=== PATIENT | male | born 1955 | race Caucasian/White ===

== ENCOUNTER 2018-04-12 10:03 | Inpatient (IN) | payer OTHER, SELFPAY ==
[2018-04-12] VITALS (12 sets, daily range): BP systolic 137–210; BP diastolic 76–90; PULSE 78–97; RESP 15–26; TEMP 36.1–36.8; O2SAT 96–99; BMI 24.4; BMI 24.9
--- NOTE | 2018-04-12 10:15 | EKG12_ITS ---
Test Reason : ABN LABS Blood Pressure : / mmHG Vent. Rate : 081 BPM Atrial Rate : 081 BPM P-R Int : 220 ms QRS Dur : 090 ms QT Int : 384 ms P-R-T Axes : 046 025 074 degrees QTc Int : 446 ms Sinus rhythm with 1st degree A-V block Otherwise normal ECG Confirmed by VAL MACIAS, YOLANDA ([id number]), development editor STEPHANIE CERRATO ([id number]) on 04/15/2018 1:57:29 PM Referred By: CIERRA Confirmed By:YOLANDA NEAL MD
--- NOTE | 2018-04-12 10:18 | ED.DCSUM_ITS ---
- ER Visit Summary Date of Service: 04/12/18 Chief Complaint: Abnormal labs History of Present Illness: The patient is a 62 M who had routine labs drawn last week for doctor's appointment. He was seen by the doctor at the [place] yesterday. His renal function had worsened and his potassium was slightly elevated. Labs were reportedly repeated after yesterday's visit and were further elevated. He had a phone call that he is to come in due to the worsening renal function and elevated potassium. Patient has no complaints at this time. Past history is significant for chronic renal failure, reflux disease, diabetes , hypertension, high cholesterol, coronary artery disease. He has had bypass surgery. Physical Examination: Vital signs are unremarkable. Patient is in no acute distress and is nontoxic appearing. Head and neck examination is normal. Heart is regular rate and rhythm. Palpable pulses are noted throughout. Lungs are clear with good air movement throughout. Abdomen is soft and nontender. Bowel sounds are noted. Extremity examination is unremarkable with full range of motion. Neurologic examination reveals no focal deficits. Test Results: CBC was normal white count with hemoglobin 10.7. Chemistry studies were potassium of 6.3, BUN of 80, creatinine of 5.47. Prior lab values here appear to show a baseline creatinine in the mid 2 range. EKG is sinus at 81 with a first-degree AV block. Peaked T waves are noted. Emergency Department Course and Treatment: Patient was given calcium, albuterol , Kayexalate, insulin, and glucose. We contacted the [place] [facility] but they state they have no monitored beds. Patient can be admitted here to this hospital. Hospitalist is on page at this time. Treatment Plan: [] Disposition: Admit Impression: 1. Acute on chronic renal failure 2. Hyperkalemia This note was generated with [employer] dictation software. It may contain incorrect words, spelling, and punctuation that were not noted in review of the chart prior to signing ED Disposition - Plan for ED Patient: Chief Complaint: Abn Labs Referrals: [facility] [Primary Care Provider] -
[2018-04-12 10:28] LABS: Absolute Lymphocyte Count 1.17 X10^3/ul (0.83-4.51); Absolute Neutrophil Count 5.3 X10^3/uL (2.0-7.7); Basophil# 0.07 X10^3/uL; Basophil% 0.9 % (0-1); Eosinophil# 0.21 X10^3/uL; Eosinophils% 2.8 % (0-5); Hematocrit 32.9 % (40-54); Hemoglobin 10.7 g/dl (13.0-16.5); Lymphocyte # 1.17 X10^3/ul (4.0); Lymphocyte % 15.5 % (19-41); Mean Corp Hgb Conc 32.5 g/gl (32-36); Mean Corpuscular Hgb 30.7 pg (27.0-32.0); Mean Corpuscular Volume 94.5 fL (80-94); Monocyte# 0.69 X10^3/uL; Monocyte% 9.1 % (0-10); Neutrophil # 5.34 X10^3/uL (2.7-7.7); Neutrophil % 70.8 % (47-70); POSITIVE COUNT NO; POSITIVE DIFFERENTIAL NO; POSITIVE MORPHOLOGY NO; Platelet Count 234 K/mm3 (150-450); RBC Distribution Width SD 46.1 fl (35.1-43.9); Red Blood Count 3.48 M/mm3 (4.6-6.2); White Blood Count 7.6 K/mm3 (4.4-11.0)
[2018-04-12] MEDS: 0.9% Normal Saline 1,000 ML 150 ML IV ×3 (10:30→23:22)
[2018-04-12 10:46] LABS: Anion Gap 9 (5-15); BUN 80 mg/dL (7-18); BUN/Creat Ratio 14.6 RATIO (10-20); Calcium,Total 8.8 mg/dL (8.5-10.1); Chloride 112 mmol/L (98-107); Creatinine, Serum 5.47 mg/dL (0.70-1.30); EST Glomerular Filtration Rate 11 mL/min (>60); Est Glom Filt Rate - Afr Amer 14 mL/min (>60); Estimated Creatinine Clearance 15.76 ml/min; Glucose 123 mg/dL (74-106); Potassium 6.3 mmol/L (3.5-5.1); Sodium Level 142 mmol/L (136-145)
--- NOTE | 2018-04-12 10:48 | ED.RN ---
lab called k 6.3. dr arteaga
[2018-04-12] MEDS: Albuterol 2.5 MG/3 ML VIAL.NEB. INHALATION (10:52)
--- NOTE | 2018-04-12 11:13 | NURSING ---
CALLED [facility] , LEFT MESSAGE ABOUT ADMISSION. DX RENAL FAILURE AND HYPERKALEMIA
[2018-04-12 11:15] LABS: Bedside Glucose 112 mg/dL (70-110)
[2018-04-12] MEDS: Sodium Polystyrene Sulfonate 15 GM/60 ML UDC 45 GM PO (11:31)
--- NOTE | 2018-04-12 11:43 | NURSING ---
CALLED [facility], LEFT ANOTHER MESSAGE WITH THE INFO THEY REQUEST.
--- NOTE | 2018-04-12 12:25 | NURSING ---
CALLED [facility] TRANSFER LINE, TALKED TO PANCHO. SHE WILL SEND INFO TO [facility]
--- NOTE | 2018-04-12 12:30 | NURSING ---
PER [facility], NO BEDS THERE. CAN BE ADMITTED HERE AND THEY WILL FOLLOW HIM
[2018-04-12] MEDS: Dextrose 50%-Water 25 GM/50 ML DISP.SYRIN IV (12:42)
--- NOTE | 2018-04-12 13:23 | US_ITS ---
STUDY: RENAL ULTRASOUND - COMPLETE REASON FOR EXAM: Male, 62 years old. Kidney failure. Patient on dialysis for 2 years. Abnormal labs. TECHNIQUE: Ultrasound evaluation of the kidneys was performed with real-time and static hensley-scale imaging. COMPARISON: None. FINDINGS: RIGHT KIDNEY: Normal location of the right kidney, which is normal in size. The right kidney measures 12.8 cm. There is mildly increased renal cortical echogenicity. The renal cortex measures 1.2 cm. There is a 3.7 x 3.6 x 2.9 cm simple cyst in the lower pole central sinus fat. There are no right renal calculi. There is no right hydronephrosis. DISTAL RIGHT URETER: There is non-visualization of the distal right ureter. There is no demonstrated right ureterovesical junction calculus. There is a visualized right ureteral jet. LEFT KIDNEY: Normal location of the left kidney, which is normal in size. The left kidney measures 11.2 cm. There is a normal cortex of the left kidney. The renal cortex measures 1.1 cm. There is no left renal mass or cyst. There are no left renal calculi. There is a 1.6 x 1.4 x 1.4 cm lower pole cyst. DISTAL LEFT URETER: There is non-visualization of the distal left ureter. There is no demonstrated left ureterovesical junction calculus. There is a visualized left ureteral jet. BLADDER: The incompletely distended urinary bladder has a volume of 66 ml. There is a normal wall thickness of the distended urinary bladder. There is no demonstrated mass within the urinary bladder. There are no demonstrated bladder calculi. US/Kidney and Bladder IMPRESSION: 1. Mildly increased renal cortical echogenicity of the right kidney. Question medical renal disease. 2. Bilateral renal cysts. 3. Incompletely distended but otherwise normal urinary bladder. Electronically Signed: Shaun Kitchen DO at 15:32 EDT Tel [phone], Service support ,
--- NOTE | 2018-04-12 13:52 | CM.ED ---
Attempted to perform initial case management assessment. Patient unavailable at time. Will return as available.
--- NOTE | 2018-04-12 14:06 | CM.ED ---
CM INITIAL ASSESSMENT: Patient is in ED at time of assessment, with at bedside. Home: Patient states he lives in a split level home with 7 steps and 4 steps. He states he has a stair lift. HHS/Aides: Patient does not currently have home health, but had [facility] within the past two years for knee rehab. DME: Patient states he has a walker, but does not use it regularly. Home Oxygen: Denies. Pharmacy: [facility] in [place]. Advance Directives: Denies and declines assistance at this time. PCP: [place] [facility]: [facility] Plan: Patient states he plans to return home upon discharge. Discussed, with patient and spouse, that Case Management team will provide [facility] the [facility] and that no beds are available at this time. Patient states understanding. CM will continue to follow for safe and effective discharge planning.
[2018-04-12 14:12] LABS: Anion Gap 9 (5-15); BUN 77 mg/dL (7-18); BUN/Creat Ratio 14.8 RATIO (10-20); Calcium,Total 8.4 mg/dL (8.5-10.1); Chloride 115 mmol/L (98-107); Creatinine, Serum 5.21 mg/dL (0.70-1.30); EST Glomerular Filtration Rate 12 mL/min (>60); Est Glom Filt Rate - Afr Amer 15 mL/min (>60); Estimated Creatinine Clearance 16.55 ml/min; Glucose 170 mg/dL (74-106); Potassium 6.1 mmol/L (3.5-5.1); Sodium Level 142 mmol/L (136-145)
--- NOTE | 2018-04-12 14:51 | NURSING ---
[facility]
--- NOTE | 2018-04-12 15:02 | PCM.HP.STD ---
Problem List (1) Abnormal outpatient creatinine Status: Acute History of Present Illness Date of Admission: 04/12/18 Chief Complaint: Normal outpatient creatinine The patient is a 62 year old M seen in the emergency room at [facility] after being instructed to go to the ER by his [place] crime investigator special agent due to abnormal labs showing an increase in his creatinine. Patient states his creatinine was 5, he states that his creatinine usually runs in the 2.6 range but he cannot tell this examiner what his creatinine was last week when it was checked at the [place]. Patient has no complaints of any shortness of breath, tremors, nausea, or vomiting. Lab was performed in the emergency room, it was remarkable for a potassium of 6.3, BUN of 80, creatinine of 5.47, and the patient's hemoglobin was 10.7. Patient's bicarb was normal. On examination, patient's lungs were clear, he was alert and appropriate and did not appear to be in any distress. I requested that the emergency room physician order an ultrasound of the kidneys to rule out any postobstructive kidney problem, patient will be admitted to PCU for acute renal failure, I will give him IV fluids, he was given a dose of Kayexalate in the emergency room, labs will be monitored, and he will be seen by nephrology-Dr. Mesa-who was notified by phone. Past Medical History Past Medical History (Chronic Problems): Chronic Problems Hyperlipidemia (Chronic) Type 2 diabetes mellitus (Chronic) Status post coronary artery bypass graft (Chronic) Coronary artery disease (Chronic) Hypertension (Chronic) Allergies No Known Allergies Allergy (Verified 04/12/18 10:05) Home Medications: Ambulatory Orders Medication Instructions Recorded Aspirin [Aspirin, Baby] 81 mg PO DAILY 06/07/16 Cholecalciferol (Vitamin D3) 5,000 unit PO DAILY 06/07/16 [Vitamin D3] Fludrocortisone Acetate [Florinef] 0.05 mg PO QHS 06/07/16 Fludrocortisone Acetate [Florinef] 0.1 mg PO DAILY@0800 06/07/16 Insulin Lispro [Humalog] 8 unit SQ TIDCM 06/07/16 Docusate Calcium [Stool Softener] 720 mg PO DAILY 09/01/16 Insulin Glargine,Hum.rec.anlog 14 unit SC QHS 05/31/17 [Lantus] Atorvastatin Calcium [Lipitor] 40 mg PO QHS 08/19/17 Lisinopril [Zestril] 10 mg PO DINNER 08/19/17 Metoprolol Succinate [Toprol Xl] 25 mg PO DAILY 08/19/17 Furosemide [Lasix] 40 mg PO DAILY PRN PRN 04/12/18 Midodrine HCl [Proamatine] 2.5 mg PO BID PRN PRN 04/12/18 Multivit-Min/Iron/Folic Acid/K 1 each PO DAILY 04/12/18 [Adults Multivitamin Caplet] Pantoprazole Sodium [Protonix] 40 mg PO DAILY 04/12/18 Surgical History: cholecystectomy, coronary bypass surgery - op, - - Pericardiac window, L inguinal hernia repair. Lumbar spinal surgery Psychiatric History: No pertinent psych hx Lives: Spouse/ Significant Other Smoking Status: Never smoker Tobacco Use: Non-smoker Alcohol: None Drugs: None - *Family History Maternal History Items: Diabetes, Heart Disease Paternal History Items: Diabetes, Heart Disease Review of Systems Constitutional: Denies: Anorexia, Chills, Fever, Night Sweats, Malaise, Weakness, Weight Change, Fatigue Eyes: Denies: Blurred vision, Cataracts, Conjunctivae Inflammation, Double vision, Drainage HEENT: Denies: Difficulty Swallowing, Dysphasia, Ear Pain, Eye Pain, Hard of Hearing, Head Aches, Hearing Changes, Nasal bleeding, Nasal Congestion, Post Nasal Drip Cardiovascular: Denies: Chest Pain, Claudication, Chest Pressure, Chest Tightness, Edema, Heaviness, Palpitations, Paroxysmal Noc. Dyspnea, Syncope Respiratory: Denies: Cough, Hemoptysis, Pleuritic Pain, Shortness of Breath, Shortness of breath at rest, Shortness of breath upon exertion, Sputum production, Wheezing Gastrointestinal: Denies: Abdominal Pain, Constipation, Diarrhea, Hematemesis, Hematochezia, Nausea, Melena, Vomiting Genitourinary: Denies: Dysuria, Frequency, Hematuria, Hesitancy, Nocturia, Retention, Urgency Musculoskeletal: Denies: Foot Pain, Hand Pain, Joint Pain, Joint stiffness, Joint swelling Skin: Denies: Dryness, Pruritis, Rash Neurological: Denies: Balance problems, Blurred vision, Double vision, Change in Speech, Slurred speech, Difficulty swallowing, Focal weakness, Headaches, Incoordination, Numbness, Tingling Psychiatric: Denies: Anxiety, Depression, Homicidal Ideations, Suicidal Ideations Endocrine: Denies: Change in Body Habitus, Heat/ Cold Intolerance, Polydipsia, Polyuria Hematologic/ Lymphatic: Denies: Adenopathy, Anemia, Easy Bruising, Easy Bleeding, Petechiae, Purpura VTE Information - Inpt Only VTE Present on Admission: No VTE Mechan Device Prophylaxis: None VTE Pharm Prophylaxis ordered?: Yes Patient Problems: Active and Suspected Problems Abnormal outpatient creatinine (Acute) - Physical Exam General: Alert, Oriented x3, Cooperative, No apparent distress, Well developed, Well nourished HEENT: Atraumatic, PERRLA, EOMI, Normocephalic Oral: Moist Mucosa Neck: Supple, No JVD, Negative Carotid Bruits, No Nuchal Rigidity, Trachea Midline, Thyroid Normal Size and Texture Lungs: Clear to auscultation, Normal air movement, No rhonchi, No wheeze, No rales Cardiovascular: Regular rate, Regular Rhythm, Normal S1, Normal S2, No murmurs, No Ectopic Activity, PMI Normal, No rub noted, No Gallop Abdomen: Bowel Sounds Present, Soft, Non Tender, Non-Distended, No hernias noted Extremities: No clubbing, No cyanosis, No edema, Capillary Refill Less than 3 Seconds Skin: No rashes, No breakdown Musculoskeletal: No Tenderness to Palpation of Joints or Extremities Neurological: Cranial nerves II-XII grossly intact, Neuro grossly intact, Sensory exam intact to light touch and pain, Coordination normal Psych/Mental Status: Normal Affect, Appropriate, Alert and oriented to time, place, person, mood and affect Vital Signs Temp Pulse Resp BP Pulse Ox 97 F L 89 18 198/90 H 97 04/12/18 12:49 04/12/18 12:49 04/12/18 12:49 04/12/18 12:49 04/12/18 12:48 Assessment/Plan Active and Suspected Problems Abnormal outpatient creatinine (Acute) #1 acute on chronic renal failure-suspect this may be secondary to dehydration, patient will be admitted to PCU, monitored on telemetry, even IV fluids, seen in consultation by nephrology, and labs will be monitored. #2 hypokalemia-patient's lisinopril will be stopped, he was given a dose of Kayexalate by the emergency room physician, labs will be rechecked #3 coronary artery disease-stable #4 hypertension-patient is taking midodrine due to a history of low blood pressure, I will stop the patient's midodrine and observe his blood pressure #5 type 2 diabetes-blood sugars will be monitored #6 hyperlipidemia Code Visit Inpatient E&M: 57411 Init Hosp L3
--- NOTE | 2018-04-12 15:11 | HP.PCM_ITS ---
Problem List (1) Abnormal outpatient creatinine Status: Acute History of Present Illness Date of Admission: 04/12/18 Chief Complaint: Normal outpatient creatinine The patient is a 62 year old M seen in the emergency room at [facility] after being instructed to go to the ER by his [place] director e learning due to abnormal labs showing an increase in his creatinine. Patient states his creatinine was 5, he states that his creatinine usually runs in the 2.6 range but he cannot tell this examiner what his creatinine was last week when it was checked at the [place]. Patient has no complaints of any shortness of breath, tremors, nausea, or vomiting. Lab was performed in the emergency room, it was remarkable for a potassium of 6.3, BUN of 80, creatinine of 5.47, and the patient's hemoglobin was 10.7. Patient's bicarb was normal. On examination, patient's lungs were clear, he was alert and appropriate and did not appear to be in any distress. I requested that the emergency room physician order an ultrasound of the kidneys to rule out any postobstructive kidney problem, patient will be admitted to PCU for acute renal failure, I will give him IV fluids, he was given a dose of Kayexalate in the emergency room, labs will be monitored, and he will be seen by nephrology-Dr. Mesa-who was notified by phone. Past Medical History Past Medical History (Chronic Problems): Chronic Problems Hyperlipidemia (Chronic) Type 2 diabetes mellitus (Chronic) Status post coronary artery bypass graft (Chronic) Coronary artery disease (Chronic) Hypertension (Chronic) Allergies No Known Allergies Allergy (Verified 04/12/18 10:05) Home Medications: Ambulatory Orders Medication Instructions Recorded Aspirin [Aspirin, Baby] 81 mg PO DAILY 06/07/16 Cholecalciferol (Vitamin D3) 5,000 unit PO DAILY 06/07/16 [Vitamin D3] Fludrocortisone Acetate [Florinef] 0.05 mg PO QHS 06/07/16 Fludrocortisone Acetate [Florinef] 0.1 mg PO DAILY@0800 06/07/16 Insulin Lispro [Humalog] 8 unit SQ TIDCM 06/07/16 Docusate Calcium [Stool Softener] 720 mg PO DAILY 09/01/16 Insulin Glargine,Hum.rec.anlog 14 unit SC QHS 05/31/17 [Lantus] Atorvastatin Calcium [Lipitor] 40 mg PO QHS 08/19/17 Lisinopril [Zestril] 10 mg PO DINNER 08/19/17 Metoprolol Succinate [Toprol Xl] 25 mg PO DAILY 08/19/17 Furosemide [Lasix] 40 mg PO DAILY PRN PRN 04/12/18 Midodrine HCl [Proamatine] 2.5 mg PO BID PRN PRN 04/12/18 Multivit-Min/Iron/Folic Acid/K 1 each PO DAILY 04/12/18 [Adults Multivitamin Caplet] Pantoprazole Sodium [Protonix] 40 mg PO DAILY 04/12/18 Surgical History: cholecystectomy, coronary bypass surgery - op, - - Pericardiac window, L inguinal hernia repair. Lumbar spinal surgery Psychiatric History: No pertinent psych hx Lives: Spouse/ Significant Other Smoking Status: Never smoker Tobacco Use: Non-smoker Alcohol: None Drugs: None - *Family History Maternal History Items: Diabetes, Heart Disease Paternal History Items: Diabetes, Heart Disease Review of Systems Constitutional: Denies: Anorexia, Chills, Fever, Night Sweats, Malaise, Weakness , Weight Change, Fatigue Eyes: Denies: Blurred vision, Cataracts, Conjunctivae Inflammation, Double vision, Drainage HEENT: Denies: Difficulty Swallowing, Dysphasia, Ear Pain, Eye Pain, Hard of Hearing, Head Aches, Hearing Changes, Nasal bleeding, Nasal Congestion, Post Nasal Drip Cardiovascular: Denies: Chest Pain, Claudication, Chest Pressure, Chest Tightness, Edema, Heaviness, Palpitations, Paroxysmal Noc. Dyspnea, Syncope Respiratory: Denies: Cough, Hemoptysis, Pleuritic Pain, Shortness of Breath, Shortness of breath at rest, Shortness of breath upon exertion, Sputum production, Wheezing Gastrointestinal: Denies: Abdominal Pain, Constipation, Diarrhea, Hematemesis, Hematochezia, Nausea, Melena, Vomiting Genitourinary: Denies: Dysuria, Frequency, Hematuria, Hesitancy, Nocturia, Retention, Urgency Musculoskeletal: Denies: Foot Pain, Hand Pain, Joint Pain, Joint stiffness, Joint swelling Skin: Denies: Dryness, Pruritis, Rash Neurological: Denies: Balance problems, Blurred vision, Double vision, Change in Speech, Slurred speech, Difficulty swallowing, Focal weakness, Headaches, Incoordination, Numbness, Tingling Psychiatric: Denies: Anxiety, Depression, Homicidal Ideations, Suicidal Ideations Endocrine: Denies: Change in Body Habitus, Heat/ Cold Intolerance, Polydipsia, Polyuria Hematologic/ Lymphatic: Denies: Adenopathy, Anemia, Easy Bruising, Easy Bleeding , Petechiae, Purpura VTE Information - Inpt Only VTE Present on Admission: No VTE Mechan Device Prophylaxis: None VTE Pharm Prophylaxis ordered?: Yes Patient Problems: Active and Suspected Problems Abnormal outpatient creatinine (Acute) - Physical Exam General: Alert, Oriented x3, Cooperative, No apparent distress, Well developed, Well nourished HEENT: Atraumatic, PERRLA, EOMI, Normocephalic Oral: Moist Mucosa Neck: Supple, No JVD, Negative Carotid Bruits, No Nuchal Rigidity, Trachea Midline, Thyroid Normal Size and Texture Lungs: Clear to auscultation, Normal air movement, No rhonchi, No wheeze, No rales Cardiovascular: Regular rate, Regular Rhythm, Normal S1, Normal S2, No murmurs, No Ectopic Activity, PMI Normal, No rub noted, No Gallop Abdomen: Bowel Sounds Present, Soft, Non Tender, Non-Distended, No hernias noted Extremities: No clubbing, No cyanosis, No edema, Capillary Refill Less than 3 Seconds Skin: No rashes, No breakdown Musculoskeletal: No Tenderness to Palpation of Joints or Extremities Neurological: Cranial nerves II-XII grossly intact, Neuro grossly intact, Sensory exam intact to light touch and pain, Coordination normal Psych/Mental Status: Normal Affect, Appropriate, Alert and oriented to time, place, person, mood and affect Vital Signs Temp Pulse Resp BP Pulse Ox 97 F L 89 18 198/90 H 97 04/12/18 12:49 04/12/18 12:49 04/12/18 12:49 04/12/18 12:49 04/12/18 12:48 Assessment/Plan Active and Suspected Problems Abnormal outpatient creatinine (Acute) #1 acute on chronic renal failure-suspect this may be secondary to dehydration, patient will be admitted to PCU, monitored on telemetry, even IV fluids, seen in consultation by nephrology, and labs will be monitored. #2 hypokalemia-patient's lisinopril will be stopped, he was given a dose of Kayexalate by the emergency room physician, labs will be rechecked #3 coronary artery disease-stable #4 hypertension-patient is taking midodrine due to a history of low blood pressure, I will stop the patient's midodrine and observe his blood pressure #5 type 2 diabetes-blood sugars will be monitored #6 hyperlipidemia Code Visit Inpatient E&M: 46630 Init Hosp L3
--- NOTE | 2018-04-12 15:20 | PCM.CONS.R ---
Consultation - Renal 04/12/18 PCP/ Referring MD: Requesting physician: [] Primary care physician: [facility] Reason for Consultation:: ROBINSON on CKD stage 3, hyperkalemia - History of Present Illness History of Present Illness: The patient is a 62 year old M known to me with CKD stage 3 with diabetic nephropathy, hx ATN following CABG requiring temporary hemodialysis last dialysis on 06/29/16 admitted via ER for ROBINSON, hyperkalemia found on routine blood work drawn last week for f/u appt with [facility]. He was seen by [facility] doctor in [place] yesterday and was told to go to ER for no improvement in labs from yesterday. Creatinine was elevated at 5.47 from baseline 2.6 in Jul 2017. Potassium elevated at 6.3 with metabolic acidosis. He received dose of kayexalate in ER. He did not have a BM yet. BP was elevated in the ER at 210/88 on midodrine and florinef at home. He has a history of orthostatic hypotension, near syncope started on midodrine by [facility] roving technician back in September 2017. BP at home have been at 150 systolic. No labs were done between July 2017 and this month. He has been followed by [place] carving machine operator annually with last appt in September 2017. He was last seen by me in the office on 10/27/16. He denied nausea, vomiting, diarrhea. Appetite good. No change in urine output. Denied CP, SOB, edema. No fever, chills, no recent flu. Denied NSAID use or recent iv contrast studies. Complained of fatigue for several months. Denied tremors. He has been disabled for two years, unemployed and is eligible for Medicare Oct 29, 2018. He would like to return to his independent physicians after he is on medicare. - Allergies Allergies: Allergies No Known Allergies Allergy (Verified 04/12/18 10:05) - Current Medications Current Medications: Current Medications Sodium Chloride () 1,000 mls @ 150 mls/hr IV .Q6H40M [facility] Last Admin: 04/12/18 10:30 Dose: 150 mls/hr - Past Medical History Past Medical History (Chronic Problems): Chronic Problems Hyperlipidemia (Chronic) Type 2 diabetes mellitus (Chronic) Status post coronary artery bypass graft (Chronic) Coronary artery disease (Chronic) Hypertension (Chronic) - Past Surgical History Surgical History: cholecystectomy, coronary bypass surgery - op, - - Pericardial window, L inguinal hernia repair. Lumbar spinal surgery - Social History Marital Status: Smoking Status: Never smoker Alcohol: None Drugs: None - Family History Maternal History Items: Diabetes, Heart Disease Paternal History Items: Diabetes, Heart Disease Review of Systems Constitutional: Reports: Fatigue. Denies: Anorexia, Chills, Fever, Malaise, Weakness Eyes: Denies: Blurred vision HEENT: Denies: Head Aches Cardiovascular: Denies: Chest Pain, Edema, Syncope Respiratory: Denies: Cough, Shortness of Breath Gastrointestinal: Denies: Abdominal Pain, Diarrhea, Hematemesis, Nausea, Vomiting Genitourinary: Reports: Frequency. Denies: Dysuria, Retention Skin: Denies: Pruritis, Rash Neurological: Denies: Balance problems Psychiatric: Denies: Anxiety, Depression Hematologic/ Lymphatic: Reports: Anemia. Denies: Hx of blood clot Patient Problems: Active and Suspected Problems Hyperkalemia (Acute) Abnormal outpatient creatinine (Acute) - Physical Exam General: Alert, Oriented x3, Cooperative, No apparent distress HEENT: PERRLA, EOMI Oral: Dry Mucosa Neck: Supple Lungs: Clear to auscultation Cardiovascular: Regular rate Abdomen: Bowel Sounds Present, Soft, Non Tender, Non-Distended Extremities: No edema Skin: No rashes Musculoskeletal: No Muscle Wasting Neurological: Cranial nerves II-XII grossly intact, Muscle tone normal, - - no tremor Psych/Mental Status: Normal Affect, Appropriate, Alert and oriented to time, place, person, mood and affect Vital Signs Temp Pulse Resp BP Pulse Ox 98.1 F 85 22 H 184/88 H 98 04/12/18 15:19 04/12/18 15:19 04/12/18 15:19 04/12/18 15:19 04/12/18 15:19 Oxygen Delivery Method Room Air Weight: 81.1 kg Body Mass Index (BMI) 24.9 Clinical Impression(s) from Imaging Studies Renal Ultrasound 04/12/18 13:23 IMPRESSION: 1. Mildly increased renal cortical echogenicity of the right kidney. Question medical renal disease. 2. Bilateral renal cysts. 3. Incompletely distended but otherwise normal urinary bladder. Electronically Signed: Shaun Kitchen DO at 15:32 EDT Tel [phone], Service support , Assessment/Plan Active and Suspected Problems Hyperkalemia (Acute) Abnormal outpatient creatinine (Acute) 1. ROBINSON on CKD Stage 3. Baseline creatinine 2.6 in Jul 2017 now at 5.47 to 5.2. Currently without uremic symptoms other than weakness. Initiate iv fluids. Discussed dialysis if renal fxn does not improve with iv fluids. Renal US reviewed with radiology. Bilateral renal cysts without hydronephrosis. Check FeNa, phos, PTH, vit D. 2. Hyperkalemia agree with discontinuation of lisinopril. Follow low K diet. 3. Uncontrolled hypertension. Hold midodrine and florinef. 4. DM2 check UPCR 5. Anemia check iron studies 6. CAD s/p CABG in 2016 requiring temp hemodialysis for ATN. Last dialysis 8.2015.
--- NOTE | 2018-04-12 15:24 | CON.PCM_ITS ---
Consultation - Renal 04/12/18 PCP/ Referring MD: Requesting physician: [] Primary care physician: [facility] Reason for Consultation:: ROBINSON on CKD stage 3, hyperkalemia - History of Present Illness History of Present Illness: The patient is a 62 year old M known to me with CKD stage 3 with diabetic nephropathy, hx ATN following CABG requiring temporary hemodialysis last dialysis on 06/29/16 admitted via ER for ROBINSON, hyperkalemia found on routine blood work drawn last week for f/u appt with [facility]. He was seen by [facility] doctor in [place] yesterday and was told to go to ER for no improvement in labs from yesterday. Creatinine was elevated at 5.47 from baseline 2.6 in Jul 2017. Potassium elevated at 6.3 with metabolic acidosis. He received dose of kayexalate in ER. He did not have a BM yet. BP was elevated in the ER at 210/88 on midodrine and florinef at home. He has a history of orthostatic hypotension, near syncope started on midodrine by [facility] black ash worker back in September 2017. BP at home have been at 150 systolic. No labs were done between July 2017 and this month. He has been followed by [facility] relay telegrapher annually with last appt in September 2017. He was last seen by me in the office on 10/27/16. He denied nausea, vomiting, diarrhea. Appetite good. No change in urine output. Denied CP, SOB, edema. No fever, chills, no recent flu. Denied NSAID use or recent iv contrast studies. Complained of fatigue for several months. Denied tremors. He has been disabled for two years, unemployed and is eligible for Medicare Oct 29, 2018. He would like to return to his independent physicians after he is on medicare. - Allergies Allergies: Allergies No Known Allergies Allergy (Verified 04/12/18 10:05) - Current Medications Current Medications: Current Medications Sodium Chloride () 1,000 mls @ 150 mls/hr IV .Q6H40M [facility] Last Admin: 04/12/18 10:30 Dose: 150 mls/hr - Past Medical History Past Medical History (Chronic Problems): Chronic Problems Hyperlipidemia (Chronic) Type 2 diabetes mellitus (Chronic) Status post coronary artery bypass graft (Chronic) Coronary artery disease (Chronic) Hypertension (Chronic) - Past Surgical History Surgical History: cholecystectomy, coronary bypass surgery - op, - - Pericardial window, L inguinal hernia repair. Lumbar spinal surgery - Social History Marital Status: Smoking Status: Never smoker Alcohol: None Drugs: None - Family History Maternal History Items: Diabetes, Heart Disease Paternal History Items: Diabetes, Heart Disease Review of Systems Constitutional: Reports: Fatigue. Denies: Anorexia, Chills, Fever, Malaise, Weakness Eyes: Denies: Blurred vision HEENT: Denies: Head Aches Cardiovascular: Denies: Chest Pain, Edema, Syncope Respiratory: Denies: Cough, Shortness of Breath Gastrointestinal: Denies: Abdominal Pain, Diarrhea, Hematemesis, Nausea, Vomiting Genitourinary: Reports: Frequency. Denies: Dysuria, Retention Skin: Denies: Pruritis, Rash Neurological: Denies: Balance problems Psychiatric: Denies: Anxiety, Depression Hematologic/ Lymphatic: Reports: Anemia. Denies: Hx of blood clot Patient Problems: Active and Suspected Problems Hyperkalemia (Acute) Abnormal outpatient creatinine (Acute) - Physical Exam General: Alert, Oriented x3, Cooperative, No apparent distress HEENT: PERRLA, EOMI Oral: Dry Mucosa Neck: Supple Lungs: Clear to auscultation Cardiovascular: Regular rate Abdomen: Bowel Sounds Present, Soft, Non Tender, Non-Distended Extremities: No edema Skin: No rashes Musculoskeletal: No Muscle Wasting Neurological: Cranial nerves II-XII grossly intact, Muscle tone normal, - - no tremor Psych/Mental Status: Normal Affect, Appropriate, Alert and oriented to time, place, person, mood and affect Vital Signs Temp Pulse Resp BP Pulse Ox 98.1 F 85 22 H 184/88 H 98 04/12/18 15:19 04/12/18 15:19 04/12/18 15:19 04/12/18 15:19 04/12/18 15:19 Oxygen Delivery Method Room Air Weight: 81.1 kg Body Mass Index (BMI) 24.9 Clinical Impression(s) from Imaging Studies Renal Ultrasound 04/12/18 13:23 IMPRESSION: 1. Mildly increased renal cortical echogenicity of the right kidney. Question medical renal disease. 2. Bilateral renal cysts. 3. Incompletely distended but otherwise normal urinary bladder. Electronically Signed: Shaun Kitchen DO at 15:32 EDT Tel [phone], Service support , Assessment/Plan Active and Suspected Problems Hyperkalemia (Acute) Abnormal outpatient creatinine (Acute) 1. ROBINSON on CKD Stage 3. Baseline creatinine 2.6 in Jul 2017 now at 5.47 to 5.2. Currently without uremic symptoms other than weakness. Initiate iv fluids. Discussed dialysis if renal fxn does not improve with iv fluids. Renal US reviewed with radiology. Bilateral renal cysts without hydronephrosis. Check FeNa, phos, PTH, vit D. 2. Hyperkalemia agree with discontinuation of lisinopril. Follow low K diet. 3. Uncontrolled hypertension. Hold midodrine and florinef. 4. DM2 check UPCR 5. Anemia check iron studies 6. CAD s/p CABG in 2016 requiring temp hemodialysis for ATN. Last dialysis 8.2015.
[2018-04-12 16:55] LABS: Bedside Glucose 108 mg/dL (70-110)
[2018-04-12 21:32] LABS: Anion Gap 9 (5-15); BUN 77 mg/dL (7-18); BUN/Creat Ratio 14.8 RATIO (10-20); Calcium,Total 8.2 mg/dL (8.5-10.1); Chloride 114 mmol/L (98-107); Creatinine, Serum 5.19 mg/dL (0.70-1.30); EST Glomerular Filtration Rate 12 mL/min (>60); Est Glom Filt Rate - Afr Amer 15 mL/min (>60); Estimated Creatinine Clearance 16.12 ml/min; Glucose 123 mg/dL (74-106); Potassium 5.7 mmol/L (3.5-5.1); Sodium Level 142 mmol/L (136-145)
[2018-04-12] MEDS: Heparin Injection (Vial) 5,000 UNIT/ML VIAL 5000 UNIT SC (21:39)
[2018-04-12] MEDS: Atorvastatin Calcium 40 MG Tablet PO (21:40)
[2018-04-12 21:45] LABS: Bedside Glucose 94 mg/dL (70-110)
[2018-04-12 22:28] LABS: Bacteria 0 SEEN /hpf (None Seen); Mucous, Urine 0 SEEN /hpf (<or=2+); White Blood Cells 0 SEEN /hpf (0-5)
[2018-04-12 22:32] LABS: Color, Urine Yellow (Yellow); Glucose, Dipstick 100 mg/dl (Normal); Ketone-Dipstick Negative (Negative); Leukocyte Esterase-Dipstick Negative /ul (Negative); Nitrite-Dipstick Negative (Negative); Occult Blood-Urine 25 /ul (Negative); Protein-Dipstick 500 mg/dl (Negative); Specific Gravity, Urine 1.015 (1.002-1.030); Urine Bilirubin Dipstick Negative (Negative); Urine Clarity Sl. Cloudy (Clear); Urine Urobilinogen Normal (Normal)
[2018-04-12 22:33] LABS: Urine Sodium 64 mmol/L (Not Establ.)
[2018-04-12 22:47] LABS: Hyaline Cast 0-5 SEEN /lpf (0-5); Red Blood Cells-Urine 0-5 SEEN /hpf (0-5); Squamous Epithelial Cells - UA 0-5 SEEN /hpf (0-5)
[2018-04-12 22:48] LABS: Amorphous Sediment 1+ URATE
[2018-04-12 22:49] LABS: Protein, Urine (Random) 632.1 mg/dL (<11.9)
[2018-04-13] VITALS (11 sets, daily range): BP systolic 146–170; BP diastolic 65–98; PULSE 75–92; RESP 14–16; TEMP 36.4–36.8; O2SAT 98–99
[2018-04-13] MEDS: 0.9% Normal Saline 1,000 ML 150 ML IV (05:32)
[2018-04-13 05:42] LABS: Hemoglobin 9.5 g/dl (13.0-16.5); Mean Corp Hgb Conc 31.7 g/gl (32-36); Mean Corpuscular Hgb 30.1 pg (27.0-32.0); Mean Corpuscular Volume 94.9 fL (80-94); Mean Platelet Vol. 11.2 fl (6.2-12.0); Platelet Count 220 K/mm3 (150-450); RBC Distribution Width CV 14.1 % (11.6-14.6); RBC Distribution Width SD 46.6 fl (35.1-43.9); Red Blood Count 3.16 M/mm3 (4.6-6.2); White Blood Count 6.8 K/mm3 (4.4-11.0)
[2018-04-13 06:05] LABS: Albumin, Serum 2.5 g/dL (3.2-5.0); BUN 69 mg/dL (7-18); BUN/Creat Ratio 14.4 RATIO (10-20); Calcium,Total 8.3 mg/dL (8.5-10.1); Chloride 116 mmol/L (98-107); EST Glomerular Filtration Rate 13 mL/min (>60); Est Glom Filt Rate - Afr Amer 16 mL/min (>60); Estimated Creatinine Clearance 17.43 ml/min; Ferritin 176 ng/mL (26-388); Glucose 79 mg/dL (74-106); Iron 63 ug/dL (65-175); Phosphorus 5.7 mg/dL (2.5-4.9); Potassium 5.6 mmol/L (3.5-5.1); Sodium Level 144 mmol/L (136-145)
[2018-04-13 06:18] LABS: Scan Indicated on CBC? Y/N NO
[2018-04-13 06:50] LABS: Bedside Glucose 91 mg/dL (70-110)
[2018-04-13] MEDS: Aspirin 81 MG TAB.CHEW PO (07:53)
--- NOTE | 2018-04-13 08:59 | PCM.PN.REN ---
Patient Problems: Active and Suspected Problems Hyperkalemia (Acute) Abnormal outpatient creatinine (Acute) Subjective: Denies any nausea vomiting or shortness of breath. Denies chest pain or edema. Creatinine and potassium slightly improved. - Physical Exam General: Alert, Oriented x3, Cooperative Oral: Dry Mucosa Lungs: Clear to auscultation Cardiovascular: Regular rate, Murmur Abdomen: Bowel Sounds Present, Soft, Non Tender, Non-Distended Extremities: No edema Musculoskeletal: No Muscle Wasting Neurological: Cranial nerves II-XII grossly intact, - - No tremor Psych/Mental Status: Normal Affect, Appropriate, Alert and oriented to time, place, person, mood and affect Vital Signs Temp Pulse Resp BP Pulse Ox 97.6 F L 92 16 161/84 H 98 04/13/18 05:26 04/13/18 06:53 04/13/18 05:26 04/13/18 05:26 04/13/18 05:26 Oxygen Delivery Method Room Air Weight: 81.1 kg Body Mass Index (BMI) 24.9 Intake and Output for Last 24 Hours 04/11/18 04/12/18 04/13/18 23:59 23:59 23:59 Intake Total 1224 / 1224 916 / 916 Balance 1224 / 1224 916 / 916 Laboratory Tests Past 24 Hrs 04/12/18 04/12/18 04/12/18 19:12 19:12 19:12 WBC RBC Hgb Hct MCV MCH MCHC RDW RDW Differential Plt Count MPV Sodium Potassium Chloride Carbon Dioxide Anion Gap BUN Creatinine Estim Creat Clear Calc Est GFR (MDRD) Af Amer Est GFR (MDRD) Non-Af BUN/Creatinine Ratio Glucose Calcium Phosphorus Iron Ferritin Albumin Vitamin D 25-Hydroxy PTH Intact Urine Color Urine Clarity Urine pH Ur Specific [place] Urine Protein Urine Glucose (UA) Urine Ketones Urine Occult Blood Urine Nitrite Urine Bilirubin Urine Urobilinogen Ur Leukocyte Esterase Urine RBC Urine WBC Ur Squamous Epith Cells Amorphous Sediment Urine Bacteria Hyaline Casts Urine Mucus U Random Total Protein 632.1 H Ur Random Sodium 64 Urine Creatinine 71.00 04/12/18 04/12/18 04/13/18 19:12 20:47 05:10 WBC RBC Hgb Hct MCV MCH MCHC RDW RDW Differential Plt Count MPV Sodium 142 144 Potassium 5.7 H 5.6 H Chloride 114 H 116 H Carbon Dioxide 19.0 L 21.0 Anion Gap 9 BUN 77 H 69 H Creatinine 5.19 H 4.80 H Estim Creat Clear Calc 16.12 17.43 Est GFR (MDRD) Af Amer 15 L 16 L Est GFR (MDRD) Non-Af 12 L 13 L BUN/Creatinine Ratio 14.8 14.4 Glucose 123 H 79 Calcium 8.2 L 8.3 L Phosphorus 5.7 H Iron 63 L Ferritin 176 Albumin 2.5 L Vitamin D 25-Hydroxy PTH Intact Urine Color Yellow Urine Clarity Sl. Cloudy Urine pH 6.0 Ur Specific [place] 1.015 Urine Protein 500 H Urine Glucose (UA) 100 H Urine Ketones Negative Urine Occult Blood 25 H Urine Nitrite Negative Urine Bilirubin Negative Urine Urobilinogen Normal Ur Leukocyte Esterase Negative Urine RBC 0-5 SEEN Urine WBC 0 SEEN Ur Squamous Epith Cells 0-5 SEEN Amorphous Sediment 1+ URATE Urine Bacteria 0 SEEN Hyaline Casts 0-5 SEEN Urine Mucus 0 SEEN U Random Total Protein Ur Random Sodium Urine Creatinine 04/13/18 04/13/18 04/13/18 05:10 05:10 05:10 WBC 6.8 RBC 3.16 L Hgb 9.5 L Hct 30.0 L MCV 94.9 H MCH 30.1 MCHC 31.7 L RDW 14.1 RDW Differential 46.6 H Plt Count 220 MPV 11.2 Sodium Potassium Chloride Carbon Dioxide Anion Gap BUN Creatinine Estim Creat Clear Calc Est GFR (MDRD) Af Amer Est GFR (MDRD) Non-Af BUN/Creatinine Ratio Glucose Calcium Phosphorus Iron Ferritin Albumin Vitamin D 25-Hydroxy Pending PTH Intact Pending Urine Color Urine Clarity Urine pH Ur Specific [place] Urine Protein Urine Glucose (UA) Urine Ketones Urine Occult Blood Urine Nitrite Urine Bilirubin Urine Urobilinogen Ur Leukocyte Esterase Urine RBC Urine WBC Ur Squamous Epith Cells Amorphous Sediment Urine Bacteria Hyaline Casts Urine Mucus U Random Total Protein Ur Random Sodium Urine Creatinine POC Glucose 04/13/18 04/12/18 04/12/18 06:47 21:35 16:46 POC Glucose 91 94 108 Medical Necessity - Tobacco Use Smoking Status: Never smoker Tobacco Use: Non-smoker Assessment/Plan Active and Suspected Problems Hyperkalemia (Acute) Abnormal outpatient creatinine (Acute) 1. ROBINSON on CKD Stage 3. Baseline creatinine 2.6 in Jul 2017 5.47 to 5.2 yesterday now at 4.8 nonoliguric. Currently without uremic symptoms other than weakness. Decrease iv fluids. Check FeNa, phos, PTH, vit D. 2. Hyperkalemia agree with discontinuation of lisinopril. Follow low K diet. 3. Uncontrolled hypertension. Hold midodrine and florinef. 4. DM2 check UPCR 5. Anemia check iron studies 6. CAD s/p CABG in 2016 requiring temp hemodialysis for ATN. Last dialysis 8.
[2018-04-13 09:22] LABS: PTHIN 276.4 pg/mL (18.4-80.1)
[2018-04-13 09:49] LABS: Vitamin D,25 Hydroxy 28.4 ng/mL (29.95-100.01)
[2018-04-13] MEDS: 0.9% Normal Saline 1,000 ML 75 ML IV ×2 (10:08→15:43)
[2018-04-13] MEDS: Pantoprazole Sodium 40 MG Tablet PO (10:09)
[2018-04-13] MEDS: Metoprolol(XL)Succ 25 MG Tablet PO (10:09)
[2018-04-13 11:20] LABS: Bedside Glucose 141 mg/dL (70-110)
--- NOTE | 2018-04-13 11:37 | CASEMGMT ---
Updated clinicals faxed to [facility] at this time. Maryuri CHARLES CM
[2018-04-13 17:00] LABS: Bedside Glucose 133 mg/dL (70-110)
--- NOTE | 2018-04-13 17:08 | PCM.PROGNOTE ---
Patient Problems: Active and Suspected Problems Hyperkalemia (Acute) Abnormal outpatient creatinine (Acute) Subjective: Patient was seen and examined today, he is continuing to produce urine, creatinine and BUN are improved. I talked briefly with nephrology about his medical care. - Physical Exam General: Alert, Oriented x3, Cooperative, No apparent distress, Well developed, Well nourished HEENT: Atraumatic, PERRLA, EOMI, Normocephalic Oral: Moist Mucosa Neck: Supple, No JVD, Negative Carotid Bruits, No Nuchal Rigidity, Trachea Midline, Thyroid Normal Size and Texture Lungs: Clear to auscultation, Normal air movement, No rhonchi, No wheeze, No rales Cardiovascular: Regular rate, Regular Rhythm, Normal S1, Normal S2, No murmurs, No Ectopic Activity, PMI Normal, No rub noted, No Gallop Abdomen: Bowel Sounds Present, Soft, Non Tender, Non-Distended, No hernias noted Extremities: No clubbing, No cyanosis, No edema, Capillary Refill Less than 3 Seconds Skin: No rashes, No breakdown Musculoskeletal: No Tenderness to Palpation of Joints or Extremities Neurological: Cranial nerves II-XII grossly intact, Neuro grossly intact, Muscle tone normal, Sensory exam intact to light touch and pain, Coordination normal Psych/Mental Status: Normal Affect, Appropriate, Alert and oriented to time, place, person, mood and affect Vital Signs Temp Pulse Resp BP Pulse Ox 98 F 76 16 148/71 H 99 04/13/18 16:05 04/13/18 16:05 04/13/18 16:05 04/13/18 16:05 04/13/18 16:05 Oxygen Delivery Method Room Air Weight: 81.1 kg Body Mass Index (BMI) 24.9 Intake and Output for Last 24 Hours 04/11/18 04/12/18 04/13/18 23:59 23:59 23:59 Intake Total 1224 / 1224 1886 Balance 1224 / 1224 1886 Laboratory Tests Past 24 Hrs 04/12/18 04/12/18 04/12/18 19:12 19:12 19:12 WBC RBC Hgb Hct MCV MCH MCHC RDW RDW Differential Plt Count MPV Sodium Potassium Chloride Carbon Dioxide Anion Gap BUN Creatinine Estim Creat Clear Calc Est GFR (MDRD) Af Amer Est GFR (MDRD) Non-Af BUN/Creatinine Ratio Glucose Calcium Phosphorus Iron Ferritin Albumin Vitamin D 25-Hydroxy PTH Intact Urine Color Urine Clarity Urine pH Ur Specific [place] Urine Protein Urine Glucose (UA) Urine Ketones Urine Occult Blood Urine Nitrite Urine Bilirubin Urine Urobilinogen Ur Leukocyte Esterase Urine RBC Urine WBC Ur Squamous Epith Cells Amorphous Sediment Urine Bacteria Hyaline Casts Urine Mucus U Random Total Protein 632.1 H Ur Random Sodium 64 Urine Creatinine 71.00 04/12/18 04/12/18 04/13/18 19:12 20:47 05:10 WBC RBC Hgb Hct MCV MCH MCHC RDW RDW Differential Plt Count MPV Sodium 142 144 Potassium 5.7 H 5.6 H Chloride 114 H 116 H Carbon Dioxide 19.0 L 21.0 Anion Gap 9 BUN 77 H 69 H Creatinine 5.19 H 4.80 H Estim Creat Clear Calc 16.12 17.43 Est GFR (MDRD) Af Amer 15 L 16 L Est GFR (MDRD) Non-Af 12 L 13 L BUN/Creatinine Ratio 14.8 14.4 Glucose 123 H 79 Calcium 8.2 L 8.3 L Phosphorus 5.7 H Iron 63 L Ferritin 176 Albumin 2.5 L Vitamin D 25-Hydroxy PTH Intact Urine Color Yellow Urine Clarity Sl. Cloudy Urine pH 6.0 Ur Specific [place] 1.015 Urine Protein 500 H Urine Glucose (UA) 100 H Urine Ketones Negative Urine Occult Blood 25 H Urine Nitrite Negative Urine Bilirubin Negative Urine Urobilinogen Normal Ur Leukocyte Esterase Negative Urine RBC 0-5 SEEN Urine WBC 0 SEEN Ur Squamous Epith Cells 0-5 SEEN Amorphous Sediment 1+ URATE Urine Bacteria 0 SEEN Hyaline Casts 0-5 SEEN Urine Mucus 0 SEEN U Random Total Protein Ur Random Sodium Urine Creatinine 04/13/18 04/13/18 04/13/18 05:10 05:10 05:10 WBC 6.8 RBC 3.16 L Hgb 9.5 L Hct 30.0 L MCV 94.9 H MCH 30.1 MCHC 31.7 L RDW 14.1 RDW Differential 46.6 H Plt Count 220 MPV 11.2 Sodium Potassium Chloride Carbon Dioxide Anion Gap BUN Creatinine Estim Creat Clear Calc Est GFR (MDRD) Af Amer Est GFR (MDRD) Non-Af BUN/Creatinine Ratio Glucose Calcium Phosphorus Iron Ferritin Albumin Vitamin D 25-Hydroxy 28.4 L PTH Intact 276.4 H Urine Color Urine Clarity Urine pH Ur Specific [place] Urine Protein Urine Glucose (UA) Urine Ketones Urine Occult Blood Urine Nitrite Urine Bilirubin Urine Urobilinogen Ur Leukocyte Esterase Urine RBC Urine WBC Ur Squamous Epith Cells Amorphous Sediment Urine Bacteria Hyaline Casts Urine Mucus U Random Total Protein Ur Random Sodium Urine Creatinine POC Glucose 04/13/18 04/13/18 04/13/18 16:54 11:13 06:47 POC Glucose 133 H 141 H 91 04/12/18 21:35 POC Glucose 94 Medical Necessity - Tobacco Use Smoking Status: Never smoker Tobacco Use: Non-smoker Assessment/Plan Active and Suspected Problems Hyperkalemia (Acute) Abnormal outpatient creatinine (Acute) #1 acute on chronic renal failure-suspect this may be secondary to dehydration, nephrology is adjusting his fluid administration, labs will be rechecked #2 [id number] will be rechecked #3 coronary artery disease-stable #4 hypertension-patient's blood pressure is stable at this time #5 type 2 diabetes-blood sugars will be monitored #6 hyperlipidemia Code Visit Inpatient E&M: 55200 Subs Hosp L2
[2018-04-13] MEDS: Atorvastatin Calcium 40 MG Tablet PO (21:51)
[2018-04-13 23:50] LABS: Bedside Glucose 136 mg/dL (70-110)
[2018-04-14 03:01] VITALS: BP 160/89; PULSE 82; RESP 14; TEMP 36.6; O2SAT 96
[2018-04-14 03:05] VITALS: PULSE 85
[2018-04-14] MEDS: 0.9% Normal Saline 1,000 ML 75 ML IV (03:07)
[2018-04-14 06:33] LABS: Hematocrit 26.9 % (40-54); Hemoglobin 8.7 g/dl (13.0-16.5); Mean Corp Hgb Conc 32.3 g/gl (32-36); Mean Corpuscular Volume 92.8 fL (80-94); Mean Platelet Vol. 10.9 fl (6.2-12.0); Platelet Count 196 K/mm3 (150-450); RBC Distribution Width CV 14.2 % (11.6-14.6); RBC Distribution Width SD 48.4 fl (35.1-43.9); White Blood Count 6.3 K/mm3 (4.4-11.0)
[2018-04-14 06:38] LABS: Scan Indicated on CBC? Y/N NO
[2018-04-14 06:40] LABS: Albumin, Serum 2.2 g/dL (3.2-5.0); BUN 63 mg/dL (7-18); BUN/Creat Ratio 14.6 RATIO (10-20); Chloride 117 mmol/L (98-107); Creatinine, Serum 4.32 mg/dL (0.70-1.30); EST Glomerular Filtration Rate 15 mL/min (>60); Est Glom Filt Rate - Afr Amer 18 mL/min (>60); Estimated Creatinine Clearance 19.37 ml/min; Glucose 80 mg/dL (74-106); Phosphorus 5.4 mg/dL (2.5-4.9); Potassium 5.4 mmol/L (3.5-5.1); Sodium Level 144 mmol/L (136-145)
[2018-04-14 06:54] VITALS: PULSE 84
[2018-04-14 06:55] LABS: Bedside Glucose 74 mg/dL (70-110)
[2018-04-14] MEDS: Aspirin 81 MG TAB.CHEW PO (07:43)
--- NOTE | 2018-04-14 07:48 | PCM.DC ---
- Discharge Diagnoses Current Active Problems: Current Active and Chronic Problems Hyperkalemia (Acute) Abnormal outpatient creatinine (Acute) You will use the following diet at home:: Calorie/Carbohydrate Controlled (specify 1200, 1400, etc) - 1800 dustin Your food should be the consistency of: Mechanical soft (ground) Your liquids should be the consistency of: Regular/Thin Discharge Activity: Return to Normal Activity Weight Bearing Status: Full weight bearing Allergies/Adverse Reactions: Allergies No Known Allergies Allergy (Verified 04/12/18 10:05) Medications to take at Discharge Aspirin [Aspirin, Baby] 81 mg PO DAILY 06/07/16 Cholecalciferol (Vitamin D3) [Vitamin D3] 5,000 unit PO DAILY 06/07/16 Insulin Lispro [Humalog] 8 - 10 unit SQ TIDCM 06/07/16 Docusate Calcium [Stool Softener] 720 mg PO DAILY PRN PRN 09/01/16 Insulin Glargine,Hum.rec.anlog [Lantus] 10 unit SC QHS 05/31/17 Atorvastatin Calcium [Lipitor] 40 mg PO QHS 08/19/17 Metoprolol Succinate [Toprol Xl] 25 mg PO DAILY 08/19/17 Multivit-Min/Iron/Folic Acid/K [Adults Multivitamin Caplet] 1 each PO DAILY 04/12/18 Pantoprazole Sodium [Protonix] 40 mg PO DAILY 04/12/18 Primary Care Physician: [facility] [Primary Care Provider] - Please follow up with your Primary Care Physician in: within one week
[2018-04-14] MEDS: Sodium Polystyrene Sulfonate 15 GM/60 ML UDC 30 GM PO (08:07)
--- NOTE | 2018-04-14 08:47 | PN.RENAL_ITS ---
Patient Problems: Active and Suspected Problems Hyperkalemia (Acute) Abnormal outpatient creatinine (Acute) Subjective: no complaints of nausea, vomiting, shortness of breath. [facility] since renal fxn not back to baseline. - Physical Exam General: Alert, Oriented x3, Cooperative, No apparent distress Lungs: Clear to auscultation Cardiovascular: Regular rate Abdomen: Bowel Sounds Present, Soft, Non Tender, Non-Distended Extremities: No edema Neurological: Cranial nerves II-XII grossly intact Psych/Mental Status: Normal Affect, Alert and oriented to time, place, person, mood and affect Vital Signs Temp Pulse Resp BP Pulse Ox 98 F 84 14 160/89 H 96 04/14/18 03:01 04/14/18 06:54 04/14/18 03:01 04/14/18 03:01 04/14/18 03:01 Oxygen Delivery Method Room Air Weight: 81.1 kg Body Mass Index (BMI) 24.9 Intake and Output for Last 24 Hours 04/12/18 04/13/18 04/14/18 23:59 23:59 23:59 Intake Total 1224 / 1224 3639 / 3639 662 / 662 Balance 1224 / 1224 3639 / 3639 662 / 662 Laboratory Tests Past 24 Hrs 04/13/18 04/13/18 04/14/18 05:10 05:10 05:40 WBC RBC Hgb Hct MCV MCH MCHC RDW RDW Differential Plt Count MPV Sodium 144 Potassium 5.4 H Chloride 117 H Carbon Dioxide 20.0 L BUN 63 H Creatinine 4.32 H Estim Creat Clear Calc 19.37 Est GFR (MDRD) Af Amer 18 L Est GFR (MDRD) Non-Af 15 L BUN/Creatinine Ratio 14.6 Glucose 80 Calcium 8.0 L Phosphorus 5.4 H Albumin 2.2 L Vitamin D 25-Hydroxy 28.4 L PTH Intact 276.4 H 04/14/18 05:40 WBC 6.3 RBC 2.90 L Hgb 8.7 L Hct 26.9 L MCV 92.8 MCH 30.0 MCHC 32.3 RDW 14.2 RDW Differential 48.4 H Plt Count 196 MPV 10.9 Sodium Potassium Chloride Carbon Dioxide BUN Creatinine Estim Creat Clear Calc Est GFR (MDRD) Af Amer Est GFR (MDRD) Non-Af BUN/Creatinine Ratio Glucose Calcium Phosphorus Albumin Vitamin D 25-Hydroxy PTH Intact POC Glucose 04/14/18 04/13/18 04/13/18 06:49 21:43 16:54 POC Glucose 74 136 H 133 H 04/13/18 11:13 POC Glucose 141 H Medical Necessity - Tobacco Use Smoking Status: Never smoker Tobacco Use: Non-smoker Assessment/Plan Active and Suspected Problems Hyperkalemia (Acute) Abnormal outpatient creatinine (Acute) 1. ROBINSON on CKD Stage 3. Baseline creatinine 2.6 in Jul 2017 now at 4.32 nonoliguric. Currently without uremic symptoms other than weakness. Will need f/ u labs and appt with [place] nephrology next week. 2. Hyperkalemia continue to hold lisinopril on discharge. 3. Uncontrolled hypertension. Hold midodrine and florinef. Hx of orthostasis. Check BP as outpt and determine if needs antihypertensives started 4. DM2 with proteinuria. Lisinopril on hold due to hyperkalemia. 5. Anemia recommend oral iron daily 6. CAD s/p CABG in 2016 requiring temp hemodialysis for ATN. Last dialysis 8.2015. 7. Secondary hyperparathyroidism start calcitriol
[2018-04-14 08:50] VITALS: BP 155/69; PULSE 81; RESP 16; TEMP 36.7; O2SAT 100
[2018-04-14 09:03] VITALS: BP 155/69; PULSE 81
[2018-04-14] MEDS: Metoprolol(XL)Succ 25 MG Tablet PO (09:03)
[2018-04-14] MEDS: Pantoprazole Sodium 40 MG Tablet PO (09:03)
[2018-04-14] MEDS: Calcitriol 0.25 MCG Capsule PO (10:37)
--- NOTE | 2018-04-14 14:20 | CASEMGMT ---
[place] [facility] [place] [facility] updated that pt discharged 04/14/18, voices understanding. Maryuri CHARLES CM
--- NOTE | 2018-04-14 17:12 | PCM.DC.SUM ---
Discharge Date and Diagnosis - Problem List Patient Problems: Active and Suspected Problems Hyperkalemia (Acute) Date of Admission: 04/12/18 Date of Discharge: 04/14/18 - Primary Discharge Diagnosis Active and Suspected Problems #1 acute kidney injury on chronic kidney disease stage III #2 hyperkalemia #3 hypertension #4 type 2 diabetes #5 iron deficiency anemia #6 coronary artery disease #7 hyperlipidemia - Secondary Discharge Diagnosis Chronic Problems Hyperlipidemia (Chronic) Type 2 diabetes mellitus (Chronic) Status post coronary artery bypass graft (Chronic) Coronary artery disease (Chronic) Hypertension (Chronic) Hospital Course and Treatment Operations: None Procedures: None Summary of Care Provided: The patient is a 62 year old M seen in the emergency room at [facility] after being sent there for evaluation after abnormal labs were obtained as an outpatient. Patient has a history of chronic kidney disease and is being seen by the [facility] who did labs last week and then repeated the labs the day before he was seen in the emergency room, due to the change in the labs from last week, he was instructed to go to the emergency room for evaluation. Patient was told his creatinine was 5 as an outpatient-he states his normal creatinine usually is around 2.6. Lab was obtained in the emergency room it showed the patient's creatinine to be 5.47, BUN was 80, potassium was 6.3. CBC was remarkable for hemoglobin of 10.7. Patient had an ultrasound of the kidneys performed which showed mildly increased renal cortical echogenicity of the right kidney, bilateral renal cysts, and no sign of hydronephrosis. Patient was admitted to PCU, given IV fluids, his blood pressure was elevated and his Midodrine was held. Patient's Lasix was also held, he was seen in consultation by nephrology and his labs were monitored. Patient's creatinine improved over his hospitalization, patient remained anemic and iron studies showed that he had iron deficiency anemia. On 04/14/18, patient was seen and examined felt to be in stable condition for discharge home. Discharge Activity: Return to Normal Activity Weight Bearing Status: Full weight bearing Home Medications: Medications to take at Discharge Aspirin [Aspirin, Baby] 81 mg PO DAILY 06/07/16 Cholecalciferol (Vitamin D3) [Vitamin D3] 5,000 unit PO DAILY 06/07/16 Insulin Lispro [Humalog] 8 - 10 unit SQ TIDCM 06/07/16 Docusate Calcium [Stool Softener] 720 mg PO DAILY PRN PRN 09/01/16 Insulin Glargine,Hum.rec.anlog [Lantus] 10 unit SC QHS 05/31/17 Atorvastatin Calcium [Lipitor] 40 mg PO QHS 08/19/17 Metoprolol Succinate [Toprol Xl] 25 mg PO DAILY 08/19/17 Multivit-Min/Iron/Folic Acid/K [Adults Multivitamin Caplet] 1 each PO DAILY 04/12/18 Pantoprazole Sodium [Protonix] 40 mg PO DAILY 04/12/18 Primary Care Physician: [facility],[place] [Primary Care Provider] - Please follow up with your Primary Care Physician in: within one week Please Follow Up With: Cesar GARSIA When: 1 week (soonest available) Disposition: Home Minutes spent on discharge:: 31 Patient Condition:: Stable Medical Necessity - Tobacco Use Smoking Status: Never smoker Tobacco Use: Non-smoker Meaningful Use Info Meaningful Use Diagnoses (Choose all that apply): None applicable Code Visit Inpatient E&M: 99524 Disch Hosp
--- NOTE | 2018-04-14 17:19 | DS.PCM_ITS ---
Discharge Date and Diagnosis - Problem List Patient Problems: Active and Suspected Problems Hyperkalemia (Acute) Date of Admission: 04/12/18 Date of Discharge: 04/14/18 - Primary Discharge Diagnosis Active and Suspected Problems #1 acute kidney injury on chronic kidney disease stage III #2 hyperkalemia #3 hypertension #4 type 2 diabetes #5 iron deficiency anemia #6 coronary artery disease #7 hyperlipidemia - Secondary Discharge Diagnosis Chronic Problems Hyperlipidemia (Chronic) Type 2 diabetes mellitus (Chronic) Status post coronary artery bypass graft (Chronic) Coronary artery disease (Chronic) Hypertension (Chronic) Hospital Course and Treatment Operations: None Procedures: None Summary of Care Provided: The patient is a 62 year old M seen in the emergency room at [facility] after being sent there for evaluation after abnormal labs were obtained as an outpatient. Patient has a history of chronic kidney disease and is being seen by the [facility] who did labs last week and then repeated the labs the day before he was seen in the emergency room, due to the change in the labs from last week, he was instructed to go to the emergency room for evaluation. Patient was told his creatinine was 5 as an outpatient-he states his normal creatinine usually is around 2.6. Lab was obtained in the emergency room it showed the patient's creatinine to be 5.47, BUN was 80, potassium was 6.3. CBC was remarkable for hemoglobin of 10.7. Patient had an ultrasound of the kidneys performed which showed mildly increased renal cortical echogenicity of the right kidney, bilateral renal cysts, and no sign of hydronephrosis. Patient was admitted to PCU, given IV fluids, his blood pressure was elevated and his Midodrine was held. Patient's Lasix was also held, he was seen in consultation by nephrology and his labs were monitored. Patient's creatinine improved over his hospitalization, patient remained anemic and iron studies showed that he had iron deficiency anemia. On 04/14/18, patient was seen and examined felt to be in stable condition for discharge home. Discharge Activity: Return to Normal Activity Weight Bearing Status: Full weight bearing Home Medications: Medications to take at Discharge Aspirin [Aspirin, Baby] 81 mg PO DAILY 06/07/16 Cholecalciferol (Vitamin D3) [Vitamin D3] 5,000 unit PO DAILY 06/07/16 Insulin Lispro [Humalog] 8 - 10 unit SQ TIDCM 06/07/16 Docusate Calcium [Stool Softener] 720 mg PO DAILY PRN PRN 09/01/16 Insulin Glargine,Hum.rec.anlog [Lantus] 10 unit SC QHS 05/31/17 Atorvastatin Calcium [Lipitor] 40 mg PO QHS 08/19/17 Metoprolol Succinate [Toprol Xl] 25 mg PO DAILY 08/19/17 Multivit-Min/Iron/Folic Acid/K [Adults Multivitamin Caplet] 1 each PO DAILY Pantoprazole Sodium [Protonix] 40 mg PO DAILY 04/12/18 Primary Care Physician: [facility],[place] [Primary Care Provider] - Please follow up with your Primary Care Physician in: within one week Please Follow Up With: Cesar GARSIA When: 1 week (soonest available) Disposition: Home Minutes spent on discharge:: 31 Patient Condition:: Stable Medical Necessity - Tobacco Use Smoking Status: Never smoker Tobacco Use: Non-smoker Meaningful Use Info Meaningful Use Diagnoses (Choose all that apply): None applicable Code Visit Inpatient E&M: 42819 Disch Hosp
--- NOTE | 2018-04-15 15:25 | CASEMGMT ---
RN CM DC F/U Phone Call. Intro role of CM. Pt feeling better, no questions re: prescriptions, f/u appointments. States care was very good, no suggestions for improvement. Poornima STINSONN RN ACM
== END 2018-04-14 10:48 | disposition home or self-care (01) | DRG 684 ==
LOC: ED 10:42 → PCU 14:53
PROVIDERS: Internal Medicine Nephrology; Admitting Provider Internal Medicine; Emergency Provider Emergency Medicine; Visit Provider Internal Medicine
DX: N17.9 Acute kidney failure, unspecified (principal); I12.9 Hypertensive chronic kidney disease with stage 1 through stage 4 chronic kidney disease, or unspecified chronic kidney disease; E11.22 Type 2 diabetes mellitus with diabetic chronic kidney disease; N18.3 Chronic kidney disease, stage 3 (moderate); E87.5 Hyperkalemia; E86.0 Dehydration; I25.10 Atherosclerotic heart disease of native coronary artery without angina pectoris; Z95.1 Presence of aortocoronary bypass graft; K21.9 Gastro-esophageal reflux disease without esophagitis; E78.5 Hyperlipidemia, unspecified; Z79.82 Long term (current) use of aspirin; Z79.4 Long term (current) use of insulin; Z79.899 Other long term (current) drug therapy; N25.81 Secondary hyperparathyroidism of renal origin; D50.9 Iron deficiency anemia, unspecified
CPT/HCPCS: 36415; 76770; 80048; 80069; 81001; 82306; 82570; 82728; 82962; 83540; 83970; 84156; 84300; 85025; 85027; 93005; 94640; 99283; J7030; A4216; J0610

== ENCOUNTER 2018-05-15 13:45 | Inpatient (IN) | payer OTHER, SELFPAY ==
[2018-05-15] VITALS (11 sets, daily range): BP systolic 117–168; BP diastolic 62–71; PULSE 70–85; RESP 16–19; TEMP 36.3–36.8; O2SAT 95–99; BMI 24.8; BMI 24.9; BMI 25.0
--- NOTE | 2018-05-15 14:14 | RAD_ITS ---
STUDY: X-RAY CHEST REASON FOR EXAM: Male, 62 years old. Shortness of breath TECHNIQUE: Frontal view of the chest COMPARISON: 08/19/2017 FINDINGS: There is a left-sided central catheter with its tip in the superior vena cava. The lungs are clear. There are no pleural effusions. There is no pneumothorax. The heart is mildly enlarged, but stable in size. The patient is status post sternotomy. RAD/Chest 1 View (Portable) IMPRESSION: No acute thoracic pathology. Electronically Signed: Ben Love, at 15:06 EDT Tel , Service support ,
--- NOTE | 2018-05-15 14:14 | EKG12_ITS ---
Test Reason : SOB Blood Pressure : / mmHG Vent. Rate : 070 BPM Atrial Rate : 070 BPM P-R Int : 200 ms QRS Dur : 100 ms QT Int : 462 ms P-R-T Axes : 043 018 075 degrees QTc Int : 498 ms Normal sinus rhythm Normal ECG Confirmed by YOLANDA NEAL MD ([id number]), production editor STEPHANIE CERRATO ([id number]) on 05/18/2018 3:48:52 PM Referred By: YISEL Confirmed By:YOLANDA NEAL MD
[2018-05-15] MEDS: Ipratropium/Albuterol Sulfate 3 ML AMPUL.NEB INHALATION (14:36)
[2018-05-15] MEDS: Albuterol 2.5 MG/3 ML VIAL.NEB. INHALATION ×3 (14:36→15:15)
[2018-05-15 14:47] LABS: Absolute Lymphocyte Count 1.13 X10^3/ul (0.83-4.51); Absolute Neutrophil Count 2.9 X10^3/uL (2.0-7.7); Basophil# 0.03 X10^3/uL; Basophil% 0.6 % (0-1); Eosinophil# 0.27 X10^3/uL; Eosinophils% 5.4 % (0-5); Hematocrit 24.7 % (40-54); Hemoglobin 8.3 g/dl (13.0-16.5); Lymphocyte # 1.13 X10^3/ul (4.0); Lymphocyte % 22.5 % (19-41); Mean Corp Hgb Conc 33.6 g/gl (32-36); Mean Corpuscular Volume 92.2 fL (80-94); Mean Platelet Vol. 10.6 fl (6.2-12.0); Monocyte# 0.71 X10^3/uL; Monocyte% 14.1 % (0-10); Neutrophil # 2.86 X10^3/uL (2.7-7.7); Neutrophil % 56.8 % (47-70); Platelet Count 163 K/mm3 (150-450); Red Blood Count 2.68 M/mm3 (4.6-6.2)
[2018-05-15] MEDS: Acetaminophen 500 MG Tablet 1000 MG PO (14:47)
[2018-05-15 14:48] LABS: POSITIVE COUNT NO; POSITIVE DIFFERENTIAL NO; POSITIVE MORPHOLOGY NO
[2018-05-15 14:52] LABS: Bacteria 0 SEEN /hpf (None Seen); Mucous, Urine 0 SEEN /hpf (<or=2+); Red Blood Cells-Urine 0 SEEN /hpf (0-5); Squamous Epithelial Cells - UA 0 SEEN /hpf (0-5); White Blood Cells 0 SEEN /hpf (0-5)
--- NOTE | 2018-05-15 14:53 | ED.VISSUMM ---
- ER Visit Summary Date of Service: 05/15/18 Chief Complaint: Shortness of breath History of Present Illness: The patient is a 62 M presenting with shortness of breath and fatigue times 4 days. He also complains of midsternal chest pain. He has had temperatures up to 101 at home. He has had a productive cough. He had dialysis on Wednesday and completed the course of dialysis. He recently started dialysis 2 weeks ago. He is not a smoker. No other complaints. Physical Examination: Vitals are stable. Patient is afebrile. Alert no acute distress. HEENT exam is unremarkable. Neck is supple. Lungs are wheezing bilaterally. Heart is regular rate and rhythm. Abdomen is soft nontender nondistended. Extremities are unremarkable. Skin is warm and dry. No focal neurologic deficit. Remainder of exam is unremarkable. Emergency Department Course and Treatment: EKG normal sinus rhythm rate of 70. He was given aspirin, albuterol, Atrovent. CBC shows a hemoglobin of 8.3. Chemistries show potassium 3.4, glucose 240, BUN 58, creatinine 4.94. Urinalysis positive for glucose. Troponin is indeterminate 0.049. Chest x-ray shows no acute process. Lungs have improvement after aerosols. Will discuss with the hospitalist for observation. Disposition: Observation Impression: Chest pain, indeterminate troponin This note was generated with yep[employer] dictation software. It may contain incorrect words, spelling, and punctuation that were not noted in review of the chart prior to signing ED Disposition - Plan for ED Patient: Chief Complaint: Shortness of Breath Referrals: [facility],[place] [Primary Care Provider] -
[2018-05-15 14:55] LABS: Color, Urine Yellow (Yellow); Glucose, Dipstick 1000 mg/dl (Normal); Ketone-Dipstick Negative (Negative); Leukocyte Esterase-Dipstick Negative /ul (Negative); Nitrite-Dipstick Negative (Negative); Occult Blood-Urine 10 /ul (Negative); Protein-Dipstick 500 mg/dl (Negative); Urine Bilirubin Dipstick Negative (Negative); Urine Clarity Clear (Clear); Urine Urobilinogen Normal (Normal)
--- NOTE | 2018-05-15 14:56 | ED.DCSUM_ITS ---
- ER Visit Summary Date of Service: 05/15/18 Chief Complaint: Shortness of breath History of Present Illness: The patient is a 62 M presenting with shortness of breath and fatigue times 4 days. He also complains of midsternal chest pain. He has had temperatures up to 101 at home. He has had a productive cough. He had dialysis on Wednesday and completed the course of dialysis. He recently started dialysis 2 weeks ago. He is not a smoker. No other complaints. Physical Examination: Vitals are stable. Patient is afebrile. Alert no acute distress. HEENT exam is unremarkable. Neck is supple. Lungs are wheezing bilaterally. Heart is regular rate and rhythm. Abdomen is soft nontender nondistended. Extremities are unremarkable. Skin is warm and dry. No focal neurologic deficit. Remainder of exam is unremarkable. Emergency Department Course and Treatment: EKG normal sinus rhythm rate of 70. He was given aspirin, albuterol, Atrovent. CBC shows a hemoglobin of 8.3. Chemistries show potassium 3.4, glucose 240, BUN 58, creatinine 4.94. Urinalysis positive for glucose. Troponin is indeterminate 0.049. Chest x-ray shows no acute process. Lungs have improvement after aerosols. Will discuss with the hospitalist for observation. Disposition: Observation Impression: Chest pain, indeterminate troponin This note was generated with Angella Joy dictation software. It may contain incorrect words, spelling, and punctuation that were not noted in review of the chart prior to signing ED Disposition - Plan for ED Patient: Chief Complaint: Shortness of Breath Referrals: [facility],[place] [Primary Care Provider] -
[2018-05-15 15:05] LABS: Anion Gap 11 (5-15); BUN 58 mg/dL (7-18); BUN/Creat Ratio 11.7 RATIO (10-20); Calcium,Total 7.7 mg/dL (8.5-10.1); Chloride 99 mmol/L (98-107); Creatinine, Serum 4.94 mg/dL (0.70-1.30); EST Glomerular Filtration Rate 13 mL/min (>60); Est Glom Filt Rate - Afr Amer 16 mL/min (>60); Estimated Creatinine Clearance 16.94 ml/min; Glucose 240 mg/dL (74-106); Potassium 3.4 mmol/L (3.5-5.1); Sodium Level 136 mmol/L (136-145)
[2018-05-15] MEDS: Aspirin 325 MG Tablet PO (16:02)
--- NOTE | 2018-05-15 16:03 | ECHOD_ITS ---
Reason For Study: DYSPNEA Procedure This was a 2D Doppler, Color Flow transthoracic echocardiogram. Exam performed portable in patient room. Left Ventricle Normal LV size. The estimated ejection fraction is 53 %. Stage 1 diastolic dysfunction. No regional wall motion abnormalities noted. Right Ventricle Normal RV size. Normal systolic function. Atria The left atrium is mildly enlarged. Normal right atrium. Mitral Valve Mild diffuse mitral valve thickening. Trivial eccentric mitral valve insufficiency. Tricuspid Valve Normal tricuspid valve. Unable to estimate RV systolic pressure due to inadequate jet, pulmonary artery pressure probably normal. Aortic Valve Trisinus/trileaflet aortic valve. Mild focal aortic valve calcification. Pulmonic Valve Normal pulmonic valve. Great Vessels Normal aortic root. The pulmonary artery is normal size. Normal inferior vena cava. Pericardium/Pleural No pericardial effusion. MMode/2D Measurements & Calculations LVIDd: 5.3 cm IVSd: 0.96 cm Ao root diam: 3.3 cm LVIDs: 3.7 cm LVPWd: 1.1 cm RVDd: 3.2 cm FS: 29.9 % LAV(MOD-bp): 73.1 ml LA A4 area: 22.6 cm2 RA A4 area: 19.2 cm2 LAV(MOD-bp) Indexed: 36.3 ml/m2 LAV(MOD-sp2): 72.3 ml LAV(MOD-sp4): 63.4 ml Doppler Measurements & Calculations MV E max yoel: 91.4 cm/sec Ao V2 max: 189.6 cm/sec LV V1 max: 152.0 cm/sec MV A max yoel: 107.6 cm/sec Ao max P.4 mmHg LV V1 max P.2 mmHg MV E/A: 0.85 Interpretation Summary Normal LV size. The estimated ejection fraction is 53 %. Stage 1 diastolic dysfunction. Trivial eccentric mitral valve insufficiency. Compared to prior study, there is no significant change. Ordering Physician: Oscar Valero Referring Physician: Nikki Ma MD Performed By: Michaelle Knapp, PASCALE, RVT
--- NOTE | 2018-05-15 16:59 | EKG12_ITS ---
Test Reason : CP ADMISSION Blood Pressure : / mmHG Vent. Rate : 085 BPM Atrial Rate : 085 BPM P-R Int : 186 ms QRS Dur : 094 ms QT Int : 476 ms P-R-T Axes : 059 029 090 degrees QTc Int : 566 ms Normal sinus rhythm with sinus arrhythmia Left ventricular hypertrophy with repolarization abnormality Prolonged QT Abnormal ECG Confirmed by VAL MACIAS, YOLANDA ([id number]), photography editor STEPHANIE CERRATO ([id number]) on 05/19/2018 10:18:42 AM Referred By: AMY Confirmed By:YOLANDA NEAL MD
[2018-05-15 17:55] LABS: Bedside Glucose 191 mg/dL (70-110)
--- NOTE | 2018-05-15 18:18 | PCM.HP.STD ---
Problem List (1) Hyperlipidemia Status: Chronic (2) Type 2 diabetes mellitus Status: Chronic (3) Acute on chronic renal failure Status: Chronic Comment: Requiring hemodialysis. (4) Pleural effusion, left Status: Chronic (5) Status post coronary artery bypass graft Status: Chronic (6) Coronary artery disease Status: Chronic (7) Hypertension Status: Chronic History of Present Illness Date of Admission: 05/15/18 Chief Complaint: Shortness of breath This is a 62 M past medical history of end-stage renal disease who started hemodialysis 2 weeks ago, he presented to the ED today with sternal chest pain, shortness of breath and fatigue . He also reported fever of 101 Fahrenheit but no fever was recorded since coming to the emergency room. His chest x-ray does not show pneumonia but he has significant wheezing bilaterally. Was given bronchodilator therapy in the emergency room and his breathing did improve. He denied any chest pain at the time of my evaluation. [facility] and was negative and he does not want to undergo any further stress testing. Past Medical History Past Medical History (Chronic Problems): Chronic Problems Hyperlipidemia (Chronic) Type 2 diabetes mellitus (Chronic) Acute on chronic renal failure (Chronic) Requiring hemodialysis. Pleural effusion, left (Chronic) Status post coronary artery bypass graft (Chronic) Coronary artery disease (Chronic) Hypertension (Chronic) Allergies No Known Allergies Allergy (Verified 05/15/18 13:48) Home Medications: Ambulatory Orders Medication Instructions Recorded Aspirin [Aspirin, Baby] 81 mg PO DAILY 06/07/16 Cholecalciferol (Vitamin D3) 5,000 unit PO DAILY 06/07/16 [Vitamin D3] Insulin Lispro [Humalog] 8 - 10 unit SQ TIDCM 06/07/16 Docusate Calcium [Stool Softener] 720 mg PO DAILY PRN PRN 09/01/16 Multivit-Min/Iron/Folic Acid/K 1 each PO DAILY 04/12/18 [Adults Multivitamin Caplet] Pantoprazole Sodium [Protonix] 40 mg PO DAILY 04/12/18 B Complex W-C No.20/Folic Acid 1 mg PO TID 05/15/18 [Nephrocaps Softgel] Fludrocortisone Acetate [Florinef] 0.1 mg PO DAILY@0800 PRN 05/15/18 Midodrine HCl [Proamatine] 2.5 mg PO DAILY PRN 05/15/18 Simvastatin 40 mg PO QHS 05/15/18 Albuterol Aerosols [Ventolin 2.5 mg INHALATION Q6H PRN PRN #28 05/17/18 Aerosols] vial.neb. Cholecalciferol (VIT D3) [Vitamin 5,000 unit PO DAILY tab 05/17/18 D3] Doxycycline 100 mg PO BID #5 cap 05/17/18 Insulin Glargine [Lantus SoloStar 14 units SC QHS pen 05/17/18 Pen] Ipratropium/Albuterol Sulfate 3 ml INHALATION Q4HWA.RT #42 05/17/18 [Duoneb] ampul.neb Nebulizer [Lc Star] 1 ea MC UD #1 ea 05/17/18 Prednisone 40 mg PO DAILY #8 tab 05/17/18 Surgical History: cholecystectomy, coronary bypass surgery - op, - - Pericardial window, L inguinal hernia repair. Lumbar spinal surgery Smoking Status: Never smoker - *Family History Maternal History Items: Diabetes, Heart Disease Paternal History Items: Diabetes, Heart Disease Review of Systems Comment: All Systems were reviewed with pertinent positives mentioned in the HPI above. VTE Information - Inpt Only VTE Present on Admission: No VTE Mechan Device Prophylaxis: SCD's VTE Pharm Prophylaxis ordered?: No - Physical Exam Vital Signs Temp Pulse Resp BP Pulse Ox 97.6 F L 81 18 168/70 H 95 05/15/18 16:52 05/15/18 17:14 05/15/18 16:52 05/15/18 16:52 05/15/18 17:00 Oxygen Delivery Method Room Air Weight: 81.5 kg Body Mass Index (BMI) 25.0 Laboratory Tests Past 24 Hrs 05/15/18 17:10 Troponin I 0.046 H POC Glucose 05/15/18 17:48 POC Glucose 191 H Assessment/Plan All Active Problems Hyperkalemia (Acute) Abnormal outpatient creatinine (Acute) 1. Acute bronchitis; we will place him on bronchodilator therapy IV steroids and p.o. doxycycline. 2. Atypical chest pain; and is chronically mildly elevated due to his chronic kidney disease. He reports having had a stress test about 6 months ago and does not want to undergo any stress test at this time, due to associated dyspnea I will obtain an echocardiogram to evaluate his LV function and go from there. 3. End stage renal disease on hemodialysis Dr. Mesa will be consulted for inpatient dialysis. 4. DVT ppx with SC Heparin
[2018-05-15] MEDS: Atorvastatin Calcium 20 MG Tablet PO (22:50)
[2018-05-15] MEDS: Doxycycline 100 MG CAPSULE PO (22:50)
[2018-05-15 23:01] LABS: Bedside Glucose 223 mg/dL (70-110)
[2018-05-16] VITALS (15 sets, daily range): BP systolic 131–184; BP diastolic 62–91; PULSE 80–98; RESP 14–20; TEMP 36.7–36.8; O2SAT 93–97
[2018-05-16 05:38] LABS: Hematocrit 23.7 % (40-54); Hemoglobin 7.8 g/dl (13.0-16.5); Mean Corp Hgb Conc 32.9 g/gl (32-36); Mean Corpuscular Hgb 30.7 pg (27.0-32.0); Mean Corpuscular Volume 93.3 fL (80-94); Mean Platelet Vol. 10.9 fl (6.2-12.0); Platelet Count 155 K/mm3 (150-450); RBC Distribution Width CV 12.3 % (11.6-14.6); RBC Distribution Width SD 40.4 fl (35.1-43.9); Red Blood Count 2.54 M/mm3 (4.6-6.2)
[2018-05-16 05:50] LABS: Anion Gap 11 (5-15); BUN 60 mg/dL (7-18); BUN/Creat Ratio 12.1 RATIO (10-20); Calcium,Total 7.7 mg/dL (8.5-10.1); Chloride 100 mmol/L (98-107); Creatinine, Serum 4.96 mg/dL (0.70-1.30); EST Glomerular Filtration Rate 13 mL/min (>60); Est Glom Filt Rate - Afr Amer 15 mL/min (>60); Estimated Creatinine Clearance 16.87 ml/min; Glucose 194 mg/dL (74-106); Potassium 3.6 mmol/L (3.5-5.1); Sodium Level 139 mmol/L (136-145)
[2018-05-16] MEDS: Folic Acid/Vitamin B Comp W-C 1 Capsule 1 CAP PO ×3 (06:13→23:37)
[2018-05-16 06:25] LABS: Scan Indicated on CBC? Y/N NO
[2018-05-16 06:56] LABS: Bedside Glucose 163 mg/dL (70-110)
[2018-05-16] MEDS: Insulin Lispro 100 UNIT/ML INSULN.PEN 10 UNIT SC ×3 (08:02→18:15)
[2018-05-16] MEDS: Aspirin 81 MG TAB.CHEW PO (10:05)
[2018-05-16] MEDS: Multivitamins,Therapeutic Tablet 1 TABLET PO (10:05)
[2018-05-16] MEDS: predniSONE 20 MG Tablet 40 MG PO (10:05)
[2018-05-16] MEDS: Doxycycline 100 MG CAPSULE PO ×2 (10:06→23:23)
[2018-05-16] MEDS: Pantoprazole Sodium 40 MG Tablet PO (10:06)
--- NOTE | 2018-05-16 11:33 | PCM.CONS.R ---
Consultation - Renal 05/16/18 PCP/ Referring MD: Requesting physician: Primary care physician: [facility] Reason for Consultation:: ESRD HD MWF, renal mgmt - History of Present Illness History of Present Illness: This is a 62 year old M well known to me with end-stage renal disease due to diabetes started at the [facility] about 2 weeks ago with a tunneled dialysis catheter, subsequently transferred to [facility] dialysis center in [place] last week, history of ATN requiring temporary hemodialysis several years ago following his open heart surgery. His last dialysis was Wednesday at outpatient clinic. He presented to the ED on 05/15 with sternal chest pain, shortness of breath and fatigue. He also reported fever of 101 Fahrenheit, chills, nausea with anorexia. His chest x-ray does not show pneumonia but he has significant wheezing bilaterally. He admits to productive cough with green colored phlegm. Breathing improved with bronchodilator therapy and antibiotics. He denied any chest pain at the time of my evaluation. He had positive troponin levels. Cardiology consulted. He was scheduled for vein mapping later this week with follow-up appointment with Dr. Gan for access placement. - Allergies Allergies: Allergies No Known Allergies Allergy (Verified 05/15/18 13:48) - Current Medications Current Medications: Current Medications Albuterol Sulfate (Ventolin Aerosols) 2.5 mg INHALATION Q2H PRN PRN PRN Reason: dyspnea, wheezing Albuterol/Ipratropium (Duoneb) 3 ml INHALATION Q4HWA.RT [facility] Aspirin (Aspirin, Baby) 81 mg PO DAILY@0800 [facility] Last Admin: 05/16/18 10:05 Dose: 81 mg Atorvastatin Calcium (Lipitor) 20 mg PO QHS [facility] Last Admin: 05/15/18 22:50 Dose: 20 mg Cholecalciferol (Vitamin D) 5,000 unit PO DAILY [facility] Last Admin: 05/16/18 10:06 Dose: 5,000 unit Doxycycline Monohydrate (Doxycycline) 100 mg PO BID [facility] Last Admin: 05/16/18 10:06 Dose: 100 mg Fludrocortisone Acetate (Florinef) 0.1 mg PO DAILY@0800 PRN PRN Reason: BLOOD PRESSURE DROPS Guaifenesin (Mucinex) 1,200 mg PO BID [facility] Heparin Sodium (Porcine) (Heparin Na) 5,000 unit SC Q12 [facility] Last Admin: 05/16/18 10:16 Dose: Not Given Insulin Glargine (Lantus (Bkc)) 12 units SC QHS [facility] Last Admin: 05/15/18 22:52 Dose: 10 units Insulin Human Lispro (Humalog Kwikpen (Bkc)) 10 unit SC TIDCM [facility] Last Admin: 05/16/18 08:02 Dose: 10 u Insulin Human Lispro (Humalog Kwikpen (Bkc)) 0 unit SC ACHS [facility] PRN Reason: Protocol Magnesium Hydroxide (Milk Of Magnesia) 30 ml PO DAILY PRN PRN PRN Reason: Constipation Methylprednisolone (Solu-Medrol) 40 mg IV Q8 [facility] Midodrine (Proamatine) 2.5 mg PO DAILY PRN PRN PRN Reason: BLOOD PRESSURE DROPS Multivit/Ca Carb/B Cmplx/FA/Prenat (Nephrocaps, Renaphro) 1 capsule PO TID [facility] Last Admin: 05/16/18 06:13 Dose: 1 capsule Multivitamins (Multivitamin) 1 tablet PO DAILYCM [facility] Last Admin: 05/16/18 10:05 Dose: 1 tablet Pantoprazole Sodium (Protonix) 40 mg PO DAILY [facility] Last Admin: 05/16/18 10:06 Dose: 40 mg - Past Medical History Past Medical History (Chronic Problems): Chronic Problems Hyperlipidemia (Chronic) Type 2 diabetes mellitus (Chronic) Acute on chronic renal failure (Chronic) Requiring hemodialysis. Pleural effusion, left (Chronic) Status post coronary artery bypass graft (Chronic) Coronary artery disease (Chronic) Hypertension (Chronic) - Past Surgical History Surgical History: cholecystectomy, coronary bypass surgery - op, - - Pericardial window, L inguinal hernia repair. Lumbar spinal surgery - Social History Marital Status: Smoking Status: Never smoker - Family History Maternal History Items: Diabetes, Heart Disease Paternal History Items: Diabetes, Heart Disease Review of Systems Constitutional: Reports: Anorexia, Chills, Fever, Malaise, Weakness, Fatigue HEENT: Denies: Head Aches Cardiovascular: Denies: Chest Pain, Edema, Syncope Respiratory: Reports: Cough, Shortness of breath at rest, Shortness of breath upon exertion, Sputum production - Greenish sputum. Denies: Hemoptysis Gastrointestinal: Reports: Nausea. Denies: Abdominal Pain, Constipation, Diarrhea, Vomiting Genitourinary: Denies: Dysuria Skin: Denies: Rash Neurological: Reports: - - Generalized weakness. Denies: Balance problems Psychiatric: Denies: Anxiety, Depression Hematologic/ Lymphatic: Reports: Anemia - Physical Exam General: Alert, Oriented x3 Oral: Moist Mucosa Neck: Supple Lungs: Rhonchi, Short of Breath, Wheezes Cardiovascular: Regular rate Abdomen: Bowel Sounds Present, Soft, Non Tender, Non-Distended Extremities: No edema Skin: No rashes Musculoskeletal: No Muscle Wasting Lymphatic: No Cervical, Supraclavicular, or Inguinal Adenopathy Neurological: Cranial nerves II-XII grossly intact Psych/Mental Status: Normal Affect, Appropriate, Alert and oriented to time, place, person, mood and affect Vital Signs Temp Pulse Resp BP Pulse Ox 98.1 F 91 14 143/62 H 96 05/16/18 10:02 05/16/18 11:02 05/16/18 10:02 05/16/18 10:02 05/16/18 10:02 Oxygen Delivery Method Room Air Weight: 81.5 kg Body Mass Index (BMI) 25.0 Intake and Output for Last 24 Hours 05/14/18 05/15/18 05/16/18 23:59 23:59 23:59 Intake Total 462 / 462 Balance 462 / 462 Laboratory Tests Past 24 Hrs 05/15/18 05/15/18 05/16/18 17:10 21:00 05:20 WBC 6.0 RBC 2.54 L Hgb 7.8 L Hct 23.7 L MCV 93.3 MCH 30.7 MCHC 32.9 RDW 12.3 RDW Differential 40.4 Plt Count 155 MPV 10.9 Sodium Potassium Chloride Carbon Dioxide Anion Gap BUN Creatinine Estim Creat Clear Calc Est GFR (MDRD) Af Amer Est GFR (MDRD) Non-Af BUN/Creatinine Ratio Glucose Calcium Magnesium Troponin I 0.046 H 0.055 H 05/16/18 05/16/18 05:20 05:20 WBC RBC Hgb Hct MCV MCH MCHC RDW RDW Differential Plt Count MPV Sodium 139 Potassium 3.6 Chloride 100 Carbon Dioxide 28.0 Anion Gap 11 BUN 60 H Creatinine 4.96 H Estim Creat Clear Calc 16.87 Est GFR (MDRD) Af Amer 15 L Est GFR (MDRD) Non-Af 13 L BUN/Creatinine Ratio 12.1 Glucose 194 H Calcium 7.7 L Magnesium Pending Troponin I POC Glucose 05/16/18 05/15/18 05/15/18 06:53 22:46 17:48 POC Glucose 163 H 223 H 191 H Clinical Impression(s) from Imaging Studies Chest X-Ray 05/15/18 14:14 IMPRESSION: No acute thoracic pathology. Electronically Signed: Ben Love, at 15:06 EDT Tel , Service support , Assessment/Plan All Active Problems Hyperkalemia (Acute) Abnormal outpatient creatinine (Acute) 1. ESRD due to diabetes, history of ATN requiring temporary hemodialysis following his CABG several years ago. New to dialysis started at [facility] then transferred to [facility] dialysis unit in [place]. Last dialysis Wednesday outpatient clinic. Will arrange dialysis today, follow chronic orders. Patient had vein mapping ordered for later this week. Will schedule while in hospital. He has an appointment with Dr. Gan for AV fistula placement. Currently dialyzed with a left IJ tunnel catheter. 2. Anemia of chronic disease. Continue IVAN therapy. Blood transfusion as needed 3. Pneumonia with productive sputum, generalized malaise, anorexia. Symptoms improved some with the antibiotic therapy. 4. Mildly elevated troponin levels with a history of CAD status post CABG. Cardiology consulted. 5. Hypertension with stable blood pressure 6. Diabetes mellitus type II primary care management 7. Protein/calorie malnutrition. continue protein supplement Addendum: seen on dialysis at 3:15pm. Proceeding w/o incident. Increase epo and add iv iron load.
--- NOTE | 2018-05-16 11:39 | CON.PCM_ITS ---
Consultation - Renal 05/16/18 PCP/ Referring MD: Requesting physician: Primary care physician: [facility] Reason for Consultation:: ESRD HD MWF, renal mgmt - History of Present Illness History of Present Illness: This is a 62 year old M well known to me with end-stage renal disease due to diabetes started at the [facility] about 2 weeks ago with a tunneled dialysis catheter, subsequently transferred to [facility] dialysis center in [place] last week, history of ATN requiring temporary hemodialysis several years ago following his open heart surgery. His last dialysis was Wednesday at outpatient clinic. He presented to the ED on 05/15 with sternal chest pain, shortness of breath and fatigue. He also reported fever of 101 Fahrenheit, chills, nausea with anorexia. His chest x-ray does not show pneumonia but he has significant wheezing bilaterally. He admits to productive cough with green colored phlegm. Breathing improved with bronchodilator therapy and antibiotics. He denied any chest pain at the time of my evaluation. He had positive troponin levels. Cardiology consulted. He was scheduled for vein mapping later this week with follow-up appointment with Dr. Gan for access placement. - Allergies Allergies: Allergies No Known Allergies Allergy (Verified 05/15/18 13:48) - Current Medications Current Medications: Current Medications Albuterol Sulfate (Ventolin Aerosols) 2.5 mg INHALATION Q2H PRN PRN PRN Reason: dyspnea, wheezing Albuterol/Ipratropium (Duoneb) 3 ml INHALATION Q4HWA.RT [facility] Aspirin (Aspirin, Baby) 81 mg PO DAILY@0800 [facility] Last Admin: 05/16/18 10:05 Dose: 81 mg Atorvastatin Calcium (Lipitor) 20 mg PO QHS [facility] Last Admin: 05/15/18 22:50 Dose: 20 mg Cholecalciferol (Vitamin D) 5,000 unit PO DAILY [facility] Last Admin: 05/16/18 10:06 Dose: 5,000 unit Doxycycline Monohydrate (Doxycycline) 100 mg PO BID [facility] Last Admin: 05/16/18 10:06 Dose: 100 mg Fludrocortisone Acetate (Florinef) 0.1 mg PO DAILY@0800 PRN PRN Reason: BLOOD PRESSURE DROPS Guaifenesin (Mucinex) 1,200 mg PO BID [facility] Heparin Sodium (Porcine) (Heparin Na) 5,000 unit SC Q12 [facility] Last Admin: 05/16/18 10:16 Dose: Not Given Insulin Glargine (Lantus (Bkc)) 12 units SC QHS [facility] Last Admin: 05/15/18 22:52 Dose: 10 units Insulin Human Lispro (Humalog Kwikpen (Bkc)) 10 unit SC TIDCM [facility] Last Admin: 05/16/18 08:02 Dose: 10 u Insulin Human Lispro (Humalog Kwikpen (Bkc)) 0 unit SC ACHS [facility] PRN Reason: Protocol Magnesium Hydroxide (Milk Of Magnesia) 30 ml PO DAILY PRN PRN PRN Reason: Constipation Methylprednisolone (Solu-Medrol) 40 mg IV Q8 [facility] Midodrine (Proamatine) 2.5 mg PO DAILY PRN PRN PRN Reason: BLOOD PRESSURE DROPS Multivit/Ca Carb/B Cmplx/FA/Prenat (Nephrocaps, Renaphro) 1 capsule PO TID [facility] Last Admin: 05/16/18 06:13 Dose: 1 capsule Multivitamins (Multivitamin) 1 tablet PO DAILYCM [facility] Last Admin: 05/16/18 10:05 Dose: 1 tablet Pantoprazole Sodium (Protonix) 40 mg PO DAILY [facility] Last Admin: 05/16/18 10:06 Dose: 40 mg - Past Medical History Past Medical History (Chronic Problems): Chronic Problems Hyperlipidemia (Chronic) Type 2 diabetes mellitus (Chronic) Acute on chronic renal failure (Chronic) Requiring hemodialysis. Pleural effusion, left (Chronic) Status post coronary artery bypass graft (Chronic) Coronary artery disease (Chronic) Hypertension (Chronic) - Past Surgical History Surgical History: cholecystectomy, coronary bypass surgery - op, - - Pericardial window, L inguinal hernia repair. Lumbar spinal surgery - Social History Marital Status: Smoking Status: Never smoker - Family History Maternal History Items: Diabetes, Heart Disease Paternal History Items: Diabetes, Heart Disease Review of Systems Constitutional: Reports: Anorexia, Chills, Fever, Malaise, Weakness, Fatigue HEENT: Denies: Head Aches Cardiovascular: Denies: Chest Pain, Edema, Syncope Respiratory: Reports: Cough, Shortness of breath at rest, Shortness of breath upon exertion, Sputum production - Greenish sputum. Denies: Hemoptysis Gastrointestinal: Reports: Nausea. Denies: Abdominal Pain, Constipation, Diarrhea, Vomiting Genitourinary: Denies: Dysuria Skin: Denies: Rash Neurological: Reports: - - Generalized weakness. Denies: Balance problems Psychiatric: Denies: Anxiety, Depression Hematologic/ Lymphatic: Reports: Anemia - Physical Exam General: Alert, Oriented x3 Oral: Moist Mucosa Neck: Supple Lungs: Rhonchi, Short of Breath, Wheezes Cardiovascular: Regular rate Abdomen: Bowel Sounds Present, Soft, Non Tender, Non-Distended Extremities: No edema Skin: No rashes Musculoskeletal: No Muscle Wasting Lymphatic: No Cervical, Supraclavicular, or Inguinal Adenopathy Neurological: Cranial nerves II-XII grossly intact Psych/Mental Status: Normal Affect, Appropriate, Alert and oriented to time, place, person, mood and affect Vital Signs Temp Pulse Resp BP Pulse Ox 98.1 F 91 14 143/62 H 96 05/16/18 10:02 05/16/18 11:02 05/16/18 10:02 05/16/18 10:02 05/16/18 10:02 Oxygen Delivery Method Room Air Weight: 81.5 kg Body Mass Index (BMI) 25.0 Intake and Output for Last 24 Hours 05/14/18 05/15/18 05/16/18 23:59 23:59 23:59 Intake Total 462 / 462 Balance 462 / 462 Laboratory Tests Past 24 Hrs 05/15/18 05/15/18 05/16/18 17:10 21:00 05:20 WBC 6.0 RBC 2.54 L Hgb 7.8 L Hct 23.7 L MCV 93.3 MCH 30.7 MCHC 32.9 RDW 12.3 RDW Differential 40.4 Plt Count 155 MPV 10.9 Sodium Potassium Chloride Carbon Dioxide Anion Gap BUN Creatinine Estim Creat Clear Calc Est GFR (MDRD) Af Amer Est GFR (MDRD) Non-Af BUN/Creatinine Ratio Glucose Calcium Magnesium Troponin I 0.046 H 0.055 H 05/16/18 05/16/18 05:20 05:20 WBC RBC Hgb Hct MCV MCH MCHC RDW RDW Differential Plt Count MPV Sodium 139 Potassium 3.6 Chloride 100 Carbon Dioxide 28.0 Anion Gap 11 BUN 60 H Creatinine 4.96 H Estim Creat Clear Calc 16.87 Est GFR (MDRD) Af Amer 15 L Est GFR (MDRD) Non-Af 13 L BUN/Creatinine Ratio 12.1 Glucose 194 H Calcium 7.7 L Magnesium Pending Troponin I POC Glucose 05/16/18 05/15/18 05/15/18 06:53 22:46 17:48 POC Glucose 163 H 223 H 191 H Clinical Impression(s) from Imaging Studies Chest X-Ray 05/15/18 14:14 IMPRESSION: No acute thoracic pathology. Electronically Signed: Ben Love, at 15:06 EDT Tel , Service support , Assessment/Plan All Active Problems Hyperkalemia (Acute) Abnormal outpatient creatinine (Acute) 1. ESRD due to diabetes, history of ATN requiring temporary hemodialysis following his CABG several years ago. New to dialysis started at [facility] then transferred to [facility] dialysis unit in [place]. Last dialysis Wednesday outpatient clinic. Will arrange dialysis today, follow chronic orders. Patient had vein mapping ordered for later this week. Will schedule while in hospital. He has an appointment with Dr. Gan for AV fistula placement. Currently dialyzed with a left IJ tunnel catheter. 2. Anemia of chronic disease. Continue IVAN therapy. Blood transfusion as needed 3. Pneumonia with productive sputum, generalized malaise, anorexia. Symptoms improved some with the antibiotic therapy. 4. Mildly elevated troponin levels with a history of CAD status post CABG. Cardiology consulted. 5. Hypertension with stable blood pressure 6. Diabetes mellitus type II primary care management 7. Protein/calorie malnutrition. continue protein supplement Addendum: seen on dialysis at 3:15pm. Proceeding w/o incident. Increase epo and add iv iron load.
[2018-05-16 11:41] LABS: Bedside Glucose 159 mg/dL (70-110)
[2018-05-16 11:42] LABS: Magnesium 1.8 mg/dL (1.6-2.6)
--- NOTE | 2018-05-16 11:44 | VDUE_ITS ---
Reason For Study: AV fistula placement Right Arm Left Arm Right cephalic vein is compressible. Left cephalic vein is compressible. Right Cephalic Vein at the shoulder Left Cephalic Vein at the shoulder measures .423 x .428 cm. measures .352 x .365 cm. Right Cephalic Vein mid bicep measures .264 Left Cephalic Vein at mid bicep x .259 cm. measures .286 x .266 cm. Right Cephalic Vein above antecub Left Cephalic Vein above antecub measures .199 x .214 cm. measures .319 x .312 cm. Right Cephalic Vein below antecub Left Cephalic Vein below antecub measures .453 x .488 cm. measures .359 x .359 cm. Right Cephalic Vein in the forearm Left Cephalic Vein in the forearm measures .124 x .139 cm. measures .246 x .285 cm. Right Cephalic Vein at the wrist Left Cephalic Vein at the wrist measures .124 x .144 cm. measures .280 x .305 cm. Right basilic vein is compressible. Left basilic vein is compressible. Right Basilic Vein at the origin Basilic vein at origin measures .412 x .428 measures .434 x .474 cm. cm. Right Basilic Vein above antecub Basilic vein above antecub measures .432 measures .337 x .370 cm. x .412 cm. Right Basilic Vein below antecub Basilic vein below antecub measures .120 measures .295 x .329 cm. x .127 cm. Right Basilic Vein in the forearm Basilic vein in the forearm measures .126 measures .248 x .306 cm. x .133 cm. Right Basilic Vein at the wrist measures .295 Basilic vein at the wrist measures .113 x .307 cm. x .107 cm. Brachial artery 122 cm/s. Brachial artery 126 cm/s. Brachial artery .438 c .488 cm Brachial artery .478 c .459 cm Radial artery 126 cm/s Radial artery 138 cm/s Radial artery .204 x .214 cm Radial artery .266 x .247 cm. Branch of the Basilic V below the elbow is dilated and noncompressible. Prelim to the pt's RN. < Interpretation Summary Patent and compressible bilateral cephalic and basilic veins with dimensions as noted. Non-compressible right basilic vein branch distal to the olecrenon consistent with limited superficial thrombophlebitis at this site but not affecting the basilic vein itself. Adequate bilateral brachial and radial artery diameters and flow. Ordering Physician: Oumou Mesa Performed By: Elliott Ye RVT ??? Reason For Study: AV fistula placement < Interpretation Summary Patent and compressible bilateral cephalic and basilic veins with dimensions as noted. Non-compressible right basilic vein branch distal to the olecrenon consistent with limited superficial thrombophlebitis at this site but not affecting the basilic vein itself. Adequate bilateral brachial and radial artery diameters and flow. Ordering Physician: Oumou Mesa Performed By: Elliott Ye RVT
--- NOTE | 2018-05-16 12:45 | CASEMGMT ---
Addendum entered by Kalyani Rios 05/16/18 15:06: Also, per Anna, pt is not service connected. Maryuri CHARLES CM Original Note: Addendum entered by Kalyani Rios 05/16/18 14:51: This RN CM received call from Anna Putnam at [facility] and she states that pt has been approved for the vein mapping to be done here at [facility] as well as to see Dr. Mesa for nephrology and [facility] for future outpt dialysis treatments. Pt updated on all at this time and voices understanding. Pt/ also updated on Anna as contact at [facility] and provided with extension for future reference. Maryuri CHARLES CM Original Note: Addendum entered by Kalyani Rios 05/16/18 13:01: This RN CM received a call back from Siri at [facility] and she states that the pt's case was given to someone else. Message left for Anna Putnam at ext [phone] at this time to call this RN CM back regarding pt. Maryuri RN KURTIS Original Note: This RN CM to room to speak with pt regarding [facility] as insurance and possible transfer. Pt states that he is willing to be transferred if a bed is available and pt states that he does only have [facility] coverage at this time but will be eligible for MCR in October of this year. Clinicals faxed to [facility] transfer center and message left with [facility] transfer center in regards to pt admission. Pt states was admitted at the [facility] 2 weeks ago for a week. Pt states is scheduled to have fistulogram with Dr. Mesa on but is unsure if this will be covered by [facility]. This RN CM to investigate further with the [facility]. Per pt's , they were dealing with Siri MOON at the [facility] in regards to this during pt's admission. Message left with Siri at this time. Maryuri CHARLES CM
[2018-05-16] MEDS: guaiFENesin 1,200 MG Tablet 1200 MG PO ×2 (12:54→23:23)
--- NOTE | 2018-05-16 13:03 | CON.PCM_ITS ---
Reason for Consult Date of Consultation: 05/16/18 Reason for Consultation: Cardiac evaluation. History of Present Illness: The patient is a 62 year old M who presented to the emergency room with fever weakness and was admitted to the hospital and cardiac enzymes obtained. He has a complicated medical history dating back to the summer 2015 when he had presented with chest discomfort and dizziness and had undergone stress testing and echocardiographic evaluation which demonstrated evidence of anterolateral ischemia. He underwent a cardiac catheterization at that time which demonstrated severe triple-vessel disease. He was also noted to have significant renal dysfunction with his creatinine rising to 9.5 he underwent a 7 vessel coronary artery bypass surgery with a left internal mammary artery sequence the first diagonal and left anterior descending artery, saphenous vein graft to the ramus intermedius, saphenous vein graft to the first and second obtuse marginal branches, and a saphenous vein graft to third obtuse marginal branch sequenced to the posterior descending artery. He had to be treated with an intra-aortic balloon pump and eventually needed to be on dialysis. I saw him in June 2016 and since then has not had any further cardiac evaluation. He denies any chest pain per se though he says that he has had a cough as well as twinges. He has had no persistent chest discomfort though. Cardiac enzymes were obtained which were noted to be abnormal and we were called to further evaluate him. [] Past Medical History Allergies/Adverse Reactions: Allergies No Known Allergies Allergy (Verified 05/15/18 13:48) Home Medications: Ambulatory Orders Medication Instructions Recorded Aspirin [Aspirin, Baby] 81 mg PO DAILY 06/07/16 Cholecalciferol (Vitamin D3) 5,000 unit PO DAILY 06/07/16 [Vitamin D3] Insulin Lispro [Humalog] 8 - 10 unit SQ TIDCM 06/07/16 Docusate Calcium [Stool Softener] 720 mg PO DAILY PRN PRN 09/01/16 Insulin Glargine,Hum.rec.anlog 8 - 10 unit SC QHS 05/31/17 [Lantus] Multivit-Min/Iron/Folic Acid/K 1 each PO DAILY 04/12/18 [Adults Multivitamin Caplet] Pantoprazole Sodium [Protonix] 40 mg PO DAILY 04/12/18 B Complex W-C No.20/Folic Acid 1 mg PO TID 05/15/18 [Nephrocaps Softgel] Fludrocortisone Acetate [Florinef] 0.1 mg PO DAILY@0800 PRN 05/15/18 Midodrine HCl [Proamatine] 2.5 mg PO DAILY PRN 05/15/18 Simvastatin 40 mg PO QHS 05/15/18 Past Medical History (Chronic Problems): Chronic Problems Hyperlipidemia (Chronic) Type 2 diabetes mellitus (Chronic) Acute on chronic renal failure (Chronic) Requiring hemodialysis. Pleural effusion, left (Chronic) Status post coronary artery bypass graft (Chronic) Coronary artery disease (Chronic) Hypertension (Chronic) Surgical History: cholecystectomy, coronary bypass surgery - op, - - Pericardial window, L inguinal hernia repair. Lumbar spinal surgery - *Family History Maternal History Items: Diabetes, Heart Disease Paternal History Items: Diabetes, Heart Disease Smoking Status: Never smoker Alcohol: None Drugs: None Review of Systems - Review of Systems General: Reports: Fever, Fatigue, Malaise. Denies: Night Sweats Cardiovascular: Denies: Chest Discomfort, Shortness of Breath, Orthopnea, PND, Peripheral Edema, Palpitations, Lightheadedness, Dizziness, Near Syncope, Syncope Respiratory: Reports: Cough, Shortness of Breath. Denies: Sputum Production, Hemoptysis Gastrointestinal: Denies: Hematemesis, Hematochezia, Melena Genitourinary: Denies: Dysuria, Hematuria Skin: Denies: Rash Subjectve: Middle aged man in no distress Objective: Vital Signs Temp Pulse Resp BP Pulse Ox 98.1 F 91 14 143/62 H 96 05/16/18 10:02 05/16/18 11:02 05/16/18 10:02 05/16/18 10:02 05/16/18 10:02 Oxygen Delivery Method Room Air Weight: 179 lb 10.828 oz Body Mass Index (BMI) 25.0 Intake and Output for Last 24 Hours 05/14/18 05/15/18 05/16/18 23:59 23:59 23:59 Intake Total 942 / 942 Balance 942 / 942 General: Awake, Alert, Oriented x 3 HEENT: PERRL, EOMI, Sclera Non Icteric Neck: Supple, Good ROM, No Lymph Node Enlargement Lungs: Rhonchi, Inspiratory Wheezes - Maikel Cardiovascular: Regular Rhythm, Normal S1, Normal S2, No Murmurs, No Rubs, No Gallops Vascular: No Carotid Bruits, Normal Femoral Pulses, Normal Radial Pulses, Normal Dorsalis Pedal Pulse, Normal Posterior Tibial Pulses Abdomen: Bowel Sounds Present, Soft, Non Tender, No HSM, No Organomegaly Extremities: No Cyanosis, No Clubbing, No edema Neurological: No Focal Motor or Sensory Deficit 05/15/18 17:10: Troponin I 0.046 H 05/15/18 21:00: Troponin I 0.055 H 05/16/18 05:20: WBC 6.0, RBC 2.54 L, Hgb 7.8 L, Hct 23.7 L, MCV 93.3, MCH 30.7, MCHC 32.9, RDW 12.3, RDW Differential 40.4, Plt Count 155, MPV 10.9 05/16/18 05:20: Sodium 139, Potassium 3.6, Chloride 100, Carbon Dioxide 28.0, Anion Gap 11, BUN 60 H, Creatinine 4.96 H, Est GFR (MDRD) Af Amer 15 L, Est GFR (MDRD) Non-Af 13 L, BUN/Creatinine Ratio 12.1, Glucose 194 H, Calcium 7.7 L 05/16/18 05:20: Magnesium 1.8 Rhythm: EKG: Sinus rhythm with left ventricular hypertrophy and nonspecific ST changes. ECHO: Stress Test: Cardiac Cath: PCI: CT Surgery: Holter monitor: EPS: PPM: CXR: Chest CT Scan: Assessment/Plan 1. Abnormal cardiac enzymes. Patient has a history of abnormal cardiac enzymes which does not follow a rise and fall pattern suggestive of acute myocardial ischemia. He has severe triple- vessel disease for which is undergone coronary artery bypass surgery. He also has a history of renal dysfunction and left ventricular systolic dysfunction. At this time it appears that his cardiac enzyme patent follows more of a demand ischemia with myocardial necrosis. My recommendation at this time will be for us to continue to follow him and optimize his medical therapy. I would recommend that he continue back on statins and low-dose beta-viktor if it can be tolerated. I would not recommend at this time patient undergoing any invasive therapy or any further stress testing. 2. Left ventricular systolic dysfunction. Patient would undergo evaluation with an echocardiogram to assess his left ventricular function and then this would help us optimize his medical therapy. He has not been able to tolerate beta-blockers or CHADWICK inhibitors in the past due to hypotension. We will see how we can slowly reintroduce the above at a very low dose. Thank you for allowing me to participate in the care of your patient. Please don't hesitate to call if any issues arise
[2018-05-16] MEDS: Ipratropium/Albuterol Sulfate 3 ML AMPUL.NEB INHALATION ×2 (14:04→19:15)
--- NOTE | 2018-05-16 14:31 | PCM.PN.HOSP ---
Subjective: Patient with no acute events overnight per self and per nursing report. He does feel improved since initial presentation but still having ongoing coarse breath sounds and occasional wheezing. Nephrology evaluation today with planned HD. Discussed current evaluation with mildly elevated enzymes with CAD history, previously normal and patient amenable to cardiology evaluation w/ recommendation for medical management, defer any stress testing as likely demand ischemia. Patient denies fevers, chills, nausea, emesis, abdominal pain, recurrent chest pain or worsened dyspnea. Objective: Physical Examination: General: awake, alert, oriented x 3 and cooperative, seated upright in bed in no apparent distress, preparations for HD to start. Skin: normal color, turgor, no icterus, cyanosis. HEENT: AT/NC, EOMI, PERRLA, mildly dry MM. Lungs: Diminished BS BL bases, diffusely coarse, rhonchorous, expiratory wheezing noted. Heart: Regular rate and rhythm; no gallop, rub audible. Abdomen: soft, NTTP, ND, normal BS, no HSM. Extremities: no cyanosis, clubbing, or edema. Neurological: patient awake, alert, oriented x 3; cognitive function intact; pupils equally reactive to light and accomodation; cranial nerves II-XII grossly normal, moving all 4 extremities, no focal deficits, strength moderately globally decreased secondary to acute presentation. Psychiatric: affect appears normal, no acute evidence of depressive or anxiety feelings. Vitals/I&O's: Vital Signs Temp Pulse Resp BP Pulse Ox 98.1 F 91 14 143/62 H 96 05/16/18 10:02 05/16/18 11:02 05/16/18 10:02 05/16/18 10:02 05/16/18 10:02 Oxygen Delivery Method Room Air Weight: 179 lb 10.828 oz Body Mass Index (BMI) 25.0 Intake and Output for Last 24 Hours 05/14/18 05/15/18 05/16/18 23:59 23:59 23:59 Intake Total 942 / 942 Balance 942 / 942 Laboratory Results 05/15/18 17:10: Troponin I 0.046 H 05/15/18 17:48: POC Glucose 191 H 05/15/18 21:00: Troponin I 0.055 H 05/15/18 22:46: POC Glucose 223 H 05/16/18 05:20: WBC 6.0, RBC 2.54 L, Hgb 7.8 L, Hct 23.7 L, MCV 93.3, MCH 30.7, MCHC 32.9, RDW 12.3, RDW Differential 40.4, Plt Count 155, MPV 10.9 05/16/18 05:20: Sodium 139, Potassium 3.6, Chloride 100, Carbon Dioxide 28.0, Anion Gap 11, BUN 60 H, Creatinine 4.96 H, Estim Creat Clear Calc 16.87, Est GFR (MDRD) Af Amer 15 L, Est GFR (MDRD) Non-Af 13 L, BUN/Creatinine Ratio 12.1, Glucose 194 H, Calcium 7.7 L 05/16/18 05:20: Magnesium 1.8 05/16/18 06:53: POC Glucose 163 H 05/16/18 11:30: POC Glucose 159 H Current Medications Albuterol Sulfate (Ventolin Aerosols) 2.5 mg INHALATION Q2H PRN PRN PRN Reason: dyspnea, wheezing Albuterol/Ipratropium (Duoneb) 3 ml INHALATION Q4HWA.RT [facility] Last Admin: 05/16/18 14:04 Dose: 3 ml Aspirin (Aspirin, Baby) 81 mg PO DAILY@0800 [facility] Last Admin: 05/16/18 10:05 Dose: 81 mg Atorvastatin Calcium (Lipitor) 20 mg PO QHS [facility] Last Admin: 05/15/18 22:50 Dose: 20 mg Cholecalciferol (Vitamin D) 5,000 unit PO DAILY [facility] Last Admin: 05/16/18 10:06 Dose: 5,000 unit Doxycycline Monohydrate (Doxycycline) 100 mg PO BID [facility] Last Admin: 05/16/18 10:06 Dose: 100 mg Fludrocortisone Acetate (Florinef) 0.1 mg PO DAILY@0800 PRN PRN Reason: BLOOD PRESSURE DROPS Guaifenesin (Mucinex) 1,200 mg PO BID [facility] Last Admin: 05/16/18 12:54 Dose: 1,200 mg Heparin Sodium (Porcine) (Heparin Na) 5,000 unit SC Q12 [facility] Last Admin: 05/16/18 10:16 Dose: Not Given Insulin Glargine (Lantus (Bkc)) 12 units SC QHS [facility] Last Admin: 05/15/18 22:52 Dose: 10 units Insulin Human Lispro (Humalog Kwikpen (Bkc)) 10 unit SC TIDCM [facility] Last Admin: 05/16/18 11:36 Dose: 10 u Insulin Human Lispro (Humalog Kwikpen (Bkc)) 0 unit SC ACHS [facility] PRN Reason: Protocol Magnesium Hydroxide (Milk Of Magnesia) 30 ml PO DAILY PRN PRN PRN Reason: Constipation Methylprednisolone (Solu-Medrol) 40 mg IV Q8 [facility] Last Admin: 05/16/18 13:00 Dose: 40 mg Midodrine (Proamatine) 2.5 mg PO DAILY PRN PRN PRN Reason: BLOOD PRESSURE DROPS Multivit/Ca Carb/B Cmplx/FA/Prenat (Nephrocaps, Renaphro) 1 capsule PO TID [facility] Last Admin: 05/16/18 13:00 Dose: 1 capsule Multivitamins (Multivitamin) 1 tablet PO DAILYCM [facility] Last Admin: 05/16/18 10:05 Dose: 1 tablet Pantoprazole Sodium (Protonix) 40 mg PO DAILY [facility] Last Admin: 05/16/18 10:06 Dose: 40 mg Medical Necessity - Tobacco Use Smoking Status: Never smoker Assessment/Plan All Active Problems Hyperkalemia (Acute) Abnormal outpatient creatinine (Acute) The patient is a 62 y/o M w/ PMHx: ESRD on HD w/ chest access in place, pending HD access, Diabetes mellitus type II, HTN, HLD, CAD s/p CABG who presents to the [facility] ED on 05/15/18 w/ dyspnea, wheezing, productive cough in addition to fever w/ concurrent substernal chest pain. (1) Dyspnea, Wheezing, Fever secondary to Acute Bronchitis: CXR in the ED w/ no acute findings, CBC w/ no WBC elevation or shift. Admitted to PCU, maintain on oxygen with wean as tolerated to room air, continue ATC duonebs, PRN albuterol, initiate IV solumedrol with possible prednisone transition tomorrow, maintained on doxycycline with BSA transition if recurrent fevers or respiratory decline, HOB, IS parameters w/ pending sputum cultures and urine antigens (still makes urine), respiratory viral panel. (2) Chest Pain w/ Elevated Cardiac Enzymes: Likely more secondary to pleuritic discomfort and muscle strain with #1 however does have coronary disease history and ED admission troponin 0 0.049 with trend--> 0.046--> 0.055, EKG in ED with no acute evidence of ischemia, CXR w/ no acute findings despite acute presentation #1. Will maintain on place on a monitored bed, enzymes as noted, repeat EKG in AM, ECHO pending. Cardiology consulted, given recent negative cardiac stress testing within the last 6 months and current pattern likely more demand ischemia less recommendation for optimization of medical therapy with continuation of aspirin, statin, beta-viktor if able although given history of inability to tolerate in the past secondary to hypotension and deferral of any invasive therapy or stress testing especially given #1. ASA, NG, morphine. (3) LV Systolic Dysfunction: Noted history of LV systolic dysfunction with pending echocardiogram with history in the past of inability to tolerate beta blockers or CHADWICK inhibitor secondary to hypotension. (4) Hypokalemia: Admission K 3.4, repeat 3.6, HD patient, continue to trend. (5) Diabetes mellitus type II: Hold oral home regimen, continue home insulin regimen, ADA diet, accu checks w/ ISS. (6) ESRD on HD: Dr. Mesa consulted, continue home MWF HD regimen. (7) Hypertension: Patient with LV systolic dysfunction with poor tolerance of beta-viktor or CHADWICK inhibitor especially given concurrent renal disease with notable hypotension following initiation, continued on midodrine. PRN hydralazine. May consider additional low dose BB per Cardiology recommendation. (8) Hyperlipidemia: Continue home statin regimen. (9) GERD: PPI. (10) DVT Prophylaxis: SCDs, heparin. Code Visit Inpatient E&M: 82160 [facility] Hosp L3
--- NOTE | 2018-05-16 14:45 | CASEMGMT ---
Face to Face with patient for initial transition planning/care coordination assessment. RN KURTIS introduced self and role at [facility], pt voices understanding and consents to assessment at this time. Pt is sitting up in bed in no distress at this time. Pt is A/Ox4 at this time and answers all questions appropriately at this time. Care providers, pharmacy, and demographics verified. See attached link. Pt voices no further concerns/needs at this time. Advised pt to ask for CM if any further questions/concerns/needs arise, voices understanding. CM to follow for any further discharge planning/needs. PLAN: [place] [facility]
--- NOTE | 2018-05-16 15:07 | PN_ITS ---
Subjective: Patient with no acute events overnight per self and per nursing report. He does feel improved since initial presentation but still having ongoing coarse breath sounds and occasional wheezing. Nephrology evaluation today with planned HD. Discussed current evaluation with mildly elevated enzymes with CAD history, previously normal and patient amenable to cardiology evaluation w/ recommendation for medical management, defer any stress testing as likely demand ischemia. Patient denies fevers, chills, nausea, emesis, abdominal pain , recurrent chest pain or worsened dyspnea. Objective: Physical Examination: General: awake, alert, oriented x 3 and cooperative, seated upright in bed in no apparent distress, preparations for HD to start. Skin: normal color, turgor, no icterus, cyanosis. HEENT: AT/NC, EOMI, PERRLA, mildly dry MM. Lungs: Diminished BS BL bases, diffusely coarse, rhonchorous, expiratory wheezing noted. Heart: Regular rate and rhythm; no gallop, rub audible. Abdomen: soft, NTTP, ND, normal BS, no HSM. Extremities: no cyanosis, clubbing, or edema. Neurological: patient awake, alert, oriented x 3; cognitive function intact; pupils equally reactive to light and accomodation; cranial nerves II-XII grossly normal, moving all 4 extremities, no focal deficits, strength moderately globally decreased secondary to acute presentation. Psychiatric: affect appears normal, no acute evidence of depressive or anxiety feelings. Vitals/I&O's: Vital Signs Temp Pulse Resp BP Pulse Ox 98.1 F 91 14 143/62 H 96 05/16/18 10:02 05/16/18 11:02 05/16/18 10:02 05/16/18 10:02 05/16/18 10:02 Oxygen Delivery Method Room Air Weight: 179 lb 10.828 oz Body Mass Index (BMI) 25.0 Intake and Output for Last 24 Hours 05/14/18 05/15/18 05/16/18 23:59 23:59 23:59 Intake Total 942 / 942 Balance 942 / 942 Laboratory Results 05/15/18 17:10: Troponin I 0.046 H 05/15/18 17:48: POC Glucose 191 H 05/15/18 21:00: Troponin I 0.055 H 05/15/18 22:46: POC Glucose 223 H 05/16/18 05:20: WBC 6.0, RBC 2.54 L, Hgb 7.8 L, Hct 23.7 L, MCV 93.3, MCH 30.7, MCHC 32.9, RDW 12.3, RDW Differential 40.4, Plt Count 155, MPV 10.9 05/16/18 05:20: Sodium 139, Potassium 3.6, Chloride 100, Carbon Dioxide 28.0, Anion Gap 11, BUN 60 H, Creatinine 4.96 H, Estim Creat Clear Calc 16.87, Est GFR (MDRD) Af Amer 15 L, Est GFR (MDRD) Non-Af 13 L, BUN/Creatinine Ratio 12.1, Glucose 194 H, Calcium 7.7 L 05/16/18 05:20: Magnesium 1.8 05/16/18 06:53: POC Glucose 163 H 05/16/18 11:30: POC Glucose 159 H Current Medications Albuterol Sulfate (Ventolin Aerosols) 2.5 mg INHALATION Q2H PRN PRN PRN Reason: dyspnea, wheezing Albuterol/Ipratropium (Duoneb) 3 ml INHALATION Q4HWA.RT [facility] Last Admin: 05/16/18 14:04 Dose: 3 ml Aspirin (Aspirin, Baby) 81 mg PO DAILY@0800 [facility] Last Admin: 05/16/18 10:05 Dose: 81 mg Atorvastatin Calcium (Lipitor) 20 mg PO QHS [facility] Last Admin: 05/15/18 22:50 Dose: 20 mg Cholecalciferol (Vitamin D) 5,000 unit PO DAILY [facility] Last Admin: 05/16/18 10:06 Dose: 5,000 unit Doxycycline Monohydrate (Doxycycline) 100 mg PO BID [facility] Last Admin: 05/16/18 10:06 Dose: 100 mg Fludrocortisone Acetate (Florinef) 0.1 mg PO DAILY@0800 PRN PRN Reason: BLOOD PRESSURE DROPS Guaifenesin (Mucinex) 1,200 mg PO BID [facility] Last Admin: 05/16/18 12:54 Dose: 1,200 mg Heparin Sodium (Porcine) (Heparin Na) 5,000 unit SC Q12 [facility] Last Admin: 05/16/18 10:16 Dose: Not Given Insulin Glargine (Lantus (Bkc)) 12 units SC QHS [facility] Last Admin: 05/15/18 22:52 Dose: 10 units Insulin Human Lispro (Humalog Kwikpen (Bkc)) 10 unit SC TIDCM [facility] Last Admin: 05/16/18 11:36 Dose: 10 u Insulin Human Lispro (Humalog Kwikpen (Bkc)) 0 unit SC ACHS [facility] PRN Reason: Protocol Magnesium Hydroxide (Milk Of Magnesia) 30 ml PO DAILY PRN PRN PRN Reason: Constipation Methylprednisolone (Solu-Medrol) 40 mg IV Q8 [facility] Last Admin: 05/16/18 13:00 Dose: 40 mg Midodrine (Proamatine) 2.5 mg PO DAILY PRN PRN PRN Reason: BLOOD PRESSURE DROPS Multivit/Ca Carb/B Cmplx/FA/Prenat (Nephrocaps, Renaphro) 1 capsule PO TID [facility] Last Admin: 05/16/18 13:00 Dose: 1 capsule Multivitamins (Multivitamin) 1 tablet PO DAILYCM [facility] Last Admin: 05/16/18 10:05 Dose: 1 tablet Pantoprazole Sodium (Protonix) 40 mg PO DAILY [facility] Last Admin: 05/16/18 10:06 Dose: 40 mg Medical Necessity - Tobacco Use Smoking Status: Never smoker Assessment/Plan All Active Problems Hyperkalemia (Acute) Abnormal outpatient creatinine (Acute) The patient is a 62 y/o M w/ PMHx: ESRD on HD w/ chest access in place, pending HD access, Diabetes mellitus type II, HTN, HLD, CAD s/p CABG who presents to the [facility] ED on 05/15/18 w/ dyspnea, wheezing, productive cough in addition to fever w/ concurrent substernal chest pain. (1) Dyspnea, Wheezing, Fever secondary to Acute Bronchitis: CXR in the ED w/ no acute findings, CBC w/ no WBC elevation or shift. Admitted to PCU, maintain on oxygen with wean as tolerated to room air, continue ATC duonebs, PRN albuterol, initiate IV solumedrol with possible prednisone transition tomorrow, maintained on doxycycline with BSA transition if recurrent fevers or respiratory decline, HOB, IS parameters w/ pending sputum cultures and urine antigens (still makes urine), respiratory viral panel. (2) Chest Pain w/ Elevated Cardiac Enzymes: Likely more secondary to pleuritic discomfort and muscle strain with #1 however does have coronary disease history and ED admission troponin 0 0.049 with trend--> 0.046--> 0.055, EKG in ED with no acute evidence of ischemia, CXR w/ no acute findings despite acute presentation #1. Will maintain on place on a monitored bed, enzymes as noted, repeat EKG in AM, ECHO pending. Cardiology consulted, given recent negative cardiac stress testing within the last 6 months and current pattern likely more demand ischemia less recommendation for optimization of medical therapy with continuation of aspirin, statin, beta-viktor if able although given history of inability to tolerate in the past secondary to hypotension and deferral of any invasive therapy or stress testing especially given #1. ASA, NG, morphine. (3) LV Systolic Dysfunction: Noted history of LV systolic dysfunction with pending echocardiogram with history in the past of inability to tolerate beta blockers or CHADWICK inhibitor secondary to hypotension. (4) Hypokalemia: Admission K 3.4, repeat 3.6, HD patient, continue to trend. (5) Diabetes mellitus type II: Hold oral home regimen, continue home insulin regimen, ADA diet, accu checks w/ ISS. (6) ESRD on HD: Dr. Mesa consulted, continue home MWF HD regimen. (7) Hypertension: Patient with LV systolic dysfunction with poor tolerance of beta-viktor or CHADWICK inhibitor especially given concurrent renal disease with notable hypotension following initiation, continued on midodrine. PRN hydralazine. May consider additional low dose BB per Cardiology recommendation. (8) Hyperlipidemia: Continue home statin regimen. (9) GERD: PPI. (10) DVT Prophylaxis: SCDs, heparin. Code Visit Inpatient E&M: 15540 [facility] Hosp L3
[2018-05-16 17:25] LABS: Bedside Glucose 227 mg/dL (70-110)
[2018-05-16] MEDS: Heparin 10,000 UNITS/10 ML Vial 1000 UNITS IV (18:10)
[2018-05-16] MEDS: Insulin Lispro 100 UNIT/ML INSULN.PEN SC ×2 (18:16→23:30)
--- NOTE | 2018-05-16 18:22 | DIALYSIS ---
Hemodialysis x 3.5 hours with 3K bath; Tolerated well. Removed = -2500; LIJ CVC capped & locked with heparin per lumen fill volume. Report given.
[2018-05-16] MEDS: Atorvastatin Calcium 20 MG Tablet PO (23:23)
[2018-05-16 23:40] LABS: Bedside Glucose 428 mg/dL (70-110)
[2018-05-17] VITALS (9 sets, daily range): BP systolic 128–160; BP diastolic 68–72; PULSE 78–104; RESP 17–20; TEMP 36.5–36.6; O2SAT 93–96
--- NOTE | 2018-05-17 03:49 | NURSING ---
Pts primary rn aware of resp panel results being positive for human metapneumovirus at this time.
[2018-05-17] MEDS: Folic Acid/Vitamin B Comp W-C 1 Capsule 1 CAP PO ×2 (05:41→11:50)
--- NOTE | 2018-05-17 05:55 | EKG12_ITS ---
Test Reason : AM Blood Pressure : / mmHG Vent. Rate : 087 BPM Atrial Rate : 087 BPM P-R Int : 220 ms QRS Dur : 108 ms QT Int : 424 ms P-R-T Axes : 057 022 088 degrees QTc Int : 510 ms Sinus rhythm with 1st degree A-V block Voltage criteria for left ventricular hypertrophy Prolonged QT Abnormal ECG When compared with ECG of 15-MAY-2018 17:08, MANUAL COMPARISON REQUIRED, DATA IS UNCONFIRMED Confirmed by VAL MACIAS, YOLANDA ([id number]), newspaper editor managing STEPHANIE CERRATO ([id number]) on 05/19/2018 10:14:09 AM Referred By: ROSANA Confirmed By:YOLANDA NEAL MD
[2018-05-17 06:47] LABS: Absolute Lymphocyte Count 0.56 X10^3/ul (0.83-4.51); Absolute Neutrophil Count 10.7 X10^3/uL (2.0-7.7); Basophil# 0.02 X10^3/uL; Basophil% 0.2 % (0-1); Eosinophil# 0.01 X10^3/uL; Eosinophils% 0.1 % (0-5); Hematocrit 28.4 % (40-54); Hemoglobin 9.4 g/dl (13.0-16.5); Lymphocyte # 0.56 X10^3/ul (4.0); Lymphocyte % 4.7 % (19-41); Mean Corp Hgb Conc 33.1 g/gl (32-36); Mean Corpuscular Hgb 30.3 pg (27.0-32.0); Mean Corpuscular Volume 91.6 fL (80-94); Mean Platelet Vol. 11.5 fl (6.2-12.0); Monocyte# 0.44 X10^3/uL; Monocyte% 3.7 % (0-10); Neutrophil # 10.69 X10^3/uL (2.7-7.7); Neutrophil % 89.6 % (47-70); POSITIVE DIFFERENTIAL YES; Platelet Count 211 K/mm3 (150-450); RBC Distribution Width CV 12.3 % (11.6-14.6); RBC Distribution Width SD 39.7 fl (35.1-43.9); White Blood Count 11.9 K/mm3 (4.4-11.0)
[2018-05-17 06:48] LABS: BUN 46 mg/dL (7-18); Creatinine, Serum 4.16 mg/dL (0.70-1.30); Differential Indicated SCAN CRITERIA MET; Glucose 373 mg/dL (74-106); POSITIVE COUNT NO; POSITIVE MORPHOLOGY NO
[2018-05-17 06:49] LABS: Anion Gap 13 (5-15); BUN/Creat Ratio 11.1 RATIO (10-20); Calcium,Total 8.7 mg/dL (8.5-10.1); Chloride 94 mmol/L (98-107); EST Glomerular Filtration Rate 16 mL/min (>60); Est Glom Filt Rate - Afr Amer 19 mL/min (>60); Estimated Creatinine Clearance 20.11 ml/min; Potassium 4.2 mmol/L (3.5-5.1); Sodium Level 132 mmol/L (136-145)
[2018-05-17] MEDS: Ipratropium/Albuterol Sulfate 3 ML AMPUL.NEB INHALATION ×2 (07:08→11:00)
[2018-05-17 07:16] LABS: Bedside Glucose 389 mg/dL (70-110)
--- NOTE | 2018-05-17 07:37 | PCM.PN.CARD ---
Subjectve: Patient seen and evaluated. Appears to be doing better. Denies any cardiac or chest pain. Objective: Vital Signs Temp Pulse Resp BP Pulse Ox 97.7 F L 78 20 H 128/68 H 94 05/17/18 05:30 05/17/18 07:04 05/17/18 05:30 05/17/18 05:30 05/17/18 05:30 Oxygen Delivery Method Room Air Weight: 179 lb 10.828 oz Body Mass Index (BMI) 25.0 Intake and Output for Last 24 Hours 05/15/18 05/16/18 05/17/18 23:59 23:59 23:59 Intake Total 1612 / 1612 100 / 100 Output Total 7700 / 7700 Balance -6088 / -6088 100 / 100 General: Awake, Alert, Oriented x 3 HEENT: PERRL, EOMI, Sclera Non Icteric Neck: Supple, Good ROM, No Lymph Node Enlargement Lungs: Clear to auscultation Cardiovascular: Regular Rhythm, Normal S1, Normal S2, No Murmurs, No Rubs, No Gallops Vascular: No Carotid Bruits, Normal Femoral Pulses, Normal Radial Pulses, Normal Dorsalis Pedal Pulse, Normal Posterior Tibial Pulses Abdomen: Bowel Sounds Present, Soft, Non Tender, No HSM, No Organomegaly Extremities: No Cyanosis, No Clubbing, No edema Neurological: No Focal Motor or Sensory Deficit 05/16/18 05:20: Magnesium 1.8 05/17/18 06:05: WBC 11.9 H, RBC 3.10 L, Hgb 9.4 L, Hct 28.4 L, MCV 91.6, MCH 30.3, MCHC 33.1, RDW 12.3, RDW Differential 39.7, Plt Count 211, MPV 11.5, Immature Gran % (Auto) 1.700 H, Neut % (Auto) 89.6 H, Lymph % (Auto) 4.7 L, [place] % (Auto) 3.7, Eos % (Auto) 0.1, Baso % (Auto) 0.2, Absolute Neuts (auto) 10.7 H, Total Counted Not Reportable 05/17/18 06:05: Sodium 132 L, Potassium 4.2, Chloride 94 L, Carbon Dioxide 25.0, Anion Gap 13, BUN 46 H, Creatinine 4.16 H, Est GFR (MDRD) Af Amer 19 L, Est GFR (MDRD) Non-Af 16 L, BUN/Creatinine Ratio 11.1, Glucose 373 H, Calcium 8.7 Rhythm: EKG: ECHO: Stress Test: Cardiac Cath: PCI: CT Surgery: Holter monitor: EPS: PPM: CXR: Chest CT Scan: Medical Necessity - Tobacco Use Smoking Status: Never smoker Assessment/Plan 1. Abnormal cardiac enzymes. Patient has a history of abnormal cardiac enzymes which does not follow a rise and fall pattern suggestive of acute myocardial ischemia. He has severe triple-vessel disease for which is undergone coronary artery bypass surgery. He also has a history of renal dysfunction and left ventricular systolic dysfunction. At this time it appears that his cardiac enzyme patent follows more of a demand ischemia with myocardial necrosis. My recommendation at this time will be for us to continue to follow him and optimize his medical therapy. I would recommend that he continue back on statins and low-dose beta-viktor if it can be tolerated. I would not recommend at this time patient undergoing any invasive therapy or any further stress testing. 2. Left ventricular systolic dysfunction. Patient would undergo evaluation with an echocardiogram to assess his left ventricular function and then this would help us optimize his medical therapy. He has not been able to tolerate beta-blockers or CHADWICK inhibitors in the past due to hypotension. We will see how we can slowly reintroduce the above at a very low dose. His echocardiogram unfortunately could not be done yesterday due to scheduling issues hopefully to be done later today and further recommendations made. Thank you for allowing me to participate in the care of your patient. Please don't hesitate to call if any issues arise
[2018-05-17] MEDS: Insulin Lispro 100 UNIT/ML INSULN.PEN SC ×2 (07:47→11:49)
[2018-05-17] MEDS: Insulin Lispro 100 UNIT/ML INSULN.PEN 10 UNIT SC (07:48)
[2018-05-17] MEDS: Multivitamins,Therapeutic Tablet 1 TABLET PO (07:48)
[2018-05-17] MEDS: Doxycycline 100 MG CAPSULE PO (07:52)
[2018-05-17] MEDS: Aspirin 81 MG TAB.CHEW PO (07:52)
[2018-05-17] MEDS: guaiFENesin 1,200 MG Tablet 1200 MG PO (07:53)
[2018-05-17] MEDS: Pantoprazole Sodium 40 MG Tablet PO (07:53)
--- NOTE | 2018-05-17 09:39 | PN.RENAL_ITS ---
Subjective: Complains of fatigue, weakness. Continues to wheeze with productive cough. Breathing is a little better today. - Physical Exam General: Alert, Oriented x3, Cooperative, - - Generalized weakness Lungs: Short of Breath, Wheezes, - - Cough Cardiovascular: Regular rate Abdomen: Bowel Sounds Present, Soft, Non Tender, Non-Distended Extremities: No edema Musculoskeletal: No Muscle Wasting Neurological: Cranial nerves II-XII grossly intact, - - Generalized weakness Psych/Mental Status: Normal Affect, Appropriate, Alert and oriented to time, place, person, mood and affect Vital Signs Temp Pulse Resp BP Pulse Ox 97.7 F L 89 20 H 128/68 H 94 05/17/18 05:30 05/17/18 07:25 05/17/18 07:25 05/17/18 05:30 05/17/18 08:25 Oxygen Delivery Method Room Air Weight: 81.5 kg Body Mass Index (BMI) 25.0 Intake and Output for Last 24 Hours 05/15/18 05/16/18 05/17/18 23:59 23:59 23:59 Intake Total 1612 / 1612 100 / 100 Output Total 7700 / 7700 Balance -6088 / -6088 100 / 100 Microbiology Past 72 Hours 05/16/18 13:54 Respiratory Panel (PCR) - Final Mucosa - Nose Human [place] 05/16/18 14:30 Legionella Antigen - Final Urine, Clean Catch 05/16/18 14:30 Streptococcus pneumoniae Antigen (M - Final Urine, Clean Catch Laboratory Tests Past 24 Hrs 05/16/18 05/17/18 05/17/18 05:20 06:05 06:05 WBC 11.9 H RBC 3.10 L Hgb 9.4 L Hct 28.4 L MCV 91.6 MCH 30.3 MCHC 33.1 RDW 12.3 RDW Differential 39.7 Plt Count 211 MPV 11.5 Immature Gran % (Auto) 1.700 H Neut % (Auto) 89.6 H Lymph % (Auto) 4.7 L [place] % (Auto) 3.7 Eos % (Auto) 0.1 Baso % (Auto) 0.2 Absolute Neuts (auto) 10.7 H Absolute Lymphs (auto) 0.56 L Total Counted Not Reportable Sodium 132 L Potassium 4.2 Chloride 94 L Carbon Dioxide 25.0 Anion Gap 13 BUN 46 H Creatinine 4.16 H Estim Creat Clear Calc 20.11 Est GFR (MDRD) Af Amer 19 L Est GFR (MDRD) Non-Af 16 L BUN/Creatinine Ratio 11.1 Glucose 373 H Calcium 8.7 Magnesium 1.8 POC Glucose 05/17/18 05/16/18 05/16/18 07:09 23:27 17:12 POC Glucose 389 H 428 H 227 H 05/16/18 11:30 POC Glucose 159 H Medical Necessity - Tobacco Use Smoking Status: Never smoker Assessment/Plan All Active Problems Hyperkalemia (Acute) Abnormal outpatient creatinine (Acute) 1. ESRD dialysis next on Wednesday. He has an appointment with Dr. Gan for AV fistula placement. Vein mapping done. 2. Anemia of chronic disease. Increased IVAN therapy. Add iron load with dialysis blood transfusion as needed 3. Selene pneumonia with productive sputum, generalized malaise, anorexia. Symptoms improved some with antibiotics, steroid therapy. 4. Mildly elevated troponin levels with a history of CAD status post CABG. Cardiology consulted. 5. Orthostatic hypotension with stable blood pressure on midodrine and Florinef 6. Diabetes mellitus type II primary care management 7. Protein/calorie malnutrition. continue protein supplement
[2018-05-17 11:11] LABS: Bedside Glucose 435 mg/dL (70-110)
--- NOTE | 2018-05-17 11:45 | PCM.DC ---
You will use the following diet at home:: Renal (restricted protein/sodium) Your food should be the consistency of: Regular Your liquids should be the consistency of: Regular/Thin Discharge Activity: Return to Normal Activity Allergies/Adverse Reactions: Allergies No Known Allergies Allergy (Verified 05/15/18 13:48) Medications to take at Discharge Aspirin [Aspirin, Baby] 81 mg PO DAILY 06/07/16 Cholecalciferol (Vitamin D3) [Vitamin D3] 5,000 unit PO DAILY 06/07/16 Insulin Lispro [Humalog] 8 - 10 unit SQ TIDCM 06/07/16 Docusate Calcium [Stool Softener] 720 mg PO DAILY PRN PRN 09/01/16 Multivit-Min/Iron/Folic Acid/K [Adults Multivitamin Caplet] 1 each PO DAILY 04/12/18 Pantoprazole Sodium [Protonix] 40 mg PO DAILY 04/12/18 B Complex W-C No.20/Folic Acid [Nephrocaps Softgel] 1 mg PO TID 05/15/18 Fludrocortisone Acetate [Florinef] 0.1 mg PO DAILY@0800 PRN 05/15/18 Midodrine HCl [Proamatine] 2.5 mg PO DAILY PRN 05/15/18 Simvastatin 40 mg PO QHS 05/15/18 Albuterol Aerosols [Ventolin Aerosols] 2.5 mg INHALATION Q6H PRN PRN #28 vial.neb. 05/17/18 Cholecalciferol (VIT D3) [Vitamin D3] 5,000 unit PO DAILY tablet 05/17/18 Doxycycline 100 mg PO BID #5 cap 05/17/18 Insulin Glargine [Lantus SoloStar Pen] 14 units SC QHS pen 05/17/18 Ipratropium/Albuterol Sulfate [Duoneb] 3 ml INHALATION Q4HWA.RT #42 ampul.neb 05/17/18 Nebulizer [Lc Star] 1 ea MC UD #1 ea 05/17/18 Prednisone 40 mg PO DAILY #8 tab 05/17/18 The following prescriptions were given: Albuterol Aerosols [Ventolin Aerosols] 2.5 mg INHALATION Q6H PRN PRN #28 vial.neb. PRN Reason: dyspnea, wheezing Doxycycline 100 mg PO BID #5 cap Ipratropium/Albuterol Sulfate [Duoneb] 3 ml INHALATION Q4HWA.RT #42 ampul.neb Nebulizer [Lc Star] 1 ea UD #1 ea Prednisone 40 mg PO DAILY #8 tab [facility] [[facility]] - Please follow up with your Primary Care Physician in: 1-2 weeks Please Follow Up With: Oumou Mesa DO When: As directed, resume dialysis Proposed Discharge Date: 05/17/18
[2018-05-17] MEDS: Insulin Lispro 100 UNIT/ML INSULN.PEN 12 UNIT SC (11:49)
[2018-05-17] MEDS: predniSONE 20 MG Tablet 40 MG PO (11:49)
--- NOTE | 2018-05-17 12:09 | CASEMGMT ---
Addendum entered by Kalyani Rios 05/17/18 14:26: Call to [facility] to check on connell for pt to buy a nebulizer and per Radha, a brand new nebulizer would be $100 with supplies and a re-conditioned one would be $50 with supplies. ARACELI HULL has still not received a call back from KURTIS Abreu at the [facility]. Pt updated at this time, voices understanding. Maryuri CHARLES CM Original Note: Addendum entered by Kalyani Rios 05/17/18 12:58: This ARACELI HULL left a message with humaira Abreu's case maker at the [facility], in regards to nebulizer at this time. Maryuri CHARLES CM Original Note: Per Dr. Fam, pt needs to be sent home with nebulizer. Call to Anna Putnam at [facility] and she states she will call this ARACELI HULL back with who would be able to set up at the [facility]. Maryuri CHARLES CM
--- NOTE | 2018-05-17 13:25 | CASEMGMT ---
SW completed health care power of trade mark attorney and health care living will with patient and his . Copies made, one was placed in chart and additional copies given to patient. Maria Eugenia GRAVES MSW
--- NOTE | 2018-05-17 14:30 | CASEMGMT ---
Per Marla CHARLES, pt would like to be discharged at this time. Pt states he will borrow mother in law's nebulizer or go buy one at [facility]. Pt discharged at this time. Maryuri CHARLES CM
--- NOTE | 2018-05-17 14:52 | CASEMGMT ---
This ARACELI HULL received call back from Lois at the [facility] and she states that nebulizer script has to go through [facility] clinic and gives this RN KURTIS the number for [place] pt's PACT team pharmacy customer care specialist. [facility] [phone] ext. [phone]. Message left at this time with description and contact info. Maryuri CHARLES CM
--- NOTE | 2018-05-17 15:11 | PCM.DC.SUM ---
Discharge Date and Diagnosis Date of Admission: 05/15/18 Date of Discharge: 05/17/18 - Primary Discharge Diagnosis Acute bronchitis 2/2 human metapneumovirus Hypokalemia resolved Abnormal cardiac enzymes, LV systolic dysfunction ESRD DMt2 HLD HTN GERD - Secondary Discharge Diagnosis Chronic Problems Hyperlipidemia (Chronic) Type 2 diabetes mellitus (Chronic) Acute on chronic renal failure (Chronic) Requiring hemodialysis. Pleural effusion, left (Chronic) Status post coronary artery bypass graft (Chronic) Coronary artery disease (Chronic) Hypertension (Chronic) Hospital Course and Treatment Imaging Results: Echo: Interpretation Summary Normal LV size. The estimated ejection fraction is 53 %. Stage 1 diastolic dysfunction. Trivial eccentric mitral valve insufficiency. Compared to prior study, there is no significant change. CXR: RAD/Chest 1 View (Portable) IMPRESSION: No acute thoracic pathology. Consults: Deangelo - Cardiology Operations: None Procedures: 2-D Echocardiogram Summary of Care Provided: Physical exam on day of discharge: General: Resting comfortably NAD Psych: A/Ox3 normal affect HEENT: [place] AT NC Neck: Supple NT CV: RRR no m/t/r/g/h Resp: rhonchi BL Abd: [id number] Soft NT no guarding or rigidity Ext: DP2+= no edema Skin: W/D normal turgor Lymph/Heme: No active bleeding or adenopathy Neuro: CN2-12 intact Hospital Course: The patient is a 62 year old M with a hx of htn, dmt2, ESRD, CAD prior cabg, hld who presented to the ER with increased SOB, and cough, and fever at home. He was admitted for acute bronchitis and given doxycycline, bronchodilators and started on steroids. Dr. Mesa was consulted for i/p dialysis. He was found to have abnormal (indeterminate) cardiac enzymes and cardiology was consulted. They noted that he this was likely not due to a cardiac event and likely demand ischemia and recommended medical optimization at this time. He had a recent normal stress test within the last 6 months. No BB or CHADWICK/Arb was started as he had been intolerant with hypotension in the past. He was treated for bronchitis as above. Respiratory panel was positive for human metapneumovirus. He improved gradually and did not require O2 at rest of with exertion. He was discharged home in stable condition to complete a total of 5 days of doxy, 5 days of prednisone, and was written for a nebulizer with duonebs and albuterol. Please follow up with dialysis and your [facility]. This patient was seen by Tay Rees PA-C under the supervision of Doctor Sarwat. [] Discharge Diet: Low fat/ Low Cholesterol, 1800 Calorie Control Diet, 2000 mg Sodium Diet, Renal Diet Discharge Activity: Return to Normal Activity Home Medications: Medications to take at Discharge Aspirin [Aspirin, Baby] 81 mg PO DAILY 06/07/16 Cholecalciferol (Vitamin D3) [Vitamin D3] 5,000 unit PO DAILY 06/07/16 Insulin Lispro [Humalog] 8 - 10 unit SQ TIDCM 06/07/16 Docusate Calcium [Stool Softener] 720 mg PO DAILY PRN PRN 09/01/16 Multivit-Min/Iron/Folic Acid/K [Adults Multivitamin Caplet] 1 each PO DAILY 04/12/18 Pantoprazole Sodium [Protonix] 40 mg PO DAILY 04/12/18 B Complex W-C No.20/Folic Acid [Nephrocaps Softgel] 1 mg PO TID 05/15/18 Fludrocortisone Acetate [Florinef] 0.1 mg PO DAILY@0800 PRN 05/15/18 Midodrine HCl [Proamatine] 2.5 mg PO DAILY PRN 05/15/18 Simvastatin 40 mg PO QHS 05/15/18 Albuterol Aerosols [Ventolin Aerosols] 2.5 mg INHALATION Q6H PRN PRN #28 vial.neb. 05/17/18 Cholecalciferol (VIT D3) [Vitamin D3] 5,000 unit PO DAILY tablet 05/17/18 Doxycycline 100 mg PO BID #5 cap 05/17/18 Insulin Glargine [Lantus SoloStar Pen] 14 units SC QHS pen 05/17/18 Ipratropium/Albuterol Sulfate [Duoneb] 3 ml INHALATION Q4HWA.RT #42 ampul.neb 05/17/18 Nebulizer [Lc Star] 1 ea MC UD #1 ea 05/17/18 Prednisone 40 mg PO DAILY #8 tab 05/17/18 Following Prescrptions Were Given to Patient: Albuterol Aerosols [Ventolin Aerosols] 2.5 mg INHALATION Q6H PRN PRN #28 vial.neb. PRN Reason: dyspnea, wheezing Doxycycline 100 mg PO BID #5 cap Ipratropium/Albuterol Sulfate [Duoneb] 3 ml INHALATION Q4HWA.RT #42 ampul.neb Nebulizer [Lc Star] 1 ea MC UD #1 ea Prednisone 40 mg PO DAILY #8 tab [facility] Care Physician: [facility] [Primary Care Provider] - Please follow up with your Primary Care Physician in: 1-2 weeks Please Follow Up With: Oumou Mesa DO When: As directed, resume dialysis Disposition: Home Minutes spent on discharge:: 40 Patient Condition:: Stable Medical Necessity - Tobacco Use Smoking Status: Never smoker Meaningful Use Info Meaningful Use Diagnoses (Choose all that apply): None applicable
--- NOTE | 2018-05-20 15:23 | CASEMGMT ---
ARACELI HULL Discharge F/U phone call LACE: 11 STRATA: 3 Discharge date: 05/17/18 Call date: 05/20/18 Duration: 3 minutes Admission dx: Chest pain, SOB Pt states has been 'doing good' since discharge. Pt states questions regarding discharge medications or instructions at this time. Pt states did obtain a nebulizer from his [id number] and has been using as directed. Pt states no suggestions for [facility] at this time. Pt states no further questions/concerns/needs at this time. [place] ARACELI HULL
== END 2018-05-17 14:22 | disposition home or self-care (01) | DRG 202 ==
LOC: ED 14:38 → PCU 05-16 06:29
PROVIDERS: Admitting Provider Internal Medicine; Emergency Provider Emergency Medicine; Visit Provider Family Medicine
DX: J20.8 Acute bronchitis due to other specified organisms (principal); N18.6 End stage renal disease; I12.0 Hypertensive chronic kidney disease with stage 5 chronic kidney disease or end stage renal disease; I24.8 Other forms of acute ischemic heart disease; E46 Unspecified protein-calorie malnutrition; E87.6 Hypokalemia; B97.81 Human metapneumovirus as the cause of diseases classified elsewhere; Z79.4 Long term (current) use of insulin; E11.22 Type 2 diabetes mellitus with diabetic chronic kidney disease; E78.5 Hyperlipidemia, unspecified; Z95.1 Presence of aortocoronary bypass graft; Z99.2 Dependence on renal dialysis; I25.10 Atherosclerotic heart disease of native coronary artery without angina pectoris; K21.9 Gastro-esophageal reflux disease without esophagitis; B96.89 Other specified bacterial agents as the cause of diseases classified elsewhere; I51.9 Heart disease, unspecified; Z68.25 Body mass index [BMI] 25.0-25.9, adult
CPT/HCPCS: 36415; 71045; 80048; 81001; 82962; 83735; 84484; 85025; 85027; 87070; 87205; 87449; 87633; 90937; 93005; 93306; 93970; 94640; 97802; 99282; J0885; J1756; J7030; A4216; G0257

== ENCOUNTER → 2018-06-06 08:00 | Outpatient (CLI) | payer OTHER, SELFPAY ==
--- NOTE | 2018-06-06 | LES_PTH ---
PATIENT: MICHAEL RAMIREZ LOC: [facility] U#:[id number] AGE/SX: 70/M ROOM: RE06/06/[address]: Dr. Darek Gan MD : [id number] BED: DIS: SPEC #: [id number] RECD: 06/06/18 14:42 STATUS: NED IVETT #: [id number] DERRICK: 06/06/18 00:[address]: Darek Gan DEPT: SURGICAL PATHOLOGY RECD BY: Scout Bai ENTERED: 06/06/18 14:42 SP TYPE: Lesion OTHR DR: [facility] Tissues: Temporal region Procedures: Surgery Specimen Level IV HEADER OPERATION: 3 mm punch biopsy right druze PRE-OP DIAGNOSIS: Uncertain neoplasm right druze TISSUE SUBMITTED: Right druze tissue MICROSCOPIC DIAGNOSIS Right druze tissue, 3 mm punch biopsy: Basal cell carcinoma with focal ulceration and associated inflammation. NATE:sarkis 06/07/18 COMMENT Case has been reviewed in consultation with Dr. Ortiz who concurs with the above diagnosis. IDC:AM MICROSCOPIC DESCRIPTION Slides are reviewed. GROSS DESCRIPTION Received in fixative is one container labeled with the patient's name and designated right druze. The specimen consists of a piece of zavaleta-pink skin measuring 0.5 x 0.2 x 0.1 cm. The specimen is friable. A few hairs are also noted. The entire specimen is submitted in one cassette. / SJ:rg 06/06/18 TC:0 CPT: [id number]
== END ==
PROVIDERS: Visit Provider Surgery
DX: D48.5 Neoplasm of uncertain behavior of skin (principal)
CPT/HCPCS: 88305

== ENCOUNTER → 2018-06-27 14:58 | Outpatient (CLI) | payer OTHER, SELFPAY ==
--- NOTE | 2018-06-27 15:01 | VDUE_ITS ---
Reason For Study: dialysis malfunction Right Proximal Left Proximal Right jugular vein is spontaneous, widely Left jugular vein is spontaneous, widely patent, phasic, with no intraluminal patent, phasic, with no intraluminal echogenicity noted. echogenicity noted. Right subclavian vein is spontaneous, widely Left subclavian vein is spontaneous, widely patent, phasic, with no intraluminal patent, phasic, with no intraluminal echogenicity noted. echogenicity noted. Interpretation Summary Bilateral jugular and subclavian veins appear patent and compressible. Left internal jugular catheter noted with likely low insertion. This would correlate with unremarkable CXR Ordering Physician: Darek Gan Performed By: Elliott Ye RVT ???
--- NOTE | 2018-06-27 15:35 | RAD_ITS ---
STUDY: X-RAY CHEST REASON FOR EXAM: Male, 62 years old. Dialysis catheter TECHNIQUE: Frontal and lateral views of the chest COMPARISON: 05/15/2018 FINDINGS: There is a dual-lumen catheter with its tip in the superior vena cava. The lungs are clear. There are no pleural effusions. There is no pneumothorax. The heart is normal in size. The patient is status post sternotomy. The visualized osseous structures are within normal limits. RAD/Chest PA and Lateral IMPRESSION: Satisfactory position of the dual lumen catheter. No pneumothorax. Clear lungs. Electronically Signed: Ben Love, at 16:01 EDT Tel , Service support ,
== END ==
LOC: CVS 15:00
PROVIDERS: Visit Provider Surgery
DX: T82.510A Breakdown (mechanical) of surgically created arteriovenous fistula, initial encounter (principal); T82.9XXA Unspecified complication of cardiac and vascular prosthetic device, implant and graft, initial encounter; N18.5 Chronic kidney disease, stage 5
CPT/HCPCS: 71046; 93970

== ENCOUNTER 2018-06-28 08:36 | Day surgery (SDC) | payer OTHER, SELFPAY ==
[2018-06-28] VITALS (7 sets, daily range): BP systolic 146–161; BP diastolic 66–86; PULSE 38–78; RESP 16–20; TEMP 36.1–37.1; O2SAT 92–96; BMI 26.5
[2018-06-28 09:45] LABS: Bedside Glucose 139 mg/dL (70-110)
[2018-06-28] MEDS: Bupivacaine Mpf 0.5% 30 ML VIAL (10:40)
[2018-06-28] MEDS: Cefazolin 2 GM in 0.9% Normal Saline 100 ML IV (11:02)
--- NOTE | 2018-06-28 11:07 | PCM.DC.GS ---
Discharge Diet: Renal Diet Discharge Activity: Return to Normal Activity, May Not Shower Lifting Restrictions: 10 pounds Additional Dressing/Incision Instructions:: Catheter dressing changes will be performed at the dialysis center. Please keep the sites clean and dry. Additional Instructions: You may utilize acetaminophen or Tylenol as needed for discomfort. Allergies/Adverse Reactions: Allergies No Known Allergies Allergy (Verified 06/28/18 09:04) Medications to take at Discharge Aspirin [Aspirin, Baby] 81 mg PO DAILY 06/07/16 Cholecalciferol (Vitamin D3) [Vitamin D3] 5,000 unit PO DAILY 06/07/16 Insulin Lispro [Humalog] 8 - 10 unit SQ TIDCM 06/07/16 Docusate Calcium [Stool Softener] 720 mg PO DAILY PRN PRN 09/01/16 Multivit-Min/Iron/Folic Acid/K [Adults Multivitamin Caplet] 1 ea PO DAILY 04/12/18 Pantoprazole Sodium [Protonix] 40 mg PO DAILY 04/12/18 B Complex W-C No.20/Folic Acid [Nephrocaps Softgel] 1 mg PO TID 05/15/18 Fludrocortisone Acetate [Florinef] 0.1 mg PO DAILY@0800 PRN 05/15/18 Midodrine HCl [Proamatine] 2.5 mg PO DAILY PRN 05/15/18 Simvastatin 40 mg PO QHS 05/15/18 Ipratropium/Albuterol Sulfate [Duoneb] 3 ml INHALATION Q4HWA.RT #42 ampul.neb 05/17/18 Nebulizer [Lc Star] 1 ea UD #1 ea 05/17/18 metoprolol tartrate 25 mg tablet 25 mg PO QDAY tab 06/06/18 sevelamer HCl 800 mg tablet 800 mg PO QPC 06/06/18 torsemide 20 mg tablet 20 mg PO BID tab 06/06/18 Insulin Glargine [Lantus SoloStar Pen] 8 - 10 units SC QHS 06/28/18 Primary Care Physician: [facility] [Primary Care Provider] - Test Results: Test results from this visit will be discussed in further detail at your follow-up appointment, if applicable. Please Follow Up With: Darek Gan MD - [phone] When: Surgical follow-up will be scheduled after your fistula creation
--- NOTE | 2018-06-28 12:02 | RAD_ITS ---
STUDY: X-RAY CHEST REASON FOR EXAM: Male, 62 years old. Port placement. TECHNIQUE: Single AP portable view of the chest. COMPARISON: Comparison is made with prior study dated June 27, 2018. FINDINGS: A right-sided double-lumen catheter has been placed with the tip in the proximal portion of the superior vena cava. The left-sided double-lumen catheter has been removed. EKG liquids are seen. Stable elevation of the right hemidiaphragm. Minimal right basilar atelectasis. There is no demonstrated pleural abnormality. Sternal cerclage wires and vascular clips are present from a prior sternotomy and coronary artery bypass graft procedure (CABG). Cardiomegaly. Normal mediastinum and umm. Normal visualized pulmonary arteries. Normal visualized aortic arch and descending thoracic aorta. There are diffuse degenerative changes of the visualized thoracic spine. Normal visualized ribs, clavicles, and shoulders. There is no demonstrated abnormality of the visualized soft tissue structures of the upper abdomen. RAD/Chest 1 View (Portable) IMPRESSION: A right-sided double catheter as been placed with the tip in the proximal superior vena cava. Elevation of the right hemidiaphragm with mild right basilar atelectasis. Electronically Signed: Remy Thompson MD at 12:53 EDT Tel [phone], Service support ,
--- NOTE | 2018-06-28 12:02 | PCM.OPRPT ---
Problem List (1) Problem with dialysis access Status: Acute Qualifiers: Encounter type: initial encounter Qualified Code(s): T82.898A - Other specified complication of vascular prosthetic devices, implants and grafts, initial encounter Report of Operation Date of Procedure: 06/28/18 Pre-Operative Diagnosis: Malfunctioning tunneled left internal jugular double-lumen dialysis catheter Post-Operative Diagnosis: Same Surgery/Procedure Performed:: 19 cm pre-curved palindrome right internal jugular dialysis catheter placement. Removal left internal jugular tunneled dialysis catheter Description of Surgical Findings:: Timeout informed consent was obtained. 62-year-old gent was taken the operating room. He underwent monitored anesthesia care. Ancef 2 g given intravenous preoperatively. Bilateral neck bilateral chest were sterilely prepped and draped starting on the right. Then ultrasound was used to identify the right internal jugular vein. It appeared that there was a very prominent valve which possibly could have been the site of obstruction that the previous interventional radiologist had incurred. Under ultrasound guidance 1% lidocaine mixed 50-50 with 0.5% Marcaine was instilled into the right neck. Micropuncture needle inserted micropuncture wire inserted he did take me 3 different tries to get a micropuncture wire to go past the valve. I then however was able to advance the sheath used fluoroscopy demonstrated the sheath was in good position there was good venous return. I placed 035 J-wire. Local was instilled upon the right chest wall. A 19 cm pre-curved palindrome catheter was tunneled from the chest to the neck site. Over the J-wire serial dilatation was performed. Then the sheath dilator was inserted. The wire and dilator were removed. The catheter was advanced through the sheath. The sheath was subsequently removed the catheter was nicely positioned. Fluoroscopy demonstrated a very nice curvilinear flow to the catheter in good position with the tip close to the SVC atrial junction. There was very good venous return. The catheters were flushed with saline and then 2 cc per channel of heparinized saline. The catheter was secured skin with interrupted 3-0 nylon. The neck site was closed with interrupted 5-0 Vicryl subdermal stitch. Telfa and OpSite dressing applied to that site. A silver impregnated dressing was placed at the catheter exit site. Subsequently now 1% lidocaine mixed 50-50 with 0.5% Marcaine was used as local anesthetic on the left chest in order to create a counterincision over the cuff. A transverse incision was created. Blunt dissection was used to release the cuff. Continuous pressure was held on the right IJ site as the catheter was completely removed. The catheter was released from the skin by releasing the previous nylon sutures. The counterincision was closed with interrupted 5-0 Vicryl subdermal stitches. Steri-Strips and gauze pressure dressing applied. Total amount of local anesthetic used was 18 cc. He tolerated the procedure well there were no specimens no drains blood loss was minimal. He was taken to the recovery room in satisfactory condition. Stat portable chest x-ray is pending. Darek Gan M.D., F.A.C.S. Palindrome catheter chronic dual-lumen 14.5 Hebrew 4.8 mm channel. 19 cm length with 1.6 mm lumens. Reference number [id number] and lot #[id number] Type of Anesthesia:: Local MAC Anesthesiologist: Brock Sagastume
--- NOTE | 2018-06-28 12:06 | OP.PCM_ITS ---
Problem List (1) Problem with dialysis access Status: Acute Qualifiers: Encounter type: initial encounter Qualified Code(s): T82.898A - Other specified complication of vascular prosthetic devices, implants and grafts, initial encounter Report of Operation Date of Procedure: 06/28/18 Pre-Operative Diagnosis: Malfunctioning tunneled left internal jugular double- lumen dialysis catheter Post-Operative Diagnosis: Same Surgery/Procedure Performed:: 19 cm pre-curved palindrome right internal jugular dialysis catheter placement. Removal left internal jugular tunneled dialysis catheter Description of Surgical Findings:: Timeout informed consent was obtained. 62-year-old gent was taken the operating room. He underwent monitored anesthesia care. Ancef 2 g given intravenous preoperatively. Bilateral neck bilateral chest were sterilely prepped and draped starting on the right. Then ultrasound was used to identify the right internal jugular vein. It appeared that there was a very prominent valve which possibly could have been the site of obstruction that the previous interventional radiologist had incurred. Under ultrasound guidance 1% lidocaine mixed 50-50 with 0.5% Marcaine was instilled into the right neck. Micropuncture needle inserted micropuncture wire inserted he did take me 3 different tries to get a micropuncture wire to go past the valve. I then however was able to advance the sheath used fluoroscopy demonstrated the sheath was in good position there was good venous return. I placed 035 J-wire. Local was instilled upon the right chest wall. A 19 cm pre-curved palindrome catheter was tunneled from the chest to the neck site. Over the J-wire serial dilatation was performed. Then the sheath dilator was inserted. The wire and dilator were removed. The catheter was advanced through the sheath. The sheath was subsequently removed the catheter was nicely positioned. Fluoroscopy demonstrated a very nice curvilinear flow to the catheter in good position with the tip close to the SVC atrial junction. There was very good venous return. The catheters were flushed with saline and then 2 cc per channel of heparinized saline. The catheter was secured skin with interrupted 3 -0 nylon. The neck site was closed with interrupted 5-0 Vicryl subdermal stitch. Telfa and OpSite dressing applied to that site. A silver impregnated dressing was placed at the catheter exit site. Subsequently now 1% lidocaine mixed 50-50 with 0.5% Marcaine was used as local anesthetic on the left chest in order to create a counterincision over the cuff. A transverse incision was created. Blunt dissection was used to release the cuff. Continuous pressure was held on the right IJ site as the catheter was completely removed. The catheter was released from the skin by releasing the previous nylon sutures. The counterincision was closed with interrupted 5-0 Vicryl subdermal stitches. Steri-Strips and gauze pressure dressing applied. Total amount of local anesthetic used was 18 cc. He tolerated the procedure well there were no specimens no drains blood loss was minimal. He was taken to the recovery room in satisfactory condition. Stat portable chest x-ray is pending. Darek Gan M.D., F.A.C.S. Palindrome catheter chronic dual-lumen 14.5 Burmese 4.8 mm channel. 19 cm length with 1.6 mm lumens. Reference number [id number] and lot #[id number] Type of Anesthesia:: Local MAC Anesthesiologist: Brock Sagastume
== END 2018-06-28 13:51 | disposition home or self-care (01) ==
LOC: SDC 08:37 → AC 08:39
PROVIDERS: Visit Provider Surgery
PROC: (CPT 36815; principal; 2018-06-28 10:45)
DX: T82.898A Other specified complication of vascular prosthetic devices, implants and grafts, initial encounter (principal); N18.5 Chronic kidney disease, stage 5; I95.9 Hypotension, unspecified; E78.5 Hyperlipidemia, unspecified; E87.5 Hyperkalemia; E11.9 Type 2 diabetes mellitus without complications; I25.10 Atherosclerotic heart disease of native coronary artery without angina pectoris; I25.2 Old myocardial infarction; Z95.1 Presence of aortocoronary bypass graft; Z99.2 Dependence on renal dialysis; Z79.52 Long term (current) use of systemic steroids; Z79.82 Long term (current) use of aspirin; Z79.4 Long term (current) use of insulin; Z79.899 Other long term (current) drug therapy; Z87.19 Personal history of other diseases of the digestive system; Z85.828 Personal history of other malignant neoplasm of skin
CPT/HCPCS: 01844; 36815; 71045; 76000; 82962; J7040; C1750

== ENCOUNTER 2018-07-01 05:47 | Day surgery (SDC) | payer OTHER, SELFPAY ==
--- NOTE | 2018-06-24 12:27 | EKG12_ITS ---
Test Reason : PRE-OP Blood Pressure : / mmHG Vent. Rate : 087 BPM Atrial Rate : 087 BPM P-R Int : 000 ms QRS Dur : 098 ms QT Int : 420 ms P-R-T Axes : 000 021 098 degrees QTc Int : 505 ms Sinus rhythm with occasional PSVCs Voltage criteria for left ventricular hypertrophy Cannot rule out Inferior infarct , age undetermined Prolonged QT Abnormal ECG Confirmed by AMENA MACIAS, LIAN ([id number]), magazine editor STEPHANIE CERRATO ([id number]) on 06/28/2018 2:57:43 PM Referred By: Darek Gan Confirmed By:LIAN BECKWITH MD
[2018-06-24 14:53] LABS: Hematocrit 36.8 % (40-54); Hemoglobin 11.7 g/dl (13.0-16.5); Mean Corp Hgb Conc 31.8 g/gl (32-36); Mean Corpuscular Hgb 31.7 pg (27.0-32.0); Mean Corpuscular Volume 99.7 fL (80-94); Mean Platelet Vol. 11.9 fl (6.2-12.0); Platelet Count 301 K/mm3 (150-450); RBC Distribution Width CV 15.3 % (11.6-14.6); RBC Distribution Width SD 53.7 fl (35.1-43.9); Red Blood Count 3.69 M/mm3 (4.6-6.2); White Blood Count 6.8 K/mm3 (4.4-11.0)
[2018-06-24 14:57] LABS: Scan Indicated on CBC? Y/N NO
[2018-06-24 16:48] LABS: Anion Gap 7 (5-15); BUN 31 mg/dL (7-18); BUN/Creat Ratio 8.3 RATIO (10-20); Calcium,Total 8.7 mg/dL (8.5-10.1); Chloride 101 mmol/L (98-107); Creatinine, Serum 3.74 mg/dL (0.70-1.30); Glucose 278 mg/dL (74-106); Potassium 3.8 mmol/L (3.5-5.1); Sodium Level 138 mmol/L (136-145)
[2018-07-01] VITALS (8 sets, daily range): BP systolic 121–153; BP diastolic 62–66; PULSE 55–74; RESP 16–20; TEMP 36.1–36.5; O2SAT 92–100; BMI 26.0
[2018-07-01 06:50] LABS: Bedside Glucose 121 mg/dL (70-110)
--- NOTE | 2018-07-01 07:55 | PCM.DC.FIST ---
Discharge Diet: Renal Diet Discharge Activity: May Not Drive - for 2-3 days or while taking narcotic pain medications., May Shower, May Take a Tub Bath - in 5 days. Lifting Restrictions: 5 pounds Keep extremity elevated above heart level: - - Keep arm elevated above the heart level for 3 days. Additional Activity Instructions:: Exercise hand vigorously with a stress ball. Call your doctor if your incision/area has: Continuous Slow Oozing, Sudden Increased Bleeding - apply pressure and call your doctor., Increased Pain/ Swelling, Increased Redness, Foul Smelling Discharge Call your doctor if you observe: Fever of 101 or Higher Suture Line Care: Avoid Pulling/Pushing, Avoid Pinching/Bending Cleanse incision/area with: Keep Dressing Clean & Dry Additional Dressing/Incision Instructions:: Change or remove dressing in one day. May protect with a gauze bandaid. Allergies/Adverse Reactions: Allergies No Known Allergies Allergy (Verified 06/28/18 09:04) Medications to take at Discharge Aspirin [Aspirin, Baby] 81 mg PO DAILY 06/07/16 Cholecalciferol (Vitamin D3) [Vitamin D3] 5,000 unit PO DAILY 06/07/16 Insulin Lispro [Humalog] 8 - 10 unit SQ TIDCM 06/07/16 Docusate Calcium [Stool Softener] 720 mg PO DAILY PRN PRN 09/01/16 Multivit-Min/Iron/Folic Acid/K [Adults Multivitamin Caplet] 1 ea PO DAILY 04/12/18 Pantoprazole Sodium [Protonix] 40 mg PO DAILY 04/12/18 B Complex W-C No.20/Folic Acid [Nephrocaps Softgel] 1 mg PO TID 05/15/18 Fludrocortisone Acetate [Florinef] 0.1 mg PO DAILY@0800 PRN 05/15/18 Midodrine HCl [Proamatine] 2.5 mg PO DAILY PRN 05/15/18 Simvastatin 40 mg PO QHS 05/15/18 Ipratropium/Albuterol Sulfate [Duoneb] 3 ml INHALATION Q4HWA.RT #42 ampul.neb 05/17/18 Nebulizer [Lc Star] 1 ea UD #1 ea 05/17/18 metoprolol tartrate 25 mg tablet 25 mg PO QDAY tab 06/06/18 sevelamer HCl 800 mg tablet 800 mg PO QPC 06/06/18 torsemide 20 mg tablet 20 mg PO BID tab 06/06/18 Insulin Glargine [Lantus SoloStar Pen] 8 - 10 units SC QHS 06/28/18 Primary Care Physician: [facility] [Primary Care Provider] - Test Results: Test results from this visit will be discussed in further detail at your follow-up appointment, if applicable. Please Follow Up With: Darek Gan MD - [phone] When: Call to make an appointment for suture removal and follow up in 1 week.
[2018-07-01] MEDS: Cefazolin 2 GM in 0.9% Normal Saline 100 ML IV (07:59)
--- NOTE | 2018-07-01 08:00 | LES_PTH ---
PATIENT: MICHAEL RAMIREZ [place]: [facility] [place][id number] AGE/SX: 62/M ROOM: RE07/01/[address]: Dr. Darek Gan MD : [id number] BED: DIS: 07/01/2018 SPEC #: [id number] RECD: 07/01/18 12:47 STATUS: NED IVETT #: [id number] DERRICK: 07/01/18 08:[address]: Darek Gan DEPT: SURGICAL PATHOLOGY RECD BY: Delbert Mary ENTERED: 07/01/18 13:04 SP TYPE: Lesion OTHR DR: [facility] Tissues: Temporal region Procedures: Surgery Specimen Level IV HEADER OPERATION: Arteriovenous fistula, creation, radial to cephalic, forearm PRE-OP DIAGNOSIS: Chronic renal failure stage 5 TISSUE SUBMITTED: Basal cell carcinoma, right cheondoism MICROSCOPIC DIAGNOSIS Skin lesion of right cheondoism, excision: Basal cell carcinoma, superficial, nodular and ulcerated. Solar elastosis. AM:sarkis 07/04/18 COMMENT The lesion is completely excised in the planes examined. Case has been reviewed in consultation with Dr. Munoz who concurs with the above diagnosis. IDC:NATE MICROSCOPIC DESCRIPTION Slides are reviewed. GROSS DESCRIPTION Received in fixative is one container labeled with the patient's name and designated basal cell carcinoma right cheondoism. The specimen consists of a zavaleta-white skin ellipse measuring 2.5 x 1.1 cm and up to 0.4 cm in thickness. A focal ulcerated lesion is noted on the surface measuring 0.5 cm in greatest dimension. The specimen is inked, serially sectioned and submitted entirely in two cassettes as follows: 1 ? tips, 2 ? rest of the specimen. / NATE:sarkis 07/01/18 TC:0 CPT: 60088
[2018-07-01] MEDS: Bupivacaine 0.25% 30 ML Vial (08:16)
[2018-07-01] MEDS: Heparin Injection (Vial) 5,000 UNIT/ML VIAL 5000 UNIT (09:25)
--- NOTE | 2018-07-01 09:47 | PCM.OPRPT ---
Problem List (1) Skin lesion of face Status: Acute (2) Chronic renal failure, stage 5 Status: Acute Report of Operation Date of Procedure: 07/01/18 Pre-Operative Diagnosis: Basal cell carcinoma right mu-ism. Stage V renal failure Post-Operative Diagnosis: Same Surgery/Procedure Performed:: Left forearm radiocephalic arteriovenous fistula creation. Vertical elliptical excision right mu-ism skin cancer Description of Surgical Findings:: Timeout and informed consent was obtained. The patient was taken the operating room. His left extremity sterilely prepped and draped. I had already marked the course of the cephalic vein. 1% lidocaine mixed 50-50 with 0.5% Marcaine was used as local anesthetic. Total of 16 cc was used for both procedures. Local was instilled in the left forearm at the radial wrist. A slightly oblique transverse incision was created. Sharp and blunt dissection was performed at the cephalic vein was dissected free. Side branches secured with hemoclips. The radial artery was identified circumferential control was obtained. The patient received 5000 units of heparin. The vein was ligated distally with a Hemoclip. He was transected and spatulated length. Peripheral vascular clamps are placed on the left radial artery and 11 blade was used to make an arteriotomy which was extended with Torres scissors. A end-to-side anastomosis was created with a running 7-0 Prolene. There was good antegrade and retrograde flow. The scope there appear to be good pulsatile flow. There was a side branch about 6 cm more proximally on the wrist. Local was instilled incision was created in that side branch was secured with a Hemoclip. The wounds were closed with deep layer of interrupted 3-0 Vicryl and then running septic or 4-0 Monocryl. Steri-Strips Telfa and OpSite dressings applied. The patient received 20 mg of protamine IV. Attention was now drawn to the right mu-ism lesion. This was an 8 x 10 cm basal cell carcinoma based upon punch biopsy. It was prepped with Betadine. Local was instilled. A slightly oblique vertical elliptical excision measuring 3 cm in length by approximately 1.5 cm in width was performed. Hemostasis was then obtained with multiple interrupted 4-0 Monocryl sutures. The subdermal tissues approximated with 4-0 Monocryl. Skin inspection running simple mattress suture of 6-0 nylon. Telfa and OpSite dressings applied. The specimen was submitted in formalin. The patient has a good pulse thrill and bruit in the left forearm AV fistula. Hemostasis intact. Dressings in place. Specimens include just the right mu-ism skin cancer. Drains none. Blood loss 30 cc. He was taken to the recovery area in sagittal condition without apparent complication. Darek Gan M.D., F.A.C.S. Type of Anesthesia:: Local MAC Anesthesiologist: Femi Nesbitt
--- NOTE | 2018-07-01 09:52 | OP.PCM_ITS ---
Problem List (1) Skin lesion of face Status: Acute (2) Chronic renal failure, stage 5 Status: Acute Report of Operation Date of Procedure: 07/01/18 Pre-Operative Diagnosis: Basal cell carcinoma right protestant. Stage V renal failure Post-Operative Diagnosis: Same Surgery/Procedure Performed:: Left forearm radiocephalic arteriovenous fistula creation. Vertical elliptical excision right protestant skin cancer Description of Surgical Findings:: Timeout and informed consent was obtained. The patient was taken the operating room. His left extremity sterilely prepped and draped. I had already marked the course of the cephalic vein. 1% lidocaine mixed 50-50 with 0.5% Marcaine was used as local anesthetic. Total of 16 cc was used for both procedures. Local was instilled in the left forearm at the radial wrist. A slightly oblique transverse incision was created. Sharp and blunt dissection was performed at the cephalic vein was dissected free. Side branches secured with hemoclips. The radial artery was identified circumferential control was obtained. The patient received 5000 units of heparin. The vein was ligated distally with a Hemoclip. He was transected and spatulated length. Peripheral vascular clamps are placed on the left radial artery and 11 blade was used to make an arteriotomy which was extended with Torrse scissors. A end-to-side anastomosis was created with a running 7-0 Prolene. There was good antegrade and retrograde flow. The scope there appear to be good pulsatile flow. There was a side branch about 6 cm more proximally on the wrist. Local was instilled incision was created in that side branch was secured with a Hemoclip. The wounds were closed with deep layer of interrupted 3-0 Vicryl and then running septic or 4-0 Monocryl. Steri-Strips Telfa and OpSite dressings applied. The patient received 20 mg of protamine IV. Attention was now drawn to the right protestant lesion. This was an 8 x 10 cm basal cell carcinoma based upon punch biopsy. It was prepped with Betadine. Local was instilled. A slightly oblique vertical elliptical excision measuring 3 cm in length by approximately 1.5 cm in width was performed. Hemostasis was then obtained with multiple interrupted 4-0 Monocryl sutures. The subdermal tissues approximated with 4-0 Monocryl. Skin inspection running simple mattress suture of 6-0 nylon. Telfa and OpSite dressings applied. The specimen was submitted in formalin. The patient has a good pulse thrill and bruit in the left forearm AV fistula. Hemostasis intact. Dressings in place. Specimens include just the right protestant skin cancer. Drains none. Blood loss 30 cc. He was taken to the recovery area in sagittal condition without apparent complication. Darek Gan M.D., F.A.C.S. Type of Anesthesia:: Local MAC Anesthesiologist: Femi Nesbitt
[2018-07-01 15:54] LABS: EST Glomerular Filtration Rate 18 mL/min (>60); Est Glom Filt Rate - Afr Amer 21 mL/min (>60)
== END 2018-07-01 11:10 | disposition home or self-care (01) ==
LOC: SDC 05:47 → AC 05:47
PROVIDERS: Visit Provider Surgery
PROC: (CPT 11626; principal; 2018-07-01 07:45)
PROC: (CPT 11626; 2018-07-01 07:45)
DX: C44.319 Basal cell carcinoma of skin of other parts of face (principal); N18.5 Chronic kidney disease, stage 5; E11.9 Type 2 diabetes mellitus without complications; I95.9 Hypotension, unspecified; E87.5 Hyperkalemia; E78.5 Hyperlipidemia, unspecified; I25.10 Atherosclerotic heart disease of native coronary artery without angina pectoris; I25.2 Old myocardial infarction; K21.9 Gastro-esophageal reflux disease without esophagitis; Z99.2 Dependence on renal dialysis; Z79.4 Long term (current) use of insulin; Z79.82 Long term (current) use of aspirin; Z79.51 Long term (current) use of inhaled steroids; Z79.899 Other long term (current) drug therapy
CPT/HCPCS: 11626; 12032; 36820; 36415; 80048; 82962; 83036; 85027; 88305; 93005

== ENCOUNTER 2018-09-13 06:29 | Day surgery (SDC) | payer OTHER, SELFPAY ==
[2018-09-13 06:42] LABS: Hematocrit 32.8 % (40-54); Hemoglobin 10.7 g/dl (13.0-16.5); Mean Corp Hgb Conc 32.6 g/gl (32-36); Mean Corpuscular Hgb 30.1 pg (27.0-32.0); Mean Corpuscular Volume 92.1 fL (80-94); Mean Platelet Vol. 11.1 fl (6.2-12.0); Platelet Count 199 K/mm3 (150-450); RBC Distribution Width CV 15.6 % (11.6-14.6); Red Blood Count 3.56 M/mm3 (4.6-6.2); White Blood Count 6.1 K/mm3 (4.4-11.0)
[2018-09-13 06:48] LABS: Scan Indicated on CBC? Y/N NO
[2018-09-13 06:54] LABS: Anion Gap 8 (5-15); BUN 38 mg/dL (7-18); BUN/Creat Ratio 7.6 RATIO (10-20); Calcium,Total 8.9 mg/dL (8.5-10.1); Chloride 96 mmol/L (98-107); Creatinine, Serum 4.97 mg/dL (0.70-1.30); EST Glomerular Filtration Rate 13 mL/min (>60); Est Glom Filt Rate - Afr Amer 15 mL/min (>60); Glucose 164 mg/dL (74-106); Potassium 4.3 mmol/L (3.5-5.1); Sodium Level 137 mmol/L (136-145)
[2018-09-13 07:21] LABS: Bedside Glucose 164 mg/dL (70-110)
--- NOTE | 2018-09-13 09:16 | PCM.OPRPT ---
Problem List (1) Problem with dialysis access Status: Acute Qualifiers: Encounter type: subsequent encounter Qualified Code(s): T82.898D - Other specified complication of vascular prosthetic devices, implants and grafts, subsequent encounter Report of Operation Date of Procedure: 09/13/18 Pre-Operative Diagnosis: Diminished flow left forearm radial to cephalic arteriovenous hemodialysis fistula Post-Operative Diagnosis: Proximal fistula venous inflow stenosis. Mid forearm fistula stenosis. Subclavian vein outflow venous stenosis Surgery/Procedure Performed:: Left upper extremity fistulogram with anastomotic 6 x 2 conquest angioplasty and mid forearm fistula 7 x 6 drug-coated balloon angioplasty and central venous 10 x 4 [place] angioplasty Description of Surgical Findings:: .Informed consent was obtained. 63-year-old gent was taken to the special procedures lab. Was placed on the table. 50 mcg of fentanyl 1 mg of Versed were given as intravenous sedation. The left extremity was sterilely prepped and draped. Ultrasound was used to identify the cephalic vein closer to the antecubital space. 2% lidocaine was instilled under ultrasound guidance a micropuncture needle inserted micropuncture wire inserted 6 [place] data was inserted. Using an 0355 angled Glidewire and 4 [place] glide cath [place] was gained to the radial artery proximal to the arterial anastomosis. Using Isovue contrast official gram was obtained. This demonstrated 70% stenosis of the very proximal portion of the fistula adjacent to the anastomosis. This demonstrated 50% stenosis of the mid forearm fistula. There was significant venous collateralization. There was good basilic vein outflow with very poor upper arm cephalic vein outflow. There is 70% stenosis of the subclavian vein. Patient received 6000 units of heparin. I placed a glide cath and then placed an 035 Magic wire. Placed a 6 x 2 conquest balloon and perform balloon angioplasty the anastomosis and proximal portion of the fistula. I then utilized a Lutonix drug-coated balloon 7 x 60 mm balloon in the midportion of the fistula. I then placed a secondary sheath this time antegrade with flow also under ultrasound guidance with a micropuncture needle wire and 6 [place] short sheath dilator technique. Using an angled Glidewire I got past the subclavian stenosis and I initially placed the 7 x 60 mm lutonix balloon the right already used. Imaging however failed to demonstrate resolution so then placed a 10 x 40 mm [place] balloon. Subsequent angioplasty now demonstrated dramatic improvement. The fistula itself now has a strong pulse thrill and bruit Images demonstrate a left forearm radiocephalic arteriovenous fistula with proximal fistula stenosis mid forearm venous stenosis extensive forearm venous collateralization and left subclavian stenosis. Subsequent to the angioplasty there is resolution of the proximal venous stenosis there is resolution of the mid forearm venous stenosis the collateralized veins remain there is improvement but not complete resolution of the subclavian vein stenosis. Clinically however the fistula is markedly improved. It may be utilized for access. Darek Gan M.D., F.A.C.S. Type of Anesthesia:: IV Sedation, Local
--- NOTE | 2018-09-13 09:22 | OP.PCM_ITS ---
Problem List (1) Problem with dialysis access Status: Acute Qualifiers: Encounter type: subsequent encounter Qualified Code(s): T82.898D - Other specified complication of vascular prosthetic devices, implants and grafts, subsequent encounter Report of Operation Date of Procedure: 09/13/18 Pre-Operative Diagnosis: Diminished flow left forearm radial to cephalic arteriovenous hemodialysis fistula Post-Operative Diagnosis: Proximal fistula venous inflow stenosis. Mid forearm fistula stenosis. Subclavian vein outflow venous stenosis Surgery/Procedure Performed:: Left upper extremity fistulogram with anastomotic 6 x 2 conquest angioplasty and mid forearm fistula 7 x 6 drug-coated balloon angioplasty and central venous 10 x 4 [place] angioplasty Description of Surgical Findings:: .Informed consent was obtained. 63-year-old gent was taken to the special procedures lab. Was placed on the table. 50 mcg of fentanyl 1 mg of Versed were given as intravenous sedation. The left extremity was sterilely prepped and draped. Ultrasound was used to identify the cephalic vein closer to the antecubital space. 2% lidocaine was instilled under ultrasound guidance a micropuncture needle inserted micropuncture wire inserted 6 [place] data was inserted. Using an 0355 angled Glidewire and 4 [place] glide cath [place] was gained to the radial artery proximal to the arterial anastomosis. Using Isovue contrast official gram was obtained. This demonstrated 70% stenosis of the very proximal portion of the fistula adjacent to the anastomosis. This demonstrated 50% stenosis of the mid forearm fistula. There was significant venous collateralization. There was good basilic vein outflow with very poor upper arm cephalic vein outflow. There is 70% stenosis of the subclavian vein. Patient received 6000 units of heparin. I placed a glide cath and then placed an 035 Magic wire. Placed a 6 x 2 conquest balloon and perform balloon angioplasty the anastomosis and proximal portion of the fistula. I then utilized a Lutonix drug-coated balloon 7 x 60 mm balloon in the midportion of the fistula. I then placed a secondary sheath this time antegrade with flow also under ultrasound guidance with a micropuncture needle wire and 6 Moldovan short sheath dilator technique. Using an angled Glidewire I got past the subclavian stenosis and I initially placed the 7 x 60 mm lutonix balloon the right already used. Imaging however failed to demonstrate resolution so then placed a 10 x 40 mm [place] balloon. Subsequent angioplasty now demonstrated dramatic improvement. The fistula itself now has a strong pulse thrill and bruit Images demonstrate a left forearm radiocephalic arteriovenous fistula with proximal fistula stenosis mid forearm venous stenosis extensive forearm venous collateralization and left subclavian stenosis. Subsequent to the angioplasty there is resolution of the proximal venous stenosis there is resolution of the mid forearm venous stenosis the collateralized veins remain there is improvement but not complete resolution of the subclavian vein stenosis. Clinically however the fistula is markedly improved. It may be utilized for access. Darek Gan M.D., F.A.C.S. Type of Anesthesia:: IV Sedation, Local
== END 2018-09-13 10:20 | disposition home health service (06) ==
PROVIDERS: Referring Provider Surgery; Visit Provider Surgery
DX: T82.898A Other specified complication of vascular prosthetic devices, implants and grafts, initial encounter (principal); E11.22 Type 2 diabetes mellitus with diabetic chronic kidney disease; N18.5 Chronic kidney disease, stage 5; E78.5 Hyperlipidemia, unspecified; I25.10 Atherosclerotic heart disease of native coronary artery without angina pectoris; I25.2 Old myocardial infarction; Z99.2 Dependence on renal dialysis; Z79.4 Long term (current) use of insulin; Z79.82 Long term (current) use of aspirin; Z79.899 Other long term (current) drug therapy
CPT/HCPCS: 36415; 36902; 36907; 76937; 80048; 82962; 85027; 99152; 99153; Q9967; C1725; C1769

== ENCOUNTER 2019-01-17 07:08 | Day surgery (SDC) | payer OTHER, SELFPAY ==
[2019-01-10 13:10] VITALS: BMI 25.5
[2019-01-11 12:32] LABS: Hematocrit 38.7 % (40-54); Hemoglobin 12.1 g/dl (13.0-16.5); Mean Corp Hgb Conc 31.3 g/gl (32-36); Mean Corpuscular Hgb 30.8 pg (27.0-32.0); Mean Corpuscular Volume 98.5 fL (80-94); Mean Platelet Vol. 11.3 fl (6.2-12.0); Platelet Count 189 K/mm3 (150-450); RBC Distribution Width CV 15.5 % (11.6-14.6); RBC Distribution Width SD 54.1 fl (35.1-43.9); Red Blood Count 3.93 M/mm3 (4.6-6.2); Scan Indicated on CBC? Y/N NO; White Blood Count 5.2 K/mm3 (4.4-11.0)
[2019-01-11 13:13] LABS: Anion Gap 10 (5-15); BUN 19 mg/dL (7-18); Calcium,Total 8.6 mg/dL (8.5-10.1); Chloride 97 mmol/L (98-107); Creatinine, Serum 3.16 mg/dL (0.70-1.30); EST Glomerular Filtration Rate 21 mL/min (>60); Est Glom Filt Rate - Afr Amer 26 mL/min (>60); Glucose 203 mg/dL (74-106); Potassium 3.7 mmol/L (3.5-5.1); Sodium Level 140 mmol/L (136-145)
[2019-01-16 13:56] VITALS: BMI 25.5
--- NOTE | 2019-01-17 10:07 | PCM.OPRPT ---
Problem List (1) Problem with dialysis access Status: Acute Qualifiers: Encounter type: subsequent encounter Report of Operation Date of Procedure: 01/17/19 Pre-Operative Diagnosis: Flow problem with dialysis access left forearm radial to cephalic arteriovenous hemodialysis fistula Post-Operative Diagnosis: High-grade proximal fistula stenosis. Very high-grade proximal left subclavian stenosis/occlusion Surgery/Procedure Performed:: Left upper extremity fistulogram with 7 x 20 mm cutting balloon angioplasty Description of Surgical Findings:: Timeout and informed consent was obtained. 63-year-old gent was taken to the special procedures lab placed on the table. Throughout the procedure and aliquots he received a total of 50 mcg of fentanyl and 2 mg of Versed as intravenous sedation. The left upper extremity was sterilely prepped draped ultrasound was used to identify the cephalic vein in the proximal forearm. Under ultrasound guidance 2% lidocaine was instilled and a micropuncture needle inserted retrograde with flow. Micropuncture wire inserted and then a 6 [place] short sheath was inserted. Using an 035 angled Glidewire a 4 [place] glide cath was advanced into the radial artery proximal with anastomosis. Using Isovue contrast fistulogram was obtained demonstrating high-grade venous stenosis over the length of about 5 cm proximal portion of the fistula. I then advanced the 4 [place] glide cath. We up sheath to a 7 [place] sheath. I was placed able to place a 018 SV 5 wire. And then a 7 x 2 cutting balloon angioplasty of the anastomotic area and very proximal portion of the fistula was performed. Repetitive insufflations warmed until we were able to get to full insufflation at 10 milana for each location. The patient tolerated all of this amazingly well. Then the 4 [place] angled [place] cath was reinserted over the SV 5 wire. A final official gram was obtained of the forearm now demonstrating complete resolution of the area of proximal fistula stenosis with wide open flow. Through the 7 [place] sheath I completed the fistulogram of the upper arm and chest area. The sheath was removed and 2U sutures of 4-0 nylon was placed. There was a good pulse and thrill and bruit within the fistula at the completion. No apparent complication. He was taken to the recovery area in satisfactory condition. Blood loss was minimal. Imaging demonstrates a area over about 4-5 cm of high-grade venous stenosis in the very proximal portion of the fistula abutting the anastomosis. There is significant stealing collateralized flow in the mid left forearm with multiple side branches to in particular in the mid forearm. There is excellent left upper arm cephalic and basilic vein outflow. There appears to be complete occlusion of the very proximal left subclavian over a distance of 2 cm just at the junction of the internal jugular vein. There is extensive collateralized flow around the left shoulder area and this area of obstruction. I believe that I obtained excellent treatment of the inflow of the fistula I believe this was the limiting feature. The outflow at the subclavian seems to have collateralized well. This area was treated before with a [place] balloon. On today's occasion I do not believe that this would provide lasting benefit in a repeat attempt. In particular location of the stenosis I am not personally comfortable placing a stent at this time. The patient could require tertiary referral if that is required. I plan to assess how he progresses clinically with the treatment that is already been provided. Darek Gan M.D., F.A.C.S. Type of Anesthesia:: IV Sedation, Local
--- NOTE | 2019-01-17 10:13 | OP.PCM_ITS ---
Problem List (1) Problem with dialysis access Status: Acute Qualifiers: Encounter type: subsequent encounter Report of Operation Date of Procedure: 01/17/19 Pre-Operative Diagnosis: Flow problem with dialysis access left forearm radial to cephalic arteriovenous hemodialysis fistula Post-Operative Diagnosis: High-grade proximal fistula stenosis. Very high-grade proximal left subclavian stenosis/occlusion Surgery/Procedure Performed:: Left upper extremity fistulogram with 7 x 20 mm cutting balloon angioplasty Description of Surgical Findings:: Timeout and informed consent was obtained. 63-year-old gent was taken to the special procedures lab placed on the table. Throughout the procedure and aliquots he received a total of 50 mcg of fentanyl and 2 mg of Versed as intravenous sedation. The left upper extremity was sterilely prepped draped ultrasound was used to identify the cephalic vein in the proximal forearm. Under ultrasound guidance 2% lidocaine was instilled and a micropuncture needle inserted retrograde with flow. Micropuncture wire inserted and then a 6 [place] short sheath was inserted. Using an 035 angled Glidewire a 4 [place] glide cath was advanced into the radial artery proximal with anastomosis. Using Isovue contrast fistulogram was obtained demonstrating high-grade venous stenosis over the length of about 5 cm proximal portion of the fistula. I then advanced the 4 [place] glide cath. We up sheath to a 7 [place] sheath. I was placed able to place a 018 SV 5 wire. And then a 7 x 2 cutting balloon angioplasty of the an astomotic area and very proximal portion of the fistula was performed. Repetitive insufflations warmed until we were able to get to full insufflation at 10 milana for each location. The patient tolerated all of this amazingly well. Then the 4 [place] angled [place] cath was reinserted over the SV 5 wire. A final official gram was obtained of the forearm now demonstrating complete resolution of the area of proximal fistula stenosis with wide open flow. Through the 7 [place] sheath I completed the fistulogram of the upper arm and chest area. The sheath was removed and 2U sutures of 4-0 nylon was placed. There was a good pulse and thrill and bruit within the fistula at the completion. No apparent complication. He was taken to the recovery area in satisfactory condition. Blood loss was minimal. Imaging demonstrates a area over about 4-5 cm of high-grade venous stenosis in the very proximal portion of the fistula abutting the anastomosis. There is significant stealing collateralized flow in the mid left forearm with multiple side branches to in particular in the mid forearm. There is excellent left upper arm cephalic and basilic vein outflow. There appears to be complete occlusion of the very proximal left subclavian over a distance of 2 cm just at the junction of the internal jugular vein. There is extensive collateralized flow around the left shoulder area and this area of obstruction. I believe that I obtained excellent treatment of the inflow of the fistula I believe this was the limiting feature. The outflow at the subclavian seems to have collateralized well. This area was treated before with a [place] balloon. On today's occasion I do not believe that this would provide lasting benefit in a repeat attempt. In particular location of the stenosis I am not personally comfortable placing a stent at this time. The patient could require tertiary referral if that is required. I plan to assess how he progresses clinically with the treatment that is already been provided. Darek Gan M.D., F.A.C.S. Type of Anesthesia:: IV Sedation, Local
== END 2019-01-17 11:05 | disposition home or self-care (01) ==
LOC: CLSP 07:09
PROVIDERS: Referring Provider Surgery; Visit Provider Surgery
DX: T82.858A Stenosis of other vascular prosthetic devices, implants and grafts, initial encounter (principal); E11.22 Type 2 diabetes mellitus with diabetic chronic kidney disease; N18.5 Chronic kidney disease, stage 5; E78.5 Hyperlipidemia, unspecified; I25.10 Atherosclerotic heart disease of native coronary artery without angina pectoris; I25.2 Old myocardial infarction; I95.9 Hypotension, unspecified; Z99.2 Dependence on renal dialysis; Z79.4 Long term (current) use of insulin; Z79.82 Long term (current) use of aspirin; Z79.899 Other long term (current) drug therapy
CPT/HCPCS: 36415; 36902; 76937; 80048; 85027; 99152; 99153; C1725; Q9967; C1769; C1894

== ENCOUNTER 2020-08-14 08:52 | Emergency (ER) | payer OTHER, SELFPAY ==
[2019-01-16 13:56] VITALS: BMI 25.5
[2020-08-14 08:52] VITALS: BP 153/69; PULSE 66; RESP 22; TEMP 36.6; O2SAT 98; BMI 25.9
--- NOTE | 2020-08-14 09:02 | ED.VISSUMM ---
- ER Visit Summary Date of Service: 08/14/20 Chief Complaint: Transient hypotension at dialysis History of Present Illness: The patient is a 65 M 3 of end-stage renal disease and dialysis. Patient is dialyzed Wednesday. He started dialysis today around 645. He thinks that he did about an hour and a half run. He had hypotension and had to stop. He also has a history of diabetes, hypertension and prior coronary disease with prior bypass. He denies being recently ill. He denies any nausea, vomiting, diarrhea or melena. He denies any fever or chills. He denies any chest pain. States now he feels fine his blood pressure is back to his normal. Physical Examination: Older male no acute distress initial vital signs are stable afebrile. His current blood pressure is 153/69. Pulse ox 98% he is afebrile. He does not look septic or toxic. H EENT exam unremarkable. Moist his membranes. Neck nontender no JVD. No lymphadenopathy. Lungs clear to auscultation bilaterally. Heart regular rhythm rate about 65 no murmur. Chest wall nontender. Abdomen soft nontender. Patient is moving all 4 extremities. No motor deficits. Calves are nontender without edema. Neurologically is awake and alert. Test Results: White count of 5. Hemoglobin is 12 which is his baseline. Electrolytes unremarkable gap of 5. BUN of 39 creatinine 0.5 consistent with his end-stage renal disease. Repeat exam patient is doing well at 9:46 AM. sitting at bedside. He feels fine. His blood pressure currently is in the systolic range of 150/70. I spoke to his dialysis center. They spoke to his adult education instructor. He did take his blood pressure medication prior to dialysis. Recently they have not had a problem with his blood pressure. And said it was improving with IV fluids prior to him coming to the emergency department. The adult education instructor did not feel that he needed to complete his dialysis today and he will just do his normal treatment on Wednesday. So he will be discharged home. Emergency Department Course and Treatment: Dialysis patient had transient hypotension dialysis. Prior to going to dialysis he states he was feeling fine. I will obtain screening labs. On exam he has normal cardiac rhythm and on the monitor is a sinus rhythm in the 60s. Treatment Plan: Follow-up with his adult education instructor about his blood pressure medication and his next dialysis on Wednesday. Disposition: Discharge Impression: Transient hypotension resolved History of hypertension History of end-stage renal disease dialysis History of insulin-dependent diabetes History of CAD with prior bypass This note was generated with [employer] dictation software. It may contain incorrect words, spelling, and punctuation that were not noted in review of the chart prior to signing ED Disposition - Plan for ED Patient: [facility] [[facility] Provider] -
[2020-08-14 09:24] VITALS: BP 170/71; PULSE 65; RESP 18; O2SAT 99
[2020-08-14 09:30] LABS: Absolute Lymphocyte Count 0.82 X10^3/uL (0.83-4.51); Absolute Neutrophil Count 4.1 X10^3/uL (2.0-7.7); Basophil# 0.05 X10^3/uL; Basophil% 0.9 % (0-1); Eosinophil# 0.13 X10^3/uL; Eosinophils% 2.2 % (0-5); Hematocrit 37.5 % (40-54); Hemoglobin 12.1 g/dL (13.0-16.5); Lymphocyte # 0.82 X10^3/ul (4.0); Mean Corp Hgb Conc 32.3 g/dL (32-36); Mean Corpuscular Hgb 32.2 pg (27.0-32.0); Mean Corpuscular Volume 99.7 fL (80-94); Mean Platelet Vol. 11.2 fl (6.2-12.0); Monocyte% 11.9 % (0-10); NRBC Flagged by Analyzer 0 % (0-5); Neutrophil # 4.12 X10^3/uL (2.7-7.7); Neutrophil % 70.1 % (47-70); Platelet Count 173 K/mm3 (150-450); RBC Distribution Width CV 14.5 % (11.6-14.6); RBC Distribution Width SD 52.8 fl (35.1-43.9); Red Blood Count 3.76 M/mm3 (4.6-6.2); White Blood Count 5.9 K/mm3 (4.4-11.0)
[2020-08-14 09:40] LABS: Anion Gap 5 (5-15); BUN 39 mg/dL (7-18); Calcium,Total 9.2 mg/dL (8.5-10.1); Chloride 100 mmol/L (98-107); Creatinine, Serum 5.54 mg/dL (0.70-1.30); EST Glomerular Filtration Rate 11 mL/min (>60); Est Glom Filt Rate - Afr Amer 14 mL/min (>60); Estimated Creatinine Clearance 14.54 ml/min; Glucose 153 mg/dL (74-106); Potassium 4.3 mmol/L (3.5-5.1); Sodium Level 139 mmol/L (136-145)
--- NOTE | 2020-08-14 09:52 | DCINST.ED_ITS ---
ED Disposition - Plan for ED Patient: Disposition: Home or Assisted Living Instructions: ED Low Blood Pressure All Causes [facility]errals: [facility] [Primary Care Provider] - As Needed Additional Instructions: Follow-up with your letter of credit document examiner Dr. Oumou Mesa. You and her can discuss when she wants to take your blood pressure medication prior to your next dialysis.
[2020-08-14 10:19] VITALS: BP 166/65; PULSE 65; RESP 16; O2SAT 97
== END 2020-08-14 10:20 | disposition home or self-care (01) ==
PROVIDERS: Emergency Provider Emergency Medicine
DX: I95.9 Hypotension, unspecified (principal); I25.10 Atherosclerotic heart disease of native coronary artery without angina pectoris; I12.0 Hypertensive chronic kidney disease with stage 5 chronic kidney disease or end stage renal disease; E11.22 Type 2 diabetes mellitus with diabetic chronic kidney disease; N18.6 End stage renal disease; Z99.2 Dependence on renal dialysis; Z95.1 Presence of aortocoronary bypass graft; Z79.4 Long term (current) use of insulin; Z79.899 Other long term (current) drug therapy
CPT/HCPCS: 80048; 85025; 99285; A4216

== ENCOUNTER 2021-02-08 10:39 | Outpatient (RCR) | payer MEDICARE, SELFPAY ==
[2021-02-06] MEDS: COVID-19 VACC, MRNA(PFIZER)/PF 30 MCG/0.3 ML SYRINGE IM (10:02)
[2021-02-27] MEDS: COVID-19 VACC, MRNA(PFIZER)/PF 30 MCG/0.3 ML SYRINGE IM (09:25)
== END 2021-05-06 23:59 ==
LOC: IMMUN 10:39
PROVIDERS: Visit Provider Family Medicine
DX: Z23 Encounter for immunization (principal)
CPT/HCPCS: 0001A; 0002A; 91300

== ENCOUNTER 2021-04-22 13:22 | Emergency (ER) | payer OTHER, SELFPAY ==
[2021-04-22 13:23] VITALS: BP 123/84; PULSE 67; RESP 18; TEMP 36.9; O2SAT 98; BMI 24.7
--- NOTE | 2021-04-22 13:35 | EX.ED.DYSGE1 ---
HPI History of Present Illness Chief Complaint: Lower Extremity Injury Informant: patient and spouse/S.O. Onset/Context/Timing Onset: Days Context: Gradual Onset Current Severity: Mild Maximum Severity: Mild Narrative Narrative: Patient presents secondary to blisters on his great toes bilaterally. He states he first noted symptoms about a week ago. He has a blood blister just proximal to his right great toenail. He states he had a similar lesion on his left toe that popped open. He was unable to get in to see his chaser helper today and was sent to the urgent care. Urgent care said he needed to see podiatry or the emergency room. He denies pain. He denies fever. [facility] Medical History (Updated 04/22/21 @ 14:[address] Hamida Jacques MD) Acute on chronic renal failure Chronic renal failure, stage 5 Coronary artery disease Hyperkalemia Hyperlipidemia Hypotension Myocardial infarction Pleural effusion, left Skin lesion of face Type 2 diabetes mellitus Home Medications aspirin 81 mg PO DAILY 06/07/16 [History Last Taken 06/28/18] cholecalciferol (vitamin D3) 5,000 unit PO DAILY 06/07/16 [History Last Taken 01/17/19] insulin lispro 8 - 10 unit SQ TIDCM 06/07/16 [History Last Taken 01/17/19] docusate calcium 720 mg PO DAILY PRN PRN 09/01/16 [History Last Taken 05/15/18 08:00] mihcqjepvklz-uzc-kwlo-FA-vit K 1 ea PO DAILY 04/12/18 [History Last Taken 05/15/18 08:00] pantoprazole 40 mg PO DAILY 04/12/18 [History Last Taken 09/13/18] B complex with C 20-folic acid 1 mg PO TID 05/15/18 [History Last Taken 05/15/18 08:00] fludrocortisone 0.1 mg PO DAILY@0800 PRN 05/15/18 [History Last Taken 05/15/18 08:00] midodrine 2.5 mg PO DAILY PRN 05/15/18 [History Last Taken 05/15/18 08:00] simvastatin 40 mg PO QHS 05/15/18 [History Last Taken 05/14/18 22:00] ipratropium-albuterol 3 ml INHALATION Q4HWA.RT #42 ampul.neb 05/17/18 [Rx Last Taken Unknown] nebulizers #1 ea 05/17/18 [Rx Last Taken Unknown] metoprolol tartrate 25 mg tablet 25 mg PO QDAY tab 06/06/18 [History Last Taken 01/17/19] sevelamer HCl 800 mg tablet 800 mg PO QPC 06/06/18 [History Last Taken Unknown] torsemide 20 mg tablet 20 mg PO BID tab 06/06/18 [History Last Taken Unknown] insulin glargine 8 - 10 units SC QHS 06/28/18 [History Last Taken 06/27/18 4] cephalexin 500 mg PO Q12H 7 Days #14 cap 04/22/21 [Rx Last Taken Unknown] Allergy/AdvReac Type Severity Reaction Status Date / Time No Known Allergies Allergy Verified 04/22/21 13:24 Family History Father CAD (coronary artery disease) Hypertension Diabetes Mother Diabetes Surgical History S/P colonoscopy S/P dialysis catheter insertion S/P hernia repair S/P laparoscopic cholecystectomy Status post coronary artery bypass graft Social History Smoking Status: Never smoker ROS ROS ED Constitutional Constitutional ED: Denies chills or fever(s) Eyes Eyes: Denies change in vision ENT ENT ED: Denies sore throat Cardiovascular Cardiovascular: Denies chest pain Respiratory/Chest Respiratory/Chest: Denies cough or dyspnea Gastrointestinal Gastrointestinal: Denies abdominal pain, diarrhea, nausea or vomiting Genitourinary Genitourinary ED: Denies dysuria Musculoskeletal Musculoskeletal: Denies back pain Integumentary Reports rash and other Details: Blisters bilateral great toes Neurologic Neurologic: Denies headache(s) or weakness Psychiatric Psychiatric: Denies anxiety or depression Endocrine Endocrinology: Denies polydipsia or polyuria Allergic/Immunologic Allergic/Immunologic ED: Denies urticaria EXAM Physical Exam Const Vital Signs: 04/22/21 13:23 Temperature 98.4 F Temperature Source Temporal Pulse Rate 67 Respiratory Rate 18 Blood Pressure 123/84 H Blood Pressure Mean 97 Pulse Ox 98 Oxygen Delivery Method Room Air Positive well nourished and well developed General Appearance ED: well developed HEENT Reports normocephalic and head/scalp atraumatic Eyes PERRL and EOMs intact bilaterally Neck supple Chest Wall inspection of chest normal and palpation of chest normal Resp normal respiratory effort and clear to auscultation bilaterally Cardio regular rate and regular rhythm GI normal to inspection, nondistended, normoactive bowel sounds Palpation: soft Extremity Extremity Narrative: Fistula left upper extremity. Blood blister just proximal to the right great toenail. No surrounding erythema or sign of infection. Good cap refill distally. Recently drained blister just proximal to the left great toenail. No surrounding erythema or sign of infection. Good cap refill distally. Neuro oriented x3 Sensorium / Orientation: alert Motor Exam: strength 5/5 throughout Psych mental status grossly normal Skin no rashes or lesions noted MDM [facility] Lab Data Attestation: I reviewed the patient's lab results. Labs: Laboratory Results - last 24 hr 04/22/21 04/22/21 13:49 13:49 WBC 5.2 RBC 2.85 L Hgb 9.2 L Hct 29.1 L MCV 102.1 H MCH 32.3 H MCHC 31.6 L RDW Std Deviation 47.9 H RDW Coeff of [place] 12.8 Plt Count 209 MPV 11.5 Immature Gran % (Auto) 0.600 Neut % (Auto) 63.3 Lymph % (Auto) 17.1 L Bee % (Auto) 15.1 H Eos % (Auto) 2.5 Baso % (Auto) 1.4 H Absolute Neuts (auto) 3.3 Absolute Lymphs (auto) 0.88 Nucleated RBC % 0 ESR 17 Sodium 139 Potassium 4.8 Chloride 102 Carbon Dioxide 33.0 H Anion Gap 4 L BUN 47 H Creatinine 6.66 H Estim Creat Clear Calc 12.09 Est GFR (MDRD) Af Amer 11 L Est GFR (MDRD) Non-Af 9 L BUN/Creatinine Ratio 7.1 L Glucose 97 Calcium 9.2 C-React Prot Ext Range 3.26 H Radiography Diagnostic Testing: Radiology Impression Foot X-Ray 04/22/21 14:08 IMPRESSION: Degenerative changes. Electronically Signed: Remy Thompson MD at 14:40 EDT , Service support , Foot X-Ray 04/22/21 14:11 IMPRESSION: Degenerative changes. No acute fracture is seen. Electronically Signed: Remy Thompson MD at 14:39 EDT , Service support , Treatment and Re-Evaluation Comments:: Blood work is obtained and largely unremarkable. CRP is slightly elevated. Bilateral foot x-rays are obtained. Per my interpretation chronic changes with no acute bony erosion. Wound will be cleansed and dressed. He will be started on Keflex to prevent infection. At this time the wounds do not appear to be infected. He will be referred to local podiatry for follow-up as it is a 4 to 6-week wait to get into see his chaser helper. Discharge Plan Triage Chief Complaint: Lower Extremity Injury ED Provider: Hamida Jacques Dx/Rx/DC Orders Clinical Impression: Blisters of multiple sites Instructions: ED Blister (Adult) Prescriptions: New cephalexin 500 mg capsule 500 mg PO Q12H 7 Days Qty: 14 RF: 0 No Action sevelamer HCl 800 mg tablet 800 mg PO QPC RF: 0 metoprolol tartrate 25 mg tablet 25 mg PO QDAY RF: 0 torsemide 20 mg tablet 20 mg PO BID RF: 0 cholecalciferol (vitamin D3) 5,000 UNIT capsule 5,000 unit PO DAILY RF: 0 aspirin 81 MG tablet,chewable 81 mg PO DAILY RF: 0 insulin lispro 100 UNIT/ML solution 8 - 10 unit SQ TIDCM RF: 0 docusate calcium 240 MG capsule 720 mg PO DAILY PRN PRN (Reason: Constipation) RF: 0 pantoprazole 40 MG tablet 40 mg PO DAILY RF: 0 bvuxgqzdfzzd-pln-ewov-FA-vit K 1 EACH tablet 1 ea PO DAILY RF: 0 B complex with C 20-folic acid 1 MG capsule 1 mg PO TID RF: 0 midodrine 2.5 MG tablet 2.5 mg PO DAILY PRN (Reason: Blood Pressure Drops) RF: 0 fludrocortisone 0.1 MG tablet 0.1 mg PO DAILY@0800 PRN (Reason: Blood Pressure Drops) RF: 0 simvastatin 40 MG tablet 40 mg PO QHS RF: 0 ipratropium-albuterol 3 ML solution for nebulization 3 ml INHALATION Q4HWA.RT Qty: 42 RF: 0 (DME) nebulizers 1 EACH misc 1 ea MC UD Qty: 1 RF: 0 insulin glargine 100 UNITS/ML insulin pen 8 - 10 units SC QHS RF: 0 [facility] Referrals: Sabiha Carranza DPM [STAFF PHYSICIAN] - As soon as possible [facility] [Primary Care Provider] - Disposition Disposition: Home, self care
[2021-04-22 13:57] LABS: Absolute Lymphocyte Count 0.88 X10^3/uL (0.83-4.51); Absolute Neutrophil Count 3.3 X10^3/uL (2.0-7.7); Basophil# 0.07 X10^3/uL; Basophil% 1.4 % (0-1); Eosinophil# 0.13 X10^3/uL; Eosinophils% 2.5 % (0-5); Hematocrit 29.1 % (40-54); Hemoglobin 9.2 g/dL (13.0-16.5); Lymphocyte # 0.88 X10^3/ul (0.83-4.51); Lymphocyte % 17.1 % (19-41); Mean Corp Hgb Conc 31.6 g/dL (32-36); Mean Corpuscular Hgb 32.3 pg (27.0-32.0); Mean Corpuscular Volume 102.1 fL (80-94); Mean Platelet Vol. 11.5 fl (6.2-12.0); Monocyte# 0.78 X10^3/uL; Monocyte% 15.1 % (0-10); NRBC Flagged by Analyzer 0 % (0-5); Neutrophil # 3.26 X10^3/uL (2.7-7.7); Neutrophil % 63.3 % (47-70); Platelet Count 209 K/mm3 (150-450); RBC Distribution Width CV 12.8 % (11.6-14.6); RBC Distribution Width SD 47.9 fl (35.1-43.9); Red Blood Count 2.85 M/mm3 (4.6-6.2); White Blood Count 5.2 K/mm3 (4.4-11.0)
--- NOTE | 2021-04-22 14:08 | RAD_ITS ---
STUDY: X-RAY - LEFT FOOT CLINICAL: Male, 65 years old. INJURY TECHNIQUE: 3 view(s) of the foot. COMPARISON: None. FINDINGS: Calcaneal spurs. Normal visualized subtalar, talonavicular, calcaneocuboid, tarsal and tarsometatarsal articulations. Normal metatarsi. There is degenerative arthrosis of the metatarsophalangeal joint of the hallux . Normal tibial and fibular sesamoid bones. Normal interphalangeal joint of the great toe. Normal phalanges of the great toe. Normal second through fifth metatarsophalangeal joints. Normal interphalangeal joints and phalanges of the lesser toes. Vascular calcification. RAD/Foot min 3 Views IMPRESSION: Degenerative changes. Electronically Signed: Remy Thompson MD at 14:40 EDT , Service support ,
[2021-04-22 14:10] LABS: Anion Gap 4 (5-15); BUN 47 mg/dL (7-18); BUN/Creat Ratio 7.1 RATIO (10-20); CRP 3.26 mg/L (0.0-3.0); Calcium,Total 9.2 mg/dL (8.5-10.1); Chloride 102 mmol/L (98-107); Creatinine, Serum 6.66 mg/dL (0.70-1.30); EST Glomerular Filtration Rate 9 mL/min (>60); Erythrocyte Sedimentation Rate 17 mm/hr (0-20); Est Glom Filt Rate - Afr Amer 11 mL/min (>60); Estimated Creatinine Clearance 12.09 ml/min; Glucose 97 mg/dL (74-106); Potassium 4.8 mmol/L (3.5-5.1); Sodium Level 139 mmol/L (136-145)
--- NOTE | 2021-04-22 14:11 | RAD_ITS ---
STUDY: X-RAY - RIGHT FOOT CLINICAL: Male, 65 years old. Injury TECHNIQUE: 3 view(s) of the foot. COMPARISON: None. FINDINGS: Calcaneal spurs. Normal visualized subtalar, talonavicular, calcaneocuboid, tarsal and tarsometatarsal articulations. Normal metatarsi. There is degenerative arthrosis of the metatarsophalangeal joint of the hallux . Normal tibial and fibular sesamoid bones. Normal interphalangeal joint of the great toe. Normal phalanges of the great toe. Normal second through fifth metatarsophalangeal joints. Normal interphalangeal joints and phalanges of the lesser toes. Vascular calcification. RAD/Foot min 3 Views IMPRESSION: Degenerative changes. No acute fracture is seen. Electronically Signed: Remy Thompson MD at 14:39 EDT , Service support ,
[2021-04-22] MEDS: Cephalexin 250 MG Capsule 500 MG PO (14:53)
[2021-04-22 14:57] VITALS: PULSE 64; RESP 16; O2SAT 98
== END 2021-04-22 14:59 | disposition home or self-care (01) ==
PROVIDERS: Emergency Provider Emergency Medicine
DX: R23.8 Other skin changes (principal); E11.22 Type 2 diabetes mellitus with diabetic chronic kidney disease; N18.5 Chronic kidney disease, stage 5; E78.5 Hyperlipidemia, unspecified; I25.10 Atherosclerotic heart disease of native coronary artery without angina pectoris; Z79.4 Long term (current) use of insulin; Z79.899 Other long term (current) drug therapy
CPT/HCPCS: 73630; 80048; 85025; 85652; 86140; 99284; A4216

== ENCOUNTER 2021-05-20 09:57 | Emergency (ER) | payer OTHER, SELFPAY ==
[2021-05-20 09:58] VITALS: BP 163/72; PULSE 71; RESP 16; TEMP 36.7; O2SAT 99; BMI 24.8
--- NOTE | 2021-05-20 10:11 | CT_ITS ---
STUDY: CT ABDOMEN AND PELVIS WITHOUT CONTRAST REASON FOR EXAM: Male, 65 years old. Hematuria RADIATION DOSAGE (If Supplied By Facility): CTDIvol = ( 7.33 ) mGy, DLP = ( 397.18 ) mGycm TECHNIQUE: Transaxial images were obtained from the dome of the diaphragm to the symphysis pubis without oral contrast, and without intravenous contrast. Sagittal and coronal images were reconstructed. Individualized dose optimization techniques were used for this CT. COMPARISON: FINDINGS: The visualized lung bases are unremarkable. The visualized portions of the heart are within normal limits. Normal liver. The gallbladder is absent because of previous cholecystectomy. Normal spleen. Normal pancreas. Normal bilateral adrenal glands. Right kidney smaller than seen before but there is seen from there is evidence of 3 cm cyst below the renal pelvis on the right side that did not change significantly since the previous exam. The left kidney is smaller than before with evidence of hyperdense nodule in the lower pole (series CT#601 image 66/123), possibility of tumor can''t be ruled out. MRI with contrast is recommended particularly with the history of hematuria.. Normal visualized stomach. Normal small intestine. Normal colon. The appendix is visualized and appears normal. Normal abdominal aorta. Normal inferior vena cava. Normal retroperitoneum. The bladder is not distended no filling defect or stone.. Normal abdominal wall. There are degenerative disc disease at L3-4 with hypertrophic changes in the lumbar spine. Calcifications noted in the anterior spinal ligament in the lower dorsal spine. CT/Abdomen/Pelvis without Cont IMPRESSION: Evidence of hyperdense nodule inferior aspect of the left kidney needs further assessment by MRI with contrast Electronically Signed: Bartolome Rodriguez, at 12:10 EDT Tel , Service support ,
--- NOTE | 2021-05-20 10:12 | EX.ED.GUMALE ---
HPI History of Present Illness Chief Complaint: Complaint Informant: patient Pain Onset: Today Context: Sudden Onset Timing: Continuous Worsened by: Nothing Relieved by: Nothing Narrative Narrative: Patient presents with hematuria that began this morning. Patient states that he had red blood in his urine. Patient denies any dysuria. Patient denies any frequency. Patient does admit to some urgency when he urinated today. Patient is on dialysis and only urinates a couple times a day. Patient states nothing makes it worse and nothing makes it better. Patient denies any fevers or chills. Patient denies any back or flank pain. Patient denies any other symptoms. [facility] Medical History (Updated 05/20/21 @ 12:[address] Ramiro Lombardo, DO) Acute on chronic renal failure Chronic renal failure, stage 5 Coronary artery disease Hyperkalemia Hyperlipidemia Hypotension Myocardial infarction Pleural effusion, left Skin lesion of face Type 2 diabetes mellitus Home Medications aspirin 81 mg PO DAILY 06/07/16 [History Last Taken 06/28/18] docusate calcium 720 mg PO DAILY PRN PRN 09/01/16 [History Last Taken 05/15/18 08:00] B complex with C 20-folic acid 1 mg PO TID 05/15/18 [History Last Taken 05/15/18 08:00] ipratropium-albuterol 3 ml INHALATION Q4HWA.RT #42 ampul.neb 05/17/18 [Rx Last Taken Unknown] nebulizers #1 ea 05/17/18 [Rx Last Taken Unknown] sevelamer HCl 800 mg tablet 2,400 mg PO BREAKFAST 06/06/18 [History Last Taken Unknown] insulin glargine 8 - 10 units SC QHS 06/28/18 [History Last Taken 06/27/18 4] amlodipine 5 mg PO DAILY 05/20/21 [History Last Taken Unknown] atorvastatin 40 mg PO QHS 05/20/21 [History Last Taken Unknown] carvedilol [Coreg] 12.5 mg PO QHS 05/20/21 [History Last Taken Unknown] ergocalciferol (vitamin D2) 6,000 unit PO DAILY 05/20/21 [History Last Taken Unknown] insulin aspart U-100 [Novolog U-100 Insulin aspart] 8 - 10 unit SUBCUT TIDCM 05/20/21 [History Last Taken Unknown] losartan 100 mg PO DAILY 05/20/21 [History Last Taken Unknown] sevelamer HCl 1,600 mg PO BIDCM 05/20/21 [History Last Taken Unknown] Allergy/AdvReac Type Severity Reaction Status Date / Time No Known Allergies Allergy Verified 05/20/21 09:57 Family History Father CAD (coronary artery disease) Hypertension Diabetes Mother Diabetes Surgical History S/P colonoscopy S/P dialysis catheter insertion S/P hernia repair S/P laparoscopic cholecystectomy Status post coronary artery bypass graft Social History Smoking Status: Never smoker ROS ROS ED Constitutional Constitutional ED: Denies chills or fever(s) Eyes Eyes: Denies blurry vision or change in vision ENT ENT ED: Denies rhinorrhea or sore throat Cardiovascular Cardiovascular: Denies chest pain or palpitations Respiratory/Chest Respiratory/Chest: Denies cough or dyspnea Gastrointestinal Gastrointestinal: Denies nausea or vomiting Genitourinary Genitourinary ED: Reports hematuria; Denies dysuria Musculoskeletal Musculoskeletal: Reports neck pain; Denies back pain Integumentary Denies abscess or rash Neurologic Neurologic: Denies headache(s) or weakness Allergic/Immunologic Allergic/Immunologic ED: Denies mouth swelling or urticaria EXAM Physical Exam Const Vital Signs: 05/20/21 09:58 Temperature 98.0 F Temperature Source Temporal Pulse Rate 71 Respiratory Rate 16 Blood Pressure 163/72 H Blood Pressure Mean 102 Pulse Ox 99 Oxygen Delivery Method Room Air Positive well nourished and well developed General Appearance ED: well developed HEENT Reports moist mucous membranes Neck supple and no JVD Resp normal respiratory effort and clear to auscultation bilaterally Cardio regular rate, regular rhythm and no murmurs GI normal to inspection, nondistended, normoactive bowel sounds and non-tender Palpation: soft no CVA tenderness Extremity normal to inspection General Extremety ED: Negative for edema or tenderness General Extremity: Negative for edema Neuro oriented x3, CN's II-XII intact bilaterally and no sensory deficits noted Sensorium / Orientation: alert Motor Exam: strength 5/5 throughout Psych mental status grossly normal Skin no rashes or lesions noted MDM MDM MDM Narrative Medical decision making narrative: Urinalysis was obtained. There are greater than 100 red blood cells 0-[address] scan of the abdomen pelvis was obtained. There is a hyperdense nodule in the anterior aspect of the left kidney. Radiologist recommends further evaluation with MRI with contrast. This is unable to be performed today in the emergency department. Patient was advised of the findings. Patient was advised of the need for urgent follow-up. Patient will follow up with his primary care physician in 3 to 5 days at the [facility] in [place]. Patient understood and was agreeable with the plan. All questions were answered. Lab Data Attestation: I reviewed the patient's lab results. Labs: Laboratory Results - last 24 hr 05/20/21 11:11 Urine Color Red Urine Clarity Cloudy Urine pH 9.0 Ur Specific [place] 1.015 Urine Protein 100 H Urine Glucose (UA) 100 H Urine Ketones Negative Urine Occult Blood 250 H Urine Nitrite Negative Urine Bilirubin Negative Urine Urobilinogen Normal Ur Leukocyte Esterase 25 H Urine RBC > 100 SEEN Urine WBC 0-5 SEEN Ur Squamous Epith Cells 0-5 SEEN Urine Bacteria RARE Urine Mucus 0 SEEN Radiography Diagnostic Testing: Radiology Impression Abdomen/Pelvis CT 05/20/21 10:11 IMPRESSION: Evidence of hyperdense nodule inferior aspect of the left kidney needs further assessment by MRI with contrast Electronically Signed: Bartolome Rodriguez, at 12:10 EDT Tel , Service support , Discharge Plan Triage Chief Complaint: Complaint ED Provider: Ramiro Lombardo Dx/Rx/DC Orders Clinical Impression: Hematuria, Nodule of kidney Instructions: ED Hematuria Prescriptions: No Action sevelamer HCl 800 mg tablet 2,400 mg PO BREAKFAST RF: 0 aspirin 81 MG tablet,chewable 81 mg PO DAILY RF: 0 docusate calcium 240 MG capsule 720 mg PO DAILY PRN PRN (Reason: Constipation) RF: 0 B complex with C 20-folic acid 1 MG capsule 1 mg PO TID RF: 0 ipratropium-albuterol 3 ML solution for nebulization 3 ml INHALATION Q4HWA.RT Qty: 42 RF: 0 (DME) nebulizers 1 EACH misc 1 ea MC UD Qty: 1 RF: 0 insulin glargine 100 UNITS/ML insulin pen 8 - 10 units SC QHS RF: 0 atorvastatin 40 mg Tablet 40 mg PO QHS RF: 0 carvedilol [Coreg] 12.5 mg Tablet 12.5 mg PO QHS RF: 0 sevelamer HCl 800 mg Tablet 1,600 mg PO BIDCM RF: 0 amlodipine 5 mg Tablet 5 mg PO DAILY RF: 0 insulin aspart U-100 [Novolog U-100 Insulin aspart] 100 unit/mL Solution 8 - 10 unit SUBCUT TIDCM RF: 0 losartan 100 mg Tablet 100 mg PO DAILY RF: 0 ergocalciferol (vitamin D2) 1,000 unit Capsule 6,000 unit PO DAILY RF: 0 [facility] Provider: [facility] Referrals: Oumou Mesa DO [STAFF PHYSICIAN] - 3-5 Days [facility] [Primary Care Provider] - 3-5 Days (Will need follow-up MRI for further evaluation of left renal nodule) Disposition Disposition: Home, Self Care
[2021-05-20 11:20] LABS: Mucous, Urine 0 SEEN /hpf (<or=2+)
[2021-05-20 11:28] LABS: Color, Urine Red (Yellow); Glucose, Dipstick 100 mg/dl (Normal); Ketone-Dipstick Negative (Negative); Leukocyte Esterase-Dipstick 25 /ul (Negative); Nitrite-Dipstick Negative (Negative); Occult Blood-Urine 250 /ul (Negative); Protein-Dipstick 100 mg/dl (Negative); Specific Gravity, Urine 1.015 (1.002-1.030); Urine Bilirubin Dipstick Negative (Negative); Urine Clarity Cloudy (Clear); Urine Urobilinogen Normal (Normal)
[2021-05-20 11:33] LABS: Red Blood Cells-Urine > 100 SEEN /hpf (0-5)
[2021-05-20 11:34] LABS: Bacteria RARE /hpf (None Seen); Squamous Epithelial Cells - UA 0-5 SEEN /hpf (0-5); White Blood Cells 0-5 SEEN /hpf (0-5)
[2021-05-20 12:52] VITALS: PULSE 66; RESP 20; O2SAT 99
== END 2021-05-20 12:53 | disposition home or self-care (01) ==
PROVIDERS: Emergency Provider Emergency Medicine
DX: R31.9 Hematuria, unspecified (principal); I25.10 Atherosclerotic heart disease of native coronary artery without angina pectoris; E78.5 Hyperlipidemia, unspecified; E11.22 Type 2 diabetes mellitus with diabetic chronic kidney disease; N17.9 Acute kidney failure, unspecified; Z79.82 Long term (current) use of aspirin; Z79.4 Long term (current) use of insulin; Z79.899 Other long term (current) drug therapy; Z99.2 Dependence on renal dialysis
CPT/HCPCS: 74176; 81001; 99282

== ENCOUNTER 2021-07-13 16:24 | Observation (INO) | payer OTHER, SELFPAY ==
[2021-07-13] VITALS (8 sets, daily range): BP systolic 147–169; BP diastolic 67–75; PULSE 68–80; RESP 18–38; TEMP 36.6–37; O2SAT 88–97; BMI 25.0; BMI 24.3
--- NOTE | 2021-07-13 17:17 | EKG12_ITS ---
Test Reason : SOB Blood Pressure : / mmHG Vent. Rate : 082 BPM Atrial Rate : 082 BPM P-R Int : 246 ms QRS Dur : 096 ms QT Int : 406 ms P-R-T Axes : 067 036 117 degrees QTc Int : 474 ms Sinus rhythm with 1st degree A-V block Left ventricular hypertrophy with repolarization abnormality Abnormal ECG Confirmed by VAL MACIAS, YOLANDA ([id number]), editor newspaper SWETA RASMUSSEN ([id number]) on 07/15/2021 9:25:23 AM Referred By: JASSI Confirmed By:YOLANDA NEAL MD
--- NOTE | 2021-07-13 17:17 | RAD_ITS ---
STUDY: X-RAY CHEST REASON FOR EXAM: Male, 65 years old. dyspnea TECHNIQUE: Frontal portable view of the chest COMPARISON: 28 June 2018 FINDINGS: There are sternotomy is and coronary bypass. Inspiratory volumes are low. The heart is moderately enlarged. There is possibly mild pulmonary edema. There are ill-defined linear interstitial opacities in the right mid to lower lung zone, likely atelectasis. There is no pneumothorax or pleural effusions. Osseous structures are intact. RAD/Chest 1 View (Portable) IMPRESSION: 1. Atelectasis. 2. Moderate cardiomegaly and mild pulmonary edema. Electronically Signed: Syd Valenzuela MD at 18:44 EDT Tel , Service support ,
--- NOTE | 2021-07-13 17:18 | ED.VIS.DYS ---
HPI History of Present Illness Chief Complaint: Cough Informant: patient Narrative Narrative: 65-year-old male presents to the emergency room with a chief complaint of cough. He states this began on . He notes the cough is occasionally productive. He notes shortness of breath and rhinorrhea. He notes chills but no fevers. No diarrhea or headache. He did receive a influenza and Covid vaccination this year. He denies any known lung conditions. He notes he is a diabetic and is on dialysis following with Dr. Mesa. History of a pleural effusion on the left. He reports that he fell on Wednesday and needed help getting up. He feels generally weak. [facility] Medical History (Updated 07/13/21 @ 22:[address] Jaiden Castillo MD) Acute on chronic renal failure Chronic renal failure, stage 5 Coronary artery disease Hyperkalemia Hyperlipidemia Hypotension Myocardial infarction Pleural effusion, left Skin lesion of face Type 2 diabetes mellitus Home Medications aspirin 81 mg PO DAILY 06/07/16 [History Last Taken 06/28/18] B complex with C 20-folic acid 1 mg PO TID 05/15/18 [History Last Taken 05/15/18 08:00] ipratropium-albuterol 3 ml INHALATION Q4HWA.RT #42 ampul.neb 05/17/18 [Rx Last Taken Unknown] nebulizers #1 ea 05/17/18 [Rx Last Taken Unknown] sevelamer HCl 800 mg tablet 2,400 mg PO BREAKFAST 06/06/18 [History Last Taken Unknown] insulin glargine 8 - 10 units SC QHS 06/28/18 [History Last Taken 06/27/18 4] amlodipine 5 mg PO DAILY 05/20/21 [History Last Taken Unknown] atorvastatin 40 mg PO QHS 05/20/21 [History Last Taken Unknown] carvedilol [Coreg] 12.5 mg PO QHS 05/20/21 [History Last Taken Unknown] ergocalciferol (vitamin D2) 6,000 unit PO DAILY 05/20/21 [History Last Taken Unknown] insulin aspart U-100 [Novolog U-100 Insulin aspart] 8 - 10 unit SUBCUT TIDCM 05/20/21 [History Last Taken Unknown] losartan 100 mg PO DAILY 05/20/21 [History Last Taken Unknown] sevelamer HCl 1,600 mg PO BIDCM 05/20/21 [History Last Taken Unknown] docusate sodium 200 mg PO PRN 07/13/21 [History Last Taken Unknown] Allergy/AdvReac Type Severity Reaction Status Date / Time No Known Allergies Allergy Verified 07/13/21 16:25 Family History Father CAD (coronary artery disease) Hypertension Diabetes Mother Diabetes Surgical History S/P colonoscopy S/P dialysis catheter insertion S/P hernia repair S/P laparoscopic cholecystectomy Status post coronary artery bypass graft Social History Smoking Status: Never smoker substance use type: does not use ROS ROS ED ROS Narrative Generally weak Constitutional Constitutional ED: Reports chills; Denies weight loss Eyes Eyes: Denies change in vision or diplopia ENT ENT ED: Reports rhinorrhea; Denies ear pain or sore throat Cardiovascular Cardiovascular: Denies chest pain, orthopnea, palpitations or racing heartbeat Respiratory/Chest Respiratory/Chest: Reports cough, dyspnea, dyspnea on exertion and sputum; Denies orthopnea Gastrointestinal Gastrointestinal: Denies abdominal pain, diarrhea, nausea or vomiting Genitourinary Genitourinary ED: Denies dysuria, hematuria or urinary frequency Musculoskeletal Musculoskeletal: Denies arthralgias or myalgias Integumentary Denies abscess or rash Neurologic Neurologic: Denies headache(s) or weakness Psychiatric Psychiatric: Denies anxiety, depression, suicidal ideation or suicidal thoughts Endocrine Endocrinology: Denies polydipsia, polyphagia or polyuria Allergic/Immunologic Allergic/Immunologic ED: Denies mouth swelling, tongue swelling or urticaria EXAM Physical Exam Const Vital Signs: 07/13/21 16:25 07/13/21 18:00 07/13/21 20:26 Temperature 98.6 F Temperature Source Temporal Pulse Rate 70 80 Respiratory Rate 18 38 H Blood Pressure 147/67 H 169/69 H Blood Pressure Mean 93 102 Pulse Ox 97 95 88 Oxygen Delivery Method Room Air Room Air Room Air Oxygen Flow Rate (L/min) 07/13/21 20:38 Temperature Temperature Source Pulse Rate Respiratory Rate Blood Pressure Blood Pressure Mean Pulse Ox 96 Oxygen Delivery Method Nasal Cannula Oxygen Flow Rate (L/min) 2 Positive well nourished and well developed General Appearance ED: well developed HEENT Reports normocephalic, head/scalp atraumatic and moist mucous membranes HEENT Narrative: Turbinate edema clear rhinorrhea Eyes PERRL and EOMs intact bilaterally Neck no lymphadenopathy, supple and no JVD Resp normal respiratory effort and clear to auscultation bilaterally Cardio regular rate, regular rhythm and no murmurs GI normal to inspection, nondistended, normoactive bowel sounds and non-tender Palpation: soft Back/Spine no CVA tenderness and normal ROM Extremity normal to inspection General Extremety ED: Negative for edema General Extremity: Negative for edema Neuro oriented x3 and CN's II-XII intact bilaterally Sensorium / Orientation: alert Motor Exam: strength 5/5 throughout Psych mental status grossly normal Mood & Affect: Negative for depressed or tearful Skin no rashes or lesions noted Skin Narrative: Contusion left face Rashes: no rashes Trauma: Negative for abrasion or laceration MDM MDM MDM Narrative Medical decision making narrative: Interpretation of the chest x-ray is multiple areas of atelectatic changes. White count is 7.3. Creatinine 7.53. CO2 35. Troponin 28.7. Patient is taken down for CT of the chest without IV contrast this demonstrated multifocal areas of inflammation in the lungs. His rapid Covid and influenza are negative. I ordered the Covid PCR which was negative. One of his last admissions he tested positive for metapneumovirus.. Patient has had hypoxemia down to as low as 82% currently on 2 L satting 96%. plan will be admission into the hospital. Lab Data Labs: Laboratory Results - last 24 hr 07/13/21 07/13/21 07/13/21 17:45 17:48 17:48 WBC 7.3 RBC 3.27 L Hgb 10.3 L Hct 33.2 L MCV 101.5 H MCH 31.5 MCHC 31.0 L RDW Std Deviation 49.5 H RDW Coeff of [place] 13.3 Plt Count 225 MPV 11.5 Immature Gran % (Auto) 0.300 Neut % (Auto) 81.4 H Lymph % (Auto) 5.0 L Ida % (Auto) 9.4 Eos % (Auto) 3.2 Baso % (Auto) 0.7 Absolute Neuts (auto) 5.9 Absolute Lymphs (auto) 0.36 L Nucleated RBC % 0 Differential Comment SCANNED Sodium 138 Potassium 3.9 Chloride 98 Carbon Dioxide 35.0 H Anion Gap 5 BUN 45 H Creatinine 7.53 H* Estim Creat Clear Calc 10.69 Est GFR (MDRD) Af Amer 9 L Est GFR (MDRD) Non-Af 8 L BUN/Creatinine Ratio 6.0 L Glucose 187 H Calcium 9.0 Troponin I High Sens 28.7 COVID-19 (PER) Negative Radiography Diagnostic Testing: Radiology Impression Chest X-Ray 07/13/21 17:17 IMPRESSION: 1. Atelectasis. 2. Moderate cardiomegaly and mild pulmonary edema. Electronically Signed: Syd Valenzuela MD at 18:44 EDT Tel , Service support , Chest CT 07/13/21 18:48 IMPRESSION: 1. Probable multifocal pulmonary parenchymal inflammatory process along with more diffuse bronchitis. 2. Small left pleural effusion. 3. 8 mm nodule in the right apex, recommend follow-up in 6 months. Electronically Signed: Chele Do MD at 20:31 EDT , Service support , Discharge Plan Disposition Disposition: Acute Care Hospital [facility] Discharge Date/Time: 07/13/21 22:23
[2021-07-13 18:07] LABS: Absolute Lymphocyte Count 0.36 X10^3/uL (0.83-4.51); Absolute Neutrophil Count 5.9 X10^3/uL (2.0-7.7); Basophil# 0.05 X10^3/uL; Basophil% 0.7 % (0-1); Eosinophil# 0.23 X10^3/uL; Eosinophils% 3.2 % (0-5); Hematocrit 33.2 % (40-54); Hemoglobin 10.3 g/dL (13.0-16.5); Lymphocyte # 0.36 X10^3/ul (0.83-4.51); Mean Corpuscular Hgb 31.5 pg (27.0-32.0); Mean Corpuscular Volume 101.5 fL (80-94); Mean Platelet Vol. 11.5 fl (6.2-12.0); Monocyte# 0.68 X10^3/uL; Monocyte% 9.4 % (0-10); NRBC Flagged by Analyzer 0 % (0-5); Neutrophil # 5.92 X10^3/uL (2.7-7.7); Neutrophil % 81.4 % (47-70); POSITIVE DIFFERENTIAL YES; Platelet Count 225 K/mm3 (150-450); RBC Distribution Width CV 13.3 % (11.6-14.6); RBC Distribution Width SD 49.5 fl (35.1-43.9); Red Blood Count 3.27 M/mm3 (4.6-6.2); White Blood Count 7.3 K/mm3 (4.4-11.0)
[2021-07-13 18:23] LABS: Anion Gap 5 (5-15); BUN 45 mg/dL (7-18); Chloride 98 mmol/L (98-107); Creatinine, Serum 7.53 mg/dL (0.70-1.30); EST Glomerular Filtration Rate 8 mL/min (>60); Est Glom Filt Rate - Afr Amer 9 mL/min (>60); Estimated Creatinine Clearance 10.69 ml/min; Glucose 187 mg/dL (74-106); Potassium 3.9 mmol/L (3.5-5.1); Sodium Level 138 mmol/L (136-145); Troponin-I HS 28.7 pg/mL (3.0-78.5)
[2021-07-13 18:38] LABS: Differential Indicated SCAN CRITERIA MET
[2021-07-13 18:39] LABS: Differential Comment SCANNED
--- NOTE | 2021-07-13 18:48 | CT_ITS ---
EXAM: CT CHEST WITHOUT INTRAVENOUS CONTRAST CLINICAL INDICATION: abnormal chest xray TECHNIQUE: Helically acquired images were obtained of the chest without intravenous contrast. This CT exam was performed using one or more of the following dose reduction techniques: automated exposure control, adjustment of the mA and/or kV according to patient size, and/or use of iterative reconstruction technique. [facility] report generation technology utilized. COMPARISON: None. FINDINGS: LIMITATIONS: Limited views through the upper abdomen show no gross acute abnormality. LUNGS AND PLEURAL SPACES: Hyperexpansion of lungs. Abnormal nodular tree-in-bud appearance in the right upper lobe, right perihilar region, right lung base, lingula and left posterior lung base. Findings all suggest multifocal inflammatory process. Short interval follow-up suggested. 8 mm nodule in the right apex, axial image 44 and sagittal image 89 will also need follow-up. Diffuse thickening of bronchial cano consistent with bronchitis. Small left pleural effusion. No mass. No pneumothorax. HEART: Previous CABG. Heavily calcified coronary arteries. Heart size is normal. No pericardial effusion. MEDIASTINUM: Unremarkable. No mediastinal or hilar adenopathy. Esophagus is unremarkable. No hiatal hernia. THYROID: Unremarkable. No thyroid lesions. BONES/JOINTS: Degenerative changes throughout the spine. No suspicious lytic or blastic abnormality. VASCULATURE: Calcified plaque of the aorta without aneurysm. OTHER FINDINGS: CT/Chest without Contrast IMPRESSION: 1. Probable multifocal pulmonary parenchymal inflammatory process along with more diffuse bronchitis. 2. Small left pleural effusion. 3. 8 mm nodule in the right apex, recommend follow-up in 6 months. Electronically Signed: Chele Do MD at 20:31 EDT , Service support ,
[2021-07-13 21:51] LABS: Probe Check PASS; Specimen Processing Control PASS
[2021-07-13] MEDS: dexAMETHasone 4 MG Tablet 6 MG PO (22:01)
--- NOTE | 2021-07-13 22:28 | PCM.HP.STD ---
HPI - General General Date of Admission: 07/13/21 HPI Narrative MICHAEL RAMIREZ, is a 65 M with multiple comorbidities as listed below came to ER for shortness of breath, frequent cough with yellowish-greenish sputum and shortness of breath and mild wheezing for 5 days. Patient also complaining of left shoulder pain but no chest pain. Patient has URI symptoms of rhinorrhea, sinus congestion but no fever. He further said his tested positive for virus but not Covid. Earlier patient had vaccine for COVID-19 and influenza. In ED, patient is afebrile, not tachycardic or tachypneic but pulse ox 82% on room air. Rapid Covid antigen and PCR negative. Chest CT was done which shows probable multifocal parenchymal inflammatory process along with more diffuse bronchitis. Small left pleural effusion. Empirically patient received dexamethasone 6 mg prior to the result of PCR. [facility] Medical History (Updated 07/13/21 @ 22:[address] Jaiden Castillo MD) Acute on chronic renal failure Chronic renal failure, stage 5 Coronary artery disease Hyperkalemia Hyperlipidemia Hypotension Myocardial infarction Pleural effusion, left Skin lesion of face Type 2 diabetes mellitus Home Medications aspirin 81 mg PO DAILY 06/07/16 [History Last Taken 06/28/18] B complex with C 20-folic acid 1 mg PO TID 05/15/18 [History Last Taken 05/15/18 08:00] ipratropium-albuterol 3 ml INHALATION Q4HWA.RT #42 ampul.neb 05/17/18 [Rx Last Taken Unknown] nebulizers #1 ea 05/17/18 [Rx Last Taken Unknown] sevelamer HCl 800 mg tablet 2,400 mg PO BREAKFAST 06/06/18 [History Last Taken Unknown] insulin glargine 8 - 10 units SC QHS 06/28/18 [History Last Taken 06/27/18 4] amlodipine 5 mg PO DAILY 05/20/21 [History Last Taken Unknown] atorvastatin 40 mg PO QHS 05/20/21 [History Last Taken Unknown] carvedilol [Coreg] 12.5 mg PO QHS 05/20/21 [History Last Taken Unknown] ergocalciferol (vitamin D2) 6,000 unit PO DAILY 05/20/21 [History Last Taken Unknown] insulin aspart U-100 [Novolog U-100 Insulin aspart] 8 - 10 unit SUBCUT TIDCM 05/20/21 [History Last Taken Unknown] losartan 100 mg PO DAILY 05/20/21 [History Last Taken Unknown] sevelamer HCl 1,600 mg PO BIDCM 05/20/21 [History Last Taken Unknown] docusate sodium 200 mg PO PRN 07/13/21 [History Last Taken Unknown] Allergy/AdvReac Type Severity Reaction Status Date / Time No Known Allergies Allergy Verified 07/13/21 16:25 Family History Father CAD (coronary artery disease) Hypertension Diabetes Mother Diabetes Surgical History S/P colonoscopy S/P dialysis catheter insertion S/P hernia repair S/P laparoscopic cholecystectomy Status post coronary artery bypass graft Social History Smoking Status: Never smoker substance use type: does not use ROS ROS Narrative Constitutional: Reports fatigue and weakness HEENT: Reports systems reviewed and no addt'l complaints, except as documented Respiratory/Chest: As mentioned in HPI. Mild hypoxia, cough and shortness of breath. Gastrointestinal: Denies coffee ground emesis, hematemesis or vomiting Genitourinary: On hemodialysis. Left arm AV fistula Musculoskeletal: Denies new joint pain and limited range of motion Neurologic: Denies seizure-like activity skin: No ulcer. No rash Endocrinology: Reports systems reviewed and no addt'l complaints, except as documented Hematologic/Lymphatic: Reports systems reviewed and no addt'l complaints, except as documented Rest 12 ROS are negative except as mentioned in HPI Vital Signs Vital Signs Vital Signs: 07/13/21 16:25 07/13/21 18:00 07/13/21 20:26 Temperature 98.6 F Temperature Source Temporal Pulse Rate 70 80 Respiratory Rate 18 38 H Blood Pressure 147/67 H 169/69 H Blood Pressure Mean 93 102 Pulse Ox 97 95 88 Oxygen Delivery Method Room Air Room Air Room Air Oxygen Flow Rate (L/min) 07/13/21 20:38 07/13/21 22:03 Temperature 97.8 F Temperature Source Temporal Pulse Rate 68 Respiratory Rate 20 H Blood Pressure 148/74 H Blood Pressure Mean 98 Pulse Ox 96 96 Oxygen Delivery Method Nasal Cannula Nasal Cannula Oxygen Flow Rate (L/min) 2 2 Weight Weight: 174 lb 13.225 oz Body Mass Index (BMI) 24.3 Physical Exam Narrative General: Alert, Oriented x3, Cooperative HEENT: Atraumatic, PERRLA, EOMI, Normocephalic Oral: No Gingival or Mucosal Lesions/ Ulcerations Neck: Supple, No JVD, Negative Carotid Bruits Lungs: Air entry diminished in bilateral lung bases. Mild expiratory wheezing. Cardiovascular: Sinus rhythm, normal S1, Normal S2, systolic murmur over LLSB and cardiac apex Abdomen: Bowel Sounds Present, Soft, Non Tender, Non-Distended : No renal angle tenderness. No suprapubic tenderness. Extremities: No edema, Capillary Refill Less than 3 Seconds Skin: No rashes, dry skin. Musculoskeletal: No Tenderness to Palpation of Joints or Extremities Neurological: Cranial nerves II-XII grossly intact, DTR 2+/4 and Symmetrical, Neuro grossly intact Psych/Mental Status: Normal Affect, Appropriate. Results Lab / Micro Data Result Diagrams: 07/13/21 17:48 07/13/21 17:48 Labs: Laboratory Results - last 24 hr 07/13/21 17:45: COVID-19 (PER) Negative 07/13/21 17:48: WBC 7.3, RBC 3.27 L, Hgb 10.3 L, Hct 33.2 L, MCV 101.5 H, MCH 31.5, MCHC 31.0 L, RDW Std Deviation 49.5 H, RDW Coeff of [place] 13.3, Plt Count 225, MPV 11.5, Immature Gran % (Auto) 0.300, Neut % (Auto) 81.4 H, Lymph % (Auto) 5.0 L, [place] % (Auto) 9.4, Eos % (Auto) 3.2, Baso % (Auto) 0.7, Absolute Neuts (auto) 5.9, Absolute Lymphs (auto) 0.36 L, Nucleated RBC % 0, Differential Comment SCANNED 07/13/21 17:48: Sodium 138, Potassium 3.9, Chloride 98, Carbon Dioxide 35.0 H, Anion Gap 5, BUN 45 H, Creatinine 7.53 H*, Estim Creat Clear Calc 10.69, Est GFR (MDRD) Af Amer 9 L, Est GFR (MDRD) Non-Af 8 L, BUN/Creatinine Ratio 6.0 L, Glucose 187 H, Calcium 9.0, Troponin I High Sens 28.7 Micro: Microbiology 07/13/21 17:25 Mucosa - Nose SARS-CoV-2 Antigen (Rapid) - Final 07/13/21 17:25 Mucosa - Nose Influenza Types A,B Direct FA ([place]) - Final Radiology Impression Chest X-Ray 07/13/21 17:17 IMPRESSION: 1. Atelectasis. 2. Moderate cardiomegaly and mild pulmonary edema. Electronically Signed: Syd Valenzuela MD at 18:44 EDT Tel , Service support , Chest CT 07/13/21 18:48 IMPRESSION: 1. Probable multifocal pulmonary parenchymal inflammatory process along with more diffuse bronchitis. 2. Small left pleural effusion. 3. 8 mm nodule in the right apex, recommend follow-up in 6 months. Electronically Signed: Chele Do MD at 20:31 EDT , Service support , Assessment & Plan Assessment/Plan (1) Acute bronchitis and bronchiolitis: PLAN: 64-year-old gentleman came to ER for shortness of breath, mild hypoxia, cough for 5 days 1. Acute viral pneumonia, not Covid with mild hypoxia: Patient is being admitted in PCU. CT chest suggestive of multifocal pulmonary inflammatory process with diffuse bronchitis. Respiratory panel ordered. Will hold for any antibiotic. Rapid Covid antigen PCR negative. Droplet precaution. Symptomatic treatment with bronchodilator, Mucinex, incentive spirometry. Advised admitted in April 2018 for acute human metapneumovirus bronchitis. 2. ESRD on hemodialysis: Consult Dr. Mesa. Analysis resume on Wednesday. 3. Diabetes mellitus type 2: Accu-Cheks before meals and at bedtime and cover with block sliding scale. Patient on a scheduled Lantus and Humalog insulin 4. Coronary artery status post 7 vessel CABG in 2017, chronic diastolic heart failure, hypertension and dyslipidemia: Cardiac medications continued. Last 2D echo in April 2018 reported as EF 53%, stage I diastolic function suggestive of mild chronic diastolic heart failure. 5. Other, does include GERD: VT prophylaxis: Heparin 5000 units subcutaneous twice daily. Living will/advanced directive/end of life care: Patient does have living will or advanced directive. After discussion of benefits/risks procedures involved with full code, DNR CC arrest and DNR CC, the patient opted for DNR-CC Arrest with no intubation Patient does not want artificial life support including intubation, tube feed, ventilator and/chest compression, central venous catheter, vasopressor and DC shock if needed Total time spent in [id number] encounter in discussion of advanced directive 16 minutes. Charges/Coding Visit Charges OBSV E&M: 31653 Initial observation care L3 Procedures Hospitalists Procedures: 93660 Advncd Care Plan 30 Min
[2021-07-13] MEDS: guaiFENesin/D-Methorphan TAB.SR.12H 1 TABLET PO (22:53)
[2021-07-13] MEDS: Carvedilol 12.5 MG Tablet PO (22:53)
[2021-07-13] MEDS: Atorvastatin Calcium 40 MG Tablet PO (22:53)
[2021-07-13] MEDS: Heparin Injection (Vial) 5,000 UNIT/ML VIAL 5000 UNIT SC (22:53)
[2021-07-13 23:00] LABS: Bedside Glucose 120 mg/dL (70-110)
[2021-07-14] MEDS: Acetaminophen 325 MG Tablet 650 MG PO (00:08)
[2021-07-14 03:00] VITALS: PULSE 65
[2021-07-14 05:22] VITALS: BP 143/62; PULSE 72; RESP 18; TEMP 36.2; O2SAT 96
[2021-07-14] MEDS: Folic Acid/Vitamin B Comp W-C 1 Capsule 1 CAP PO (05:47)
[2021-07-14 06:19] LABS: Absolute Lymphocyte Count 0.31 X10^3/uL (0.83-4.51); Absolute Neutrophil Count 6.3 X10^3/uL (2.0-7.7); Basophil# 0.01 X10^3/uL; Basophil% 0.1 % (0-1); Hemoglobin 9.2 g/dL (13.0-16.5); Lymphocyte # 0.31 X10^3/ul (0.83-4.51); Lymphocyte % 4.6 % (19-41); Mean Corp Hgb Conc 31.7 g/dL (32-36); Mean Corpuscular Hgb 31.8 pg (27.0-32.0); Mean Corpuscular Volume 100.3 fL (80-94); Monocyte# 0.18 X10^3/uL; Monocyte% 2.7 % (0-10); NRBC Flagged by Analyzer 0 % (0-5); Neutrophil # 6.26 X10^3/uL (2.7-7.7); Neutrophil % 92.3 % (47-70); POSITIVE DIFFERENTIAL YES; Platelet Count 196 K/mm3 (150-450); RBC Distribution Width CV 13.3 % (11.6-14.6); RBC Distribution Width SD 49.1 fl (35.1-43.9); Red Blood Count 2.89 M/mm3 (4.6-6.2); White Blood Count 6.8 K/mm3 (4.4-11.0)
[2021-07-14 06:40] VITALS: PULSE 70; RESP 20; O2SAT 96
[2021-07-14 06:43] LABS: Anion Gap 8 (5-15); BUN 51 mg/dL (7-18); BUN/Creat Ratio 6.4 RATIO (10-20); Calcium,Total 9.1 mg/dL (8.5-10.1); Chloride 98 mmol/L (98-107); EST Glomerular Filtration Rate 7 mL/min (>60); Est Glom Filt Rate - Afr Amer 9 mL/min (>60); Estimated Creatinine Clearance 10.07 ml/min; Glucose 167 mg/dL (74-106); Magnesium 2.5 mg/dL (1.6-2.6); Phosphorus 4.3 mg/dL (2.5-4.9); Potassium 4.3 mmol/L (3.5-5.1); Sodium Level 138 mmol/L (136-145)
[2021-07-14] MEDS: Ipratropium/Albuterol Sulfate 3 ML AMPUL.NEB INHALATION ×2 (06:48→10:43)
[2021-07-14 06:52] LABS: Differential Indicated SCAN CRITERIA MET
[2021-07-14 07:39] VITALS: PULSE 70
[2021-07-14] MEDS: Aspirin 81 MG TAB.CHEW PO (08:45)
[2021-07-14] MEDS: Senna/Docusate Sodium 1 Tablet 2 TABLET PO (08:46)
[2021-07-14] MEDS: SEVELAMER CARBONATE 800 MG TABLET 2400 MG PO (08:46)
[2021-07-14] MEDS: guaiFENesin/D-Methorphan TAB.SR.12H 1 TABLET PO (08:46)
[2021-07-14] MEDS: amLODIPine 5 MG Tablet PO (08:46)
[2021-07-14] MEDS: Losartan Potassium 100 MG Tablet PO (08:46)
[2021-07-14] MEDS: Insulin Lispro 100 UNIT/ML INSULN.PEN 10 UNIT SC ×2 (08:55→11:54)
[2021-07-14] MEDS: Heparin Injection (Vial) 5,000 UNIT/ML VIAL 5000 UNIT SC (09:00)
[2021-07-14 10:43] VITALS: RESP 18
--- NOTE | 2021-07-14 11:08 | CASEMGMT ---
Per pt, he goes to [facility] MWF around 1000. Plan is for pt to discharge today and [facility] and [facility] state if pt is going to d/c soon, they can still run him today at the OP clinic. Dr. Hernandez and Courtney TANK WAGON OPERATOR aware, voice understanding and plan is to discharge pt directly to OP clinic. Pt updated on all, voices understanding. Armando CHARLES updated, voices understanding. Maryuri CHARLES CM
[2021-07-14 11:22] VITALS: BP 140/57; PULSE 70; RESP 18; TEMP 36.4; O2SAT 95
--- NOTE | 2021-07-14 11:38 | DCINST_ITS ---
Discharge Instructions Diet Discharge Diet: Renal Diet Activity Discharge Activity: Return to Normal Activity Dressing / Incision Call your doctor if you observe: Fever of 101 or Higher, Shortness of breath, Dizziness and Chest pain Follow Up Care Test Results: Test results from this visit will be discussed in further detail at your follow-up appointment, if applicable. Discharge Plan Admission Admit Date/Time: 07/13/21 22:27 Primary Reason for Your Visit: Viral upper respiratory infection, sinusitis, covid negative Attending Provider: Ramiro Hernandez Primary Care Provider: [place], [place] Consulting Providers: Oumou Mesa Discharge Orders/Prescriptions Prescriptions: New amoxicillin-pot clavulanate [Augmentin] 500-125 mg tablet 1 tab PO DAILY Qty: 7 RF: 0 Continued sevelamer HCl 800 mg tablet 2,400 mg PO BREAKFAST RF: 0 aspirin 81 MG tablet,chewable 81 mg PO DAILY RF: 0 B complex with C 20-folic acid 1 MG capsule 1 mg PO TID RF: 0 ipratropium-albuterol 3 ML solution for nebulization 3 ml INHALATION Q4HWA.RT Qty: 42 RF: 0 (DME) nebulizers 1 EACH misc 1 ea MC UD Qty: 1 RF: 0 insulin glargine 100 UNITS/ML insulin pen 8 - 10 units SC QHS RF: 0 atorvastatin 40 mg Tablet 40 mg PO QHS RF: 0 carvedilol [Coreg] 12.5 mg Tablet 12.5 mg PO QHS RF: 0 sevelamer HCl 800 mg Tablet 1,600 mg PO BIDCM RF: 0 amlodipine 5 mg Tablet 5 mg PO DAILY RF: 0 insulin aspart U-100 [Novolog U-100 Insulin aspart] 100 unit/mL Solution 8 - 10 unit SUBCUT TIDCM RF: 0 losartan 100 mg Tablet 100 mg PO DAILY RF: 0 ergocalciferol (vitamin D2) 1,000 unit Capsule 6,000 unit PO DAILY RF: 0 docusate sodium 50 mg Tablet 200 mg PO PRN (Reason: Constipation) RF: 0 Referrals / Follow Up: Nephrology, Primary [Other] - See Referral Note (As scheduled) [facility],[place] [Primary Care Provider] - In 1 Week Disposition Disposition (needs filled in before D/C Order can be placed): Home, Self Care
--- NOTE | 2021-07-14 11:47 | DS.PCM_ITS ---
Documented by User: Sarah Patino PULLER MACHINE, PULLER MACHINE-C 07/14/21 11:58 Providers Date of Admission: 07/13/21 Date of Discharge: 07/14/21 Primary Care Physician: [facility] Consultations 07/13/21 22:40 Consult: Nephrology Routine Consulting Provider: Oumou Mesa Reason for Consult: ESRD on HD EMERGENT Consult: No MD Notified: Yes Date Notified: 07/14/21 Time Notified: 07:07 Method of Notification: Text Reason For Visit: ACUTE FEBRILE ILLNESS / VIRAL SYMPTOMS Diagnosis Discharge Diagnosis (1) Acute bronchitis and bronchiolitis: Status: Acute Code(s): J20.9 - Acute bronchitis, unspecified; J21.9 - Acute bronchiolitis, unspecified Medications at Discharge Home Medications aspirin 81 mg PO DAILY 06/07/16 B complex with C 20-folic acid 1 mg PO TID 05/15/18 ipratropium-albuterol 3 ml INHALATION Q4HWA.RT #42 ampul.neb 05/17/18 nebulizers #1 ea 05/17/18 sevelamer HCl 800 mg tablet 2,400 mg PO BREAKFAST 06/06/18 insulin glargine 8 - 10 units SC QHS 06/28/18 amlodipine 5 mg PO DAILY 05/20/21 atorvastatin 40 mg PO QHS 05/20/21 carvedilol [Coreg] 12.5 mg PO QHS 05/20/21 ergocalciferol (vitamin D2) 6,000 unit PO DAILY 05/20/21 insulin aspart U-100 [Novolog U-100 Insulin aspart] 8 - 10 unit SUBCUT TIDCM 0 05/20/21 losartan 100 mg PO DAILY 05/20/21 sevelamer HCl 1,600 mg PO BIDCM 05/20/21 docusate sodium 200 mg PO PRN 07/13/21 amoxicillin-pot clavulanate [Augmentin] 1 tab PO DAILY #7 tab 07/14/21 prednisone 40 mg PO DAILY #10 tab 07/14/21 Hospital Course Operations None Procedures None Summary of Care Provided Minutes Spent on Discharge: 35 Hospital Course: Patient is a 65-year-old male admitted 07/13/2021 due to shortness of breath. 1. Viral URI, sinusitis-Covid and respiratory panel negative. Patient not noted to be hypoxic during admission. Oxygen stable on room air at discharge. Patient reports sinus congestion, pressure and drainage. Rx for renally dosed Augmentin for sinusitis. CT of chest on admission shows small pleural effusion, bronchitis and 8 mm nodule in the right apex. Recommend follow-up CT in 6 months which can be arranged by primary care provider. Continue home DuoNeb aerosols. Prednisone 40 mg x 5 days for mild viral bronchitis. Suspect patient's presenting symptoms partially related to fluid overload related to ESRD. Patient to undergo dialysis directly after discharge. Follow-up with PCP in 1 week. 2. End-stage renal disease on hemodialysis-scheduled dialysis directly after discharge. 3. Type 2 diabetes mellitus-continue home insulin regimen. 4. CAD with history of CABG-continue medical management, outpatient follow-up. On aspirin, statin, carvedilol, losartan. 5. Chronic heart failure with preserved ejection fraction-suspect mild fluid overload related to ESRD. Scheduled to undergo dialysis directly after discharge. 6. Hypertension-stable, continue home medication regimen. 7. Hyperlipidemia-continue statin. 8. GERD- not on regimen. Patient seen and examined prior to discharge. Physical assessment as noted below. Patient is stable for discharge with follow up recommendations as noted above. This patient was seen by PEGGY Amezcua under the supervision of Dr. Hernandez. Physical Exam Const alert, oriented x3 and no apparent distress Orientation / Consciousness: awake, oriented to person, oriented to place and oriented to time HEENT normocephalic and moist oral mucous membranes Eyes PERRL, EOMs intact bilaterally and conjunctivae normal Neck no lymphadenopathy Resp clear to auscultation bilaterally Auscultation: diminished lung sounds Cardio regular rate, regular rhythm and no murmurs Peripheral Pulses: pulses 2+ throughout GI normal to inspection, nondistended, normoactive bowel sounds, non-tender and non-distended Extremity normal to inspection Skin no rashes or lesions noted Lesions: no lesions Rashes: no rashes Trauma: no lacerations or abrasions Neuro CN's II-XII intact bilaterally, no focal motor deficits, no sensory deficits noted and deep tendon reflexes 2+ bilaterally Psych mental status grossly normal and affect normal Weight / BMI Weight Weight: 174 lb 13.225 oz Body Mass Index (BMI) 24.3 ABG / Lab / Microbiology Data Result Diagrams: 07/14/21 05:14 07/14/21 05:14 Laboratory: Laboratory Results - last 24 hr 07/13/21 17:45: COVID-19 (PER) Negative 07/13/21 17:48: WBC 7.3, RBC 3.27 L, Hgb 10.3 L, Hct 33.2 L, MCV 101.5 H, MCH 31.5, MCHC 31.0 L, RDW Std Deviation 49.5 H, RDW Coeff of [place] 13.3, Plt Count 225, MPV 11.5, Immature Gran % (Auto) 0.300, Neut % (Auto) 81.4 H, Lymph % (Auto) 5.0 L, [place] % (Auto) 9.4, Eos % (Auto) 3.2, Baso % (Auto) 0.7, Absolute Neuts (auto) 5.9, Absolute Lymphs (auto) 0.36 L, Nucleated RBC % 0, Differential Comment SCANNED 07/13/21 17:48: Sodium 138, Potassium 3.9, Chloride 98, Carbon Dioxide 35.0 H, Anion Gap 5, BUN 45 H, Creatinine 7.53 H*, Estim Creat Clear Calc 10.69, Est GFR (MDRD) Af Amer 9 L, Est GFR (MDRD) Non-Af 8 L, BUN/Creatinine Ratio 6.0 L, Glucose 187 H, Calcium 9.0, Troponin I High Sens 28.7 07/13/21 22:55: POC Glucose 120 H 07/14/21 05:14: WBC 6.8, RBC 2.89 L, Hgb 9.2 L, Hct 29.0 L, MCV 100.3 H, MCH 31.8, MCHC 31.7 L, RDW Std Deviation 49.1 H, RDW Coeff of [place] 13.3, Plt Count 196, MPV 12.0, Immature Gran % (Auto) 0.300, Neut % (Auto) 92.3 H, Lymph % (Auto) 4.6 L, [place] % (Auto) 2.7, Eos % (Auto) 0.0, Baso % (Auto) 0.1, Absolute Neuts (auto) 6.3, Absolute Lymphs (auto) 0.31 L, Nucleated RBC % 0 07/14/21 05:14: Sodium 138, Potassium 4.3, Chloride 98, Carbon Dioxide 32.0, Anion Gap 8, BUN 51 H, Creatinine 8.00 H*, Estim Creat Clear Calc 10.07, Est GFR (MDRD) Af Amer 9 L, Est GFR (MDRD) Non-Af 7 L, BUN/Creatinine Ratio 6.4 L, Glucose 167 H, Calcium 9.1, Phosphorus 4.3, Magnesium 2.5 Microbiology: Microbiology 07/13/21 21:10 Interface Orders Respiratory Panel (PCR) - Final 07/13/21 17:25 Mucosa - Nose SARS-CoV-2 Antigen (Rapid) - Final 07/13/21 17:25 Mucosa - Nose Influenza Types A,B Direct FA ([place]) - Final Radiography Diagnostic Testing: Radiology Impression Chest X-Ray 07/13/21 17:17 IMPRESSION: 1. Atelectasis. 2. Moderate cardiomegaly and mild pulmonary edema. Electronically Signed: Syd Valenzuela MD at 18:44 EDT Tel , Service support , Chest CT 07/13/21 18:48 IMPRESSION: 1. Probable multifocal pulmonary parenchymal inflammatory process along with more diffuse bronchitis. 2. Small left pleural effusion. 3. 8 mm nodule in the right apex, recommend follow-up in 6 months. Electronically Signed: Chele Do MD at 20:31 EDT , Service support , D/C Instructions Discharge Diet: Renal Diet Call your doctor if you observe: Fever of 101 or Higher, Shortness of breath, Dizziness and Chest pain Meaningful Use Info Meaningful Use Diagnoses (Choose all that apply): None applicable Discharge Plan Admission Admit Date/Time: 07/13/21 22:27 Primary Reason for Your Visit: Viral upper respiratory infection, sinusitis, covid negative Attending Provider: Ramiro Hernandez Primary Care Provider: [facility],[place] Consulting Providers: Oumou Mesa Instructions Additional Instructions / Restrictions: Patient Problems: Altered Health Status related to Hospitalization Patient Goals: *Optimal Level of Health *Keep Appointments *Medication Compliance *Remain Safe Discharge Orders/Prescriptions Prescriptions: New amoxicillin-pot clavulanate [Augmentin] 500-125 mg tablet 1 tab PO DAILY Qty: 7 RF: 0 prednisone 20 mg tablet 40 mg PO DAILY Qty: 10 RF: 0 Continued sevelamer HCl 800 mg tablet 2,400 mg PO BREAKFAST RF: 0 aspirin 81 MG tablet,chewable 81 mg PO DAILY RF: 0 B complex with C 20-folic acid 1 MG capsule 1 mg PO TID RF: 0 ipratropium-albuterol 3 ML solution for nebulization 3 ml INHALATION Q4HWA.RT Qty: 42 RF: 0 (DME) nebulizers 1 EACH misc 1 ea MC UD Qty: 1 RF: 0 insulin glargine 100 UNITS/ML insulin pen 8 - 10 units SC QHS RF: 0 atorvastatin 40 mg Tablet 40 mg PO QHS RF: 0 carvedilol [Coreg] 12.5 mg Tablet 12.5 mg PO QHS RF: 0 sevelamer HCl 800 mg Tablet 1,600 mg PO BIDCM RF: 0 amlodipine 5 mg Tablet 5 mg PO DAILY RF: 0 insulin aspart U-100 [Novolog U-100 Insulin aspart] 100 unit/mL Solution 8 - 10 unit SUBCUT TIDCM RF: 0 losartan 100 mg Tablet 100 mg PO DAILY RF: 0 ergocalciferol (vitamin D2) 1,000 unit Capsule 6,000 unit PO DAILY RF: 0 docusate sodium 50 mg Tablet 200 mg PO PRN (Reason: Constipation) RF: 0 Referrals / Follow Up: Nephrology, Primary [Other] - See Referral Note (As scheduled) [facility],[place] [Primary Care Provider] - In 1 Week Disposition Disposition (needs filled in before D/C Order can be placed): Home, Self Care Documented by User: Dr. Ramiro Hernandez DO 07/14/21 16:16 Providers Date of Admission: 07/13/21 Reason For Visit: ACUTE FEBRILE ILLNESS / VIRAL SYMPTOMS Medications at Discharge Home Medications aspirin 81 mg PO DAILY 06/07/16 B complex with C 20-folic acid 1 mg PO TID 05/15/18 ipratropium-albuterol 3 ml INHALATION Q4HWA.RT #42 ampul.neb 05/17/18 nebulizers #1 ea 05/17/18 sevelamer HCl 800 mg tablet 2,400 mg PO BREAKFAST 06/06/18 insulin glargine 8 - 10 units SC QHS 06/28/18 amlodipine 5 mg PO DAILY 05/20/21 atorvastatin 40 mg PO QHS 05/20/21 carvedilol [Coreg] 12.5 mg PO QHS 05/20/21 ergocalciferol (vitamin D2) 6,000 unit PO DAILY 05/20/21 insulin aspart U-100 [Novolog U-100 Insulin aspart] 8 - 10 unit SUBCUT TIDCM 05/20/21 losartan 100 mg PO DAILY 05/20/21 sevelamer HCl 1,600 mg PO BIDCM 05/20/21 docusate sodium 200 mg PO PRN 07/13/21 amoxicillin-pot clavulanate [Augmentin] 1 tab PO DAILY #7 tab 07/14/21 prednisone 40 mg PO DAILY #10 tab 07/14/21 ABG / Lab / Microbiology Data Result Diagrams: 07/14/21 05:14 07/14/21 05:14 Discharge Plan Admission Admit Date/Time: 07/13/21 22:27 Primary Reason for Your Visit: Viral upper respiratory infection, sinusitis, covid negative Attending Provider: Ramiro Hernandez Primary Care Provider: [place], [place] Consulting Providers: Oumou Mesa Instructions Additional Instructions / Restrictions: Patient Problems: Altered Health Status related to Hospitalization Patient Goals: *Optimal Level of Health *Keep Appointments *Medication Compliance *Remain Safe Discharge Orders/Prescriptions Prescriptions: New amoxicillin-pot clavulanate [Augmentin] 500-125 mg tablet 1 tab PO DAILY Qty: 7 RF: 0 prednisone 20 mg tablet 40 mg PO DAILY Qty: 10 RF: 0 Continued sevelamer HCl 800 mg tablet 2,400 mg PO BREAKFAST RF: 0 aspirin 81 MG tablet,chewable 81 mg PO DAILY RF: 0 B complex with C 20-folic acid 1 MG capsule 1 mg PO TID RF: 0 ipratropium-albuterol 3 ML solution for nebulization 3 ml INHALATION Q4HWA.RT Qty: 42 RF: 0 (DME) nebulizers 1 EACH misc 1 ea MC UD Qty: 1 RF: 0 insulin glargine 100 UNITS/ML insulin pen 8 - 10 units SC QHS RF: 0 atorvastatin 40 mg Tablet 40 mg PO QHS RF: 0 carvedilol [Coreg] 12.5 mg Tablet 12.5 mg PO QHS RF: 0 sevelamer HCl 800 mg Tablet 1,600 mg PO BIDCM RF: 0 amlodipine 5 mg Tablet 5 mg PO DAILY RF: 0 insulin aspart U-100 [Novolog U-100 Insulin aspart] 100 unit/mL Solution 8 - 10 unit SUBCUT TIDCM RF: 0 losartan 100 mg Tablet 100 mg PO DAILY RF: 0 ergocalciferol (vitamin D2) 1,000 unit Capsule 6,000 unit PO DAILY RF: 0 docusate sodium 50 mg Tablet 200 mg PO PRN (Reason: Constipation) RF: 0 Referrals / Follow Up: Nephrology, Primary [Other] - See Referral Note (As scheduled) [facility] [Primary Care Provider] - In 1 Week Disposition Disposition (needs filled in before D/C Order can be placed): Home, Self Care Charges/Coding Addendum Addendum: Patient seen and examined independently. Data and vitals reviewed. I agree with the above note by the nurse practitioner. Patient admitted for hypoxia in the emergency room. Concern was for viral etiology Covid negative. Imaging was only revealing for a pleural effusion. It was concerning that most of his respiratory issues may have been related with some fluid overload given him being on hemodialysis for end-stage renal disease. Patient was monitored in the hospital and remained stable. Patient remained stable during hospitalization and was discharged home to continue with dialysis. Patient would be given 5 days of 40 mg of prednisone for possible mild viral bronchitis. Physical exam: Patient no acute distress and afebrile. Heart rate regular in rhythm plus S1-S2 with a murmur Rubs. Lungs Are Clear to Auscultation Bilaterally. Visit Charges OBSV E&M: 62194 Observation care discharge
--- NOTE | 2021-07-14 12:17 | PHA.DC.MC ---
Pharmacy Service has performed discharge medication reconciliation and counseling for this patient. 1. AUGMENTIN 500MG PO DAILY FOR 7 DAYS - TAKE AFTER DIALYSIS ON DIALYSIS DAYS 2. PREDNISONE 40MG PO DAILY X 5 DAYS The patient's discharge medication list was reviewed for discrepancies and discrepancies were resolved. Home Medications aspirin 81 mg PO DAILY 06/07/16 B complex with C 20-folic acid 1 mg PO TID 05/15/18 ipratropium-albuterol 3 ml INHALATION Q4HWA.RT #42 ampul.neb 05/17/18 nebulizers #1 ea 05/17/18 sevelamer HCl 800 mg tablet 2,400 mg PO BREAKFAST 06/06/18 insulin glargine 8 - 10 units SC QHS 06/28/18 amlodipine 5 mg PO DAILY 05/20/21 atorvastatin 40 mg PO QHS 05/20/21 carvedilol [Coreg] 12.5 mg PO QHS 05/20/21 ergocalciferol (vitamin D2) 6,000 unit PO DAILY 05/20/21 insulin aspart U-100 [Novolog U-100 Insulin aspart] 8 - 10 unit SUBCUT TIDCM 05/20/21 losartan 100 mg PO DAILY 05/20/21 sevelamer HCl 1,600 mg PO BIDCM 05/20/21 docusate sodium 200 mg PO PRN 07/13/21 amoxicillin-pot clavulanate [Augmentin] 1 tab PO DAILY #7 tab 07/14/21 prednisone 40 mg PO DAILY #10 tab 07/14/21 The patient was counseled on the following discharge medications and changes in medications for homegoing were reviewed. The Reason for Use, instructions for use, and potential side effects were reviewed for all new medications. The patient's questions regarding all of their medications were answered. The patient was able to verbally demonstrate an understanding of their discharge medications.
[2021-07-14 12:26] LABS: Bedside Glucose 232 mg/dL (70-110)
== END 2021-07-14 12:35 | disposition home or self-care (01) ==
LOC: ED 17:29 → PCU 07-14 06:46
PROVIDERS: Admitting Provider Internal Medicine; Emergency Provider Emergency Medicine
DX: J20.9 Acute bronchitis, unspecified (principal); J21.9 Acute bronchiolitis, unspecified; E11.22 Type 2 diabetes mellitus with diabetic chronic kidney disease; I13.2 Hypertensive heart and chronic kidney disease with heart failure and with stage 5 chronic kidney disease, or end stage renal disease; N18.6 End stage renal disease; I25.10 Atherosclerotic heart disease of native coronary artery without angina pectoris; E78.5 Hyperlipidemia, unspecified; I25.2 Old myocardial infarction; Z79.899 Other long term (current) drug therapy; Z79.4 Long term (current) use of insulin; Z79.82 Long term (current) use of aspirin; Z95.1 Presence of aortocoronary bypass graft; K21.9 Gastro-esophageal reflux disease without esophagitis; J20.8 Acute bronchitis due to other specified organisms; I50.32 Chronic diastolic (congestive) heart failure
CPT/HCPCS: 36415; 71045; 71250; 80048; 82962; 83735; 84100; 84484; 85025; 87040; 87426; 87633; 87635; 87804; 93005; 94640; 96372; 97162; 97165; 99218; 99251; 99284; U0005; A4216; G0378; G0463; U0003

== ENCOUNTER 2022-01-19 07:42 | Emergency (ER) | payer OTHER, SELFPAY ==
[2022-01-19 07:43] VITALS: BP 180/74; PULSE 65; RESP 16; TEMP 36.1; O2SAT 95; BMI 24.8
--- NOTE | 2022-01-19 08:00 | CT_ITS ---
STUDY: CT ABDOMEN AND PELVIS WITHOUT CONTRAST REASON FOR EXAM: Male, 66 years old. Diarrhea and abdominal pain. RADIATION DOSAGE (If Supplied By Facility): CTDIvol = ( 10.27 ) mGy, DLP = ( 562.70 ) mGycm TECHNIQUE: Transaxial images were obtained from the dome of the diaphragm to the symphysis pubis without oral contrast, and without intravenous contrast. Sagittal and coronal images were reconstructed. Individualized dose optimization techniques were used for this CT. COMPARISON: Comparison is made with prior study dated 05/20/2021. FINDINGS: Small bilateral pleural effusions right greater than left with bibasilar atelectasis. Coronary artery calcification. Normal liver. There are surgical clips in the gallbladder fossa consistent with a prior cholecystectomy. Normal spleen. Normal pancreas. Normal bilateral adrenal glands. 2.4 cm cyst in the lower pole of the right kidney. Normal left kidney. Nonspecific bilateral perinephric stranding. Normal visualized stomach. Normal small intestine. Normal colon. The appendix is visualized and appears normal. There is diffuse atherosclerotic calcification of the abdominal aorta and its major visceral branches, without a demonstrated aneurysm. Normal inferior vena cava. There is borderline retroperitoneal lymphadenopathy with enlarged nodes no greater than 10mm in the short axis diameter. Normal urinary bladder. Penile calcifications. Prostatic enlargement. The prostate measures 4.3 cm x 5.2 cm. There is a right-sided inguinal hernia containing adipose tissue. There are diffuse degenerative changes of the visualized lumbar spine. CT/Abdomen/Pelvis without Cont IMPRESSION: Bilateral pleural effusions right greater than left with bibasilar atelectasis. Status post cholecystectomy. Diffuse atherosclerotic calcification of the abdominal aorta and the major visceral branches. Prostatic enlargement. Penile calcifications. Electronically Signed: Remy Thompson MD at 9:12 EST ,
[2022-01-19] MEDS: Ondansetron 4 MG/2 ML Vial IV (08:18)
[2022-01-19] MEDS: Morphine 4 MG/ML Syringe IV (08:19)
[2022-01-19 08:34] LABS: Absolute Lymphocyte Count 0.78 X10^3/uL (0.83-4.51); Absolute Neutrophil Count 4.3 X10^3/uL (2.0-7.7); Basophil# 0.05 X10^3/uL; Basophil% 0.8 % (0-1); Eosinophil# 0.18 X10^3/uL; Hematocrit 31.5 % (40-54); Lymphocyte # 0.78 X10^3/ul (0.83-4.51); Lymphocyte % 13.2 % (19-41); Mean Corp Hgb Conc 31.7 g/dL (32-36); Mean Corpuscular Hgb 30.1 pg (27.0-32.0); Mean Corpuscular Volume 94.9 fL (80-94); Mean Platelet Vol. 11.7 fl (6.2-12.0); Monocyte# 0.58 X10^3/uL; Monocyte% 9.8 % (0-10); NRBC Flagged by Analyzer 0 % (0-5); Neutrophil # 4.29 X10^3/uL (2.7-7.7); Neutrophil % 72.7 % (47-70); Platelet Count 177 K/mm3 (150-450); RBC Distribution Width CV 14.7 % (11.6-14.6); RBC Distribution Width SD 50.8 fl (35.1-43.9); Red Blood Count 3.32 M/mm3 (4.6-6.2); White Blood Count 5.9 K/mm3 (4.4-11.0)
[2022-01-19 08:55] LABS: ALB/GLOB Ratio 0.9 RATIO (0.9-2.4); AST(SGOT) 20 U/L (15-37); Alanine Aminotransfer ALT/SGPT 9 U/L (16-61); Albumin, Serum 3.3 g/dL (3.2-5.0); Alkaline Phosphatase 117 U/L (45-117); Anion Gap 8 (5-15); BUN 87 mg/dL (7-18); BUN/Creat Ratio 8.9 RATIO (10-20); Bilirubin, Direct 0.68 mg/dL (0.00-0.30); Calcium,Total 8.1 mg/dL (8.5-10.1); Chloride 103 mmol/L (98-107); Creatinine, Serum 9.81 mg/dL (0.70-1.30); EST Glomerular Filtration Rate 6 mL/min (>60); Est Glom Filt Rate - Afr Amer 7 mL/min (>60); Globulin 3.5 g/dL (2.2-4.2); Glucose 113 mg/dL (74-106); Lipase 45 U/L (73-393); Potassium 5.3 mmol/L (3.5-5.1); Protein, Total 6.8 g/dL (6.4-8.2); Sodium Level 139 mmol/L (136-145)
--- NOTE | 2022-01-19 09:25 | ED.VIS.GI ---
HPI HPI - GI History of Present Illness Chief Complaint: Abd Pain Narrative Narrative: 66-year-old male presenting with abdominal pain. He states it is in the right upper quadrant. Patient has history of cholecystectomy. He states he has been having this pain for a day or so. Patient also states he had diarrhea about 4 times this morning. Patient has end-stage renal disease on dialysis Wednesday, Wednesday, Wednesday and states that he missed dialysis Wednesday due to the weather and has now missed dialysis today because of having diarrhea and abdominal pain. He is not had any fever or chills. Denies nausea or vomiting. He denies black or bloody stools. He has no urinary complaints and makes very little urine. Patient also states that he has some pain in his tailbone from a fall 2 weeks ago. He has had this evaluated at an outside facility and states it gives him difficulty getting around although he can ambulate. Patient does not have any respiratory complaints and does not feel short of breath. [facility] Medical History Acute on chronic renal failure Chronic renal failure, stage 5 Coronary artery disease Hyperkalemia Hyperlipidemia Hypotension Myocardial infarction Pleural effusion, left Skin lesion of face Type 2 diabetes mellitus Home Medications aspirin 81 mg PO DAILY 06/07/16 [History Last Taken 06/28/18] B complex with C 20-folic acid 1 mg PO TID 05/15/18 [History Last Taken 05/15/18 08:00] ipratropium-albuterol 3 ml INHALATION Q4HWA.RT #42 ampul.neb 05/17/18 [Rx Last Taken Unknown] nebulizers #1 ea 05/17/18 [Rx Last Taken Unknown] sevelamer HCl 800 mg tablet 2,400 mg PO BREAKFAST 06/06/18 [History Last Taken Unknown] insulin glargine 8 - 10 units SC QHS 06/28/18 [History Last Taken 06/27/18 4] amlodipine 5 mg PO DAILY 05/20/21 [History Last Taken Unknown] atorvastatin 40 mg PO QHS 05/20/21 [History Last Taken Unknown] carvedilol [Coreg] 12.5 mg PO QHS 05/20/21 [History Last Taken Unknown] ergocalciferol (vitamin D2) 6,000 unit PO DAILY 05/20/21 [History Last Taken Unknown] insulin aspart U-100 [Novolog U-100 Insulin aspart] 8 - 10 unit SUBCUT TIDCM 05/20/21 [History Last Taken Unknown] losartan 100 mg PO DAILY 05/20/21 [History Last Taken Unknown] sevelamer HCl 1,600 mg PO BIDCM 05/20/21 [History Last Taken Unknown] docusate sodium 200 mg PO PRN 07/13/21 [History Last Taken Unknown] amoxicillin-pot clavulanate [Augmentin] 1 tab PO DAILY #7 tab 07/14/21 [Rx Last Taken Unknown] prednisone 40 mg PO DAILY #10 tab 07/14/21 [Rx Last Taken Unknown] hydrocodone-acetaminophen 1 tab PO Q6H PRN 3 Days #10 tab 01/19/22 [Rx Last Taken Unknown] Allergy/AdvReac Type Severity Reaction Status Date / Time No Known Allergies Allergy Verified 07/13/21 16:25 Family History Father CAD (coronary artery disease) Hypertension Diabetes Mother Diabetes Surgical History S/P colonoscopy S/P dialysis catheter insertion S/P hernia repair S/P laparoscopic cholecystectomy Status post coronary artery bypass graft Social History Smoking Status: Never smoker substance use type: does not use ROS ROS ED Constitutional Constitutional ED: Denies chills or fever(s) ENT ENT ED: Denies rhinorrhea or sore throat Cardiovascular Cardiovascular: Denies chest pain or palpitations Respiratory/Chest Respiratory/Chest: Denies cough, dyspnea or sputum Gastrointestinal Gastrointestinal: Reports abdominal pain and diarrhea; Denies constipation or vomiting Genitourinary Genitourinary ED: Denies dysuria or hematuria Musculoskeletal Musculoskeletal: Denies arthralgias or myalgias Integumentary Denies abscess or rash Neurologic Neurologic: Denies headache(s), paresthesias or weakness Psychiatric Psychiatric: Denies anxiety or depression EXAM Physical Exam Const Vital Signs: 01/19/22 07:43 Temperature 96.9 F L Temperature Source Temporal Pulse Rate 65 Respiratory Rate 16 Blood Pressure 180/74 H Blood Pressure Mean 109 Pulse Ox 95 Oxygen Delivery Method Room Air Positive well nourished General Appearance ED: NAD; Negative for pallor HEENT normocephalic and atraumatic Eyes PERRL Resp normal respiratory effort and clear to auscultation bilaterally Cardio regular rate and regular rhythm GI non-distended Palpation: soft and guarding RUQ Extremity full ROM General Extremety ED: Negative for edema or tenderness General Extremity: Negative for edema Neuro CN's II-XII intact bilaterally Sensorium / Orientation: alert, oriented to person, oriented to place and oriented to time Psych mental status grossly normal and thought process normal Skin General Skin Exam: Negative for jaundice or pallor MDM MDM MDM Narrative Medical decision making narrative: Patient presenting with abdominal pain in the right upper quadrant. He has had cholecystectomy in the past. Patient requesting for pain for abdominal pain as well as his tailbone. He was given morphine and Zofran. Blood work was obtained and he has no leukocytosis. Hemoglobin is stable at his baseline 10.0. Platelets are normal at 177. Creatinine is elevated to 8.10 however the patient has not been to dialysis. Potassium is slightly high at 5.3. It is noted that the patient's total bilirubin is 1.9 and his direct bilirubin is 0.68. Patient CT of the abdomen pelvis does identify small bilateral pleural effusions. Patient does not have any respiratory complaints however. The CT of the pelvis does not show anything that is acutely abnormal in the abdomen. Patient states feeling improved at this time. I spoke with Dr. Mesa who recommended he try to get over to dialysis. We will speak to Pamela to get this arranged. Patient request something for pain for his tailbone and was given a prescription for [place]. Patient given return precautions. He is discharged home in stable condition. Impression: 1. Sacral contusion 2. Abdominal pain 3. Diarrhea 4. End-stage renal disease on dialysis Lab Data Attestation: I reviewed the patient's lab results. Labs: Laboratory Results - last 24 hr 01/19/22 01/19/22 08:25 08:25 WBC 5.9 RBC 3.32 L Hgb 10.0 L Hct 31.5 L MCV 94.9 H MCH 30.1 MCHC 31.7 L RDW Std Deviation 50.8 H RDW Coeff of [place] 14.7 H Plt Count 177 MPV 11.7 Immature Gran % (Auto) 0.500 Neut % (Auto) 72.7 H Lymph % (Auto) 13.2 L [place] % (Auto) 9.8 Eos % (Auto) 3.0 Baso % (Auto) 0.8 Absolute Neuts (auto) 4.3 Absolute Lymphs (auto) 0.78 L Nucleated RBC % 0 Sodium 139 Potassium 5.3 H Chloride 103 Carbon Dioxide 28.0 Anion Gap 8 BUN 87 H Creatinine 9.81 H* Estim Creat Clear Calc 8.10 Est GFR (MDRD) Af Amer 7 L Est GFR (MDRD) Non-Af 6 L BUN/Creatinine Ratio 8.9 L Glucose 113 H Calcium 8.1 L Total Bilirubin 1.90 H Direct Bilirubin 0.68 H AST 20 ALT 9 L Alkaline Phosphatase 117 Total Protein 6.8 Albumin 3.3 Globulin 3.5 Albumin/Globulin Ratio 0.9 Lipase 45 L Radiography Diagnostic Testing: Clinical Impression(s) from Imaging Studies Abdomen/Pelvis CT 01/19/22 08:00 IMPRESSION: Bilateral pleural effusions right greater than left with bibasilar atelectasis. Status post cholecystectomy. Diffuse atherosclerotic calcification of the abdominal aorta and the major visceral branches. Prostatic enlargement. Penile calcifications. Electronically Signed: Remy Thompson MD at 9:12 EST , Discharge Plan Triage Chief Complaint: Abd Pain ED Provider: Lloyd Billy Dx/Rx/DC Orders Instructions: ED Chronic Kidney Disease (CKD), ED Coccyx or Sacrum Contusion, ED Diarrhea, Unknown Cause, ED Abdominal Pain Unkn Cause Male... Prescriptions: New hydrocodone-acetaminophen 5-325 mg tablet 1 tab PO Q6H PRN (Reason: pain) 3 Days Qty: 10 RF: 0 No Action sevelamer HCl 800 mg tablet 2,400 mg PO BREAKFAST RF: 0 aspirin 81 MG tablet,chewable 81 mg PO DAILY RF: 0 B complex with C 20-folic acid 1 MG capsule 1 mg PO TID RF: 0 ipratropium-albuterol 3 ML solution for nebulization 3 ml INHALATION Q4HWA.RT Qty: 42 RF: 0 (DME) nebulizers 1 EACH misc 1 ea MC UD Qty: 1 RF: 0 insulin glargine 100 UNITS/ML insulin pen 8 - 10 units SC QHS RF: 0 atorvastatin 40 mg Tablet 40 mg PO QHS RF: 0 carvedilol [Coreg] 12.5 mg Tablet 12.5 mg PO QHS RF: 0 sevelamer HCl 800 mg Tablet 1,600 mg PO BIDCM RF: 0 amlodipine 5 mg Tablet 5 mg PO DAILY RF: 0 insulin aspart U-100 [Novolog U-100 Insulin aspart] 100 unit/mL Solution 8 - 10 unit SUBCUT TIDCM RF: 0 losartan 100 mg Tablet 100 mg PO DAILY RF: 0 ergocalciferol (vitamin D2) 1,000 unit Capsule 6,000 unit PO DAILY RF: 0 docusate sodium 50 mg Tablet 200 mg PO PRN (Reason: Constipation) RF: 0 amoxicillin-pot clavulanate [Augmentin] 500-125 mg tablet 1 tab PO DAILY Qty: 7 RF: 0 prednisone 20 mg tablet 40 mg PO DAILY Qty: 10 RF: 0 [facility] [facility] [facility] [Primary Care Provider] - Disposition Disposition: Home, Self Care
[2022-01-19 09:28] VITALS: BP 159/73; PULSE 83; RESP 18
== END 2022-01-19 23:59 | disposition home or self-care (01) ==
PROVIDERS: Emergency Provider Student in an Organized Health Care Education/Training Program; Visit Provider Student in an Organized Health Care Education/Training Program
DX: S30.0XXA Contusion of lower back and pelvis, initial encounter (principal); W19.XXXA Unspecified fall, initial encounter; R10.11 Right upper quadrant pain; R19.7 Diarrhea, unspecified; E11.22 Type 2 diabetes mellitus with diabetic chronic kidney disease; N18.6 End stage renal disease; Z99.2 Dependence on renal dialysis; E87.5 Hyperkalemia; Z79.4 Long term (current) use of insulin; I25.10 Atherosclerotic heart disease of native coronary artery without angina pectoris; E78.5 Hyperlipidemia, unspecified; Z79.82 Long term (current) use of aspirin; Z79.52 Long term (current) use of systemic steroids; I25.2 Old myocardial infarction; Z90.49 Acquired absence of other specified parts of digestive tract; Z95.1 Presence of aortocoronary bypass graft
CPT/HCPCS: 74176; 80053; 80076; 83690; 85025; 96374; 96375; 99285; A4216; J2405

== ENCOUNTER 2022-06-26 08:24 | Emergency (ER) | payer OTHER, SELFPAY ==
[2022-06-26 08:25] VITALS: BP 186/77; PULSE 65; RESP 17; TEMP 36.3; O2SAT 98; BMI 23.1
--- NOTE | 2022-06-26 09:09 | EDS_ITS ---
HPI HPI - GI History of Present Illness Chief Complaint: Constipation Informant: patient Abdominal Pain/Flank Pain Onset: Days (4) Context: Gradual Onset Timing: Continuous Quality: Cramping Location: Diffuse Worsened by: Nothing Relieved by: Nothing Nausea/Vomiting/Emesis GI Symptom: Negative for Nausea or Vomiting Diarrhea/Melena/Hematochezia GI Symptom: Negative for Diarrhea, Melena or Hematochezia Associated Symptoms Associated Symptoms: Negative for Dysuria, Frequency or Hematuria Narrative Narrative: Patient presents with constipation that has been getting worse over the last 4 days. Patient states he has generalized cramping in his abdomen. Patient states nothing makes it better nothing makes it worse. Patient dates he has the urge to defecate but is unable to have a bowel movement. Patient denies any nausea or vomiting. Patient denies any fevers or chills. Patient does have a history of Parkinson's disease. [facility] Medical History (Updated 06/26/22 @ 11:[address] Ramiro Lombardo, ) Acute on chronic renal failure Chronic renal failure, stage 5 Coronary artery disease Hyperkalemia Hyperlipidemia Hypotension Myocardial infarction Pleural effusion, left Skin lesion of face Type 2 diabetes mellitus Home Medications aspirin 81 mg chewable tablet 81 mg PO DAILY heart 06/07/16 [History Last Taken 06/28/18] vitamin B complex and vitamin C no.20-folic acid 1 mg capsule 1 mg PO TID kidneys 05/15/18 [History Last Taken 05/15/18 08:00] ipratropium 0.5 mg-albuterol 3 mg (2.5 mg base)/3 mL nebulization soln 3 ml inhalation Q4HWA.RT ##42 05/17/18 [Rx Last Taken Unknown] nebulizers #1 ea 05/17/18 [Rx Last Taken Unknown] sevelamer HCl 800 mg tablet 2,400 mg PO BREAKFAST kidneys 06/06/18 [History Last Taken Unknown] insulin glargine 100 unit/mL (3 mL) subcutaneous pen 8 - 10 units subcut QHS diabetes 06/28/18 [History Last Taken 06/27/18 4] amlodipine 5 mg tablet 5 mg PO DAILY blood pressure 05/20/21 [History Last Taken Unknown] atorvastatin 40 mg tablet 40 mg PO QHS cholesterol 05/20/21 [History Last Taken Unknown] carvedilol 12.5 mg tablet (Coreg) 12.5 mg PO QHS blood pressure 05/20/21 [History Last Taken Unknown] ergocalciferol (vitamin D2) 1,000 unit capsule 6,000 unit PO DAILY vitamin 05/20/21 [History Last Taken Unknown] insulin aspart U-100 100 unit/mL subcutaneous solution (Novolog U-100 Insulin aspart) 8 - 10 unit subcut TIDCM diabetes 05/20/21 [History Last Taken Unknown] losartan 100 mg tablet 100 mg PO DAILY blood pressure 05/20/21 [History Last Taken Unknown] sevelamer HCl 800 mg tablet 1,600 mg PO BIDCM kidneys 05/20/21 [History Last Taken Unknown] docusate sodium 50 mg tablet 200 mg PO PRN Constipation 07/13/21 [History Last Taken Unknown] amoxicillin 500 mg-potassium clavulanate 125 mg tablet (Augmentin) 1 tab PO DAILY #7 tabs 07/14/21 [Rx Last Taken Unknown] prednisone 20 mg tablet 40 mg PO DAILY #10 tabs 07/14/21 [Rx Last Taken Unknown] hydrocodone-acetaminophen 5-325mg 5mg-325mg 1 tab PO Q6H PRN pain 3 days #10 tabs 01/19/22 [Rx Last Taken Unknown] polyethylene glycol 3350 17 gram/dose oral powder (Miralax) 17 g PO DAILY #238 grams 06/26/22 [Rx Last Taken Unknown] Allergy/AdvReac Type Severity Reaction Status Date / Time No Known Allergies Allergy Verified 06/26/22 08:24 Family History Father CAD (coronary artery disease) Hypertension Diabetes Mother Diabetes Surgical History S/P colonoscopy S/P dialysis catheter insertion S/P hernia repair S/P laparoscopic cholecystectomy Status post coronary artery bypass graft Social History Smoking Status: Never smoker substance use type: does not use ROS ROS ED Constitutional Constitutional ED: Denies chills or fever(s) Eyes Eyes: Denies blurry vision or change in vision ENT ENT ED: Reports rhinorrhea; Denies sore throat Cardiovascular Cardiovascular: Denies chest pain or palpitations Respiratory/Chest Respiratory/Chest: Denies cough or dyspnea Gastrointestinal Gastrointestinal: Reports abdominal pain and constipation; Denies nausea or vomiting Genitourinary Genitourinary ED: Denies dysuria or hematuria Musculoskeletal Musculoskeletal: Reports back pain; Denies neck pain Integumentary Denies abscess or rash Neurologic Neurologic: Denies headache(s) or weakness Allergic/Immunologic Allergic/Immunologic ED: Denies mouth swelling or urticaria EXAM Physical Exam Const Vital Signs: 06/26/22 08:25 06/26/22 11:36 Temperature 97.3 F L Temperature Source Temporal Pulse Rate 65 68 Respiratory Rate 17 17 Blood Pressure 186/77 H Blood Pressure Mean 113 Pulse Ox 98 97 Oxygen Delivery Method Room Air Positive well nourished and well developed General Appearance ED: well developed and NAD HEENT Reports moist mucous membranes Neck supple and no JVD Resp normal respiratory effort and clear to auscultation bilaterally Cardio regular rate, regular rhythm and no murmurs GI normal to inspection, nondistended, normoactive bowel sounds and non-tender Palpation: soft Extremity normal to inspection General Extremety ED: Negative for edema or tenderness General Extremity: Negative for edema Neuro oriented x3, CN's II-XII intact bilaterally, moves all extremities and no sensory deficits noted Sensorium / Orientation: alert Psych mental status grossly normal MDM MDM MDM Narrative Medical decision making narrative: Acute abdominal x-rays were obtained. There are 5 views. On my interpretation, there is no evidence of bowel obstruction or perforation. There is large amount of stool throughout the colon. Radiologist also interpreted the x-rays and agrees. CBC was within normal limits. Comprehensive metabolic profile showed a BUN of 39 and creatinine 5.92. These are consistent with prior results. Patient was given a soapsuds enema here. Patient had good results with this. Patient was given a prescription for MiraLAX. Patient was instructed to follow- up with his primary care physician in 5 to 7 days. Patient and spouse understood and were agreeable with the plan. All questions were answered. Lab Data Attestation: I reviewed the patient's lab results. Labs: Laboratory Results - last 24 hr 06/26/22 06/26/22 09:30 09:30 WBC 8.2 RBC 3.65 L Hgb 11.1 L Hct 34.7 L MCV 95.1 H MCH 30.4 MCHC 32.0 RDW Std Deviation 51.6 H RDW Coeff of [place] 14.9 H Plt Count 182 MPV 11.2 Immature Gran % (Auto) 0.500 Neut % (Auto) 76.9 H Lymph % (Auto) 8.8 L [place] % (Auto) 10.6 H Eos % (Auto) 2.6 Baso % (Auto) 0.6 Absolute Neuts (auto) 6.3 Absolute Lymphs (auto) 0.72 L Nucleated RBC % 0 Sodium 140 Potassium 4.3 Chloride 104 Carbon Dioxide 32.0 Anion Gap 4 L BUN 39 H Creatinine 5.92 H Estim Creat Clear Calc 13.43 Est GFR (MDRD) Af Amer 12 L Est GFR (MDRD) Non-Af 10 L BUN/Creatinine Ratio 6.6 L Glucose 119 H Calcium 10.7 H Total Bilirubin 1.90 H AST 16 ALT 22 Alkaline Phosphatase 99 Total Protein 6.9 Albumin 3.3 Globulin 3.6 Albumin/Globulin Ratio 0.9 Radiography Diagnostic Testing: Clinical Impression(s) from Imaging Studies Acute Abdomen Series 06/26/22 09:50 IMPRESSION: Elevation of the right hemidiaphragm with mild increased markings at the right lung base suggestive of atelectasis and/or scarring. Large amount of fecal material is seen in the colon. Electronically Signed: Remy Thompson MD at 10:29 EDT , Discharge Plan Triage Chief Complaint: Constipation ED Provider: Ramiro Lombardo Dx/Rx/DC Orders Clinical Impression: Constipation, Abdominal pain Instructions: Eating a High-Fiber Diet, ED Constipation (Adult) Prescriptions: New polyethylene glycol 3350 [Miralax] 17 gram/dose powder 17 g PO DAILY Qty: 238 0RF No Action sevelamer HCl 800 mg tablet 2,400 mg PO BREAKFAST aspirin 81 MG tablet,chewable 81 mg PO DAILY Label Comments: a-fib B complex with C 20-folic acid 1 MG capsule 1 mg PO TID ipratropium-albuterol 3 ML solution for nebulization 3 ml INHALATION Q4HWA.RT Qty: 42 0RF (DME) nebulizers 1 EACH misc 1 ea MC UD Qty: 1 0RF Rx Instructions: Dx: acute bronchitis Neb machine and kit x 1 Use as directed per aerosols insulin glargine 100 UNITS/ML insulin pen 8 - 10 units SC QHS atorvastatin 40 mg Tablet 40 mg PO QHS carvedilol [Coreg] 12.5 mg Tablet 12.5 mg PO QHS sevelamer HCl 800 mg Tablet 1,600 mg PO BIDCM amlodipine 5 mg Tablet 5 mg PO DAILY insulin aspart U-100 [Novolog U-100 Insulin aspart] 100 unit/mL Solution 8 - 10 unit SUBCUT TIDCM losartan 100 mg Tablet 100 mg PO DAILY ergocalciferol (vitamin D2) 1,000 unit Capsule 6,000 unit PO DAILY docusate sodium 50 mg Tablet 200 mg PO PRN (Reason: Constipation) amoxicillin-pot clavulanate [Augmentin] 500-125 mg tablet 1 tab PO DAILY Qty: 7 0RF Rx Instructions: On dialysis days, take dose after dialysis prednisone 20 mg tablet 40 mg PO DAILY Qty: 10 0RF hydrocodone-acetaminophen 5-325 mg tablet 1 tab PO Q6H PRN (Reason: pain) 3 Days Qty: 10 0RF Primary Care Provider: [facility] [facility] [facility] [Primary Care Provider] - 3-5 Days Disposition Disposition: Home, Self Care Discharge Date/Time: 06/26/22 11:37
[2022-06-26 09:42] LABS: Absolute Lymphocyte Count 0.72 X10^3/uL (0.83-4.51); Absolute Neutrophil Count 6.3 X10^3/uL (2.0-7.7); Basophil# 0.05 X10^3/uL; Basophil% 0.6 % (0-1); Eosinophil# 0.21 X10^3/uL; Eosinophils% 2.6 % (0-5); Hematocrit 34.7 % (40-54); Hemoglobin 11.1 g/dL (13.0-16.5); Lymphocyte # 0.72 X10^3/ul (0.83-4.51); Lymphocyte % 8.8 % (19-41); Mean Corpuscular Hgb 30.4 pg (27.0-32.0); Mean Corpuscular Volume 95.1 fL (80-94); Mean Platelet Vol. 11.2 fl (6.2-12.0); Monocyte# 0.87 X10^3/uL; Monocyte% 10.6 % (0-10); NRBC Flagged by Analyzer 0 % (0-5); Neutrophil # 6.29 X10^3/uL (2.7-7.7); Neutrophil % 76.9 % (47-70); Platelet Count 182 K/mm3 (150-450); RBC Distribution Width CV 14.9 % (11.6-14.6); RBC Distribution Width SD 51.6 fl (35.1-43.9); Red Blood Count 3.65 M/mm3 (4.6-6.2); White Blood Count 8.2 K/mm3 (4.4-11.0)
--- NOTE | 2022-06-26 09:50 | RAD_ITS ---
STUDY: X-RAY - ACUTE ABDOMINAL SERIES REASON FOR EXAM: Male, 66 years old. Constipation TECHNIQUE: Single view of the chest. Supine, and erect view(s) of the abdomen were obtained. COMPARISON: Comparison is made with prior chest radiograph dated 07/13/2021. FINDINGS: There is elevation of the right hemidiaphragm. Mild increased markings at the right lung base suggestive of scarring and/or atelectasis. Prior CABG. Normal mediastinum and umm. Normal visualized pulmonary arteries. Normal visualized aortic arch and descending thoracic aorta. There is an abundance of fecal material throughout the colon. Prostatic calcifications. Phleboliths are seen in the pelvis. Atherosclerotic calcification. There are diffuse degenerative changes of the visualized lumbar spine. RAD/Acute Abdomen Inc Chest IMPRESSION: Elevation of the right hemidiaphragm with mild increased markings at the right lung base suggestive of atelectasis and/or scarring. Large amount of fecal material is seen in the colon. Electronically Signed: Remy Thompson MD at 10:29 EDT ,
[2022-06-26 09:58] LABS: ALB/GLOB Ratio 0.9 RATIO (0.9-2.4); AST(SGOT) 16 U/L (15-37); Alanine Aminotransfer ALT/SGPT 22 U/L (16-61); Albumin, Serum 3.3 g/dL (3.2-5.0); Alkaline Phosphatase 99 U/L (45-117); Anion Gap 4 (5-15); BUN 39 mg/dL (7-18); BUN/Creat Ratio 6.6 RATIO (10-20); Calcium,Total 10.7 mg/dL (8.5-10.1); Chloride 104 mmol/L (98-107); Creatinine, Serum 5.92 mg/dL (0.70-1.30); EST Glomerular Filtration Rate 10 mL/min (>60); Est Glom Filt Rate - Afr Amer 12 mL/min (>60); Estimated Creatinine Clearance 13.43 ml/min; Globulin 3.6 g/dL (2.2-4.2); Glucose 119 mg/dL (74-106); Potassium 4.3 mmol/L (3.5-5.1); Protein, Total 6.9 g/dL (6.4-8.2); Sodium Level 140 mmol/L (136-145)
[2022-06-26 11:36] VITALS: PULSE 68; RESP 17; O2SAT 97
== END 2022-06-26 11:37 | disposition home or self-care (01) ==
PROVIDERS: Emergency Provider Emergency Medicine; Visit Provider Emergency Medicine
DX: K59.00 Constipation, unspecified (principal); G20 Parkinson's disease; E11.22 Type 2 diabetes mellitus with diabetic chronic kidney disease; N18.5 Chronic kidney disease, stage 5; Z79.4 Long term (current) use of insulin; I25.10 Atherosclerotic heart disease of native coronary artery without angina pectoris; E78.5 Hyperlipidemia, unspecified; Z79.82 Long term (current) use of aspirin; Z79.899 Other long term (current) drug therapy; Z79.52 Long term (current) use of systemic steroids
CPT/HCPCS: 74022; 80053; 85025; 99284; A4216

== ENCOUNTER 2022-07-16 15:01 | Inpatient (IN) | payer OTHER, SELFPAY ==
[2022-07-16] VITALS (8 sets, daily range): BP systolic 134–143; BP diastolic 58–62; PULSE 69–74; RESP 23–31; TEMP 36.7–37.3; O2SAT 88–97; BMI 23.2; BMI 21.9
[2022-07-16 15:47] LABS: Absolute Lymphocyte Count 0.38 X10^3/uL (0.83-4.51); Absolute Neutrophil Count 9.8 X10^3/uL (2.0-7.7); Basophil# 0.03 X10^3/uL; Basophil% 0.3 % (0-1); Eosinophil# 0.04 X10^3/uL; Eosinophils% 0.4 % (0-5); Hematocrit 34.6 % (40-54); Hemoglobin 11.2 g/dL (13.0-16.5); Lymphocyte # 0.38 X10^3/ul (0.83-4.51); Lymphocyte % 3.4 % (19-41); Mean Corp Hgb Conc 32.4 g/dL (32-36); Mean Corpuscular Volume 95.8 fL (80-94); Mean Platelet Vol. 10.9 fl (6.2-12.0); Monocyte# 0.87 X10^3/uL; Monocyte% 7.8 % (0-10); NRBC Flagged by Analyzer 0 % (0-5); Neutrophil # 9.79 X10^3/uL (2.7-7.7); Neutrophil % 87.7 % (47-70); POSITIVE DIFFERENTIAL YES; Platelet Count 148 K/mm3 (150-450); RBC Distribution Width CV 15.6 % (11.6-14.6); RBC Distribution Width SD 54.5 fl (35.1-43.9); Red Blood Count 3.61 M/mm3 (4.6-6.2); White Blood Count 11.2 K/mm3 (4.4-11.0)
--- NOTE | 2022-07-16 15:51 | CT_ITS ---
EXAM: CT SPINE - CERVICAL WITHOUT IV REASON FOR EXAM: Male, 66 years old. NECK PAIN polytrauma HISTORY: NECK PAIN polytrauma Individualized dose optimization techniques were used for this CT. TECHNIQUE: Multiplanar images were obtained of the cervical spine. IV contrast was not utilized. COMPARISON: None. FINDINGS: The vertebral bodies do maintain their height. The odontoid process is intact. Partially visualized large right pleural effusion. No pre-vertebral soft tissue swelling is seen. The intravertebral disc height is lost. There are scattered lymph nodes in the neck. There are degenerative changes of the osseous structures. There is bilateral facet arthropathy. There are scattered levels of foraminal stenosis. There are vascular calcifications. CT/Spine Cervical without Contras IMPRESSION: Degenerative changes of the cervical spine. There are no acute findings. Partially visualized large right pleural effusion. Electronically Signed: Steven Morel MD at 16:26 EDT Reading Location ID and State: [facility] / [place] , Service support ,
--- NOTE | 2022-07-16 15:51 | EKG12_ITS ---
Test Reason : FALL Blood Pressure : / mmHG Vent. Rate : 072 BPM Atrial Rate : 072 BPM P-R Int : 248 ms QRS Dur : 106 ms QT Int : 440 ms P-R-T Axes : 000 024 123 degrees QTc Int : 481 ms Sinus rhythm with 1st degree A-V block Left ventricular hypertrophy with repolarization abnormality ( Sokolow-Hernandez ) Cannot rule out Inferior infarct , age undetermined Abnormal ECG Confirmed by AMENA MACIAS, LIAN ([id number]), editor in chief SWETA RASMUSSEN ([id number]) on 07/17/2022 9:45:59 AM Referred By: IVY Confirmed By:LIAN BECKWITH MD
--- NOTE | 2022-07-16 15:51 | CT_ITS ---
STUDY: CT BRAIN WITHOUT CONTRAST REASON FOR EXAM: Male, 66 years old. head injury TECHNIQUE: Transaxial CT imaging of the brain was performed without administration of intravenous contrast material. Individualized dose optimization techniques were used for this CT. COMPARISON: 15 FINDINGS: Normal calvarium. Normal soft tissues. Normal size ventricles and extra-axial spaces for the patient''s age. There are areas of decreased attenuation within the white matter tracts of the supratentorial brain, consistent with microvascular disease changes. Normal basal ganglia and thalami. Normal brainstem. Normal cerebellum. There is no intracranial hemorrhage. There are no findings of an acute ischemic infarction. There are calcifications noted in the distal vertebral arteries. There are calcifications noted in the cavernous carotid arteries. This is consistent for atherosclerotic disease. Normal visualized paranasal sinuses. ASPECTS 10 CT/Brain/Head without Contrast IMPRESSION: There are no acute intracranial findings. Electronically Signed: Steven Morel MD at 16:25 EDT ,
--- NOTE | 2022-07-16 15:51 | RAD_ITS ---
STUDY: XR Shoulder Min 2 Views REASON FOR EXAM: Male, 66 years old. injury TECHNIQUE: XR Shoulder Min 2 Views LEFT COMPARISON: None. FINDINGS: Normal glenohumeral articulation. Normal acromioclavicular joint. Normal acromion. Normal humeral head and visualized proximal humerus. The soft tissue structures are unremarkable. Normal visualized pulmonary apex. RAD/Shoulder min 2 Views IMPRESSION: There are no acute findings of the shoulder. Electronically Signed: Steven Morel MD at 16:37 EDT ,
--- NOTE | 2022-07-16 15:53 | ED.VIS.FALL ---
HPI HPI - Fall History of Present Illness Chief Complaint: Fall Informant: patient and spouse/S.O. Narrative Narrative: Brought in by EMS at home increasing weakness with a fall. This morning had fever and chills increasing weakness falling hitting the hardwood floor. No loss of consciousness. Abrasion right eye left shoulder pain. Baseline ambulation with a walker. History of diabetes, end-stage renal disease on hemodialysis Fridays. He was up at the [facility] yesterday for outpatient testing reported cystoscopy along with MRI. He urinates 1-2 times a day. He states today started coughing with sputum. COVID vaccinated. No sick contacts. Per spouse 2 weeks ago had pneumonia treated with antibiotics with improved symptoms. Denies vomiting or diarrhea. Had a call back from his doctors at [facility] when he fell and was directed to the ED. Status post Tylenol at 11 AM. Patient on baby aspirin no other anticoagulants. Patient reporting he would need to be admitted due to increasing weakness. [facility] Medical History (Updated 07/16/22 @ 18:[address] Inocencio Hernandez DO) Acute on chronic renal failure Chronic renal failure, stage 5 Coronary artery disease Hyperkalemia Hyperlipidemia Hypotension Myocardial infarction Pleural effusion, left Skin lesion of face Type 2 diabetes mellitus Home Medications aspirin 81 mg chewable tablet 81 mg PO DAILY heart 06/07/16 [History Last Taken 06/28/18] vitamin B complex and vitamin C no.20-folic acid 1 mg capsule 1 mg PO TID kidneys 05/15/18 [History Last Taken 05/15/18 08:00] ipratropium 0.5 mg-albuterol 3 mg (2.5 mg base)/3 mL nebulization soln 3 ml inhalation Q4HWA.RT ##42 05/17/18 [Rx Last Taken Unknown] nebulizers #1 ea 05/17/18 [Rx Last Taken Unknown] sevelamer HCl 800 mg tablet 2,400 mg PO BREAKFAST kidneys 06/06/18 [History Last Taken Unknown] insulin glargine 100 unit/mL (3 mL) subcutaneous pen 8 - 10 units subcut QHS diabetes 06/28/18 [History Last Taken 06/27/18 4] amlodipine 5 mg tablet 5 mg PO DAILY blood pressure 05/20/21 [History Last Taken Unknown] atorvastatin 40 mg tablet 40 mg PO QHS cholesterol 05/20/21 [History Last Taken Unknown] carvedilol 12.5 mg tablet (Coreg) 12.5 mg PO QHS blood pressure 05/20/21 [History Last Taken Unknown] ergocalciferol (vitamin D2) 1,000 unit capsule 6,000 unit PO DAILY vitamin 05/20/21 [History Last Taken Unknown] insulin aspart U-100 100 unit/mL subcutaneous solution (Novolog U-100 Insulin aspart) 8 - 10 unit subcut TIDCM diabetes 05/20/21 [History Last Taken Unknown] losartan 100 mg tablet 100 mg PO DAILY blood pressure 05/20/21 [History Last Taken Unknown] sevelamer HCl 800 mg tablet 1,600 mg PO BIDCM kidneys 05/20/21 [History Last Taken Unknown] docusate sodium 50 mg tablet 200 mg PO PRN Constipation 07/13/21 [History Last Taken Unknown] amoxicillin 500 mg-potassium clavulanate 125 mg tablet (Augmentin) 1 tab PO DAILY #7 tabs 07/14/21 [Rx Last Taken Unknown] prednisone 20 mg tablet 40 mg PO DAILY #10 tabs 07/14/21 [Rx Last Taken Unknown] hydrocodone-acetaminophen 5-325mg 5mg-325mg 1 tab PO Q6H PRN pain 3 days #10 tabs 01/19/22 [Rx Last Taken Unknown] polyethylene glycol 3350 17 gram/dose oral powder (Miralax) 17 g PO DAILY #238 grams 06/26/22 [Rx Last Taken Unknown] Allergy/AdvReac Type Severity Reaction Status Date / Time No Known Allergies Allergy Verified 06/26/22 08:24 Family History Father CAD (coronary artery disease) Hypertension Diabetes Mother Diabetes Surgical History S/P colonoscopy S/P dialysis catheter insertion S/P hernia repair S/P laparoscopic cholecystectomy Status post coronary artery bypass graft Social History Smoking Status: Never smoker substance use type: does not use ROS ROS ED Constitutional Constitutional ED: Denies chills, fever(s) or sweats Eyes Eyes: Denies change in vision ENT ENT ED: Denies dysphagia or sore throat Cardiovascular Cardiovascular: Denies chest pain, leg edema, palpitations or racing heartbeat Respiratory/Chest Respiratory/Chest: Denies cough, dyspnea or dyspnea on exertion Gastrointestinal Gastrointestinal: Denies abdominal pain, diarrhea, nausea or vomiting Genitourinary Genitourinary ED: Denies dysuria, hematuria or urinary frequency Musculoskeletal Musculoskeletal: Reports extremity pain; Denies back pain or neck pain Integumentary Denies rash or wounds Neurologic Neurologic: Reports headache(s) and weakness; Denies paresthesias EXAM Physical Exam Const Vital Signs: 07/16/22 15:03 07/16/22 15:12 07/16/22 15:15 Temperature 99.2 F H Temperature Source Oral Pulse Rate 74 Respiratory Rate 31 H Respiratory Effort Normal Respiratory Depth Normal Respiratory Pattern Normal Blood Pressure 141/60 H Blood Pressure Mean 87 Pulse Ox 88 97 Oxygen Delivery Method Room Air Nasal Cannula Oxygen Flow Rate (L/min) 2 07/16/22 15:39 07/16/22 15:39 07/16/22 16:37 Temperature 98.1 F Temperature Source Oral Pulse Rate 69 Respiratory Rate 23 H 27 H Respiratory Effort Respiratory Depth Respiratory Pattern Blood Pressure 143/61 H Blood Pressure Mean 88 Pulse Ox 97 97 94 Oxygen Delivery Method Nasal Cannula Nasal Cannula Nasal Cannula Oxygen Flow Rate (L/min) 2 2 2 07/16/22 16:37 07/16/22 16:08 07/16/22 17:31 Temperature 98.1 F 98.0 F Temperature Source Oral Oral Pulse Rate 73 Respiratory Rate 26 H Respiratory Effort Respiratory Depth Respiratory Pattern Blood Pressure 136/58 H Blood Pressure Mean 84 Pulse Ox 95 Oxygen Delivery Method Nasal Cannula Nasal Cannula Oxygen Flow Rate (L/min) 2 2 07/16/22 17:31 07/16/22 17:53 Temperature 98.0 F 98.0 F Temperature Source Oral Oral Pulse Rate 73 Respiratory Rate 26 H Respiratory Effort Respiratory Depth Respiratory Pattern Blood Pressure 136/58 H Blood Pressure Mean 84 Pulse Ox 95 Oxygen Delivery Method Nasal Cannula Oxygen Flow Rate (L/min) 2 Positive well nourished and well developed Constitutional Narrative: GCS 15. General Appearance ED: well developed and NAD HEENT Reports moist mucous membranes HEENT Narrative: Abrasion right lateral brow with no active bleeding. No hemotympanums. normocephalic Eyes PERRL, EOMs intact bilaterally and conjunctivae normal General Eye ED: Yes normal appearance of both eyes Neck no lymphadenopathy and supple General: Negative for tenderness Chest Wall Chest: Negative for tenderness Resp normal respiratory effort and normal air movement Effort and Inspection: symmetric chest movement; Negative for respiratory distress Cardio regular rate, regular rhythm and no murmurs Peripheral Pulses: pulses 2+ throughout GI normal to inspection, nondistended, normoactive bowel sounds and non-tender Palpation: Negative for guarding or rebound tenderness present Back/Spine no CVA tenderness and no thoracic nor lumbar tenderness Back/Spine Narrative: No midline tenderness of the thoracic or lumbar spine. No ecchymosis. Extremity normal to inspection Extremity Narrative: Left upper extremity no clavicle tenderness, small contusion proximal shoulder with no deformities. Minimal tenderness to palpation. Full range of motion. Neuro vas intact distally. Fistula left forearm with positive thrill. Right upper extremity: Full range of motion without tenderness or deformities. Neuro vas tact distally. Lower extremities: Negative logroll: Neuro vas intact distally. General Extremety ED: Yes tenderness; Negative for edema General Extremity: Negative for edema Neuro oriented x3, CN's II-XII intact bilaterally and no sensory deficits noted Sensorium / Orientation: awake and alert Skin no rashes or lesions noted Skin Narrative: See above. Warm to palpation. MDM MDM MDM Narrative Medical decision making narrative: Patient presented 88% on room air productive cough. 99 0.2 temp. His respiratory rate is 31. Reported fevers and chills. Sepsis labs were obtained. Trauma scans head and neck, left shoulder and 2 view chest x-ray ordered. 2 view chest x-ray reviewed by myself concerning for right lower lobe infiltrate. Per radiology concerns for pleural effusion bilaterally. Clinically have concerns for pneumonia with productive sputum today. COVID-negative. 2 view left shoulder reviewed by myself and read by radiology shows no acute process. Trauma scans head and neck negative. Labs White count 11. Creatinine 5.58, BUN 35. End-stage renal disease on dialysis with full treatment yesterday. Potassium 4.1. Chronic EKG findings. Patient stable on oxygen. He had transaminitis slightly, denies any air conditioner at home. He has no abdominal pain. [place] [facility]. I discussed with hospitalist Dr. Nichol Mes[place] for admission. Will cover with Zosyn and vancomycin. Lab Data Attestation: I reviewed the patient's lab results. Labs: Laboratory Results - last 24 hr 07/16/22 07/16/22 07/16/22 15:35 15:35 15:35 WBC 11.2 H RBC 3.61 L Hgb 11.2 L Hct 34.6 L MCV 95.8 H MCH 31.0 MCHC 32.4 RDW Std Deviation 54.5 H RDW Coeff of Harrison 15.6 H Plt Count 148 L MPV 10.9 Immature Gran % (Auto) 0.400 Neut % (Auto) 87.7 H Lymph % (Auto) 3.[address] [place] % (Auto) 7.8 Eos % (Auto) 0.4 Baso % (Auto) 0.3 Absolute Neuts (auto) 9.8 H Absolute Lymphs (auto) 0.38 L Nucleated RBC % 0 Differential Comment SEE COMMENT Platelet Estimate SLT DEC RBC Morphology N CHROM Anisocytosis RARE Macrocytosis RARE PT 15.0 H INR 1.2 APTT 29.4 Sodium 142 Potassium 4.1 Chloride 105 Carbon Dioxide 31.0 Anion Gap 6 BUN 35 H Creatinine 5.58 H Estim Creat Clear Calc 14.24 Est GFR (MDRD) Af Amer 13 L Est GFR (MDRD) Non-Af 11 L BUN/Creatinine Ratio 6.3 L Glucose 71 L Lactic Acid Calcium 9.7 Total Bilirubin Direct Bilirubin AST ALT Alkaline Phosphatase Total Protein Albumin Globulin 07/16/22 07/16/22 15:35 16:00 WBC RBC Hgb Hct MCV MCH MCHC RDW Std Deviation RDW Coeff of [place] Plt Count MPV Immature Gran % (Auto) Neut % (Auto) Lymph % (Auto) [facility] % (Auto) Eos % (Auto) Baso % (Auto) Absolute Neuts (auto) Absolute Lymphs (auto) Nucleated RBC % Differential Comment Platelet Estimate RBC Morphology Anisocytosis Macrocytosis PT INR APTT Sodium Potassium Chloride Carbon Dioxide Anion Gap BUN Creatinine Estim Creat Clear Calc Est GFR (MDRD) Af Amer Est GFR (MDRD) Non-Af BUN/Creatinine Ratio Glucose Lactic Acid 1.2 Calcium Total Bilirubin 2.40 H Direct Bilirubin 0.95 H AST 52 H ALT 63 H Alkaline Phosphatase 126 H Total Protein 6.7 Albumin 3.2 Globulin 3.5 Radiography Diagnostic Testing: Clinical Impression(s) from Imaging Studies Brain CT 07/16/22 15:51 IMPRESSION: There are no acute intracranial findings. Electronically Signed: Steven Morel MD at 16:25 EDT , Cervical Spine CT 07/16/22 15:51 IMPRESSION: Degenerative changes of the cervical spine. There are no acute findings. Partially visualized large right pleural effusion. Electronically Signed: Steven Morel MD at 16:26 EDT , Shoulder X-Ray 07/16/22 15:51 IMPRESSION: There are no acute findings of the shoulder. Electronically Signed: Steven Morel MD at 16:37 EDT , Chest X-Ray 07/16/22 16:17 IMPRESSION: Bilateral pleural effusions. Electronically Signed: Steven Morel MD at 16:36 EDT , EKG Initial EKG: Attestation: I personally reviewed and interpreted this EKG as follows: Comments: Sinus rate of 72, no ST changes T wave inversion in V6 aVL and 1. Similar findings from June 2021 Discharge Plan Dx/Rx/DC Orders Clinical Impression: Pneumonia, Hypoxia, CHI (closed head injury), Abrasion of face, Contusion of left shoulder, Weakness, Transaminitis, ESRD on hemodialysis Disposition Disposition: Acute Care Hospital [facility] Discharge Date/Time: 07/16/22 18:18
--- NOTE | 2022-07-16 15:56 | ED.RN ---
CALLED [facility] AND LEFT MESSAGE ABOUT PATIENT NEEDING TO BE ADMITTED TO THE HOSPITAL.
[2022-07-16 15:59] LABS: Differential Indicated SCAN CRITERIA MET
[2022-07-16 16:01] LABS: Anion Gap 6 (5-15); BUN 35 mg/dL (7-18); BUN/Creat Ratio 6.3 RATIO (10-20); Calcium,Total 9.7 mg/dL (8.5-10.1); Chloride 105 mmol/L (98-107); Creatinine, Serum 5.58 mg/dL (0.70-1.30); EST Glomerular Filtration Rate 11 mL/min (>60); Est Glom Filt Rate - Afr Amer 13 mL/min (>60); Estimated Creatinine Clearance 14.24 ml/min; Glucose 71 mg/dL (74-106); Potassium 4.1 mmol/L (3.5-5.1); Sodium Level 142 mmol/L (136-145)
--- NOTE | 2022-07-16 16:17 | RAD_ITS ---
STUDY: X-RAY CHEST REASON FOR EXAM: Male, 66 years old. cough TECHNIQUE: XR Chest 2 Views COMPARISON: 7 FINDINGS: Bilateral pleural effusions. There are multiple median sternotomy wires. Normal size heart. Normal mediastinum and umm. Normal visualized pulmonary arteries. There is atherosclerotic calcification of the aortic arch with tortuosity. There are diffuse degenerative changes of the visualized thoracic spine. There is degenerative osteoarthritis of the bilateral shoulders. There is no demonstrated abnormality of the visualized soft tissue structures of the upper abdomen. RAD/Chest PA and Lateral IMPRESSION: Bilateral pleural effusions. Electronically Signed: Steven Morel MD at 16:36 EDT ,
[2022-07-16 16:19] LABS: International Normalized Ratio 1.2
[2022-07-16 16:20] LABS: Partial Thromboplast Time 29.4 Seconds (24.1-36.2)
[2022-07-16 16:31] LABS: Anisocytosis RARE; Macrocytosis RARE; Platelet Estimate SLT DEC (ADEQ); Red Cell Morphology N CHROM NORMAL (NORM C&C)
[2022-07-16 16:37] LABS: Lactic Acid 1.2 mmol/L (0.4-1.9)
[2022-07-16] MEDS: 0.9% Normal Saline 1,000 ML 150 ML IV (16:41)
[2022-07-16 16:42] LABS: AST(SGOT) 52 U/L (15-37); Alanine Aminotransfer ALT/SGPT 63 U/L (16-61); Albumin, Serum 3.2 g/dL (3.2-5.0); Alkaline Phosphatase 126 U/L (45-117); Bilirubin, Direct 0.95 mg/dL (0.00-0.30); Globulin 3.5 g/dL (2.2-4.2); Protein, Total 6.7 g/dL (6.4-8.2)
--- NOTE | 2022-07-16 18:30 | HP.PCM.HOS_ITS ---
HPI - General General Date of Admission: 07/16/22 Date of Service: 07/16/22 Chief Complaint: Fall/fever HPI Narrative MICHAEL RAMIREZ, is a 66 M who presented to the emergency department [facility] on 07/16/2022 with a chief complaint of a fall. The patient has been suffering from increasing weakness at home over the last couple of weeks and has been experiencing fever and chills with cough and intermittent sputum production. The fall was the result of weakness as he was trying to get to the bathroom and his legs gave out. He did hit his head on the hardwood floor which resulted in a mild supraorbital laceration on the right side. He states about 2 weeks ago he started having some intermittent cough and conges tion and he was started on outpatient two antibiotics for 5 days which she completed about 7 days ago. He states his symptoms did not really improve. It sounds like he may have been on amoxicillin and azithromycin at that time but he is not clear about the names of the antibiotics. When the squad arrived at his house after his fall his temperature was 101. Predominant complaints related to his current suspected pneumonia are general malaise, myalgias, cough with sputum production, fever, chills, and generalized weakness. He is on dialysis at baseline and follow his with Dr. Oumou Mesa. His dialysis days are Wednesday and Wednesday. He was at the [facility] yesterday for outpatient testing with a cystoscopy along with an abdominal MRI. He states those results are still pending at this time. I have tried to review the information in [facility] however it appears that the [facility] is not hardwired with [facility]. Upon presentation his temperature was 99.2, heart rate 74, blood pressure 141/60, respiratory rate has been anywhere from 20-81 and oxygen saturations were 88% on room air and improved to 97% on 2 L nasal cannula. The patient does not typically wear oxygen at baseline. His CBC shows a leukocytosis with a white count of 11.2 and a L shift with neutrophilia of 87.7%, chronic stable anemia, and mild acute thrombocytopenia. Coags are WNL. Chemistries show elevated baseline serum BUN and creatinine. His serum glucose is 71. Lactic acid is 1.2. LFTs are elevated with a total bilirubin of 2.4. This seems to be indirect as his direct bilirubin is only 0.95. AST and ALT are mildly elevated at 52 and 63 respectively. These are not his baseline enzymes. CT of the brain shows no acute finding. CT of the cervical spine shows degenerative changes with no acute findings and a partially visualized right pleural effusion. Shoulder x-ray shows no acute findings of the right shoulder. And chest x-ray shows a right-sided pleural effusion/consolidation. His ED ED is normal sinus rhythm with normal intervals and chronic ST-T wave changes and no signs of acute ischemia. COVID-19 testing was negative. In the emergency department he was treated with IV antibiotics and placed on supplemental oxygen. Blood cultures were sent prior to antibiotics being initiated. [facility] Medical History (Updated 07/16/22 @ 18:[address] Dolly Mesa, ) Acute on chronic renal failure Arteriovenous fistula of left upper extremity Chronic renal failure, stage 5 Coronary artery disease Diabetes Dialysis patient Hyperkalemia Hyperlipidemia Hypotension Myocardial infarction Non-smoker Parkinson's disease Pleural effusion, left Skin lesion of face Type 2 diabetes mellitus Home Medications aspirin 81 mg chewable tablet 81 mg PO DAILY heart 06/07/16 [History Last Taken 06/28/18] vitamin B complex and vitamin C no.20-folic acid 1 mg capsule 1 mg PO TID kidneys 05/15/18 [History Last Taken 05/15/18 08:00] ipratropium 0.5 mg-albuterol 3 mg (2.5 mg base)/3 mL nebulization soln 3 ml inhalation Q4HWA.RT ##42 05/17/18 [Rx Last Taken Unknown] nebulizers #1 ea 05/17/18 [Rx Last Taken Unknown] sevelamer HCl 800 mg tablet 2,400 mg PO BREAKFAST kidneys 06/06/18 [History Last Taken Unknown] insulin glargine 100 unit/mL (3 mL) subcutaneous pen 8 - 10 units subcut QHS diabetes 06/28/18 [History Last Taken 06/27/18 4] amlodipine 5 mg tablet 5 mg PO DAILY blood pressure 05/20/21 [History Last Taken Unknown] atorvastatin 40 mg tablet 40 mg PO QHS cholesterol 05/20/21 [History Last Taken Unknown] carvedilol 12.5 mg tablet (Coreg) 12.5 mg PO QHS blood pressure 05/20/21 [History Last Taken Unknown] ergocalciferol (vitamin D2) 1,000 unit capsule 6,000 unit PO DAILY vitamin 05/20/21 [History Last Taken Unknown] insulin aspart U-100 100 unit/mL subcutaneous solution (Novolog U-100 Insulin aspart) 8 - 10 unit subcut TIDCM diabetes 05/20/21 [History Last Taken Unknown] losartan 100 mg tablet 100 mg PO DAILY blood pressure 05/20/21 [History Last Taken Unknown] sevelamer HCl 800 mg tablet 1,600 mg PO BIDCM kidneys 05/20/21 [History Last Taken Unknown] docusate sodium 50 mg tablet 200 mg PO PRN Constipation 07/13/21 [History Last Taken Unknown] amoxicillin 500 mg-potassium clavulanate 125 mg tablet (Augmentin) 1 tab PO DAILY #7 tabs 07/14/21 [Rx Last Taken Unknown] prednisone 20 mg tablet 40 mg PO DAILY #10 tabs 07/14/21 [Rx Last Taken Unknown] hydrocodone-acetaminophen 5-325mg 5mg-325mg 1 tab PO Q6H PRN pain 3 days #10 tabs 01/19/22 [Rx Last Taken Unknown] polyethylene glycol 3350 17 gram/dose oral powder (Miralax) 17 g PO DAILY #238 grams 06/26/22 [Rx Last Taken Unknown] Allergy/AdvReac Type Severity Reaction Status Date / Time No Known Allergies Allergy Verified 06/26/22 08:24 Family History Father CAD (coronary artery disease) Hypertension Diabetes Mother Diabetes Surgical History Hx of CABG S/P colonoscopy S/P dialysis catheter insertion S/P hernia repair S/P laparoscopic cholecystectomy Status post coronary artery bypass graft Social History (Updated 07/16/22 @ 18:[address] Dolly Mesa DO) household members: spouse housing: house Smoking Status: Never smoker alcohol intake: never substance use type: does not use additional social history: Typically ambulates without an assistive device ROS Constitutional Constitutional: Reports chills, fatigue, fever(s), malaise and weakness; Denies anorexia, change in weight, night sweats or other Eyes Eyes: Denies blurry vision, change in eye color, change in vision, discharge from eye(s), double vision, erythema, eye pain, loss of vision or other ENT HEENT: Reports nasal congestion and nasal discharge; Denies abnormal hearing, dysphagia, ear pain, epistaxis, headache(s), hearing loss, post nasal drip, sinus pressure, sore throat or other Cardiovascular Cardiovascular: Reports dyspnea on exertion; Denies chest pain, claudication, edema, lightheadedness, orthopnea, palpitations, paroxysmal nocturnal dyspnea, rapid heart rate, syncope or other Respiratory/Chest Respiratory/Chest: Reports cough, dyspnea, productive cough, shortness of breath at rest and shortness of breath with exertion Gastrointestinal Gastrointestinal: Reports abdominal pain; Denies coffee ground emesis, constipation, diarrhea, dyspepsia, hematemesis, hematochezia, loose stools, melena, nausea, vomiting or other Genitourinary Genitourinary: Denies burning urination, difficulty urinating, dysuria, hematuria, nocturia, urinary frequency, urinary hesitancy, urinary incontinence, urinary urgency or other Musculoskeletal Musculoskeletal: Reports myalgias and other Details: Right forehead pain status post fall/right shoulder pain Neurologic Neurologic: Reports abnormal gait; Denies abnormal speech, confusion, disequilibrium, dizziness, focal weakness, headache(s), numbness, paresthesias, seizure-like activity, seizures, syncope, tingling, tremor(s) or other Psychiatric Psychiatric: Denies anxiety, depression, homicidal ideation, suicidal ideation or other Endocrine Endocrinology: Denies change in body appearance, cold intolerance, excessive sweating, heat intolerance, polydipsia, polyuria or other Hematologic/Lymphatic Hematologic/Lymphatic: Denies anemia, easy bleeding, easy bruising, lymphadenopathy or other Allergic/Immunologic Allergic/Immunologic: Denies rhinitis, hives, eczemia, asthma or other Vital Signs Vital Signs Vital Signs: 07/16/22 15:03 07/16/22 15:12 07/16/22 15:15 Temperature 99.2 F H Temperature Source Oral Pulse Rate 74 Respiratory Rate 31 H Respiratory Effort Normal Respiratory Depth Normal Respiratory Pattern Normal Blood Pressure 141/60 H Blood Pressure Mean 87 Pulse Ox 88 97 Oxygen Delivery Method Room Air Nasal Cannula Oxygen Flow Rate (L/min) 2 07/16/22 15:39 07/16/22 15:39 07/16/22 16:37 Temperature 98.1 F Temperature Source Oral Pulse Rate 69 Respiratory Rate 23 H 27 H Respiratory Effort Respiratory Depth Respiratory Pattern Blood Pressure 143/61 H Blood Pressure Mean 88 Pulse Ox 97 97 94 Oxygen Delivery Method Nasal Cannula Nasal Cannula Nasal Cannula Oxygen Flow Rate (L/min) 2 2 2 07/16/22 16:37 07/16/22 16:08 07/16/22 17:31 Temperature 98.1 F 98.0 F Temperature Source Oral Oral Pulse Rate 73 Respiratory Rate 26 H Respiratory Effort Respiratory Depth Respiratory Pattern Blood Pressure 136/58 H Blood Pressure Mean 84 Pulse Ox 95 Oxygen Delivery Method Nasal Cannula Nasal Cannula Oxygen Flow Rate (L/min) 2 2 07/16/22 17:31 07/16/22 17:53 Temperature 98.0 F 98.0 F Temperature Source Oral Oral Pulse Rate 73 Respiratory Rate 26 H Respiratory Effort Respiratory Depth Respiratory Pattern Blood Pressure 136/58 H Blood Pressure Mean 84 Pulse Ox 95 Oxygen Delivery Method Nasal Cannula Oxygen Flow Rate (L/min) 2 Weight Weight: 71.2 kg Body Mass Index (BMI) 21.9 Physical Exam Const alert, oriented x3 and no apparent distress Constitutional Narrative: Upper middle-aged white male sitting up in bed, appears ill but nontoxic, at bedside, patient appears much older than stated age General Appearance: cooperative HEENT normocephalic, head/scalp atraumatic, hearing grossly normal bilaterally and moist oral mucous membranes HEENT Narrative: Dentition is poor, Mallampati is 1, no thrush Eyes PERRL, EOMs intact bilaterally and conjunctivae normal Eyes Narrative: No scleral icterus Neck no lymphadenopathy, supple and no JVD Neck Narrative: Trachea midline, no thyroid enlargement Resp no retractions and no use of accessory muscles Resp Narrative: Markedly diminished right base, rhonchi noted at left base, tachypnea but no signs of extremis Auscultation: rhonchi; Negative for crackles, rales or wheezes Cardio regular rate, regular rhythm, S1 normal heart sound, S2 normal heart sound, no murmurs, no rub, no gallops, no clicks and no JVD GI normal to inspection, nondistended, normoactive bowel sounds, soft to palpation, non-tender and non-distended; Negative for hepatosplenomegaly Extremity Extremity Narrative: 1+ bilateral lower extremity edema, no cyanosis or clubbing, left upper extremity fistula with palpable thrill and bruit auscultated Skin No no rashes or lesions noted, No no wounds, skin turgor normal, no jaundice, no petechiae and no mottling Skin Narrative: Scattered ecchymosis, acute ecchymotic area above right eye and surrounding right eye, small abrasion and ecchymotic area on right shoulder Neuro oriented x3, CN's II-XII intact bilaterally, moves all extremities and no focal motor deficits Neuro Narrative: Speech is somewhat slow and deliberate but appropriate, marked generalized weakness Psych Psych Narrative: Affect is flattened mood seems depressed Mood & Affect: depressed Results Lab / Micro Data Attestation: I reviewed the patient's lab results. Result Diagrams: 07/16/22 15:35 07/16/22 15:35 Labs: Laboratory Results - last 24 hr 07/16/22 15:35: WBC 11.2 H, RBC 3.61 L, Hgb 11.2 L, Hct 34.6 L, MCV 95.8 H, MCH 31.0, MCHC 32.4, RDW Std Deviation 54.5 H, RDW Coeff of [place] 15.6 H, Plt Count 148 L, MPV 10.9, Immature Gran % (Auto) 0.400, Neut % (Auto) 87.7 H, Lymph % (Auto) 3.4 L, [place] % (Auto) 7.8, Eos % (Auto) 0.4, Baso % (Auto) 0.3, Absolute Neuts (auto) 9.8 H, Absolute Lymphs (auto) 0.38 L, Nucleated RBC % 0, Differential Comment SEE COMMENT, Platelet Estimate SLT DEC, RBC Morphology N CHROM, Anisocytosis RARE, Macrocytosis RARE 07/16/22 15:35: Sodium 142, Potassium 4.1, Chloride 105, Carbon Dioxide 31.0, Anion Gap 6, BUN 35 H, Creatinine 5.58 H, Estim Creat Clear Calc 14.24, Est GFR (MDRD) Af Amer 13 L, Est GFR (MDRD) Non-Af 11 L, BUN/Creatinine Ratio 6.3 L, Glucose 71 L, Calcium 9.7 07/16/22 15:35: PT 15.0 H, INR 1.2, APTT 29.4 07/16/22 15:35: Total Bilirubin 2.40 H, Direct Bilirubin 0.95 H, AST 52 H, ALT 63 H, Alkaline Phosphatase 126 H, Total Protein 6.7, Albumin 3.2, Globulin 3.5 07/16/22 16:00: Lactic Acid 1.2 Micro: Microbiology 07/16/22 15:35 Nasal Secretion SARS-CoV-2 Antigen (Rapid) - Final Radiology Impression Brain CT 07/16/22 15:51 IMPRESSION: There are no acute intracranial findings. Electronically Signed: Steven Morel MD at 16:25 EDT , Cervical Spine CT 07/16/22 15:51 IMPRESSION: Degenerative changes of the cervical spine. There are no acute findings. Partially visualized large right pleural effusion. Electronically Signed: Steven Morel MD at 16:26 EDT , Shoulder X-Ray 07/16/22 15:51 IMPRESSION: There are no acute findings of the shoulder. Electronically Signed: Steven Morel MD at 16:37 EDT , Chest X-Ray 07/16/22 16:17 IMPRESSION: Bilateral pleural effusions. Electronically Signed: Steven Morel MD at 16:36 EDT , Assessment & Plan Assessment/Plan (1) Recurrent right pleural effusion: (2) Hypoxia: (3) Transaminitis: (4) Hyperbilirubinemia: (5) Abrasion of face: (6) Contusion of left shoulder: (7) CHI (closed head injury): (8) Pneumonia: (9) Thrombocytopenia: (10) Debility: PLAN: Plan Hypoxia secondary to pneumonia-suspected/right pleural effusion -Chest x-ray shows right lower lobe consolidation -Highly suspect effusion -CT of the chest pending to better clarify -Check sputum culture -Check strep pneumo and Legionella antigens -Respiratory viral panel is pending -Blood cultures pending -Currently on supplemental oxygen at 2 L nasal cannula with sats of 95% -Not O2 dependent at baseline -Wean as able -Vanco and Zosyn initiated as patient is high risk secondary to his chronic dialysis -Failed outpatient treatment with suspected azithromycin and Amoxil -If CT shows right pleural effusion would recommend thoracentesis to rule out parapneumonic effusion versus empyema Transaminitis/hyperbilirubinemia -Elevated from his baseline -? Related to acute infection versus home antibiotics -We will continue to monitor for now with repeat liver function in a.m. Acute thrombocytopenia-mild -Platelet count 148,000 -Baseline platelet counts are normal -May be related to acute infection -Continue to monitor Close head injury -Resultant from a fall secondary to weakness -CT of the head was negative for any acute findings -No need for sutures -Continue to monitor Debility -Patient with marked generalized weakness that is worsening since the onset of the symptoms -Consult PT/OT -May need placement at discharge Prednisone use -Unclear if this is a burst or chronic medication -Awaiting med rec to be completed -We will continue prednisone for now until clarified Hypertension -Continue home -Continue home carvedilol -Continue home amlodipine Hyperlipidemia -Continue home atorvastatin End-stage renal disease -HD dependent--> Wednesday -Follows with Dr. Oumou Mesa--> notified of consult via text -Continue phosphate binder DM-2 -Continue home basal insulin 8 units at at bedtime -Continue to log 8 units 3 times daily -Sliding scale insulin -Accu-Cheks -Cardiac/carb control/renal diet Chronic abdominal pain -Work-up is currently in progress up at the [facility] -Had cystoscopy and MRI of the abdomen and pelvis yesterday -Results are not available in [facility] Chronic constipation -Can home MiraLAX -Continue home docusate DVT prophylaxis -Heparin 3 times daily -SCDs CODE STATUS -DNR CCA with no intubation as per discussion prior to admission emergency department- at bedside Charges/Coding Visit Charges Inpatient E&M: 24790 Init Hosp L3
[2022-07-16 18:43] LABS: Mucous, Urine 0 SEEN /hpf (<or=2+)
--- NOTE | 2022-07-16 18:43 | CT_ITS ---
STUDY: CT Chest W/O Contrast Injection 07/16/2022 7:35 PM REASON FOR EXAM: Male, 66 years old. R effusion no CT is pending to further characteriz Individualized dose optimization techniques were used for this CT. TECHNIQUE: Transaxial imaging was performed withoutIV contrast material. COMPARISON: None. FINDINGS: There are degenerative changes of the shoulders. There is no pneumothorax. There are bilateral pleural effusions. There is bilateral pneumonia. There are multiple median sternotomy wires. There is an elevated right hemidiaphragm. There are calcifications of the coronary arteries. There is borderline cardiomegaly. Normal mediastinum. Normal hilar regions. Normal pulmonary arteries. There is atherosclerotic calcification of the aortic arch with tortuosity and elongation of the aortic arch and descending thoracic aorta. There are multi-level degenerative changes of the thoracic spine. The gallbladder is surgically absent. CT/Chest without Contrast IMPRESSION: There are bilateral pleural effusions. There is bilateral pneumonia. Electronically Signed: Steven Morel MD at 19:44 EDT ,
[2022-07-16 19:05] LABS: Color, Urine Yellow (Yellow); Glucose, Dipstick 50 mg/dl (Normal); Ketone-Dipstick 5 mg/dl (Negative); Leukocyte Esterase-Dipstick 500 /ul (Negative); Nitrite-Dipstick Negative (Negative); Occult Blood-Urine 250 /ul (Negative); Protein-Dipstick 500 mg/dl (Negative); Urine Clarity Cloudy (Clear); Urine Urobilinogen 1 mg/dl (Normal)
[2022-07-16 19:12] LABS: Urine Bilirubin Dipstick 1 mg/dL (Negative)
[2022-07-16 19:20] LABS: Bacteria 3+ /hpf (None Seen); Red Blood Cells-Urine 50-100 SEEN /hpf (0-5); Squamous Epithelial Cells - UA 0-5 SEEN /hpf (0-5); White Blood Cells >100 SEEN /hpf (0-5)
--- NOTE | 2022-07-16 19:31 | NURSING ---
pt dose of vanc not on unit for pt administration-pt to ct scan via bed
[2022-07-16] MEDS: Ipratropium/Albuterol Sulfate 3 ML AMPUL.NEB INHALATION (20:15)
--- NOTE | 2022-07-16 20:29 | PCM.RX.CS ---
Consult Pharmacy has been consulted to manage selected antiobiotic: Vancomycin Type of Consult: New start Suspected Infection: Pneumonia Prior Doses of Antibiotics Received/Current Regimen: 07/16/2022 @ 1954 Labs: Sodium 142 mmol/L (136-145) 07/16/22 15:35 Potassium 4.1 mmol/L (3.5-5.1) 07/16/22 15:35 Chloride 105 mmol/L (98-107) 07/16/22 15:35 Carbon Dioxide 31.0 mmol/L (21.0-32.0) 07/16/22 15:35 Anion Gap 6 (5-15) 07/16/22 15:35 BUN 35 mg/dL (7-18) H 07/16/22 15:35 Creatinine 5.58 mg/dL (0.70-1.30) H 07/16/22 15:35 Est GFR (MDRD) Af Amer 13 mL/min (>60) L 07/16/22 15:35 Est GFR (MDRD) Non-Af 11 mL/min (>60) L 07/16/22 15:35 BUN/Creatinine Ratio 6.3 RATIO (10-20) L 07/16/22 15:35 Glucose 71 mg/dL (74-106) L 07/16/22 15:35 Microbiology: Microbiology 07/16/22 18:35 Urine, Clean Catch Legionella Antigen - Final 07/16/22 18:35 Urine, Clean Catch Streptococcus pneumoniae Antigen (M - Final 07/16/22 15:35 Nasal Secretion SARS-CoV-2 Antigen (Rapid) - Final Weight used for dosin kg Estimated Creatinine Clearance: 14 Goal Trough: 15-20 mcg/mL Pharmacy Plan for Drug Dosin07/18/22 random vancomycin level ordered. Pharmacy will dose vancomycin after random level evaluated Pharmacy Service will continue to monitor and adjust dosing as required. Follow-Up Labs: Trough Vancomycin - random Labs to be done on [date and time ordered]: 07/18/22 @ 0600 random
[2022-07-16 22:54] LABS: M R Staph aureus DNA By PCR Negative (Negative); Probe Check PASS; Specimen Processing Control PASS
[2022-07-16] MEDS: guaiFENesin 1,200 MG Tablet 1200 MG PO (22:58)
[2022-07-16] MEDS: Atorvastatin Calcium 40 MG Tablet PO (22:58)
[2022-07-16] MEDS: Docusate Sodium 100 MG Capsule 200 MG PO (22:58)
[2022-07-16] MEDS: Heparin Injection (Vial) 5,000 UNIT/ML VIAL 5000 UNIT SC (22:58)
[2022-07-16 23:30] LABS: Bedside Glucose 81 mg/dL (74-106)
[2022-07-17] VITALS (12 sets, daily range): BP systolic 130–151; BP diastolic 60–77; PULSE 68–76; RESP 16–22; TEMP 36.4–36.7; O2SAT 92–98
--- NOTE | 2022-07-17 | FLU_PTH ---
PATIENT: MICHAEL RAMIREZ LOC: 3 U#:[id number] AGE/SX: 66/M ROOM: [facility] RE07/16/[address]: Dr. Jaiden Castillo MD : [id number] BED: 1 DIS: 07/20/2022 SPEC #: [id number] RECD: 07/17/22 14:35 STATUS: NED REQ #: [id number] DERRICK: 07/17/22 00:[address]: Jaiden Castillo DEPT: CYTOLOGY RECD BY: Scout Bai ENTERED: 07/20/22 12:26 SP TYPE: Fluid OTHR DR: Kianna Hanna, ECOSYSTEM ECOLOGY PROFESSOR-C Dr. Oumou Mesa, DO Dr. Surinder Valdez, DO Dr. Ramiro Hernandez, DO MD Dr. Dolly Thurman DO Melinda Salyers ECOSYSTEM ECOLOGY PROFESSOR-C Thi Cormier, ECOSYSTEM ECOLOGY PROFESSOR-C [facility] Tissues: THORACIC FLUID Procedures: Special Stain Group II Surgery Specimen Level IV Cytospin Fluid HEADER OPERATION: Ultrasound-guided thoracentesis PRE-OP DIAGNOSIS: Pleural effusion TISSUE SUBMITTED: Thoracentesis fluid for cytology DIAGNOSIS CYTOLOGY Thoracentesis fluid for cytology (cytospin and cell block): Negative for malignant cells. See comment. NATE:sarkis 07/21/2022 COMMENT Clinical correlation and appropriate follow up are necessary. CYTOLOGY STUDY Slides are reviewed. CYTOLOGY GROSS Received is 90 ml of gold cloudy fluid labeled with the patient's name and and designated per the requisition as thoracentesis. Submitted for cytology preparation including cell block. / sarkis 07/20/2022 TC:5 CPT: 19674, 80938
[2022-07-17] MEDS: Menthol/Lanolin/Calamine/Znox 113 GM Tube 1 APPLIC TOPICAL ×2 (06:06→21:42)
[2022-07-17] MEDS: Heparin Injection (Vial) 5,000 UNIT/ML VIAL 5000 UNIT SC ×3 (06:12→21:42)
[2022-07-17 06:20] LABS: Absolute Lymphocyte Count 0.48 X10^3/uL (0.83-4.51); Absolute Neutrophil Count 18.8 X10^3/uL (2.0-7.7); Basophil# 0.05 X10^3/uL; Basophil% 0.2 % (0-1); Eosinophils% 0.5 % (0-5); Hematocrit 33.6 % (40-54); Hemoglobin 10.6 g/dL (13.0-16.5); Lymphocyte # 0.48 X10^3/ul (0.83-4.51); Lymphocyte % 2.2 % (19-41); Mean Corp Hgb Conc 31.5 g/dL (32-36); Mean Corpuscular Hgb 30.5 pg (27.0-32.0); Mean Corpuscular Volume 96.8 fL (80-94); Mean Platelet Vol. 12.5 fl (6.2-12.0); Monocyte# 1.71 X10^3/uL; Monocyte% 7.8 % (0-10); NRBC Flagged by Analyzer 0 % (0-5); Neutrophil # 18.78 X10^3/uL (2.7-7.7); Neutrophil % 85.2 % (47-70); POSITIVE DIFFERENTIAL YES; POSITIVE MORPHOLOGY YES; Platelet Count 146 K/mm3 (150-450); RBC Distribution Width SD 56.6 fl (35.1-43.9); Red Blood Count 3.47 M/mm3 (4.6-6.2)
[2022-07-17 06:27] LABS: Differential Indicated SCAN CRITERIA MET
[2022-07-17 06:39] LABS: Differential Comment SCANNED
[2022-07-17 06:46] LABS: ALB/GLOB Ratio 0.8 RATIO (0.9-2.4); AST(SGOT) 52 U/L (15-37); Alanine Aminotransfer ALT/SGPT 66 U/L (16-61); Albumin, Serum 2.7 g/dL (3.2-5.0); Alkaline Phosphatase 92 U/L (45-117); Anion Gap 8 (5-15); BUN 44 mg/dL (7-18); Calcium,Total 9.2 mg/dL (8.5-10.1); Chloride 105 mmol/L (98-107); Creatinine, Serum 6.31 mg/dL (0.70-1.30); EST Glomerular Filtration Rate 10 mL/min (>60); Est Glom Filt Rate - Afr Amer 12 mL/min (>60); Estimated Creatinine Clearance 11.91 ml/min; Globulin 3.2 g/dL (2.2-4.2); Glucose 63 mg/dL (74-106); Magnesium 2.2 mg/dL (1.6-2.6); Phosphorus 3.9 mg/dL (2.5-4.9); Potassium 4.6 mmol/L (3.5-5.1); Protein, Total 5.9 g/dL (6.4-8.2); Sodium Level 142 mmol/L (136-145)
[2022-07-17] MEDS: Ipratropium/Albuterol Sulfate 3 ML AMPUL.NEB INHALATION ×3 (06:49→19:47)
--- NOTE | 2022-07-17 07:33 | PN.HOSP_ITS ---
Subjective Subjective Does not generally feel well. Objective Data Objective Data Vital Signs: Vital Signs Temp Pulse Resp BP Pulse Ox O2 Del Method O2 Flow Rate 36.6 C 69 20 H 130/64 H 93 Nasal Cannula 2 07/17/22 03:17 07/17/22 06:51 07/17/22 06:51 07/17/22 03:17 07/17/22 07:02 07/17/22 07:02 07/17/22 07:02 Oxygen Flow Rate (L/min) 2 Oxygen Delivery Method Nasal Cannula Weight: 71.2 kg Body Mass Index (BMI) 21.9 Intake & Output: Intake and Output for Last 24 Hours 07/15/22 07/16/22 07/17/22 23:59 23:59 23:59 Intake Total 825 / 1025 300 / 300 Balance 825 / 1025 300 / 300 Lab / Micro Data Result Diagrams: 07/17/22 05:06 07/17/22 05:06 Labs: Laboratory Results - last 24 hr 07/16/22 15:35: WBC 11.2 H, RBC 3.61 L, Hgb 11.2 L, Hct 34.6 L, MCV 95.8 H, MCH 31.0, MCHC 32.4, RDW Std Deviation 54.5 H, RDW Coeff of Harrison 15.6 H, Plt Count 148 L, MPV 10.9, Immature Gran % (Auto) 0.400, Neut % (Auto) 87.7 H, Lymph % (Auto) 3.4 L, [place] % (Auto) 7.8, Eos % (Auto) 0.4, Baso % (Auto) 0.3, Absolute Neuts (auto) 9.8 H, Absolute Lymphs (auto) 0.38 L, Nucleated RBC % 0, Differential Comment SEE COMMENT, Platelet Estimate SLT DEC, RBC Morphology N CHROM, Anisocytosis RARE, Macrocytosis RARE 07/16/22 15:35: Sodium 142, Potassium 4.1, Chloride 105, Carbon Dioxide 31.0, Anion Gap 6, BUN 35 H, Creatinine 5.58 H, Estim Creat Clear Calc 14.24, Est GFR (MDRD) Af Amer 13 L, Est GFR (MDRD) Non-Af 11 L, BUN/Creatinine Ratio 6.3 L, Glucose 71 L, Calcium 9.7 07/16/22 15:35: PT 15.0 H, INR 1.2, APTT 29.4 07/16/22 15:35: Total Bilirubin 2.40 H, Direct Bilirubin 0.95 H, AST 52 H, ALT 63 H, Alkaline Phosphatase 126 H, Total Protein 6.7, Albumin 3.2, Globulin 3.5 07/16/22 16:00: Lactic Acid 1.2 07/16/22 18:35: Urine Color Yellow, Urine Clarity Cloudy, Urine pH 6.0, Ur Specific [place] 1.010, Urine Protein 500 H, Urine Glucose (UA) 50 H, Urine Ketones 5 H, Urine Occult Blood 250 H, Urine Nitrite Negative, Urine Bilirubin 1 H, Urine Urobilinogen 1 H, Ur Leukocyte Esterase 500 H, Urine RBC 50-100 SEEN, Urine WBC >100 SEEN, Ur Squamous Epith Cells 0-5 SEEN, Urine Bacteria 3+, Urine Mucus 0 SEEN 07/16/22 20:40: MRSA (PCR) Negative 07/16/22 23:01: POC Glucose 81 07/17/22 05:06: WBC 22.0 H, RBC 3.47 L, Hgb 10.6 L, Hct 33.6 L, MCV 96.8 H, MCH 30.5, MCHC 31.5 L, RDW Std Deviation 56.6 H, RDW Coeff of [place] 16.0 H, Plt Count 146 L, MPV 12.5 H, Immature Gran % (Auto) 4.100 H, Neut % (Auto) 85.2 H, Lymph % (Auto) 2.2 L, [place] % (Auto) 7.8, Eos % (Auto) 0.5, Baso % (Auto) 0.2, Absolute Neuts (auto) 18.8 H, Absolute Lymphs (auto) 0.48 L, Nucleated RBC % 0, Differential Comment SCANNED, Diff Path Review March07/17/22 05:06: Sodium 142, Potassium 4.6, Chloride 105, Carbon Dioxide 29.0, Anion Gap 8, BUN 44 H, Creatinine 6.31 H, Estim Creat Clear Calc 11.91, Est GFR (MDRD) Af Amer 12 L, Est GFR (MDRD) Non-Af 10 L, BUN/Creatinine Ratio 7.0 L, Glucose 63 L, Calcium 9.2, Phosphorus 3.9, Magnesium 2.2, Total Bilirubin 2.80 H , AST 52 H, ALT 66 H, Alkaline Phosphatase 92, Total Protein 5.9 L, Albumin 2.7 L, Globulin 3.2, Albumin/Globulin Ratio 0.8 L Micro: Microbiology 07/16/22 20:10 Mucosa - Nasopharyngeal Respiratory Panel (PCR) - Final 07/16/22 18:35 Urine, Clean Catch Legionella Antigen - Final 07/16/22 18:35 Urine, Clean Catch Streptococcus pneumoniae Antigen (M - Final 07/16/22 15:35 Nasal Secretion SARS-CoV-2 Antigen (Rapid) - Final Radiography Diagnostic Testing: Radiology Impression Brain CT 07/16/22 15:51 IMPRESSION: There are no acute intracranial findings. Electronically Signed: Steven Morel MD at 16:25 EDT , Cervical Spine CT 07/16/22 15:51 IMPRESSION: Degenerative changes of the cervical spine. There are no acute findings. Partially visualized large right pleural effusion. Electronically Signed: Steven Morel MD at 16:26 EDT , Shoulder X-Ray 07/16/22 15:51 IMPRESSION: There are no acute findings of the shoulder. Electronically Signed: Steven Morel MD at 16:37 EDT , Chest X-Ray 07/16/22 16:17 IMPRESSION: Bilateral pleural effusions. Electronically Signed: Steven Morel MD at 16:36 EDT , Chest CT 07/16/22 18:43 IMPRESSION: There are bilateral pleural effusions. There is bilateral pneumonia. Electronically Signed: Steven Morel MD at 19:44 EDT , Physical Exam Const alert Constitutional Narrative: weak voice. Resp Resp Narrative: coarse breath sounds. diminished in bases Cardio regular rate, regular rhythm, S1 normal heart sound and S2 normal heart sound GI normal to inspection, nondistended, normoactive bowel sounds, soft to palpation and non-tender Extremity normal to inspection Assessment & Plan Assessment/Plan (1) Recurrent right pleural effusion: PLAN: -Reviewed current with previous imaging: worse than previous. Has been previous since Dec 2021. -That this is been chronic, I suspect this is more of a transudative effusion. -Order thoracentesis and check studies. -Doubt empyema, but if confirmed, he may need CTS eval (2) Pneumonia: PLAN: -Suspected gram negative pneumonia v aspiration v ATX -Check sputum culture -strep pneumo and Legionella antigens negative -Respiratory viral panel negative -Blood cultures pending -Vanco and Zosyn initiated as patient is high risk secondary to his chronic dialysis -Failed outpatient treatment with suspected azithromycin and Amoxil (3) Hypoxia: PLAN: Due to pleural effusion plus/minus pneumonia On 2 L nasal cannula Wean oxygen as able. (4) Hyperbilirubinemia: PLAN: Chronic but worse from his baseline. Patient had a CAT scan of his abdomen pelvis on January 19 of this year showed no acute process of his liver at that time. Will check ultrasound Chronic abdominal pain -Work-up is currently in progress up at the [facility] -Had cystoscopy and MRI of the abdomen and pelvis yesterday -Results are not available in clinisync (5) CHI (closed head injury): PLAN: -Resultant from a fall secondary to weakness -CT of the head was negative for any acute findings. CT cervical spine neg ative. -No need for sutures -Continue to monitor (6) Thrombocytopenia: PLAN: mild -Platelet count 148,000 -Baseline platelet counts are normal -May be related to acute infection -Continue to monitor (7) Debility: PLAN: Debility -Patient with marked generalized weakness that is worsening since the onset of the symptoms -Consult PT/OT -May need placement at discharge (8) ESRD on hemodialysis: PLAN: End-stage renal disease -HD dependent--> Wednesday -Follows with Dr. Oumou Mesa--> notified of consult via text -Continue phosphate binder PLAN: Plan Prednisone use -Unclear if this is a burst or chronic medication -Awaiting med rec to be completed -We will continue prednisone for now until clarified Hypertension -Continue home -Continue home carvedilol -Continue home amlodipine Hyperlipidemia -hold atorvastatin given transaminitis/hyperbili DM-2 -Continue home basal insulin 8 units at at bedtime -Continue to log 8 units 3 times daily -Sliding scale insulin -Accu-Cheks -Cardiac/carb control/renal diet Chronic constipation -Can home MiraLAX -Continue home docusate DVT prophylaxis -Heparin 3 times daily -SCDs CODE STATUS -DNR CCA with no intubation as per discussion prior to admission Charges/Coding Visit Charges Inpatient E&M: 46782 Subs Hosp L3
--- NOTE | 2022-07-17 07:55 | US_ITS ---
PROCEDURE: ULTRASOUND GUIDED THORACENTESIS. DATE: 07/17/2022.. INDICATION: Male, 66 years old. Right pleural effusion. PHYSICIAN: Remy Thompson M.D. PROCEDURE: The risks, benefits, and alternatives to the procedure were explained to the patient. The specific risks of bleeding, infection, and pneumothorax requiring chest tube insertion were discussed and accepted. Written informed consent was obtained. Ultrasonographic evaluation of the right lower pleural space was carried out. An adequate pocket was identified. The patient was placed in the sitting, upright position. The overlying skin was prepped and draped in sterile fashion. 1% lidocaine was administered subcutaneously for local anesthesia. Under ultrasound guidance, a 5 Panamanian thoracentesis needle/catheter system was advanced into the right posterior lower pleural fluid collection. Approximately 700 mL of chapo-colored fluid was drained. The catheter was removed, and a sterile dressing was applied. A specimen was collected and sent to the laboratory for analysis, as requested by the referring clinician. The patient tolerated the procedure well. A chest x-ray was ordered. US/Thoracentesis W US IMPRESSION: Ultrasound-guided right thoracentesis. Electronically Signed: Remy Thompson MD at 14:53 EDT ,
[2022-07-17 08:31] LABS: LDH 225 U/L (87-241)
[2022-07-17] MEDS: predniSONE 20 MG Tablet 40 MG PO (09:03)
[2022-07-17] MEDS: Folic Acid/Vitamin B Comp W-C 1 Capsule 1 CAP PO (09:03)
[2022-07-17] MEDS: Polyethylene Glycol 3350 17 GM PACKET PO (09:03)
[2022-07-17] MEDS: guaiFENesin 1,200 MG Tablet 1200 MG PO ×2 (09:03→21:43)
[2022-07-17] MEDS: amLODIPine 5 MG Tablet PO (09:03)
[2022-07-17] MEDS: Losartan Potassium 100 MG Tablet PO (09:03)
[2022-07-17] MEDS: SEVELAMER CARBONATE 800 MG TABLET 2400 MG PO (09:03)
[2022-07-17] MEDS: Docusate Sodium 100 MG Capsule 200 MG PO (09:03)
[2022-07-17 09:46] LABS: Bedside Glucose 91 mg/dL (74-106)
--- NOTE | 2022-07-17 10:11 | CASEMGMT ---
ARACELI HULL Assessment: Face to Face with pt for initial transition planning/care coordination assessment. ARACELI HULL introduced self and role at [facility], pt voices understanding and consents to assessment. Pt is A/O x4 and answers all questions appropriately at this time. Pt sitting up in chair in no distress. Care providers, pharmacy, and demographics verified/updated. Admitting Dx: PNA PCP:Haresh Yun Specialists:[facility]; Pt states he also has a cardio, eye dr, pod but does not know the name of them. Preferred Pharmacy: [facility] provides or [facility] locally. Insurance: [place], pt states he also has MCR that is to start. Prescription Benefit: [place] LW/HPOA: Pt has LW/DPOA on file at [facility]. His DPOA is his Amanda Blanco. LNOK: Amanda Blanco, Living Arrangements: Pt lives with in a two story house with 1-2 steps to enter. Pt reports he is having problems with bathing and dressing and his assists. States she is in the process of having HH set up as well but they have not started as pt came back into the hospital. Pt states cooks and he does his own laundry. Therapy came in room and states pt is unsafe to go home and will need SNF. Transportation: Pt receives transportation from the [facility] or his . DME/HHC/SNF: Pt has a FWW, cane, shower chair and grab bars in the bathroom. Pt states he is in the process of getting a hospital bed and BSC. Pt is in process of having HHC set up but does not know the name of the agency this is through. He states he has been to [facility] but please don't send me there. Discussed therapy recommendations. Pt states he is agreeable to going to [facility] in [place]. He states his used to work there. Pt states he is 80% service connected with the [facility]. Updated SW of this information. Pt is aware that SW will speak with him and give options for SNF to see if [facility] is an option. Pt has dialysis M/W/F at 8:15 at [facility] in [place]. Pt states no further concerns/needs. CM to follow. Advised pt to ask CM if any further question/concerns/needs arise, voices understanding. Pt Goal: [facility] Plan: SNF TBD
[2022-07-17] MEDS: SEVELAMER CARBONATE 800 MG TABLET 1600 MG PO ×2 (12:39→16:57)
--- NOTE | 2022-07-17 12:48 | CON.PCM.RE_ITS ---
Assessment & Plan Assessment/Plan (1) ESRD on hemodialysis: PLAN: Dialysis today and MWF (2) Type 2 diabetes mellitus: PLAN: stable (3) Pneumonia: PLAN: renal dose antibx (4) Hypertension: PLAN: stable (5) Debility: PLAN: evaluate for ECF placement for therapy (6) Weakness: PLAN: with frequent falls (7) Coronary artery disease: (8) Status post coronary artery bypass graft: (9) Pleural effusion: PLAN: fluid removal on dialysis as tolerated. thoracentesis today (10) Anemia: PLAN: hgb stable, epo on dialysis (11) Falls: (12) Depression: HPI Consult Data Date of Consult: 07/17/22 HPI Narrative Reason for Consultation: ESRD dialysis MWF HPI Narrative: MICHAEL RAMIREZ, is a 66 M with ESRD on HD MWF at [facility] dialysis unit admiited for weakness, falls, pneumonia.? He has been progressively getting weaker past couple of weeks, unable to take care of him at home. SW from [facility] with home health arranged through the [facility] but has not been able to get hospital bed at home. Complains of fever and chills with productive cough at home. Temp 101 checked by squad. He was started on two antibiotics as outpt 2 weeks ago by pcp. Symptoms did not improve.? He was at the [facility] yesterday for outpatient testing with a cystoscopy along with an abdominal MRI for abdominal, flank pain.? CXR revealed rt pleural effusion. Scheduled for thoracentesis today. We have been attempting to remove fluid, [facility]. Edema improved. He complains the fluid removal causes weakness. He has Parkinsonism. He was taken off kidney transplant list. Spoke with at bedside. Pt brother from heart disease recently this week. [facility] Medical History (Updated 07/17/22 @ 14:[address] Oumou Mesa, DO) Acute on chronic renal failure Arteriovenous fistula of left upper extremity Chronic renal failure, stage 5 Coronary artery disease Diabetes Dialysis patient Hyperkalemia Hyperlipidemia Hypotension Myocardial infarction Non-smoker Parkinson's disease Pleural effusion, left Skin lesion of face Type 2 diabetes mellitus Home Medications aspirin 81 mg chewable tablet 81 mg PO DAILY heart 06/07/16 [History Last Taken 06/28/18] vitamin B complex and vitamin C no.20-folic acid 1 mg capsule 1 mg PO TID kidneys 05/15/18 [History Last Taken 05/15/18 08:00] nebulizers #1 ea 05/17/18 [Rx Last Taken Unknown] sevelamer HCl 800 mg tablet 2,400 mg PO BREAKFAST kidneys 06/06/18 [History Last Taken Unknown] insulin glargine 100 unit/mL (3 mL) subcutaneous pen 8 - 10 units subcut QHS diabetes 06/28/18 [History Last Taken 06/27/18 4] amlodipine 5 mg tablet 5 mg PO DAILY blood pressure 05/20/21 [History Last Taken Unknown] atorvastatin 40 mg tablet 40 mg PO QHS cholesterol 05/20/21 [History Last Taken Unknown] carvedilol 12.5 mg tablet (Coreg) 12.5 mg PO QHS blood pressure 05/20/21 [History Last Taken Unknown] ergocalciferol (vitamin D2) 1,000 unit capsule 6,000 unit PO DAILY vitamin 05/20/21 [History Last Taken Unknown] insulin aspart U-100 100 unit/mL subcutaneous solution (Novolog U-100 Insulin aspart) 8 - 10 unit subcut TIDCM diabetes 05/20/21 [History Last Taken Unknown] losartan 100 mg tablet 100 mg PO DAILY blood pressure 05/20/21 [History Last Taken Unknown] sevelamer HCl 800 mg tablet 1,600 mg PO BIDCM kidneys 05/20/21 [History Last Taken Unknown] docusate sodium 50 mg tablet 200 mg PO DAILY PRN Constipation 07/13/21 [History Last Taken Unknown] polyethylene glycol 3350 17 gram/dose oral powder (Miralax) 17 g PO DAILY #238 grams 06/26/22 [Rx Last Taken Unknown] acetaminophen 325 mg capsule 650 mg PO Q6H PRN Pain 07/16/22 [History Last Taken Unknown] carbidopa 10 mg-levodopa 100 mg tablet 1 tab PO BID parkinsons 07/16/22 [History Last Taken Unknown] cholecalciferol (vitamin D3) 125 mcg (5,000 unit) tablet (Vitamin D3) 5,000 unit PO supplement 07/16/22 [History Last Taken Unknown] cholecalciferol (vitamin D3) 50 mcg (2,000 unit) capsule (Vitamin D3) 2,000 unit PO supplement 07/16/22 [History Last Taken Unknown] insulin glargine 100 unit/mL subcutaneous solution (Lantus U-100 Insulin) 8 - 10 unit subcut QHS diabetes 07/16/22 [History Last Taken Unknown] Allergy/AdvReac Type Severity Reaction Status Date / Time No Known Allergies Allergy Verified 06/26/22 08:24 Family History Father CAD (coronary artery disease) Hypertension Diabetes Mother Diabetes Surgical History Hx of CABG S/P colonoscopy S/P dialysis catheter insertion S/P hernia repair S/P laparoscopic cholecystectomy Status post coronary artery bypass graft Social History (Updated 07/16/22 @ 18:[address] Dolly Mesa DO) household members: spouse housing: house Smoking Status: Never smoker alcohol intake: never substance use type: does not use additional social history: Typically ambulates without an assistive device Physical Exam Const alert, oriented x3 and no apparent distress General Appearance: frail Nutritional Appearance: thin HEENT normocephalic HEENT Narrative: rt eye contusion from fall Eyes PERRL Resp no use of accessory muscles and clear to auscultation bilaterally Cardio regular rate GI non-tender and non-distended Auscultation: normoactive bowel sounds Palpation: soft Extremity no clubbing, cyanosis or edema General Extremity: AV fistula Neuro Neuro Narrative: generalized, diffuse weakness Psych cooperative Lab / Micro Data Result Diagrams: 07/17/22 05:06 07/17/22 05:06 Labs: Laboratory Results - last 24 hr 07/16/22 15:35: WBC 11.2 H, RBC 3.61 L, Hgb 11.2 L, Hct 34.6 L, MCV 95.8 H, MCH 31.0, MCHC 32.4, RDW Std Deviation 54.5 H, RDW Coeff of [place] 15.6 H, Plt Count 148 L, MPV 10.9, Immature Gran % (Auto) 0.400, Neut % (Auto) 87.7 H, Lymph % (Auto) 3.4 L, [place] % (Auto) 7.8, Eos % (Auto) 0.4, Baso % (Auto) 0.3, Absolute Neuts (auto) 9.8 H, Absolute Lymphs (auto) 0.38 L, Nucleated RBC % 0, Diffe rential Comment SEE COMMENT, Platelet Estimate SLT DEC, RBC Morphology N CHROM, Anisocytosis RARE, Macrocytosis RARE 07/16/22 15:35: Sodium 142, Potassium 4.1, Chloride 105, Carbon Dioxide 31.0, Anion Gap 6, BUN 35 H, Creatinine 5.58 H, Estim Creat Clear Calc 14.24, Est GFR (MDRD) Af Amer 13 L, Est GFR (MDRD) Non-Af 11 L, BUN/Creatinine Ratio 6.3 L, Glucose 71 L, Calcium 9.7 07/16/22 15:35: PT 15.0 H, INR 1.2, APTT 29.4 07/16/22 15:35: Total Bilirubin 2.40 H, Direct Bilirubin 0.95 H, AST 52 H, ALT 63 H, Alkaline Phosphatase 126 H, Total Protein 6.7, Albumin 3.2, Globulin 3.5 07/16/22 16:00: Lactic Acid 1.2 07/16/22 18:35: Urine Color Yellow, Urine Clarity Cloudy, Urine pH 6.0, Ur Specific [place] 1.010, Urine Protein 500 H, Urine Glucose (UA) 50 H, Urine Ketones 5 H, Urine Occult Blood 250 H, Urine Nitrite Negative, Urine Bilirubin 1 H, Urine Urobilinogen 1 H, Ur Leukocyte Esterase 500 H, Urine RBC 50-100 SEEN, Urine WBC >100 SEEN, Ur Squamous Epith Cells 0-5 SEEN, Urine Bacteria 3+, Urine Mucus 0 SEEN 07/16/22 20:40: MRSA (PCR) Negative 07/16/22 23:01: POC Glucose 81 07/17/22 05:06: WBC 22.0 H, RBC 3.47 L, Hgb 10.6 L, Hct 33.6 L, MCV 96.8 H, MCH 30.5, MCHC 31.5 L, RDW Std Deviation 56.6 H, RDW Coeff of [place] 16.0 H, Plt Count 146 L, MPV 12.5 H, Immature Gran % (Auto) 4.100 H, Neut % (Auto) 85.2 H, Lymph % (Auto) 2.2 L, [place] % (Auto) 7.8, Eos % (Auto) 0.5, Baso % (Auto) 0.2, Absolute Neuts (auto) 18.8 H, Absolute Lymphs (auto) 0.48 L, Nucleated RBC % 0, Differential Comment SCANNED, Diff Path Review May foll 07/17/22 05:06: Sodium 142, Potassium 4.6, Chloride 105, Carbon Dioxide 29.0, A nion Gap 8, BUN 44 H, Creatinine 6.31 H, Estim Creat Clear Calc 11.91, Est GFR (MDRD) Af Amer 12 L, Est GFR (MDRD) Non-Af 10 L, BUN/Creatinine Ratio 7.0 L, Glucose 63 L, Calcium 9.2, Phosphorus 3.9, Magnesium 2.2, Total Bilirubin 2.80 H , AST 52 H, ALT 66 H, Alkaline Phosphatase 92, Total Protein 5.9 L, Albumin 2.7 L, Globulin 3.2, Albumin/Globulin Ratio 0.8 L 07/17/22 05:06: Lactate Dehydrogenase 225 07/17/22 09:09: POC Glucose 91 Micro: Microbiology 07/16/22 16:00 Blood Culture (Wb) - Right Forearm Blood Culture - Preliminary 07/16/22 16:06 Blood Culture (Wb) - Right Hand Blood Culture - Preliminary 07/16/22 18:35 Urine, Clean Catch Urine Culture - Preliminary GNR Poss Pseudomonas sp 07/16/22 20:10 Mucosa - Nasopharyngeal Respiratory Panel (PCR) - Final 07/16/22 18:35 Urine, Clean Catch Legionella Antigen - Final 07/16/22 18:35 Urine, Clean Catch Streptococcus pneumoniae Antigen (M - Final 07/16/22 15:35 Nasal Secretion SARS-CoV-2 Antigen (Rapid) - Final Radiology Impression Brain CT 07/16/22 15:51 IMPRESSION: There are no acute intracranial findings. Electronically Signed: Steven Morel MD at 16:25 EDT , Cervical Spine CT 07/16/22 15:51 IMPRESSION: Degenerative changes of the cervical spine. There are no acute findings. Partially visualized large right pleural effusion. Electronically Signed: Steven Morel MD at 16:26 EDT , Shoulder X-Ray 07/16/22 15:51 IMPRESSION: There are no acute findings of the shoulder. Electronically Signed: Steven Morel MD at 16:37 EDT , Chest X-Ray 07/16/22 16:17 IMPRESSION: Bilateral pleural effusions. Electronically Signed: Steven Morel MD at 16:36 EDT , Chest CT 07/16/22 18:43 IMPRESSION: There are bilateral pleural effusions. There is bilateral pneumonia. Electronically Signed: Steven Mroel MD at 19:44 EDT ,
[2022-07-17 12:51] LABS: Bedside Glucose 111 mg/dL (74-106)
--- NOTE | 2022-07-17 13:15 | CASEMGMT ---
Social Work SW called [place] SW, Андрей, to connect on services for pt and determine if there was an updated list of SNF providers that [place] works with. Андрей did not answer. This SW left message requesting she call back and left contact information. SISI Bailey
[2022-07-17 13:57] LABS: Hepatitis B Surface Antigen Non-Reactive (Nonreactive)
--- NOTE | 2022-07-17 13:59 | CASEMGMT ---
Spoke with who is asking for pt disposition. Made aware pt plans to go to SNF but SW working to find out who is covered by [employer]. She states per pt , no other insurance coverage. unable to care for pt at home. Will update RED.
[2022-07-17 14:04] LABS: Pathologist Review Reviewed
[2022-07-17] MEDS: Lidocaine 2% (10 ml mdv) 10 ML Vial INFILT (14:08)
--- NOTE | 2022-07-17 14:15 | RAD_ITS ---
STUDY: X-RAY CHEST REASON FOR EXAM: Male, 66 years old. Thoracentesis TECHNIQUE: AP inspiration and expiration views. COMPARISON: Comparison is made with prior study dated July 20. FINDINGS: The patient is status post right thoracentesis. Mild degree of residual pleural parenchymal changes are seen at the right lung base. No evidence of pneumothorax. RAD/Chest Insp/Exp 2 View IMPRESSION: Status post right thoracentesis. No evidence of pneumothorax. Mild residual pleural parenchymal changes at the right lung base. Electronically Signed: Remy Thompson MD at 14:31 EDT ,
[2022-07-17 14:54] LABS: Body Fluid Mononuclear WBC # 0.189 10^3/uL; Body Fluid Mononuclear WBC % 28.7 %; Body Fluid Polynuclear WBC # 0.471 10^3/uL; Body Fluid Polynuclear WBC % 71.3 %; Body Fluid Total Cells Counted 0.685 10^3/ul
[2022-07-17 14:55] LABS: Appearance/Body Fluid SL CLDY; Auto B Fluid Analyzer BKGD Ct COUNTS W/IN LIMITS (W/IN LIMITS); Color/Body Fluid YELLOW; Source- Body Fluid THORACENTESIS
--- NOTE | 2022-07-17 14:58 | CASEMGMT ---
Social Work SW called Beena with Patient Financial Services at [facility] to confirm if pt has [place] Medicare or not, as it is not on file officially but mentioned as verified. Beena confirmed pt does have [place] and emailed this SW the verification document that states pt is eligible through [place] [employer]. Contact number is . SW attempted to meet with pt to discuss SNF placement and provide list of choices. Pt was being prepared for Dialysis and unable to meet with this SW at this time. SW will return to pt room later this day to discuss discharge plans with pt. Plan: SNF, when pt has a chance to review options. SISI Bailey
--- NOTE | 2022-07-17 15:03 | CASEMGMT ---
Social Work RED Salcedo from the [facility] called SW back in regard to pt's services and service connection. Pt normally works with Андрей but she is off today. Pt is not service connected at all(he had informed CM he was 80% service connected). This means that SNF would not be covered under [place]. He does have aide services that were to start on 07/21/22 through the [facility], [facility] was to provide these aide services. Additionally, an order was placed on 06/30/22 for a bedside commode, hospital bed and medical alert. As per Matias, the DME takes a few weeks and should be delivered soon. She states that pt going to SNF will not delay DME delivery. Matias also states that pt would have some respite hours available to him when he returns home. RED updated the SW on MS3 with this information. SAMIA Azul
[2022-07-17 15:27] LABS: Body Fluid QC Type(s) BF1Q; Lymphocytes 5 %; Mesothelial Cells 1 %; Monocytes 1 %; Neutrophil (Segs) 93 %; Red Cell Count/Body Fluid 20 /mm3
[2022-07-17 15:39] LABS: Glucose, Body Fluid 136 mg/dL (40-70); LDH,Body Fluid 55 Units/l (Not Establ.)
--- NOTE | 2022-07-17 15:55 | CASEMGMT ---
Social Work SW in to meet with pt to discuss discharge planning. SW introduced self and role at the hospital. SW discussed and verified with pt that he does have [facility] PPO coverage. Patient was provided a list of?SNF?providers including quality and resource use data that is consistent with the patient?s preferred geographic region, medical needs, and insurance network. The patient?s preferred provider is [facility] [place]. Pt requesting a referral be made for this facility. SW shared intent to do so. RED asked pt if he would like his to be updated on this and pt was agreeable. RED called pt's , Amanda, to update her on pt's choice to go to [facility]. RED also shared with Amanda that pt is covered through [facility] and discussed how the referral process works. Amanda voiced understanding. RED offered support and Amanda expressed gratitude. She reports she will be in over the weekend and on Wednesday if pt is here that long. RED encouraged Amanda to reach out if needed and provided her with a contact number. RED called Kathleen at [facility] to determine bed openings. Kathleen states two open beds and provided fax number that she can receive at home on this day as she is remote. SW faxed referral to Kathleen. PLAN: [facility], pending acceptance and precert. SISI Bailey
[2022-07-17 17:16] LABS: Bedside Glucose 116 mg/dL (74-106)
--- NOTE | 2022-07-17 18:11 | DIALYSIS ---
Hemodialysis today UF -1500mL removed. [place] pulled and stasis achieved Dressings applied. Pt tolerated tx and is stable. Report to ARACELI Landis
[2022-07-17] MEDS: Insulin Glargine-YFGN 100 UNIT/ML Pen 8 UNIT SC (21:42)
[2022-07-17 22:35] LABS: Bedside Glucose 216 mg/dL (74-106)
[2022-07-18] VITALS (8 sets, daily range): BP systolic 136–143; BP diastolic 72–81; PULSE 68–74; RESP 15–18; TEMP 36.6–36.8; O2SAT 92–97
[2022-07-18] MEDS: Heparin Injection (Vial) 5,000 UNIT/ML VIAL 5000 UNIT SC ×3 (05:38→22:38)
[2022-07-18 06:30] LABS: Hematocrit 31.8 % (40-54); Hemoglobin 10.3 g/dL (13.0-16.5); Mean Corp Hgb Conc 32.4 g/dL (32-36); Mean Corpuscular Hgb 31.2 pg (27.0-32.0); Mean Corpuscular Volume 96.4 fL (80-94); Mean Platelet Vol. 12.5 fl (6.2-12.0); POSITIVE COUNT YES; POSITIVE DIFFERENTIAL YES; POSITIVE MORPHOLOGY YES; Platelet Count 130 K/mm3 (150-450); RBC Distribution Width CV 15.9 % (11.6-14.6); RBC Distribution Width SD 56.6 fl (35.1-43.9); White Blood Count 19.2 K/mm3 (4.4-11.0)
[2022-07-18 06:31] LABS: Differential Indicated MANUAL DIFF
[2022-07-18 06:55] LABS: Vancomycin, Random Level 11.8 ug/mL (0.0-15.0)
--- NOTE | 2022-07-18 06:56 | PCM.PN.HOSP ---
Subjective Subjective Feeling better Objective Data Objective Data Vital Signs: Vital Signs Temp Pulse Resp BP Pulse Ox O2 Del Method O2 Flow Rate 36.7 C 68 18 139/72 H 96 Room Air 2 07/18/22 05:00 07/18/22 05:00 07/18/22 05:00 07/18/22 05:00 07/18/22 05:00 07/18/22 05:00 07/17/22 11:26 Oxygen Flow Rate (L/min) 2 Oxygen Delivery Method [3] Room Air Oxygen Delivery Method [2] Room Air Oxygen Delivery Method [1 ( Room Air Initial Baseline)] Oxygen Delivery Method Room Air Weight: 71.2 kg Body Mass Index (BMI) 21.9 Intake & Output: Intake and Output for Last 24 Hours 07/16/22 07/17/22 07/18/22 23:59 23:59 23:59 Intake Total 825 / 1025 400 / 400 Output Total 700 / 700 Balance 825 / 1025 -300 / -300 - / -20 Lab / Micro Data Result Diagrams: 07/18/22 05:35 07/18/22 05:35 Labs: Laboratory Results - last 24 hr 07/16/22 15:35: Hep Bs Antigen Non-Reactive 07/17/22 05:06: Diff Path Review Reviewed 07/17/22 05:06: Lactate Dehydrogenase 225 07/17/22 09:09: POC Glucose 91 07/17/22 12:15: POC Glucose 111 H 07/17/22 14:10: Fluid Glucose 136 H, Fluid Total Protein 2.0, Fluid LDH 55 07/17/22 14:10: Fluid Source THORACENTESIS, Fluid Color YELLOW, Fluid Appearance SL CLDY, Fluid WBC 0.660, Fluid RBC 20, Fluid Tot Cell Count 0.685, Fld Polynuclear WBCs # 0.471, Fld Polynuclear WBCs % 71.3, Fluid Mononuclear WBCs 0.189, Fld Mononuclear WBCs % 28.7, Fluid Neutrophils 93, Fluid Lymphocytes 5, Fluid Monocytes 1, Fld Mesothelial Cells 1, Fl Pathologist Comment May follow, Fluid Comment 2 SEE COMMENT 07/17/22 16:54: POC Glucose 116 H 07/17/22 21:40: POC Glucose 216 H 07/18/22 05:35: Random Vancomycin 11.8 07/18/22 05:35: WBC 19.2 H, RBC 3.30 L, Hgb 10.3 L, Hct 31.8 L, MCV 96.4 H, MCH 31.2, MCHC 32.4, RDW Std Deviation 56.6 H, RDW Coeff of Harrison 15.9 H, Plt Count 130 L, MPV 12.5 H, Neut % (Auto) Not Reportable Micro: Microbiology 07/17/22 13:30 Sputum, Expectorated/Coughed Gram Stain - Final 07/16/22 16:00 Blood Culture (Wb) - Right Forearm Blood Culture - Preliminary 07/16/22 16:06 Blood Culture (Wb) - Right Hand Blood Culture - Preliminary 07/16/22 18:35 Urine, Clean Catch Urine Culture - Preliminary GNR Poss Pseudomonas sp 07/16/22 20:10 Mucosa - Nasopharyngeal Respiratory Panel (PCR) - Final 07/16/22 18:35 Urine, Clean Catch Legionella Antigen - Final 07/16/22 18:35 Urine, Clean Catch Streptococcus pneumoniae Antigen (M - Final 07/16/22 15:35 Nasal Secretion SARS-CoV-2 Antigen (Rapid) - Final Radiography Diagnostic Testing: Radiology Impression Thoracentesis Ultrasound 07/17/22 07:55 IMPRESSION: Ultrasound-guided right thoracentesis. Electronically Signed: Remy Thompson MD at 14:53 EDT , Chest X-Ray 07/17/22 14:15 IMPRESSION: Status post right thoracentesis. No evidence of pneumothorax. Mild residual pleural parenchymal changes at the right lung base. Electronically Signed: Remy Thompson MD at 14:31 EDT , Physical Exam Const alert and no apparent distress Constitutional Narrative: On room air. No respiratory distress. No conversational dyspnea. HEENT head/scalp atraumatic and moist oral mucous membranes Neck no lymphadenopathy Resp Resp Narrative: Bibasilar crackles Cardio regular rate, regular rhythm, S1 normal heart sound and S2 normal heart sound GI normal to inspection, nondistended, normoactive bowel sounds and soft to palpation Psych affect normal Assessment & Plan Assessment/Plan (1) Recurrent right pleural effusion: PLAN: -Chronic: Reviewed current with previous imaging: worse than previous. Has been previous since Dec 2021. -Thoracentesis performed 07/17: -Fluid c/w transudative effusion removed 700 cc chapo-colored fluid (2) Pneumonia: QUALIFIERS: Pneumonia type: due to unspecified organism Laterality: unspecified laterality Lung location: unspecified part of lung Qualified Code(s): J18.9 - Pneumonia, unspecified organism PLAN: -Suspected gram negative pneumonia v aspiration v ATX -Check sputum culture -strep pneumo and Legionella antigens negative -Respiratory viral panel negative -Blood cultures pending -Vanco and Zosyn initiated as patient is high risk secondary to his chronic dialysis -Failed outpatient treatment with suspected azithromycin and Amoxil (3) Hypoxia: PLAN: Resolved Due to pleural effusion plus/minus pneumonia (4) UTI (urinary tract infection): QUALIFIERS: Urinary tract infection type: acute cystitis PLAN: Present on admission Urine culture growing out pseudomonas Already on piperacillin/tazobactam (5) Bacteremia: PLAN: likely 2/2 UTI awaiting ID continue pip/tazo for now. (6) Hyperbilirubinemia: PLAN: Improved but still elevated. Though appears to be around his baseline. Patient had a CAT scan of his abdomen pelvis on January 19 of this year showed no acute process of his liver at that time. Will check ultrasound Chronic abdominal pain -Work[facility]up is currently in progress [facility] (7) CHI (closed head injury): PLAN: -Resultant from a fall secondary to weakness -CT of the head was negative for any acute findings. CT cervical spine negative. -No need for sutures -Continue to monitor (8) Debility: PLAN: -Patient with marked generalized weakness that is worsening since the onset of the symptoms -Consult PT/OT -Plan for [facility] (9) ESRD on hemodialysis: PLAN: -HD dependent--> Wednesday -Follows with Dr. Oumou Mesa--> notified of consult via text -Continue phosphate binder (10) Thrombocytopenia: PLAN: mild -Platelet count 148,000 -Baseline platelet counts are normal -May be related to acute infection -Continue to monitor (11) Parkinson's disease: PLAN: Patient is states that he does not have Parkinson's but he is on medication for Parkinson's. I discussed with his and she said that its not actually Parkinson's but some autoimmune type disease. I asked who is PSP or MSA but she says she was unsure. She said it is similar to ALS but not ALS. Explained to her the patient's that when people have neurodegenerative disorders that physically they are more impacted and takes him a while to fully recover compared to someone that does not. PLAN: Plan Prednisone use -Medication explanation arms been updated and is no longer on. Will discontinue. Hypertension -Continue home -Continue home carvedilol -Continue home amlodipine Hyperlipidemia -hold atorvastatin given transaminitis/hyperbili DM-2 -Fair control -continue home basal insulin 8 units at at bedtime -Continue to log 8 units 3 times daily -Sliding scale insulin -Accu-Cheks -Cardiac/carb control/renal diet Chronic constipation -Can home MiraLAX -Continue home docusate DVT prophylaxis -Heparin 3 times daily -SCDs CODE STATUS -DNR CCA with no intubation as per discussion prior to admission Advance care planning: Spent additional 16 minutes discussing with patient's about hospice. Patient had stated that at some point he did not want continue with dialysis but has not officially stated to discontinue it altogether. I recommended palliative care to assess goals of care and potentially transition over hospice whenever that point comes. She was in agreement to palliative care evaluation. I did tell her that its possible palliative care may not see him in the hospital but can follow-up as outpatient. Charges/Coding Visit Charges Inpatient E&M: 74073 Subs Hosp L2 Procedures Hospitalists Procedures: 25317 Advncd Care Plan 30 Min
[2022-07-18 06:58] LABS: ALB/GLOB Ratio 0.7 RATIO (0.9-2.4); AST(SGOT) 20 U/L (15-37); Alanine Aminotransfer ALT/SGPT 47 U/L (16-61); Albumin, Serum 2.5 g/dL (3.2-5.0); Alkaline Phosphatase 81 U/L (45-117); Anion Gap 5 (5-15); BUN 35 mg/dL (7-18); BUN/Creat Ratio 7.1 RATIO (10-20); Calcium,Total 9.3 mg/dL (8.5-10.1); Chloride 101 mmol/L (98-107); EST Glomerular Filtration Rate 13 mL/min (>60); Est Glom Filt Rate - Afr Amer 15 mL/min (>60); Estimated Creatinine Clearance 15.34 ml/min; Globulin 3.6 g/dL (2.2-4.2); Glucose 101 mg/dL (74-106); Potassium 4.6 mmol/L (3.5-5.1); Protein, Total 6.1 g/dL (6.4-8.2); Sodium Level 137 mmol/L (136-145)
[2022-07-18 07:03] LABS: Lymphocyte 3 % (19-41); Metamyelocyte 1 % (0-1); Monocyte 7 % (0-10); Neutrophil-Band 2 % (0-5); Neutrophil-Segmented 87 % (47-70); Platelet Estimate SLT DEC (ADEQ); Total Cells Counted 100 (MANUAL DIFF)
[2022-07-18 07:04] LABS: Red Cell Morphology N CHROM NORMAL (NORM C&C)
[2022-07-18 07:05] LABS: Absolute Lymphocyte Count 0.58 X10^3/uL (0.83-4.51); Absolute Neutrophil Count 17.1 X10^3/uL (2.0-7.7); Anisocytosis RARE; Lymphocyte # 0.58 X10^3/ul (0.83-4.51); Neutrophil # 17.07 X10^3/uL (2.7-7.7)
[2022-07-18] MEDS: Ipratropium/Albuterol Sulfate 3 ML AMPUL.NEB INHALATION ×4 (07:19→19:10)
--- NOTE | 2022-07-18 07:44 | PCM.RX.CS ---
Consult Pharmacy has been consulted to manage selected antiobiotic: Vancomycin Type of Consult: Follow-up Labs: Sodium 137 mmol/L (136-145) 07/18/22 05:35 Potassium 4.6 mmol/L (3.5-5.1) 07/18/22 05:35 Chloride 101 mmol/L (98-107) 07/18/22 05:35 Carbon Dioxide 31.0 mmol/L (21.0-32.0) 07/18/22 05:35 Anion Gap 5 (5-15) 07/18/22 05:35 BUN 35 mg/dL (7-18) H 07/18/22 05:35 Creatinine 4.90 mg/dL (0.70-1.30) H 07/18/22 05:35 Est GFR (MDRD) Af Amer 15 mL/min (>60) L 07/18/22 05:35 Est GFR (MDRD) Non-Af 13 mL/min (>60) L 07/18/22 05:35 BUN/Creatinine Ratio 7.1 RATIO (10-20) L 07/18/22 05:35 Glucose 101 mg/dL (74-106) 07/18/22 05:35 Random Vancomycin 11.8 ug/mL (0.0-15.0) 07/18/22 05:35 Microbiology: Microbiology 07/16/22 18:35 Urine, Clean Catch Urine Culture - Final Pseudomonas aeroginosa 07/17/22 13:30 Sputum, Expectorated/Coughed Gram Stain - Final 07/16/22 16:00 Blood Culture (Wb) - Right Forearm Blood Culture - Preliminary 07/16/22 16:06 Blood Culture (Wb) - Right Hand Blood Culture - Preliminary 07/16/22 20:10 Mucosa - Nasopharyngeal Respiratory Panel (PCR) - Final 07/16/22 18:35 Urine, Clean Catch Legionella Antigen - Final 07/16/22 18:35 Urine, Clean Catch Streptococcus pneumoniae Antigen (M - Final 07/16/22 15:35 Nasal Secretion SARS-CoV-2 Antigen (Rapid) - Final Goal Trough: 15-20 mcg/mL Pharmacy Plan for Drug Dosing: VANCOMYCIN LEVEL RECEIVED Current Vancomycin Dose: 1250MG IV X1 ADMIN 07/16/22 @1954 Number of Doses Received: 1 Vancomycin Level: 11.8 Hours Since Last Dose: POST-HD ON 07/17 Renal Function: PT HD DEPENDENT: ON HD M/W/ Renal Function Trend: N/A Lab/Micro: PENDING Vancomycin Plan/Comments: Patient is on chronic HD M/W/F. Had level drawn this morning, which was 11.8 (note: pt did have HD yesterday). Since pt had HD yesterday and level is less than 20, will redose patient this morning with vancomycin 500mg IV x1. Pending Level: 07/20/22 with AM labs (pre-HD according to HD schedule) Pharmacy Service will continue to monitor and adjust dosing as required.
[2022-07-18] MEDS: SEVELAMER CARBONATE 800 MG TABLET 2400 MG PO (08:06)
[2022-07-18 08:25] LABS: Bedside Glucose 88 mg/dL (74-106)
[2022-07-18] MEDS: Vancomycin IV 500 MG/100 ML BAG 100 MG IV (09:47)
[2022-07-18] MEDS: Menthol/Lanolin/Calamine/Znox 113 GM Tube 1 APPLIC TOPICAL ×2 (10:55→22:33)
[2022-07-18] MEDS: amLODIPine 5 MG Tablet PO (10:56)
[2022-07-18] MEDS: Polyethylene Glycol 3350 17 GM PACKET PO (10:56)
[2022-07-18] MEDS: Folic Acid/Vitamin B Comp W-C 1 Capsule 1 CAP PO (10:57)
[2022-07-18] MEDS: Losartan Potassium 100 MG Tablet PO (10:57)
[2022-07-18] MEDS: guaiFENesin 1,200 MG Tablet 1200 MG PO ×2 (10:57→22:36)
[2022-07-18] MEDS: Carbidopa/Levodopa 10/100 Tablet PO ×2 (11:01→16:47)
--- NOTE | 2022-07-18 12:28 | CASEMGMT ---
Received notification of order for Palliative Care consult, pt met criteria per screening tool as well. Emailed referral to Palliative at this time.
[2022-07-18 12:40] LABS: Bedside Glucose 167 mg/dL (74-106)
[2022-07-18] MEDS: SEVELAMER CARBONATE 800 MG TABLET 1600 MG PO ×2 (12:52→16:47)
[2022-07-18] MEDS: Docusate Sodium 100 MG Capsule 200 MG PO (16:47)
[2022-07-18 17:15] LABS: Bedside Glucose 135 mg/dL (74-106)
[2022-07-18] MEDS: Insulin Glargine-YFGN 100 UNIT/ML Pen 8 UNIT SC (22:36)
[2022-07-18 23:21] LABS: Bedside Glucose 201 mg/dL (74-106)
[2022-07-19] VITALS (8 sets, daily range): BP systolic 151–161; BP diastolic 79–87; PULSE 67–73; RESP 16–24; TEMP 36.6–37; O2SAT 84–96
[2022-07-19 06:07] LABS: Absolute Lymphocyte Count 0.72 X10^3/uL (0.83-4.51); Absolute Neutrophil Count 12.2 X10^3/uL (2.0-7.7); Basophil# 0.04 X10^3/uL; Basophil% 0.3 % (0-1); Eosinophil# 0.21 X10^3/uL; Eosinophils% 1.5 % (0-5); Hematocrit 32.7 % (40-54); Hemoglobin 10.6 g/dL (13.0-16.5); Lymphocyte # 0.72 X10^3/ul (0.83-4.51); Lymphocyte % 5.1 % (19-41); Mean Corp Hgb Conc 32.4 g/dL (32-36); Mean Corpuscular Hgb 30.6 pg (27.0-32.0); Mean Corpuscular Volume 94.5 fL (80-94); Mean Platelet Vol. 12.3 fl (6.2-12.0); Monocyte# 0.78 X10^3/uL; Monocyte% 5.5 % (0-10); NRBC Flagged by Analyzer 0 % (0-5); Neutrophil # 12.15 X10^3/uL (2.7-7.7); Platelet Count 139 K/mm3 (150-450); RBC Distribution Width CV 15.7 % (11.6-14.6); RBC Distribution Width SD 53.8 fl (35.1-43.9); Red Blood Count 3.46 M/mm3 (4.6-6.2); White Blood Count 14.1 K/mm3 (4.4-11.0)
[2022-07-19] MEDS: Heparin Injection (Vial) 5,000 UNIT/ML VIAL 5000 UNIT SC ×3 (06:27→21:22)
[2022-07-19 06:32] LABS: Anion Gap 10 (5-15); BUN 53 mg/dL (7-18); BUN/Creat Ratio 9.4 RATIO (10-20); Calcium,Total 8.7 mg/dL (8.5-10.1); Chloride 95 mmol/L (98-107); Creatinine, Serum 5.61 mg/dL (0.70-1.30); EST Glomerular Filtration Rate 11 mL/min (>60); Est Glom Filt Rate - Afr Amer 13 mL/min (>60); Glucose 120 mg/dL (74-106); Potassium 5.1 mmol/L (3.5-5.1); Sodium Level 132 mmol/L (136-145)
[2022-07-19] MEDS: Carbidopa/Levodopa 10/100 Tablet PO ×2 (06:33→16:14)
[2022-07-19 07:00] LABS: Bedside Glucose 108 mg/dL (74-106)
--- NOTE | 2022-07-19 07:19 | PN.HOSP_ITS ---
Subjective Subjective Feels okay. No new events. Objective Data Objective Data Vital Signs: Vital Signs Temp Pulse Resp BP Pulse Ox O2 Del Method O2 Flow Rate 36.6 C 68 20 H 151/79 H 94 Nasal Cannula 2 07/19/22 06:00 07/19/22 06:00 07/19/22 06:00 07/19/22 06:00 07/19/22 06:00 07/19/22 06:00 07/19/22 06:00 Oxygen Flow Rate (L/min) 2 Oxygen Delivery Method [3] Room Air Oxygen Delivery Method [2] Room Air Oxygen Delivery Method [1 ( Room Air Initial Baseline)] Oxygen Delivery Method Nasal Cannula Weight: 71.2 kg Body Mass Index (BMI) 21.9 Intake & Output: Intake and Output for Last 24 Hours 07/17/22 07/18/22 07/19/22 23:59 23:59 23:59 Intake Total 400 / 400 999.79 / 999.79 500 / 500 Output Total 700 / 700 220 / 245 25 / 25 Balance -300 / -300 779.79 / 754.79 475 / 475 Lab / Micro Data Result Diagrams: 07/19/22 05:30 07/19/22 05:30 Labs: Laboratory Results - last 24 hr 07/18/22 08:05: POC Glucose 88 07/18/22 12:20: POC Glucose 167 H 07/18/22 16:44: POC Glucose 135 H 07/18/22 22:35: POC Glucose 201 H 07/19/22 05:30: WBC 14.1 H, RBC 3.46 L, Hgb 10.6 L, Hct 32.7 L, MCV 94.5 H, MCH 30.6, MCHC 32.4, RDW Std Deviation 53.8 H, RDW Coeff of Harrison 15.7 H, Plt Count 139 L, MPV 12.3 H, Immature Gran % (Auto) 1.600 H, Neut % (Auto) 86.0 H, Lymph % (Auto) 5.1 L, Early % (Auto) 5.5, Eos % (Auto) 1.5, Baso % (Auto) 0.3, Absolute Neuts (auto) 12.2 H, Absolute Lymphs (auto) 0.72 L, Nucleated RBC % 0 07/19/22 05:30: Sodium 132 L, Potassium 5.1, Chloride 95 L, Carbon Dioxide 27.0, Anion Gap 10, BUN 53 H, Creatinine 5.61 H, Estim Creat Clear Calc 13.40, Est GFR (MDRD) Af Amer 13 L, Est GFR (MDRD) Non-Af 11 L, BUN/Creatinine Ratio 9.4 L, Glucose 120 H, Calcium 8.7 07/19/22 06:07: POC Glucose 108 H Micro: Microbiology 07/16/22 16:06 Blood Culture (Wb) - Right Hand Blood Culture - Preliminary Pseudomonas aeroginosa 07/16/22 16:00 Blood Culture (Wb) - Right Forearm Blood Culture - Preliminary GNR Poss Pseudomonas sp 07/17/22 13:30 Sputum, Expectorated/Coughed Gram Stain - Final 07/17/22 13:30 Sputum, Expectorated/Coughed Respiratory Culture - Preliminary Appears to be normal respiratory deondre. Further studies to follow. 07/16/22 18:35 Urine, Clean Catch Urine Culture - Final Pseudomonas aeroginosa 07/16/22 20:10 Mucosa - Nasopharyngeal Respiratory Panel (PCR) - Final 07/16/22 18:35 Urine, Clean Catch Legionella Antigen - Final 07/16/22 18:35 Urine, Clean Catch Streptococcus pneumoniae Antigen (M - Final 07/16/22 15:35 Nasal Secretion SARS-CoV-2 Antigen (Rapid) - Final Physical Exam Const alert and no apparent distress Resp normal respiratory effort, no retractions, no use of accessory muscles and clear to auscultation bilaterally Cardio regular rate, regular rhythm, S1 normal heart sound and S2 normal heart sound GI normal to inspection, nondistended, normoactive bowel sounds, soft to palpation, non-tender and non-distended Extremity normal to inspection Neuro Sensorium / Orientation: awake and alert Assessment & Plan Assessment/Plan (1) Recurrent right pleural effusion: PLAN: -Chronic: Reviewed current with previous imaging: worse than previous. Has been previous since Dec 2021. -Thoracentesis performed 07/17: -Fluid c/w transudative effusion removed 700 cc chapo-colored fluid -Clinically improved. Stable on room air. (2) UTI (urinary tract infection): QUALIFIERS: Hematuria presence: without hematuria Urinary tract infection type: acute cystitis Qualified Code(s): N30.00 - Acute cystitis without hematuria PLAN: Present on admission Urine culture growing out pseudomonas Change piperacillin/tazobactam to levofloxacin 750 every 48 hours through the 01 07 (3) Bacteremia: PLAN: 2/2 UTI Secondary to pansensitive Pseudomonas Antibiotics as above (4) Pneumonia: QUALIFIERS: Laterality: unspecified laterality Lung location: unspecified part of lung Pneumonia type: due to unspecified organism Qualified Code(s): J18.9 - Pneumonia, unspecified organism PLAN: -Ruled out. Infectious issues more likely stem from UTI and associated bacteremia, not pneumonia. Hypoxia likely from transudative pleural effusion. (5) Hypoxia: PLAN: Resolved Due to pleural effusion (6) Hyperbilirubinemia: PLAN: Improved but still elevated. Though appears to be around his baseline. Patient had a CAT scan of his abdomen pelvis on January 19 of this year showed no acute process of his liver at that time. Will check ultrasound Chronic abdominal pain -Work-up is currently in progress [facility] at the [facility] -Check records from the [facility] in regards to his MRI. (7) CHI (closed head injury): PLAN: -Resultant from a fall secondary to weakness -CT of the head was negative for any acute findings. CT cervical spine negative. -No need for sutures -Continue to monitor (8) Debility: PLAN: -Patient with marked generalized weakness that is worsening since the onset of the symptoms -Consult PT/OT -Plan for the [facility] (9) ESRD on hemodialysis: PLAN: -HD dependent--> Wednesday -Follows with Dr. Oumou Mesa--> notified of consult via text -Continue phosphate binder (10) Thrombocytopenia: PLAN: mild -Platelet count 148,000 -Baseline platelet counts are normal -May be related to acute infection -Continue to monitor (11) Parkinson's disease: PLAN: Patient is states that he does not have Parkinson's but he is on medication for Parkinson's. I discussed with his and she said that its not actually Parkinson's but some autoimmune type disease. I asked who is PSP or MSA but she says she was unsure. She said it is similar to ALS but not ALS. Explained to her the patient's that when people have neurodegenerative disorders that physically they are more impacted and takes him a while to fully recover compared to someone that does not. PLAN: Plan Prednisone use -Medication explanation arms been updated and is no longer on. Will discontinue. Hypertension -Continue home -Continue home carvedilol -Continue home amlodipine Hyperlipidemia -hold atorvastatin given transaminitis/hyperbili DM-2 -Fair control -continue home basal insulin 8 units at at bedtime -Continue to log 8 units 3 times daily -Sliding scale insulin -Accu-Cheks -Cardiac/carb control/renal diet Chronic constipation -Can home MiraLAX -Continue home docusate DVT prophylaxis -Heparin 3 times daily -SCDs CODE STATUS -DNR CCA with no intubation as per discussion prior to admission 07/18: DW pt's about pall care. Patient had stated that at some point he did not want continue with dialysis but has not officially stated to discontinue it altogether. I recommended palliative care to assess goals of care and potentially transition over hospice whenever that point comes. She was in agreement to palliative care evaluation. I did tell her that its possible palliative care may not see him in the hospital but can follow-up as outpatient. 07/19: Patient states that he may be done with dialysis but not at present. Once again recommended palliative care for him and that could be transitioned over to hospice if there is a point where he decides not to proceed with dialysis any further. Charges/Coding Visit Charges Inpatient E&M: 46775 Subs Hosp L2
[2022-07-19] MEDS: Ipratropium/Albuterol Sulfate 3 ML AMPUL.NEB INHALATION ×4 (07:34→19:39)
[2022-07-19] MEDS: SEVELAMER CARBONATE 800 MG TABLET 2400 MG PO (09:14)
[2022-07-19] MEDS: Menthol/Lanolin/Calamine/Znox 113 GM Tube 1 APPLIC TOPICAL ×2 (10:43→21:21)
[2022-07-19] MEDS: Docusate Sodium 100 MG Capsule 200 MG PO ×2 (10:44→21:22)
[2022-07-19] MEDS: Losartan Potassium 100 MG Tablet PO (10:45)
[2022-07-19] MEDS: guaiFENesin 1,200 MG Tablet 1200 MG PO ×2 (10:45→21:22)
[2022-07-19] MEDS: Polyethylene Glycol 3350 17 GM PACKET PO (10:45)
[2022-07-19] MEDS: Folic Acid/Vitamin B Comp W-C 1 Capsule 1 CAP PO (10:45)
[2022-07-19] MEDS: amLODIPine 5 MG Tablet PO (10:51)
[2022-07-19 11:40] LABS: Bedside Glucose 173 mg/dL (74-106)
[2022-07-19] MEDS: Insulin Lispro 100 UNIT/ML INSULN.PEN SC (12:07)
[2022-07-19] MEDS: SEVELAMER CARBONATE 800 MG TABLET 1600 MG PO ×2 (12:07→17:00)
[2022-07-19 16:36] LABS: Bedside Glucose 153 mg/dL (74-106)
[2022-07-19] MEDS: Insulin Glargine-YFGN 100 UNIT/ML Pen 8 UNIT SC (21:34)
[2022-07-19 22:00] LABS: Bedside Glucose 162 mg/dL (74-106)
[2022-07-20] VITALS (7 sets, daily range): BP systolic 152–168; BP diastolic 73–87; PULSE 70–77; RESP 16–20; TEMP 36.3–36.6; O2SAT 84–94
[2022-07-20] MEDS: Carbidopa/Levodopa 10/100 Tablet PO (06:05)
[2022-07-20] MEDS: Heparin Injection (Vial) 5,000 UNIT/ML VIAL 5000 UNIT SC ×2 (06:06→14:27)
[2022-07-20 06:36] LABS: Bedside Glucose 90 mg/dL (74-106)
[2022-07-20] MEDS: Ipratropium/Albuterol Sulfate 3 ML AMPUL.NEB INHALATION ×2 (07:23→10:45)
--- NOTE | 2022-07-20 07:30 | PN.HOSP_ITS ---
Subjective Subjective Seen and examined. Discussed with patient and patient's . Does not want any dialysis more. Further discussed with patient's benefits consultant. Hospice/palliative care consult called. Objective Data Objective Data Vital Signs: Vital Signs Temp Pulse Resp BP Pulse Ox O2 Del Method O2 Flow Rate 97.9 F 70 18 152/73 H 94 Nasal Cannula 5 07/20/22 03:08 07/20/22 03:08 07/20/22 03:08 07/20/22 03:08 07/20/22 03:08 07/20/22 03:08 07/20/22 03:08 Oxygen Flow Rate (L/min) 5 Oxygen Delivery Method [3] Room Air Oxygen Delivery Method [2] Room Air Oxygen Delivery Method [1 ( Room Air Initial Baseline)] Oxygen Delivery Method Nasal Cannula Weight: 156 lb 15.506 oz Body Mass Index (BMI) 21.9 Intake & Output: Intake and Output for Last 24 Hours 07/18/22 07/19/22 07/20/22 23:59 23:59 23:59 Intake Total 999.79 / 999.79 1350 / 1350 Output Total 220 / 245 75 / 75 Balance 779.79 / 754.79 1275 / 1275 Lab / Micro Data Result Diagrams: 07/19/22 05:30 07/19/22 05:30 Labs: Laboratory Results - last 24 hr 07/19/22 11:21: POC Glucose 173 H 07/19/22 16:06: POC Glucose 153 H 07/19/22 21:32: POC Glucose 162 H 07/20/22 06:08: POC Glucose 90 Micro: Microbiology 07/17/22 13:30 Sputum, Expectorated/Coughed Gram Stain - Final 07/17/22 13:30 Sputum, Expectorated/Coughed Respiratory Culture - Preliminary Appears to be normal respiratory deondre. Further studies to follow. 07/16/22 16:06 Blood Culture (Wb) - Right Hand Blood Culture - Preliminary Pseudomonas aeroginosa 07/16/22 16:00 Blood Culture (Wb) - Right Forearm Blood Culture - Preliminary GNR Poss Pseudomonas sp 07/16/22 18:35 Urine, Clean Catch Urine Culture - Final Pseudomonas aeroginosa 07/16/22 20:10 Mucosa - Nasopharyngeal Respiratory Panel (PCR) - Final 07/16/22 18:35 Urine, Clean Catch Legionella Antigen - Final 07/16/22 18:35 Urine, Clean Catch Streptococcus pneumoniae Antigen (M - Final 07/16/22 15:35 Nasal Secretion SARS-CoV-2 Antigen (Rapid) - Final Physical Exam Narrative General: Alert, Oriented x3, Cooperative, frail, moderate protein calorie m alnutrition HEENT: Atraumatic, PERRLA, EOMI, Normocephalic Oral: No Gingival or Mucosal Lesions/ Ulcerations Neck: Supple, No JVD, Negative Carotid Bruits Lungs: Air entry diminished bilaterally, right posterior chest more than left. No crepitation/rhonchi Cardiovascular: CABG scar. Right second ICS ejection systolic murmur. Abdomen: Bowel Sounds Present, Soft, Non Tender, Non-Distended : No renal angle tenderness. No suprapubic tenderness. Extremities: No edema, Capillary Refill Less than 3 Seconds Skin: No rashes, No breakdown Musculoskeletal: No Tenderness to Palpation of Joints or Extremities. Diffuse muscle atrophy of extremities. Muscle strength 3-4/5 at major joints of extre mities Neurological: Cranial nerves II-XII grossly intact, DTR 2/4 Psych/Mental Status: Flat affect Assessment & Plan Assessment/Plan (1) Recurrent right pleural effusion: PLAN: -Chronic: Reviewed current with previous imaging: worse than previous. Has been previous since Dec 2021. -Thoracentesis performed 07/17: -Fluid c/w transudative effusion removed 700 cc chapo-colored fluid -Clinically improved. Pulse ox 94% on 5 L of oxygen. (2) UTI (urinary tract infection): QUALIFIERS: Hematuria presence: without hematuria Urinary tract infection type: acute cystitis Qualified Code(s): N30.00 - Acute cystitis without hematuria PLAN: Present on admission Urine culture growing out pseudomonas Change piperacillin/tazobactam to levofloxacin 750 every 48 hours through the (3) Bacteremia: PLAN: 2/2 UTI Secondary to pansensitive Pseudomonas Antibiotics as above (4) Pneumonia: QUALIFIERS: Laterality: unspecified laterality Lung location: unspecified part of lung Pneumonia type: due to unspecified organism Qualified Code(s): J18.9 - Pneumonia, unspecified organism PLAN: -Ruled out. Infectious issues more likely stem from UTI and associated bacteremia, not pneumonia. Hypoxia likely from transudative pleural effusion. (5) Hypoxia: PLAN: Patient is still hypoxic. (6) Hyperbilirubinemia: PLAN: Improved but still elevated. Though appears to be around his baseline. Patient had a CAT scan of his abdomen pelvis on January 19 of this year showed no acute process of his liver at that time. There is no ultrasound ordered but patient wants hospice therefore not needed. Chronic abdominal pain (7) CHI (closed head injury): PLAN: -Resultant from a fall secondary to weakness -CT of the head was negative for any acute findings. CT cervical spine negative. -No need for sutures -Continue to monitor (8) Debility: PLAN: -Patient with marked generalized weakness that is worsening since the onset of the symptoms -Consult PT/OT -Plan for the [facility] (9) ESRD on hemodialysis: PLAN: -HD dependent--> Wednesday -Follows with Dr. Oumou Mesa. Discussed with Dr. Mesa and patient and his he said no more dialysis. Hospice/palliative care consult called (10) Thrombocytopenia: PLAN: mild -Platelet count 148,000 -Baseline platelet counts are normal -May be related to acute infection -Continue to monitor (11) Parkinson's disease: PLAN: Patient is states that he does not have Parkinson's but he is on medication for Parkinson's. Patient's unclear about her diagnosis with her PSP or MSA probably neurodegenerative disorder. Patient is physically debilitated. PLAN: Plan -Patient no longer on prednisone therefore was discontinued Hypertension -Continue home -Continue home carvedilol -Continue home amlodipine Hyperlipidemia -hold atorvastatin given transaminitis/hyperbili DM-2 -Fair control -continue home basal insulin 8 units at at bedtime -Continue to log 8 units 3 times daily -Sliding scale insulin -Accu-Cheks -Cardiac/carb control/renal diet Chronic constipation -Can home MiraLAX -Continue home docusate DVT prophylaxis -Heparin 3 times daily -SCDs CODE STATUS -DNR CCA with no intubation as per discussion prior to admission 07/18: DW pt's about pall care. Patient had stated that at some point he did not want continue with dialysis but has not officially stated to discontinue it altogether. I recommended palliative care to assess goals of care and potent ially transition over hospice whenever that point comes. She was in agreement to palliative care evaluation. I did tell her that its possible palliative care may not see him in the hospital but can follow-up as outpatient. 07/19: Patient states that he may be done with dialysis but not at present. Once again recommended palliative care for him and that could be transitioned over to hospice if there is a point where he decides not to proceed with dialysis any further. 07/20: Patient and decided against dialysis. They do not want any dialysis and this is confirmed by her benefits consultant Dr. Mesa. Hospice/palliative care consult ordered Total time of the visit including total time spent in counseling or coordination of care, (more than 50% of the total time, spent in obtaining medical information from nurses and other ancillary care providers,explaining to the patient about labs, imaging, diagnosis and management of active complex medical conditions), discussion regarding palliative/hospice care, discussion with patient's benefits consultant for decision stopping hemodialysis, review of labs and imaging is 40 minutes. Charges/Coding Visit Charges Inpatient E&M: 33991 Subs Hosp L3
--- NOTE | 2022-07-20 07:45 | NURSING ---
PER TATI, DIALYSIS NURSE, PT REFUSING TREATMENT. SHE WENT IN A SECOND TIME TO VERIFY AND PT STILL DECLINES. DR BAILEY WAS NOTIFIED BY TATI
--- NOTE | 2022-07-20 08:07 | DIALYSIS ---
arrived to patient room for dialysis, patient states I'm weaning off dialysis and Dr. Oumou Mesa knows, spoke with patient once more and patient confirmed that he is not having dialysis anymore, notified property staff accountant and voip network technician Dr. Mesa
--- NOTE | 2022-07-20 09:01 | CASEMGMT ---
Discharge Battery Container Finishing Hand Ashley called Kathleen at the [facility]. Kathleen is reviewing referral and needed to know patients Dialysis schedule. Patient goes to [facility] chair time is at 8:15 per SW Katy. Kathleen will check with transportation and call Ashley back. Will follow up. Plan: [facility], Waiting Acceptance Ashley Wu Discharge Battery Container Finishing Hand
[2022-07-20] MEDS: guaiFENesin 1,200 MG Tablet 1200 MG PO (09:56)
[2022-07-20] MEDS: Folic Acid/Vitamin B Comp W-C 1 Capsule 1 CAP PO (09:56)
[2022-07-20] MEDS: Polyethylene Glycol 3350 17 GM PACKET PO (09:56)
[2022-07-20] MEDS: Menthol/Lanolin/Calamine/Znox 113 GM Tube 1 APPLIC TOPICAL (09:57)
[2022-07-20] MEDS: Losartan Potassium 100 MG Tablet PO (09:57)
[2022-07-20] MEDS: amLODIPine 5 MG Tablet PO (09:57)
[2022-07-20] MEDS: Docusate Sodium 100 MG Capsule 200 MG PO (09:57)
--- NOTE | 2022-07-20 10:20 | CASEMGMT ---
Discharge Retail Bakery Manager Kathleen from the [facility] reached out. Jodie can accept patient. Holding off on starting pre-cert until I here from [facility]. Will follow up. Plan: Jodie Wu Discharge Retail Bakery Manager
--- NOTE | 2022-07-20 10:31 | CASEMGMT ---
Addendum entered by Katy Sanchez 07/20/22 14:33: Hospice called, pt to be picked up at 3pm. SW let pt's RN know, SW faxed over discharge instructions. No further needs anticipated. SAMIA Azul Addendum entered by Katy Sanchez 07/20/22 14:03: SW let Kathleen [facility]roz [place] know pt is going to the [facility]. SW called Hospice to ask time of pickup, they need to call SW back. SAMIA Azul Addendum entered by Katy Sanchez 07/20/22 13:35: Pt will be going to the inpt hospice unit today, hospice will be picking up pt . Pt signed papers, pt and aware pt is accepted and going today. SW let physician know, he will discharge pt. SAMIA Azul Addendum entered by Katy Sanchez 07/20/22 11:00: Social Work Hospice called, they will be here in an hour to meet w/pt and . SW let bedside RN know, already aware. SAMIA Azul Original Note: Social Work SW spoke w/Dr. Castillo, he states pt and agreeable for hospice referral. He states pt would be for the inpt unit. SW spoke to pt and , they are in agreement with hospice referral and also let SW know they would like pt to go to the inpt unit. SW let them know will make referral and that someone should be coming today to speak w/them about hospice and assess for [facility]. SW spoke w/d/c assistant Ramirez who let Kathleen [facility] [place] know. SW called [facility] and faxed referral, awaiting response. SAMIA Azul
--- NOTE | 2022-07-20 11:00 | PCM.DC ---
Discharge Instructions Diet Discharge Diet: No restrictions Activity Discharge Activity: Return to Normal Activity and May Not Drive Weight Bearing Status: Weight bearing as tolerated Dressing / Incision Call your doctor if you observe: Fever of 101 or Higher, Coldness, Increased Pain, Numbness or Tingling, Inability to urinate, Inability to have a bowel movement, Shortness of breath, Dizziness, Fainting spells, Swelling in the ankles, Chest pain, Prolonged hiccupping, Increased palpitations (irregular heartbeat), Calf discomfort and Uncontrolled pain Follow Up Care Test Results: Test results from this visit will be discussed in further detail at your follow-up appointment, if applicable. Discharge Plan Admission Admit Date/Time: 07/16/22 18:02 Primary Reason for Your Visit: Hypoxia due to right recurrent transudative pleural effusion, ESRD on HD Attending Provider: Jaiden Castillo Primary Care Provider: [facility] Consulting Providers: Oumou Mesa ; Dolly Mesa ; Kianna Hanna ; Surinder Valdez ; Heather Carmona ; Janis Giron ; Thi Cormier NP ; Ramiro Hernandez Instructions Patient Instructions: CARMELLA RN Thoracentesis Dc Discharge Orders/Prescriptions Prescriptions: New ipratropium-albuterol 0.5 mg-3 mg(2.5 mg base)/3 mL Solution For Nebulization 3 ml inhalation Q4HWA.RT PRN (Reason: SOB) Qty: 0 0RF sennosides-docusate sodium [Stool Softener-Stimulant Laxat] 8.6-50 mg Tablet 2 tab PO BID PRN PRN (Reason: Constipation) Qty: 0 0RF Virt-Caps 1 mg Capsule 1 cap PO DAILY Qty: 0 0RF insulin lispro [Humalog KwikPen Insulin] 100 unit/mL Insulin Pen See Protocol subcut ACHS Qty: 0 0RF Protocol: 3. Sliding Scale Insulin Med Dosing Condition: 150-189 mg/dl = 1 unit Condition: 190-229 mg/dl = 2 units Condition: 230-269 mg/dl = 3 units Condition: 270-309 mg/dl = 4 units Condition: 310-349 mg/dl = 5 units Condition: 350-399 mg/dl = 6 units Condition: 400-449 mg/dl = 7 units Condition: Greater than 449 call physician Protocol Text: - Use for Total Daily Dose of Insulin 37-55 units - Obsese, infected, or steroid patients MEDIUM DOSING ALGORITHIM Mucus Relief ER 1,200 mg Tablet Extended Release 12hr 1,200 mg PO BID Qty: 14 0RF insulin glargine-yfgn 100 unit/mL (3 mL) Insulin Pen 8 unit subcut QHS Qty: 0 0RF levofloxacin 500 mg tablet 500 mg PO Q48H Qty: 3 0RF Continued sevelamer HCl 800 mg tablet 2,400 mg PO BREAKFAST aspirin 81 MG tablet,chewable 81 mg PO DAILY Label Comments: a-fib B complex with C 20-folic acid 1 MG capsule 1 mg PO TID (DME) nebulizers 1 EACH misc 1 ea MC UD Qty: 1 0RF Rx Instructions: Dx: acute bronchitis Neb machine and kit x 1 Use as directed per aerosols atorvastatin 40 mg Tablet 40 mg PO QHS carvedilol [Coreg] 12.5 mg Tablet 12.5 mg PO QHS sevelamer HCl 800 mg Tablet 1,600 mg PO BIDCM Rx Instructions: also with snacks ergocalciferol (vitamin D2) 1,000 unit Capsule 6,000 unit PO DAILY docusate sodium 50 mg Tablet 200 mg PO DAILY PRN (Reason: Constipation) polyethylene glycol 3350 [Miralax] 17 gram/dose powder 17 g PO DAILY Qty: 238 0RF insulin glargine [Lantus U-100 Insulin] 100 unit/mL solution 8 - 10 unit SUBCUT QHS Label Comments: 1 unit subcutaneously as directed carbidopa-levodopa 10-100 mg tablet 1 tab PO BID Label Comments: 1 tablet by mouth as directed acetaminophen 325 mg Capsule 650 mg PO Q6H PRN (Reason: Pain) cholecalciferol (vitamin D3) [Vitamin D3] 50 mcg (2,000 unit) Capsule 2,000 unit PO cholecalciferol (vitamin D3) [Vitamin D3] 125 mcg (5,000 unit) Tablet 5,000 unit PO Changed amlodipine 5 mg Tablet 10 mg PO DAILY Qty: 60 0RF Discontinued insulin glargine 100 UNITS/ML insulin pen 8 - 10 units SC QHS insulin aspart U-100 [Novolog U-100 Insulin aspart] 100 unit/mL Solution 8 - 10 unit SUBCUT TIDCM losartan 100 mg Tablet 100 mg PO DAILY [facility] - Disposition Disposition (needs filled in before D/C Order can be placed): Hospice in Medical Facility
--- NOTE | 2022-07-20 11:38 | PCM.PN.BLA ---
Progress Note spoke with pt Amanda at bedside re: hospice. Pt has decided to withdraw from dialysis and hospice consulted. He has been chronically debilitated for many months now with progressive weakness where he is not able to walk with frequent falls. Will cancel dialysis. DW hospitalist
[2022-07-20 12:15] LABS: Bedside Glucose 112 mg/dL (74-106)
--- NOTE | 2022-07-20 14:08 | DS.PCM_ITS ---
Providers Date of Admission: 07/16/22 Date of Discharge: 07/20/22 Primary Care Physician: [facility] Consultations 07/16/22 18:46 Consult: Nephrology Routine Consulting Provider: Oumou Mesa Reason for Consult: ESRD-HD EMERGENT Consult: No Notified: Yes Date Notified: 07/16/22 Time Notified: 18:07 Method of Notification: Text 07/18/22 11:32 Consult: Hospice / Palliative Care Routine Consulting Provider: [facility] Reason for Consult: palliative care consult for medically complex patient. EMERGENT Consult: No MD Notified: Yes Date Notified: 07/18/22 Time Notified: 12:28 Method of Notification: emailed per CM Reason For Visit: pneumonia Diagnosis Discharge Diagnosis (1) Recurrent right pleural effusion: Status: Acute Code(s): J90 - Pleural effusion, not elsewhere classified (2) UTI (urinary tract infection): Status: Acute Code(s): N39.0 - Urinary tract infection, site not specified Qualifiers: Hematuria presence: without hematuria Urinary tract infection type: acute cystitis Qualified Code(s): N30.00 - Acute cystitis without hematuria (3) Bacteremia: Status: Acute Code(s): R78.81 - Bacteremia (4) Pneumonia: Status: Acute Code(s): J18.9 - Pneumonia, unspecified organism Qualifiers: Laterality: unspecified laterality Lung location: unspecified part of lung Pneumonia type: due to unspecified organism Qualified Code(s): J18.9 - Pneumonia, unspecified organism (5) Hypoxia: Status: Acute Code(s): R09.02 - Hypoxemia (6) Hyperbilirubinemia: Status: Acute Code(s): E80.6 - Other disorders of bilirubin metabolism (7) CHI (closed head injury): Status: Acute Code(s): S09.90XA - Unspecified injury of head, initial encounter (8) Debility: Status: Acute Code(s): R53.81 - Other malaise (9) ESRD on hemodialysis: Status: Acute Code(s): N18.6 - End stage renal disease; Z99.2 - Dependence on renal dialysis (10) Thrombocytopenia: Status: Acute Code(s): D69.6 - Thrombocytopenia, unspecified (11) Parkinson's disease: Status: Acute Code(s): G20 - Parkinson's disease Medications at Discharge Home Medications aspirin 81 mg chewable tablet 81 mg PO DAILY heart 06/07/16 vitamin B complex and vitamin C no.20-folic acid 1 mg capsule 1 mg PO TID kidneys 05/15/18 nebulizers #1 ea 05/17/18 sevelamer HCl 800 mg tablet 2,400 mg PO BREAKFAST kidneys 06/06/18 atorvastatin 40 mg tablet 40 mg PO QHS cholesterol 05/20/21 carvedilol 12.5 mg tablet (Coreg) 12.5 mg PO QHS blood pressure 05/20/21 ergocalciferol (vitamin D2) 1,000 unit capsule 6,000 unit PO DAILY vitamin 05/20/21 sevelamer HCl 800 mg tablet 1,600 mg PO BIDCM kidneys 05/20/21 docusate sodium 50 mg tablet 200 mg PO DAILY PRN Constipation 07/13/21 polyethylene glycol 3350 17 gram/dose oral powder (Miralax) 17 g PO DAILY #238 grams 06/26/22 acetaminophen 325 mg capsule 650 mg PO Q6H PRN Pain 07/16/22 carbidopa 10 mg-levodopa 100 mg tablet 1 tab PO BID parkinsons 07/16/22 cholecalciferol (vitamin D3) 125 mcg (5,000 unit) tablet (Vitamin D3) 5,000 unit PO supplement 07/16/22 cholecalciferol (vitamin D3) 50 mcg (2,000 unit) capsule (Vitamin D3) 2,000 unit PO supplement 07/16/22 insulin glargine 100 unit/mL subcutaneous solution (Lantus U-100 Insulin) 8 - 10 unit subcut QHS diabetes 07/16/22 amlodipine 5 mg tablet 10 mg PO DAILY blood pressure #60 tabs 07/20/22 guaifenesin 1,200 mg tablet, extended release 12 hr (Mucus Relief ER) 1,200 mg PO BID #14 tabs 07/20/22 insulin glargine-yfgn 100 unit/mL (3 mL) subcutaneous pen 8 unit (0.08 mL) subcut QHS #0 mL 07/20/22 insulin lispro 100 unit/mL subcutaneous pen (Humalog KwikPen (U-100) Insulin) See Protocol subcut ACHS #0 mL 07/20/22 ipratropium 0.5 mg-albuterol 3 mg (2.5 mg base)/3 mL nebulization soln 3 ml inhalation Q4HWA.RT PRN SOB #0 mL 07/20/22 levofloxacin 500 mg tablet 500 mg PO Q48H #3 tabs 07/20/22 sennosides 8.6 mg-docusate sodium 50 mg tablet (Stool Softener-Stimulant Laxative) 2 tab PO BID PRN PRN Constipation #0 tabs 07/20/22 vitamin B complex and vitamin C no.20-folic acid 1 mg capsule (Virt-Caps) 1 cap PO DAILY #0 caps 07/20/22 Hospital Course Summary of Care Provided Hospital Course: The patient is 66-year-old gentleman brought to ED by EMS for increasing weakness, recurrent fall, fever with chills. Patient fell down and hit the hard floor because of weakness. Patient at baseline ambulates with walker. His further hospital course, diagnosis, management as follows (1) Recurrent right pleural effusion: PLAN: -Chronic: Reviewed current with previous imaging: worse than previous. Has been previous since Dec 2021. -Thoracentesis performed 07/17: -Fluid c/w transudative effusion removed 700 cc chapo-colored fluid -Clinically improved.? Pulse ox 94% on 5 L of oxygen. (2) UTI (urinary tract infection): QUALIFIERS: ?Hematuria presence:?without hematuria??Urinary tract infection type:?acute cystitis? Qualified Code(s):?N30.00 - Acute cystitis without hematuria PLAN: Present on admission Urine culture growing out pseudomonas Change piperacillin/tazobactam to levofloxacin 750 every 48 hours through the (3) Bacteremia: PLAN: 2/2 UTI Secondary to pansensitive Pseudomonas Patient was treated with IV Zosyn during hospital course from 07/16-07/20 and then discharged on Levaquin 500 mg every 48 to complete a total of 10 days of antibiotic treatment (4) Pneumonia: QUALIFIERS: ?Laterality:?unspecified laterality??Lung location:? unspecified part of lung??Pneumonia type:?due to unspecified organism? Qualified Code(s):?J18.9 - Pneumonia, unspecified organism PLAN: -Ruled out. Infectious issues more likely stem from UTI and associated bacteremia, not pneumonia. Hypoxia likely from transudative pleural effusion. (5) Hypoxia: PLAN: Patient is still hypoxic. (6) Hyperbilirubinemia: PLAN: Improved but still elevated.? Though appears to be around his baseline. Patient had a CAT scan of his abdomen pelvis on January 19 of this year showed no acute process of his liver at that time.? There is no ultrasound ordered but patient wants hospice therefore not needed. Chronic abdominal pain (7) CHI (closed head injury): PLAN: -Resultant from a fall secondary to weakness -CT of the head was negative for any acute findings.??CT cervical spine negative. -No need for sutures -Continue to monitor (8) Debility: PLAN: -Patient with marked generalized weakness that is worsening since the onset of the symptoms . Patient fall about 2-3 times in 1 week. Mild abrasion over right lateral eyebrow with no active bleeding. Mild left shoulder pain. The abrasion heale d during hospital course -Consult PT/OT -Plan for the [address] (9) ESRD on hemodialysis: PLAN: -HD dependent--> Wednesday -Follows with Dr. Oumou Mesa.? Discussed with Dr. Mesa and patient and his he said no more dialysis.? Hospice/palliative care consult called (10) Thrombocytopenia: PLAN:?mild -Platelet count 148,000 -Baseline platelet counts are normal -May be related to acute infection -Continue to monitor (11) Parkinson's disease: PLAN: Patient is states that he does not have Parkinson's but he is on medication for Parkinson's.? Patient's unclear about her diagnosis with her PSP or MSA probably neurodegenerative disorder.? Patient is physically debilitated. Discharge medication reconciliation done. Discharge follow-up instructions completed. Discharge process discussed with the patient and all questions were answered to patient's satisfaction. Discharged to inpatient hospice care Total time spent, exact 35 minutes on discharge meds reconciliation, examination, coordination of care with nurses and ancillary staff, review of imaging and blood test and discussion with the patient on follow-up instructions. Physical Exam Narrative Patient and patient's met with the hospice care team and signed hospice paperwork. I signed DNRCC, hospice care paperwork. Patient and his wants him to go to long term as patient was cannot take care of of the patient at home. Patient seen and examined on day of discharge, please see progress note of the same date. Weight / BMI Weight Weight: 156 lb 15.506 oz Body Mass Index (BMI) 21.9 ABG / Lab / Microbiology Data Result Diagrams: 07/19/22 05:30 07/19/22 05:30 Laboratory: Laboratory Results - last 24 hr 07/19/22 16:06: POC Glucose 153 H 07/19/22 21:32: POC Glucose 162 H 07/20/22 06:08: POC Glucose 90 07/20/22 11:48: POC Glucose 112 H Microbiology: Microbiology 07/17/22 13:30 Sputum, Expectorated/Coughed Gram Stain - Final 07/17/22 13:30 Sputum, Expectorated/Coughed Respiratory Culture - Final Mixed normal respiratory deondre. No Streptococcus pneumoniae, beta-hemolytic Streptococcus or Staphylococcus aureus isolated. 07/16/22 16:06 Blood Culture (Wb) - Right Hand Blood Culture - Preliminary Pseudomonas aeroginosa 07/16/22 16:00 Blood Culture (Wb) - Right Forearm Blood Culture - Preliminary GNR Poss Pseudomonas sp 07/16/22 18:35 Urine, Clean Catch Urine Culture - Final Pseudomonas aeroginosa 07/16/22 20:10 Mucosa - Nasopharyngeal Respiratory Panel (PCR) - Final 07/16/22 18:35 Urine, Clean Catch Legionella Antigen - Final 07/16/22 18:35 Urine, Clean Catch Streptococcus pneumoniae Antigen (M - Final 07/16/22 15:35 Nasal Secretion SARS-CoV-2 Antigen (Rapid) - Final D/C Instructions Discharge Diet: No restrictions Weight Bearing Status: Weight bearing as tolerated Call your doctor if you observe: Fever of 101 or Higher, Coldness, Increased Pain, Numbness or Tingling, Inability to urinate, Inability to have a bowel movement, Shortness of breath, Dizziness, Fainting spells, Swelling in the ankles, Chest pain, Prolonged hiccupping, Increased palpitations (irregular heartbeat), Calf discomfort and Uncontrolled pain Meaningful Use Info Meaningful Use Diagnoses (Choose all that apply): None applicable Discharge Plan Admission Admit Date/Time: 07/16/22 18:02 Primary Reason for Your Visit: Hypoxia due to right recurrent transudative pleural effusion, ESRD on HD Attending Provider: Jaiden Castillo Primary Care Provider: [facility] Consulting Providers: Oumou Mesa ; Dolly Mesa ; Kianna Hanna ; Surinder Valdez ; Heather Carmona ; Janis Giron ; Thi Cormier FREELANCE INTERPRETER/TRANSLATOR ; Ramiro Hernandez Instructions Patient Instructions: CARMELLA RN Thoracentesis Dc Discharge Orders/Prescriptions Prescriptions: New ipratropium-albuterol 0.5 mg-3 mg(2.5 mg base)/3 mL Solution For Nebulization 3 ml inhalation Q4HWA.RT PRN (Reason: SOB) Qty: 0 0RF sennosides-docusate sodium [Stool Softener-Stimulant Laxat] 8.6-50 mg Tablet 2 tab PO BID PRN PRN (Reason: Constipation) Qty: 0 0RF Virt-Caps 1 mg Capsule 1 cap PO DAILY Qty: 0 0RF insulin lispro [Humalog KwikPen Insulin] 100 unit/mL Insulin Pen See Protocol subcut ACHS Qty: 0 0RF Protocol: 3. Sliding Scale Insulin Med Dosing Condition: 150-189 mg/dl = 1 unit Condition: 190-229 mg/dl = 2 units Condition: 230-269 mg/dl = 3 units Condition: 270-309 mg/dl = 4 units Condition: 310-349 mg/dl = 5 units Condition: 350-399 mg/dl = 6 units Condition: 400-449 mg/dl = 7 units Condition: Greater than 449 call physician Protocol Text: - Use for Total Daily Dose of Insulin 37-55 units - Obsese, infected, or steroid patients MEDIUM DOSING ALGORITHIM Mucus Relief ER 1,200 mg Tablet Extended Release 12hr 1,200 mg PO BID Qty: 14 0RF insulin glargine-yfgn 100 unit/mL (3 mL) Insulin Pen 8 unit subcut QHS Qty: 0 0RF levofloxacin 500 mg tablet 500 mg PO Q48H Qty: 3 0RF Continued sevelamer HCl 800 mg tablet 2,400 mg PO BREAKFAST aspirin 81 MG tablet,chewable 81 mg PO DAILY Label Comments: a-fib B complex with C 20-folic acid 1 MG capsule 1 mg PO TID (DME) nebulizers 1 EACH misc 1 ea MC UD Qty: 1 0RF Rx Instructions: Dx: acute bronchitis Neb machine and kit x 1 Use as directed per aerosols atorvastatin 40 mg Tablet 40 mg PO QHS carvedilol [Coreg] 12.5 mg Tablet 12.5 mg PO QHS sevelamer HCl 800 mg Tablet 1,600 mg PO BIDCM Rx Instructions: also with snacks ergocalciferol (vitamin D2) 1,000 unit Capsule 6,000 unit PO DAILY docusate sodium 50 mg Tablet 200 mg PO DAILY PRN (Reason: Constipation) polyethylene glycol 3350 [Miralax] 17 gram/dose powder 17 g PO DAILY Qty: 238 0RF insulin glargine [Lantus U-100 Insulin] 100 unit/mL solution 8 - 10 unit SUBCUT QHS Label Comments: 1 unit subcutaneously as directed carbidopa-levodopa 10-100 mg tablet 1 tab PO BID Label Comments: 1 tablet by mouth as directed acetaminophen 325 mg Capsule 650 mg PO Q6H PRN (Reason: Pain) cholecalciferol (vitamin D3) [Vitamin D3] 50 mcg (2,000 unit) Capsule 2,000 unit PO cholecalciferol (vitamin D3) [Vitamin D3] 125 mcg (5,000 unit) Tablet 5,000 unit PO Changed amlodipine 5 mg Tablet 10 mg PO DAILY Qty: 60 0RF Discontinued insulin glargine 100 UNITS/ML insulin pen 8 - 10 units SC QHS insulin aspart U-100 [Novolog U-100 Insulin aspart] 100 unit/mL Solution 8 - 10 unit SUBCUT TIDCM losartan 100 mg Tablet 100 mg PO DAILY Referrals / [facility]: [facility] - Disposition Disposition (needs filled in before D/C Order can be placed): Hospice in Medical Facility Charges/Coding Addendum Addendum: Please cancel the billing charge of the progress note of the same date, 07/20/2022. Visit Charges Inpatient E&M: [id number] Disch Hosp
[2022-07-20 15:37] LABS: Pathologist Comment/Body Fluid Reviewed
[2022-07-21 08:55] LABS: Pathologist Review Reviewed
--- NOTE | 2022-07-22 08:54 | CASEMGMT ---
Social Work RED received VM from ARACELI Huang at [facility]. Same requesting information on pt and where he discharged to. RED reviewed pt chart, called Sal back to inform that pt went to the [facility]. RED faxed discharge summary to Sal as well. SISI Bailey
== END 2022-07-20 15:00 | disposition hospice, inpatient (51) | DRG 186 ==
LOC: ED 17:50 → MS3 18:11
PROVIDERS: Internal Medicine Nephrology; Admitting Provider Internal Medicine; Emergency Provider Emergency Medicine; Visit Provider Internal Medicine
DX: J90 Pleural effusion, not elsewhere classified (principal); N18.6 End stage renal disease; R78.81 Bacteremia; I12.0 Hypertensive chronic kidney disease with stage 5 chronic kidney disease or end stage renal disease; N30.00 Acute cystitis without hematuria; D69.6 Thrombocytopenia, unspecified; E11.22 Type 2 diabetes mellitus with diabetic chronic kidney disease; Z99.2 Dependence on renal dialysis; Z79.4 Long term (current) use of insulin; G20 Parkinson's disease; E78.5 Hyperlipidemia, unspecified; E80.6 Other disorders of bilirubin metabolism; S00.211A Abrasion of right eyelid and periocular area, initial encounter; W19.XXXA Unspecified fall, initial encounter; I25.10 Atherosclerotic heart disease of native coronary artery without angina pectoris; S40.012A Contusion of left shoulder, initial encounter; I25.2 Old myocardial infarction; K59.09 Other constipation; R53.1 Weakness; B96.5 Pseudomonas (aeruginosa) (mallei) (pseudomallei) as the cause of diseases classified elsewhere; G89.29 Other chronic pain; R53.81 Other malaise; R74.01 Elevation of levels of liver transaminase levels; F32.A Depression, unspecified; R09.02 Hypoxemia; R29.6 Repeated falls; Z66 Do not resuscitate; Z51.5 Encounter for palliative care; Z95.1 Presence of aortocoronary bypass graft; Z79.82 Long term (current) use of aspirin; Z79.899 Other long term (current) drug therapy
CPT/HCPCS: 32555; 36415; 70450; 71046; 71250; 72125; 73030; 80048; 80053; 80076; 80202; 81001; 82945; 82962; 83605; 83615; 83735; 84100; 84157; 85025; 85610; 85730; 87040; 87070; 87077; 87086; 87088; 87184; 87186; 87205; 87340; 87449; 87633; 87641; 87811; 88108; 88305; 88313; 89050; 90937; 92526; 92610; 93005; 94640; 94760; 97110; 97116; 97162; 97166; 97530; 97535; 97802; 99285; J7030; J7050; A4216; G0257